=== PATIENT | male | born 1940 | race Caucasian/White ===

== ENCOUNTER 2017-06-06 15:40 | Observation (INO) | payer OTHER, MEDICARE ==
--- NOTE | 2017-06-06 15:49 | PDOC ---
History of Present Illness - General History Source: Patient Exam Limitations: No Limitations - History of Present Illness Initial Comments: 06/06/17 15:51 The patient is a 77 year old male, with a significant past medical history of CAD s/p stents, aortic aneurysm x3, CVA (last episode 2014), COPD, HTN, and HLD , who presents to the emergency department with near syncopal event. The patient reports being out to eat with his when he had sensations of passing out and feeling faint. He reports after eating, his symptoms seemed to improve. He notes his vision has been a little blurry. He denies any changes in speech.He denies any recent fevers, chills, headache. He denies any recent nausea, vomit, diarrhea or constipation. He denies any recent chest pain or shortness of breath. Allergies: NKA Past surgical history: See HPI Social History: Former smoker (last episode 2001). Denies EtOH use and recreational drug use. <Reginald Singh - Last Filed: 06/06/17 15:51> <Rosalie Ha - Last Filed: 06/06/17 18:09> - General Chief Complaint: CVA/TIA Stated Complaint: WEAK Time Seen by Provider: 06/06/17 15:42 NIH Stroke Scale - Last Known Well Date/Time & Onset Date Last Known Well: 06/06/17 - Initial Evaluation Level of consciousness: Alert Ask patient the month and their age: Answers both correctly Ask patient to open & close eyes; make fist and let go: Obeys both correctly Best gaze (horizontal eye movement): Normal Visual field testing: No visual field loss Facial paresis (Show teeth/raise eyebrows/close eyes tight): Normal symmetrical movement Motor Function: Left Arm: Normal Motor Function: Right Arm: Normal (extends arm 90 (or 45) degrees for 10 seconds without drift Motor Function: Left Leg: Normal (extends leg 30 degrees for 5 seconds without drift) Motor Function: Right Leg: Normal (extends leg 30 degrees for 5 seconds without drift) Limb Ataxia: No ataxia Sensory(Use pinprick test arms,legs,trunk,face/side to side): Normal Best language (Describe picture, name items, read sentences): No Aphasia Dysarthria (read several words): Normal articulation Extinction and Inattention: No abnormality - Total Score NIH Stroke Scale Score: 0 <Rosalie Ha - Last Filed: 06/06/17 18:09> Past History <Reginald Singh - Last Filed: 06/06/17 15:51> - Past Medical History Cardiac Disorders: Yes (CAD) CVA: Yes (x 2 weeks ago) COPD: Yes Disorders: (48% KIDNEY FX) HTN: Yes Hypercholesterolemia: (ELEVATED TRIGLYCERIDES) - Surgical History Abdominal Surgery: (COLON RESECTION) Cardiac Surgery: Yes (STENT X 1) - Immunization History Immunization Up to Date: Yes - Suicide/Smoking/Psychosocial Hx Smoking Status: No Smoking History: Never smoked Have you smoked in the past 12 months: No Number of Cigarettes Smoked Daily: 0 If you are a former smoker, when did you quit?: 2001 'Breaking Loose' booklet given: 07/21/14 Hx Alcohol Use: No Drug/Substance Use Hx: No Substance Use Type: None Hx Substance Use Treatment: No <Rosalie Ha - Last Filed: 06/06/17 18:09> - Past Medical History Allergies/Adverse Reactions: Allergies Allergy/AdvReac Type Severity Reaction Status Date / Time No Known Allergies Allergy Verified 11/01/15 12:19 Home Medications: Ambulatory Orders Alprazolam [Xanax] 0.25 mg PO DAILY PRN 03/07/15 Amlodipine Besylate [Norvasc -] 10 mg PO DAILY 03/07/15 Aspirin [ASA -] 81 mg PO DAILY 03/07/15 Atorvastatin Ca [Lipitor] 20 mg PO HS 03/07/15 Cholecalciferol (Vitamin D3) [Vitamin D3] 1,000 unit PO HS 03/07/15 Citalopram Hydrobromide [Celexa -] 40 mg PO DAILY 03/07/15 Losartan Potassium [Cozaar] 100 mg PO DAILY 03/07/15 Metoprolol Succinate [Toprol Xl] 25 mg PO HS 03/07/15 Primidone [Mysoline -] 50 mg PO DAILY 03/07/15 Warfarin Sodium [Coumadin] 3 mg PO Q48H 03/07/15 Warfarin Sodium [Coumadin] 5 mg PO Q48H 03/07/15 Review of Systems - Review of Systems Able to Perform ROS?: Yes Comments:: 06/06/17 15:51 GENERAL/CONSTITUTIONAL: No fever or chills. No weakness. HEAD, EYES, EARS, NOSE AND THROAT: No change in vision. No ear pain or discharge. No sore throat. CARDIOVASCULAR: No chest pain or shortness of breath. RESPIRATORY: No cough, wheezing, or hemoptysis. GASTROINTESTINAL: No nausea, vomiting, diarrhea or constipation. GENITOURINARY: No dysuria, frequency, or change in urination. MUSCULOSKELETAL: No joint or muscle swelling or pain. No neck or back pain. SKIN: No rash NEUROLOGIC: +dizziness. No headache, vertigo, loss of consciousness, or change in strength/sensation. ENDOCRINE: No increased thirst. No abnormal weight change. HEMATOLOGIC/LYMPHATIC: No anemia, easy bleeding, or history of blood clots. ALLERGIC/IMMUNOLOGIC: No hives or skin allergy. <Reginald Singh - Last Filed: 06/06/17 15:51> *Physical Exam - Physical Exam Comments: 06/06/17 15:52 GENERAL: Awake, alert, and fully oriented, in no acute distress HEAD: No signs of trauma EYES: PERRLA, EOMI, sclera anicteric, conjunctiva clear ENT: Auricles normal inspection, hearing grossly normal, nares patent, oropharynx clear without exudates. Moist mucosa NECK: Normal ROM, supple, no lymphadenopathy, JVD, or masses LUNGS: Breath sounds equal, clear to auscultation bilaterally. No wheezes, and no crackles HEART: Regular rate and rhythm, normal S1 and S2, no murmurs, rubs or gallops ABDOMEN: Soft, nontender, normoactive bowel sounds. No guarding, no rebound. No masses EXTREMITIES: Resting tremors in his hands bilaterally. Normal range of motion, no edema. No clubbing or cyanosis. No cords, erythema, or tenderness NEUROLOGICAL: Cranial nerves II through XII grossly intact. Normal speech, normal gait SKIN: Warm, Dry, normal turgor, no rashes or lesions noted. <Reginald Singh - Last Filed: 06/06/17 15:51> ED Treatment Course - LABORATORY CBC & Chemistry Diagram: 06/06/17 16:12 06/06/17 16:12 <Rosalie Ha - Last Filed: 06/06/17 18:09> Medical Decision Making - Medical Decision Making 06/06/17 15:51 Symptoms are atypical for CVA, and his NIHSS is 0. Would suspect cardiac etiology for his near syncope. Will obtain CTH in light of history of prior CVA , however, low suspicion. Will also obtain labs, EKG, and CXR. 06/06/17 17:58 Case d/w Dr. Bain. Agrees with plan for placement on obs for near syncope. I will contact hospitalist for admission. 06/06/17 18:09 Case d/w hospitalist [employer]. Will place on obs. <Rosalie Ha - Last Filed: 06/06/17 18:09> *DC/Admit/Observation/Transfer - Attestations Scribe Attestion: 06/06/17 15:52 Documentation prepared by Reginald Singh, acting as chief medical director for Rosalie Ha MD. <Reginald Singh - Last Filed: 06/06/17 15:51> - Discharge Dispostion Admit: Yes <Rosalie Ha - Last Filed: 06/06/17 18:09> Diagnosis at time of Disposition: Near syncope - Discharge Dispostion Condition at time of disposition: Stable
[2017-06-06 16:25] LABS: BASO % 1.3 % (0-2.0); EOS % 8.3 % (0-4.5); HEMATOCRIT 36.8 % (35.4-49); HEMOGLOBIN 12.9 GM/dl (11.7-16.9); LYMPH % 10.2 % (8-40); MCH 31.9 pg (25.7-33.7); MCHC 35.1 g/dl (32.0-35.9); MEAN CELL VOLUME 90.9 fl (80-96); MEAN PLT VOLUME 8.7 fl (7.5-11.1); MONO % 6.8 % (3.8-10.2); NEUT % 73.4 % (42.8-82.8); PLATELET COUNT 175 K/MM3 (134-434); RBC 4.05 M/mm3 (4.00-5.60); RDW 13.5 % (11.9-15.9); WHITE BLOOD COUNT 8.7 K/mm3 (4.0-10.8)
[2017-06-06 16:28] LABS: INR 2.83 (0.82-1.09)
[2017-06-06 16:33] LABS: ALBUMIN 3.4 g/dl (3.5-5.0); ALK PHOS 72 U/L (32-92); ANION GAP 7 (8-16); BILIRUBIN,TOTAL 0.7 mg/dl (0.2-1.0); BLOOD UREA NITROGEN 51 mg/dl (7-18); CALCIUM 8.4 mg/dl (8.4-10.2); CHLORIDE 108 mmol/L (98-107); CO2 21 mmol/L (22-28); CREATININE 1.9 mg/dl (0.6-1.3); GLUCOSE,RANDOM 138 mg/dl (74-106); POTASSIUM 4.8 mmol/L (3.5-5.1); SGOT/AST 19 U/L (10-42); SGPT/ALT 17 U/L (10-40); SODIUM 136 mmol/L (136-145); TOT PROT 6.1 g/dl (6.4-8.3)
[2017-06-06 16:42] LABS: TROPONIN I (DFP) < 0.03 ng/ml (0.03-0.50)
[2017-06-06 20:08] VITALS: BMI 23.7
[2017-06-06 20:23] LABS: PH,URINE 5.5 (4.5-8); URINE APPEARANCE Clear; URINE BILIRUBIN Negative (NEGATIVE); URINE BLOOD Trace-lysed (NEGATIVE); URINE COLOR YELLOW; URINE GLUCOSE (UA) Negative (NEGATIVE); URINE KETONE Negative (NEGATIVE); URINE NITRITE Negative (NEGATIVE); URINE PROTEIN 1+ (NEGATIVE); URINE UROBILINOGEN 0.2 (0.2-1.0)
[2017-06-06 20:37] LABS: AMORP URATES FEW /hpf (NONE SEEN); EPI CELLS FEW /HPF
[2017-06-06 20:38] LABS: URINE BACTERIA FEW /hpf (NEGATIVE)
--- NOTE | 2017-06-06 22:14 | HP ---
CHIEF COMPLAINT: Near Syncope PCP: Dr. Bain Cardiology- Dr. Siddiqui HISTORY OF PRESENT ILLNESS: This is a 77 y/o man with a significant history of HTN, HLD, CAD (stent x1), Aortic Aneurysm x3, CVA(2015, Coumadin), COPD (non O2 dep). Who presents to the Ed with a near syncope episode x this afternoon. Patient reports eating out a restaurant with his when he became lightheaded, dizzy with blurred vision then he fainted- which he attributes to hypoglycemia. Patient reports in the past having similar episodes. Patient denies fever, chills, cough, OB, CP, palpitations, N/V/D, constipation, dysuria. ER course was notable for: (1) Head CT- neg ICH, mass or lesion (2) Troponin I- negative (3) EKG- sinus bradycardia Recent Travel: None PAST MEDICAL HISTORY: See HPI PAST SURGICAL HISTORY: Cardiac Stent x1 AAA Repair Carotid Endarterectomy Social History: Smoking: Never Alcohol: None Drugs: None Lives with Spouse, retired, Independent Family History: Non-contributory Allergies No Known Allergies Allergy (Verified 11/01/15 12:19) HOME MEDICATIONS: Home Medications Medication Instructions Recorded Alprazolam [Xanax] 0.5 mg PO HS PRN 03/07/15 Aspirin [ASA -] 81 mg PO DAILY 03/07/15 Cholecalciferol (Vitamin D3) 1,000 unit PO HS 03/07/15 [Vitamin D3] Metoprolol Succinate [Toprol Xl] 50 mg PO BID 03/07/15 Warfarin Sodium [Coumadin] 4 mg PO DAILY 03/07/15 Amlodipine Besylate [Norvasc -] 5 mg PO DAILY 06/06/17 Sertraline HCl [Zoloft] 50 mg PO DAILY 06/06/17 REVIEW OF SYSTEMS CONSTITUTIONAL: Absent: fever, chills, diaphoresis, generalized weakness, malaise, loss of appetite, weight change HEENT: Absent: rhinorrhea, nasal congestion, throat pain, throat swelling, difficulty swallowing, mouth swelling, ear pain, eye pain, visual changes CARDIOVASCULAR: syncope, lightheadedness Absent: chest pain, palpitations, irregular heart rate, peripheral edema RESPIRATORY: Absent: cough, shortness of breath, dyspnea with exertion, orthopnea, wheezing, stridor, hemoptysis GASTROINTESTINAL: Absent: abdominal pain, abdominal distension, nausea, vomiting, diarrhea, constipation, melena, hematochezia GENITOURINARY: Absent: dysuria, frequency, urgency, hesitancy, hematuria, flank pain, genital pain MUSCULOSKELETAL: Absent: myalgia, arthralgia, joint swelling, back pain, neck pain SKIN: Absent: rash, itching, pallor HEMATOLOGIC/IMMUNOLOGIC: Absent: easy bleeding, easy bruising, lymphadenopathy, frequent infections ENDOCRINE: Absent: unexplained weight gain, unexplained weight loss, heat intolerance, cold intolerance NEUROLOGIC: dizziness Absent: headache, focal weakness or paresthesias, steady gait, seizure, mental status changes, bladder or bowel incontinence PSYCHIATRIC: Absent: anxiety, depression, suicidal or homicidal ideation, hallucinations. PHYSICAL EXAMINATION Vital Signs - 24 hr 06/06/17 06/06/17 06/06/17 15:40 18:57 19:45 Temperature 98.1 F 98.0 F 98.0 F Pulse Rate 58 L 58 L 58 L Respiratory 20 18 18 Rate Blood Pressure 141/56 151/58 151/58 O2 Sat by Pulse 98 100 100 Oximetry (%) GENERAL: Awake, alert, and fully oriented, in no acute distress. HEAD: Normal with no signs of trauma. EYES: Pupils equal, round and reactive to light, extraocular movements intact, sclera anicteric, conjunctiva clear. No lid lag. EARS, NOSE, THROAT: Ears normal, nares patent, oropharynx clear without exudates. Moist mucous membranes. NECK: Normal range of motion, supple without lymphadenopathy, JVD, or masses. LUNGS: Breath sounds equal, clear to auscultation bilaterally. No wheezes, and no crackles. No accessory muscle use. HEART: Regular rate and rhythm, normal S1 and S2 without murmur, rub or gallop. ABDOMEN: Soft, nontender, not distended, normoactive bowel sounds, no guarding, no rebound, no masses. No hepatomegaly or splenomegaly. MUSCULOSKELETAL: Normal range of motion at all joints. No bony deformities or tenderness. No CVA tenderness. UPPER EXTREMITIES: 2+ pulses, warm, well-perfused. No cyanosis. No clubbing. No peripheral edema. LOWER EXTREMITIES: 2+ pulses, warm, well-perfused. No calf tenderness. No peripheral edema. NEUROLOGICAL: Cranial nerves II-XII intact. Normal speech. Gait not observed PSYCHIATRIC: Cooperative. Good eye contact. Appropriate mood and affect. SKIN: Warm, dry, normal turgor, no rashes or lesions noted, normal capillary refill. Laboratory Results - last 24 hr 06/06/17 06/06/17 06/06/17 16:12 16:12 16:12 WBC 8.7 RBC 4.05 Hgb 12.9 Hct 36.8 MCV 90.9 MCH 31.9 MCHC 35.1 RDW 13.5 Plt Count 175 MPV 8.7 Neutrophils % 73.4 Lymphocytes % 10.2 Monocytes % 6.8 Eosinophils % 8.3 H Basophils % 1.3 PT with INR 31.0 H INR 2.83 H Sodium 136 Potassium 4.8 Chloride 108 H Carbon Dioxide 21 L Anion Gap 7 L BUN 51 H Creatinine 1.9 H Creat Clearance w eGFR 34.46 Random Glucose 138 H Calcium 8.4 Total Bilirubin 0.7 AST 19 ALT 17 Alkaline Phosphatase 72 Creatine Kinase 47 Troponin I < 0.03 L Total Protein 6.1 L Albumin 3.4 L Urine Color Urine Appearance Urine pH Ur Specific [place] Urine Protein Urine Glucose (UA) Urine Ketones Urine Blood Urine Nitrite Urine Bilirubin Urine Urobilinogen Ur Leukocyte Esterase Urine RBC Urine WBC Ur Epithelial Cells Amorphous Urates Urine Bacteria 06/06/17 18:48 WBC RBC Hgb Hct MCV MCH MCHC RDW Plt Count MPV Neutrophils % Lymphocytes % Monocytes % Eosinophils % Basophils % PT with INR INR Sodium Potassium Chloride Carbon Dioxide Anion Gap BUN Creatinine Creat Clearance w eGFR Random Glucose Calcium Total Bilirubin AST ALT Alkaline Phosphatase Creatine Kinase Troponin I Total Protein Albumin Urine Color Yellow Urine Appearance Clear Urine pH 5.5 Ur Specific [place] 1.015 Urine Protein 1+ H Urine Glucose (UA) Negative Urine Ketones Negative Urine Blood Trace-lysed H Urine Nitrite Negative Urine Bilirubin Negative Urine Urobilinogen 0.2 Ur Leukocyte Esterase Negative Urine RBC 10-20 Urine WBC 2-4 Ur Epithelial Cells Few Amorphous Urates Few Urine Bacteria Few ASSESSMENT/PLAN: This is a 77 y/o man with a PMHx of: HTN, HLD, CAD (stent), COPD (non O2 dep), CVA ( 2014, R- hand residual). Placed on Telemetry Observation for Near Syncope. Plan: 1. Near Syncope- r/o ACS vs TIA. Continue Cardiac monitoring, CT Head- No ICH, mass or lesion, Serial Enzymes, EKG- sinus bradycardia, no ST or TWI. Carotid Doppler, Echo, Appreciate Cardiology Consult, Asa, NIHSS 0 2. Hypertension- Will monitor BP, Continue Norvasc, Metoprolol with parameters. Monitor renal function 3. CAD- s/p stent, Continue Asa, BB with parameters 4. Hyperlipidemia- Lipid panel in am, will start on Lipitor 5. Acute on Chronic CKD- At baseline (1.3-2.1), avoid nephrotoxins, repeat BMP in am 6. COPD- No acute exacerbation, Duoneb prn, O2 prn 7. CVA- Continue home med 8. F/E/N- PO Fluids tolerated, Replete lytes prn, Low Na, Low Cholesterol Diet 9. DVT Prophylaxis- OOB, SCDs, Continue Coumadin maintain INR (2.0-3.0) Code Status: Full Code Dispo: Tele Observation Problem List - Problem (1) Near syncope Code(s): R55 - SYNCOPE AND COLLAPSE (2) IDALIA (acute kidney injury) Code(s): N17.9 - ACUTE KIDNEY FAILURE, UNSPECIFIED (3) CKD (chronic kidney disease), stage III Code(s): N18.3 - CHRONIC KIDNEY DISEASE, STAGE 3 (MODERATE) (4) Hypertension with renal disease Code(s): I12.9 - HYPERTENSIVE CHRONIC KIDNEY DISEASE W STG 1-4/UNSP CHR KDNY (5) TIA (transient ischemic attack) Code(s): G45.9 - TRANSIENT CEREBRAL ISCHEMIC ATTACK, UNSPECIFIED (6) Right hand weakness Code(s): M62.81 - MUSCLE WEAKNESS (GENERALIZED) (7) COPD (chronic obstructive pulmonary disease) Code(s): J44.9 - CHRONIC OBSTRUCTIVE PULMONARY DISEASE, UNSPECIFIED (8) DVT prophylaxis Code(s): QLW6058 - Visit type - Emergency Visit Emergency Visit: Yes ED Registration Date: 06/06/17 Care time: The patient presented to the Emergency Department on the above date and was hospitalized for further evaluation of their emergent condition. - New Patient This patient is new to me today: Yes Date on this admission: 06/06/17 - Critical Care Critical Care patient: No
[2017-06-06] MEDS ORDERED: ALPRAZolam 0.25 MG TABLET PO PRN (23:05)
[2017-06-06] MEDS: METOPROLOL SUCCINATE 50 MG TAB.SR.24H (FP) PO SCH (23:12)
[2017-06-06] MEDS: WARFARIN NA 2 MG TABLET (UD) PO SCH (23:25)
[2017-06-07 09:17] LABS: EOS % 11.1 % (0-4.5); HEMATOCRIT 36.9 % (35.4-49); HEMOGLOBIN 12.6 GM/dl (11.7-16.9); LYMPH % 16.3 % (8-40); MCH 31.2 pg (25.7-33.7); MCHC 34.1 g/dl (32.0-35.9); MEAN CELL VOLUME 91.5 fl (80-96); MEAN PLT VOLUME 9.1 fl (7.5-11.1); MONO % 8.8 % (3.8-10.2); NEUT % 62.8 % (42.8-82.8); PLATELET COUNT 168 K/MM3 (134-434); RBC 4.03 M/mm3 (4.00-5.60); RDW 13.5 % (11.9-15.9)
[2017-06-07] MEDS: SERTRALINE HCL 50 MG TABLET (FP) PO SCH (09:50)
[2017-06-07] MEDS: ASPIRIN 81 MG CHEWABLE TABLETS PO SCH (09:50)
[2017-06-07] MEDS: amLODIPine BESYLATE 5 MG TABLET (FP) PO SCH (09:54)
[2017-06-07] MEDS: METOPROLOL SUCCINATE 50 MG TAB.SR.24H (FP) PO SCH ×2 (09:55→23:00)
[2017-06-07 10:14] LABS: ANION GAP 7 (8-16); BLOOD UREA NITROGEN 51 mg/dl (7-18); CALCIUM 8.6 mg/dl (8.4-10.2); CHLORIDE 113 mmol/L (98-107); CO2 21 mmol/L (22-28); CREATININE 1.8 mg/dl (0.6-1.3); GLUCOSE,RANDOM 86 mg/dl (74-106); MAGNESIUM 2.3 mg/dL (1.8-2.4); PHOSPHOROUS 3.4 mg/dl (2.5-4.6); POTASSIUM 5.1 mmol/L (3.5-5.1); SODIUM 141 mmol/L (136-145)
--- NOTE | 2017-06-07 10:33 | PN ---
Physical Exam: SUBJECTIVE: Patient seen and examined, patient denies any chest pain, reports feeling much improved once to go home. OBJECTIVE: Patient is a 77 y/o man with a significant history of HTN, HLD, CAD (stent x1), Aortic Aneurysm x3, CVA(2015, Coumadin), COPD (non O2 dep) Vital Signs Period Temp Pulse Resp BP Sys/Cisneros Pulse Ox Last 24 Hr 97.8 F-98.8 F 58-70 18-20 95-151/42-58 97-100 GENERAL: The patient is awake, alert, and fully oriented, in no acute distress. HEAD: Normal with no signs of trauma. EYES: PERRL, extraocular movements intact, sclera anicteric, conjunctiva clear. No ptosis. ENT: Ears normal, nares patent, oropharynx clear without exudates, moist mucous membranes. NECK: Trachea midline, full range of motion, supple. LUNGS: Breath sounds equal, clear to auscultation bilaterally, no wheezes, no crackles, no accessory muscle use. HEART: Regular rate and rhythm, S1, S2 without murmur, rub or gallop. ABDOMEN: Soft, nontender, nondistended, normoactive bowel sounds, no guarding, no rebound, no hepatosplenomegaly, no masses. EXTREMITIES: 2+ pulses, warm, well-perfused, no edema. NEUROLOGICAL: Cranial nerves II through XII grossly intact. Normal speech, gait not observed. PSYCH: Normal mood, normal affect. SKIN: Warm, dry, normal turgor, no rashes or lesions noted Laboratory Results - last 24 hr 06/06/17 06/06/17 06/06/17 16:12 16:12 16:12 WBC 8.7 RBC 4.05 Hgb 12.9 Hct 36.8 MCV 90.9 MCH 31.9 MCHC 35.1 RDW 13.5 Plt Count 175 MPV 8.7 Neutrophils % 73.4 Lymphocytes % 10.2 Monocytes % 6.8 Eosinophils % 8.3 H Basophils % 1.3 PT with INR 31.0 H INR 2.83 H Sodium 136 Potassium 4.8 Chloride 108 H Carbon Dioxide 21 L Anion Gap 7 L BUN 51 H Creatinine 1.9 H Creat Clearance w eGFR 34.46 Random Glucose 138 H Calcium 8.4 Phosphorus Magnesium Total Bilirubin 0.7 AST 19 ALT 17 Alkaline Phosphatase 72 Creatine Kinase 47 Troponin I < 0.03 L Total Protein 6.1 L Albumin 3.4 L Urine Color Urine Appearance Urine pH Ur Specific [place] Urine Protein Urine Glucose (UA) Urine Ketones Urine Blood Urine Nitrite Urine Bilirubin Urine Urobilinogen Ur Leukocyte Esterase Urine RBC Urine WBC Ur Epithelial Cells Amorphous Urates Urine Bacteria 06/06/17 06/07/17 06/07/17 18:48 00:05 07:30 WBC RBC Hgb Hct MCV MCH MCHC RDW Plt Count MPV Neutrophils % Lymphocytes % Monocytes % Eosinophils % Basophils % PT with INR INR Sodium 141 Potassium 5.1 Chloride 113 H Carbon Dioxide 21 L Anion Gap 7 L BUN 51 H Creatinine 1.8 H Creat Clearance w eGFR Random Glucose 86 D Calcium 8.6 Phosphorus 3.4 Magnesium 2.3 Total Bilirubin AST ALT Alkaline Phosphatase Creatine Kinase Troponin I < 0.02 0.01 Total Protein Albumin Urine Color Yellow Urine Appearance Clear Urine pH 5.5 Ur Specific [place] 1.015 Urine Protein 1+ H Urine Glucose (UA) Negative Urine Ketones Negative Urine Blood Trace-lysed H Urine Nitrite Negative Urine Bilirubin Negative Urine Urobilinogen 0.2 Ur Leukocyte Esterase Negative Urine RBC 10-20 Urine WBC 2-4 Ur Epithelial Cells Few Amorphous Urates Few Urine Bacteria Few 06/07/17 07:30 WBC 8.0 RBC 4.03 Hgb 12.6 Hct 36.9 MCV 91.5 MCH 31.2 MCHC 34.1 RDW 13.5 Plt Count 168 MPV 9.1 Neutrophils % 62.8 Lymphocytes % 16.3 D Monocytes % 8.8 Eosinophils % 11.1 H Basophils % 1.0 PT with INR INR Sodium Potassium Chloride Carbon Dioxide Anion Gap BUN Creatinine Creat Clearance w eGFR Random Glucose Calcium Phosphorus Magnesium Total Bilirubin AST ALT Alkaline Phosphatase Creatine Kinase Troponin I Total Protein Albumin Urine Color Urine Appearance Urine pH Ur Specific [place] Urine Protein Urine Glucose (UA) Urine Ketones Urine Blood Urine Nitrite Urine Bilirubin Urine Urobilinogen Ur Leukocyte Esterase Urine RBC Urine WBC Ur Epithelial Cells Amorphous Urates Urine Bacteria Active Medications Generic Name Dose Route Start Last Admin Trade Name Freq PRN Reason Stop Dose Admin Alprazolam 0.5 mg 06/06/17 23:05 06/06/17 23:45 Xanax - PO 0.5 mg HS PRN Administration ANXIETY Amlodipine Besylate 5 mg 06/07/17 10:00 06/07/17 09:54 Norvasc - PO Not Given DAILY [facility]ER Aspirin 81 mg 06/07/17 10:00 06/07/17 09:50 Asa - PO 81 mg DAILY EVER Administration Atorvastatin Calcium 10 mg 06/07/17 22:00 Lipitor - PO HS [facility] Cholecalciferol 1,000 unit 06/07/17 22:00 Vitamin D3 - PO HS [facility] Metoprolol Succinate 50 mg 06/06/17 23:00 06/07/17 09:55 Toprol Xl - PO Not Given BID EVER Sertraline HCl 50 mg 06/07/17 10:00 06/07/17 09:50 Zoloft - PO 50 mg DAILY [facility]ER Administration Warfarin Sodium 4 mg 06/06/17 18:00 06/06/17 23:25 Coumadin - PO 4 mg DAILY@[address] Head- No ICH, mass or lesion ASSESSMENT/PLAN: 1.cardiovascular Near Syncope- - bradycardia noted on telemetry, hold toprol, appreciate cardiology input - troponin x 3 wnl - pending echo - carotid dopplers right ICA, 50-69% stenosis noted unchanged from carotid doppler 2014, discussed with Dr Mike (vascular) will require outpatient followup hypertension - b/p at goal, hold toprol due to bradycardia, continue norvasc cad - continue lipitor pending lipid profile 2. nephrology ckd - creatine 1.8, baseline 1.3 - strict monitoring, repeat bmp in am 3) pulm COPD- No acute exacerbation, Duoneb prn, O2 prn 4) neuro CVA - fall precautions, PT eval - continue coumadin home dose, patient has a PFO, inr is therepeutic 5). F/E/N- PO Fluids tolerated, Replete lytes prn, Low Na, Low Cholesterol Diet 6) . DVT Prophylaxis- OOB, SCDs, Continue Coumadin maintain INR (2.0-3.0) Code Status: Full Code Dispo: Tele Observation Visit type - Emergency Visit Emergency Visit: Yes ED Registration Date: 06/06/17 Care time: The patient presented to the Emergency Department on the above date and was hospitalized for further evaluation of their emergent condition. - New Patient This patient is new to me today: Yes Date on this admission: 06/07/17 - Critical Care Critical Care patient: No - Discharge Referral Referred to [facility] Med P.C.: No
--- NOTE | 2017-06-07 10:45 | EKG ---
Test Reason : Blood Pressure : / mmHG Vent. Rate : 057 BPM Atrial Rate : 057 BPM P-R Int : 190 ms QRS Dur : 078 ms QT Int : 414 ms P-R-T Axes : 036 037 060 degrees QTc Int : 402 ms SINUS BRADYCARDIA WHEN COMPARED WITH ECG OF 01-NOV-2015 12:29, VT INTERVAL HAS DECREASED Confirmed by MD FIGUEREDO MARJORY ([id number]) on 06/07/2017 10:45:07 AM Referred By: DEBBY BRITO Confirmed By:PAT FIGUEREDO MD
[2017-06-07 13:53] LABS: CHOLESTEROL 149 mg/dl; HDL CHOLESTEROL 35 mg/dl (29-89); LDL CHOLESTEROL (ONLY DFH) 89 mg/dl; TRIGLYCERIDES 127 mg/dl (35-160)
[2017-06-07 15:10] LABS: ANION GAP 6 (8-16); BLOOD UREA NITROGEN 51 mg/dl (7-18); CALCIUM 8.3 mg/dl (8.4-10.2); CHLORIDE 108 mmol/L (98-107); CO2 22 mmol/L (22-28); CREATININE 1.9 mg/dl (0.6-1.3); GLUCOSE,RANDOM 113 mg/dl (74-106); POTASSIUM 4.6 mmol/L (3.5-5.1); SODIUM 136 mmol/L (136-145)
[2017-06-07] MEDS ORDERED: diphenhydrAMINE HCL 25 MG CAPSULE (FP) PO ONE (16:20)
[2017-06-07] MEDS: WARFARIN NA 2 MG TABLET (UD) PO SCH (17:47)
--- NOTE | 2017-06-07 20:52 | CONS ---
CARDIOLOGY CONSULTATION DATE OF CONSULTATION: 06/07/2017 REQUESTING PHYSICIAN: Hospitalist. CHIEF COMPLAINTS: Near syncope, weakness. 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 Patient states that he had gone out for a meal with his , and he got up from his table because he had urgency of micturition, went to the bathroom, was having difficulty in urinating, and was standing there for protracted period of time. After completing the act, he walked out of the bathroom and became lightheaded and felt that he may pass out. There was no history of diaphoresis, chest pain, or discomfort. No dyspnea was reported. He came to the table, sat down, and continued to have lightheadedness. He ate half his meal, and his noticed that he was not looking well and called 9-1-1. Once he was placed on the gurney, the patient states that he started to feel better, was brought to the hospital and admitted. There is no history of palpitations, focal weakness, speech disturbances. There is no history of dyspnea either at rest or with exertion. Patient has history of hypertension, hypertensive cardiovascular disease, and paroxysmal atrial fibrillation. PAST HISTORY: As mentioned in the history of present illness. History of intestinal obstruction. SURGICAL HISTORY: Status post tonsillectomy. Status post partial colon resection. Status post bilateral cataract extraction. Status post left carotid endarterectomy. SOCIAL HISTORY: . He is retired, has no children. Smoked from age 14 to 59 years, used to smoke at least 1 pack of cigarettes a day. He did drink heavily, but at the present time, he has a social drink. He drinks 3 cups of coffee, and there is no history of drug use. FAMILY HISTORY: Father at age 46 because of pancreatitis and was an alcoholic. Mother at 73, had diabetes mellitus and cancer. A brother of congenital heart disease at age 22. ALLERGIES: Patient has been taken off LIPITOR as he has been complaining of generalized pruritus of undetermined etiology. REVIEW OF SYSTEMS: Constitutional: No history of chills, fever, or night sweats. No history of unintentional weight loss. HEENT: No history of headaches, diplopia, or blurred vision. No history of epistaxis, hoarseness, tinnitus, or deafness reported. Cardiovascular: No history of recent chest pain or discomfort. See history of present illness. Respiratory: History of chronic nonproductive cough. No history of hemoptysis or tuberculosis. Gastrointestinal: No history of nausea, vomiting, melena, or hematemesis. No history of abdominal pain or discomfort. No history of change in bowel habits. Genitourinary: History of BPH and poor stream, dribbling, nocturia. See history of present illness. Central Nervous System: See history of present illness. No history of recent seizures or focal weakness. Musculoskeletal: Generalized stiffness. Hematological: No history of ecchymosis, anemia, or bleeding. PHYSICAL EXAMINATION: General: A 77-year-old gentleman was in no acute distress, no pallor, cyanosis, clubbing, or jaundice. Vital Signs: Blood pressure 95/52 mmHg at 9:25 a.m. At 1400 hours was 125/39 mmHg. Pulse 78 beats per minute and regular. He was afebrile. Respirations were 19 per minute, and oxygen saturations were 98% on room air. Neck: Supple. No jugular venous distention. Hepatojugular reflex was negative. Carotids were 2+. Upstrokes were normal. There was a well-healed left carotid endarterectomy scar. The right lobe of the thyroid appears prominent and possibly enlarged, especially on swallowing. Heart: PMI was in the fifth intercostal space. No heaves or thrills. S1 and S2 were normal. Grade 2/6 ejection systolic murmur was heard at the second right intercostal space, ending in early systole. No diastolic murmur or gallops were heard. Lungs: Clear on auscultation. Abdomen: Soft, protuberant, and nontender. No hepatosplenomegaly or palpable masses were felt. Bowel sounds were present. No bruits were appreciated. Extremities: No calf tenderness or dependent edema. Femoral pulses were 2+. Dorsalis pedis and posterior tibial pulses were weak. CURRENT MEDICATIONS: 1. Warfarin 4 mg p.o. daily. 2. Sertraline 50 mg p.o. daily. 3. Alprazolam 0.5 mg p.r.n. 4. Metoprolol succinate 50 mg p.o. b.i.d. 5. Amlodipine 5 mg p.o. daily. 6. Atorvastatin was recently discontinued and has been resumed at 10 mg p.o. daily. 7. Aspirin 81 mg p.o. daily. 8. Vitamin D3 at 1000 international units p.o. daily. 9. Benadryl 25 mg p.o. single dose. LABORATORY DATA: CBC June 07, 2017: WBC count 8000, hemoglobin 12.6 g/dL, platelet count 168,000. Differential was normal except eosinophils were 11.1%. Chemistry on admission June 06, 2017: Sodium 136, potassium 4.8, chloride 108, CO2 of 21 mmol/L. BUN 51, creatinine 1.9 mg/dL. Random glucose was 138 mg/dL. CK was 47, troponin less than 0.03, 0.02, and 0.01. Total cholesterol was 149, triglycerides were 127, LDL cholesterol was 89, HDL cholesterol was 35. Color flow Doppler revealed elevated peak systolic velocity in the distal cervical right internal carotid artery suggesting 50% to 69% stenosis. CT of the head impression: No significant interval change from January 14, 2015. Focal encephalomalacia in the left occipital lobe and in the left frontal lobe posteriorly/laterally at the level of the centrum semiovale. No gross acute intracranial pathology is identified. ECG reported as sinus bradycardia when compared with ECG of November 01, 2015. CA interval has decreased. IMPRESSION: 1. Clinical presentation is suggestive of post-micturition near syncope. 2. Postural hypotension needs exclusion. 3. Coronary artery disease status post percutaneous coronary intervention/stenting, angina pectoris currently stable. 4. Hypertension, currently normotensive. 5. Hypercholesterolemia. 6. Status post endovascular repair of abdominal aortic aneurysm (x2). 7. Left iliac artery aneurysm. 8. Chronic obstructive pulmonary disease. 9. Depression. 10. Anxiety disorder. 11. Chronic kidney disease. 12. Eosinophilia, etiology to be determined. 13. History of pruritus of undetermined etiology. 14. Benign prostatic hypertrophy. RECOMMENDATION: 1. Check blood pressure supine and standing. 2. Evaluation of prostatic enlargement. He has been recently started on Flomax 0.4 mg and may be contributing to his symptoms. 3. Patient should remain hydrated. 4. If necessary, antihypertensive therapy may have to be reduced. 5. If symptoms were to recur, further investigation would be warranted. Thank you for your referral. Yours sincerely, RICH MURILLO M.D. [id number]
[2017-06-07] MEDS ORDERED: CHOLECALCIFEROL (VITAMIN D3) 1,000 UNIT TABLET (FP) PO SCH (22:00)
[2017-06-07] MEDS ORDERED: ATORVASTATIN CA 10 MG TABLET (FP) PO SCH (22:00)
[2017-06-08 06:02] VITALS: TEMP 98.8
[2017-06-08] MEDS: SERTRALINE HCL 50 MG TABLET (FP) PO SCH (09:49)
[2017-06-08] MEDS: amLODIPine BESYLATE 5 MG TABLET (FP) PO SCH (09:49)
[2017-06-08] MEDS: ASPIRIN 81 MG CHEWABLE TABLETS PO SCH (09:49)
[2017-06-08] MEDS: METOPROLOL SUCCINATE 50 MG TAB.SR.24H (FP) PO SCH (09:50)
[2017-06-08 10:13] VITALS: BP 107/36; PULSE 59
[2017-06-08] MEDS ORDERED: METOPROLOL SUCCINATE 25 MG TAB.SR.24H (FP) PO SCH (11:13)
--- NOTE | 2017-06-08 12:22 | DS ---
Physical Exam: SUBJECTIVE: Patient seen and examined, sitting up in bed, eating lunch, denies any chest pain or shortness of breath. OBJECTIVE: This is a 77 y/o man with a significant history of HTN, HLD, CAD ( stent x1), Aortic Aneurysm x3, CVA(2015, Coumadin), COPD (non O2 dep). Who presents to the Ed with a near syncope episode x this afternoon. Patient reports eating out a restaurant with his when he became lightheaded, dizzy with blurred vision then he fainted- which he attributes to hypoglycemia. Patient reports in the past having similar episodes. Patient denies fever, chills, cough, OB, CP, palpitations, N/V/D, constipation, dysuria. ER course was notable for: (1) Head CT- neg ICH, mass or lesion (2) Troponin I- negative (3) EKG- sinus bradycardia Vital Signs Period Temp Pulse Resp BP Sys/Cisneros Pulse Ox Last 24 Hr 98.3 F-98.8 F 59-78 19-19 91-143/36-58 96-99 PHYSICAL EXAM GENERAL: The patient is awake, alert, and fully oriented, in no acute distress. HEAD: Normal with no signs of trauma. EYES: PERRL, extraocular movements intact, sclera anicteric, conjunctiva clear. ENT: Ears normal, nares patent, oropharynx clear without exudates, moist mucous membranes. NECK: Trachea midline, full range of motion, supple. LUNGS: Breath sounds equal, clear to auscultation bilaterally, no wheezes, no crackles, no accessory muscle use. HEART: Regular rate and rhythm, S1, S2 without murmur, rub or gallop. ABDOMEN: Soft, nontender, nondistended, normoactive bowel sounds, no guarding, no rebound, no hepatosplenomegaly, no masses. EXTREMITIES: 2+ pulses, warm, well-perfused, no edema. NEUROLOGICAL: Cranial nerves II through XII grossly intact. Normal speech, gait not observed. PSYCH: Normal mood, normal affect. SKIN: Warm, dry, normal turgor, no rashes or lesions noted. LABS Laboratory Results - last 24 hr 06/07/17 06/07/17 06/07/17 07:30 07:30 13:30 Sodium 136 Potassium 4.6 Chloride 108 H Carbon Dioxide 22 Anion Gap 6 L BUN 51 H Creatinine 1.9 H Random Glucose 113 H D Hemoglobin A1c % 5.9 D Calcium 8.3 L Triglycerides 127 Cholesterol 149 Total LDL Cholesterol 89 HDL Cholesterol [address] Head- No ICH, mass or lesion HOSPITAL COURSE: 1. Near Syncope, bradycardia noted on telemetry, toprol decreased to 25mg BID , troponin x 3 wnl, ECHO grade I diastolic dysfunction, lv WNL. Carotid dopplers right ICA, 50-69% stenosis noted unchanged from carotid doppler 2014, discussed with Dr Mike (vascular) will require outpatient followup. patient has a past medical history of hypertension, b/p at goal, continued norvasc, lipitor continued LFTs wnl. Creatine 1.8, baseline 1.3. coumadin home dose continued, inr is therepeutic. Patient's private bed bug exterminator, Dr Jones consulted and followed. PLAN - discharge home with VNS - decrease lopressor to 25mg BID - return precautions reviewed. Date of Admission:06/06/17 Date of Discharge: 06/08/17 Minutes to complete discharge: 45 Discharge Summary Reason For Visit: PRE SYNCOPE Current Active Problems COPD (chronic obstructive pulmonary disease) (Acute) DVT prophylaxis (Acute) Near syncope (Acute) Condition: Stable - Instructions - Home Medications Comprehensive Discharge Medication List: Ambulatory Orders Alprazolam [Xanax] 0.5 mg PO HS PRN 03/07/15 Aspirin [ASA -] 81 mg PO DAILY 03/07/15 Cholecalciferol (Vitamin D3) [Vitamin D3] 1,000 unit PO HS 03/07/15 Metoprolol Succinate [Toprol Xl] 50 mg PO BID 03/07/15 Warfarin Sodium [Coumadin] 4 mg PO DAILY 03/07/15 Amlodipine Besylate [Norvasc -] 5 mg PO DAILY 06/06/17 Sertraline HCl [Zoloft] 50 mg PO DAILY 06/06/17 This patient is new to me today: No Emergency Visit: Yes ED Registration Date: 06/06/17 Care time: The patient presented to the Emergency Department on the above date and was hospitalized for further evaluation of their emergent condition. Critical Care patient: No - Discharge Referral Referred to [facility] No
== END 2017-06-08 13:30 | disposition home health service (06) ==
LOC: FER 15:40 → FM/S 18:22
PROVIDERS: ADMIT Internal Medicine; ATTEND Nurse Practitioner Family
DX: R55 Syncope and collapse (principal); I25.10 Atherosclerotic heart disease of native coronary artery without angina pectoris; E78.5 Hyperlipidemia, unspecified; I12.9 Hypertensive chronic kidney disease with stage 1 through stage 4 chronic kidney disease, or unspecified chronic kidney disease; N18.9 Chronic kidney disease, unspecified; J44.9 Chronic obstructive pulmonary disease, unspecified; Z86.73 Personal history of transient ischemic attack (TIA), and cerebral infarction without residual deficits; Z95.5 Presence of coronary angioplasty implant and graft; Z79.01 Long term (current) use of anticoagulants; Z79.82 Long term (current) use of aspirin; Z86.79 Personal history of other diseases of the circulatory system; R00.1 Bradycardia, unspecified
CPT/HCPCS: 36415; 70450-TC; 71045-TC; 80048; 80053; 80061; 81003; 81015; 82550; 83036; 83735; 84100; 84484; 85025; 85610; 93005; 93306-TC; 93880-TC; 97116-GP; 97161-GP; 99283-25; G0378

== ENCOUNTER 2018-10-27 18:11 | Inpatient (IN) | payer OTHER, MEDICARE ==
--- NOTE | 2018-10-27 20:01 | PDOC ---
History of Present Illness - General Chief Complaint: Shortness of Breath Stated Complaint: SYNCOPE/NEAR SYNCOPE Time Seen by Provider: 10/27/18 18:48 History Source: Patient, Spouse ( present at bedside.), Old Records Exam Limitations: No Limitations - History of Present Illness Initial Comments: HPI: 78 y/o male presenting to [facility] ER complaining of shortness of breath that started this afternoon for approx. 15 min to several hours. Pt states he has suffered episodes of shortness of breath chronically since his abdominal aortic aneurysm repair August 2017. reports todays episode was different because her appeared more labored than usual, he had difficulty walking, and would not open his eyes or speak to her. Symptoms improved after EMS arrived and placed the pt on oxygen. Denies coughing, sneezing, or wheezing. He has a h/ o of COPD and emphysema managed only with albuterol. Reports poor compliance with both medication and clinic follow up. He repeatedly stated that he worked for [employer] and therefore knew he was on too many medications. PCP: Dr. Bain Manager Insurance: Dr. London Industrial Servicer: Dr. Bui Social Hx: - Former smoker, stopped 17 min ago Medical Hx: - [place] s/p stenting 2001 - CVA x2, last 2014 on Coumadin - CKD, stage 3 - BPH - s/p AAA endovascular stenting, last revision August 2017 at [facility] - common iliac aneurysm - s/p L carotid endarterectomy 2014 - s/p colon resection, reason unclear Review of Systems: In addition to that documented in the HPI above, the additional ROS was obtained : Constitutional: Denies fevers or chills Head: Denies vision changes ENMT: Denies sore throat CV: Denies chest pain, orthopnea, paroxysmal nocturnal dyspnea, or bilateral lower leg swelling Resp: Per HPI GI: Denies vomiting or diarrhea : Denies painful urination MSK: Denies recent trauma Skin: Denies new rashes Neuro: Denies new numbness or tingling or weakness Endocrine: Denies polyuria Heme: Denies bleeding or bruising Physical Examination: Constitutional: Adult male in no acute distress or obvious discomfort. Found semi-fowlers on hospital bed. Alert and oriented x4. Answered all questions appropriately and completely. Speech was non-labored, non-pressured. Able to speak in multi-word responses without pausing. Head: Normocephalic. No obvious external signs of trauma. Eyes: Pupils 3mm and PERRL bilaterally. EOMI. No nystagmus. Sclerae white. Conjunctiva moist and not injected. Ears: Hearing grossly intact. Nose: No nasal discharge. Throat: Uvula midline. No tongue deviation. Neck: Supple, trachea is midline. Cardiovascular / Chest: Regular rate and regular rhythm. No murmur, rubs, clicks , or gallops. Peripheral pulses: radial pulses full. Respiratory: Breathing unlabored on room air. No tachypnea, retractions, or abdominal breathing. Equal chest rise and fall. Clear to auscultation bilaterally. No stridor, no wheezing, no rhonchi. Gastrointestinal: abdomen is soft, non-tender, non-distended. No pulsatile masses. Neuro: Alert and oriented x4. Moving all four extremities spontaneously. Intention tremor in bilateral upper extremities. No focal deficits. Sensation to all four extremities intact. Upper and lower extremities: proximal and distal strength 5/5. Medical Assistant Instructor strength 5/5 - equal and symmetric. Plantar flexion and dorsiflexion 5/5. Difficulty performing rapid alternating movements and heel to ashraf. Skin: Warm, dry, and intact. : No R or L CVA tenderness. Psych: Affect: disgruntled. Mood: frustrated. MDM: *Reviewed vital signs, nursing notes, and prior visit documentation (if available). 78 y/o male presenting for shortness of breath versus pre-syncopal episode. Afebrile. Vitals unremarkable for hypotension or tachycardia. Normoxic on room air. Physical exam as described above. Suspect likely exacerbation / progression of disease of emphysema / COPD. Low suspicion for ACS or dissection without chest or back pain. Low suspicion for AAA rupture without abdominal pain or vital sign derangement. CBC unremarkable for anemia. Mild leukocytosis without left shift. Low suspicion for active infection. CXR revealed increased vascular markings but no consolidations per ED wet read. BNP slightly elevated. Possible CHF exacerbation though pt does not have a h/o of CHF. Troponin not elevated. EKG unremarkable for ischemic findings. ABG RESULTS ARE NOT ACCURATE. THESE RESULTS WERE OBTAINED FROM A VENOUS SAMPLE. Repeat ABG drawn by RT. ED Attending discussed case with Dr. Bain. Stated he had not seen the pt in over a year. Requested the pt be admitted to [facility]. Will resume care if pt stays over 24hrs. Case discussed with [facility] EYE DROPPER ASSEMBLER. Will admit the pt to telemetry on observation status for SOB and possible presyncopal episode. Vu Monteiro M.D., PGY1 Emergency Medicine Resident Past History - Past Medical History Allergies/Adverse Reactions: Allergies Allergy/AdvReac Type Severity Reaction Status Date / Time No Known Allergies Allergy Verified 10/27/18 18:25 Home Medications: Ambulatory Orders Alprazolam [Xanax] 0.5 mg PO HS PRN 03/07/15 Aspirin [ASA -] 81 mg PO DAILY 03/07/15 Cholecalciferol (Vitamin D3) [Vitamin D3] 1,000 unit PO HS 03/07/15 Warfarin Sodium [Coumadin] 4 mg PO DAILY 03/07/15 Amlodipine Besylate [Norvasc -] 5 mg PO DAILY 06/06/17 Sertraline HCl [Zoloft] 50 mg PO DAILY 06/06/17 Atorvastatin Ca [Lipitor] 10 mg PO HS tablet 06/08/17 Metoprolol Succinate [Toprol XL -] 25 mg PO BID #60 tab.sr.24h 06/08/17 Cardiac Disorders: Yes (CAD) CVA: Yes (x 2 weeks ago) COPD: Yes Disorders: (48% KIDNEY FX) HTN: Yes Hypercholesterolemia: (ELEVATED TRIGLYCERIDES) - Surgical History Abdominal Surgery: (COLON RESECTION) Cardiac Surgery: Yes (STENT X 1) - Immunization History Immunization Up to Date: Yes - Suicide/Smoking/Psychosocial Hx Smoking Status: No Smoking History: Former smoker Have you smoked in the past 12 months: No Number of Cigarettes Smoked Daily: 0 If you are a former smoker, when did you quit?: 2001 Information on smoking cessation initiated: No 'Breaking Loose' booklet given: 07/21/14 Hx Alcohol Use: No Drug/Substance Use Hx: No Substance Use Type: None Hx Substance Use Treatment: No *Physical Exam - Vital Signs Last Vital Signs Temp Pulse Resp BP Pulse Ox 98.7 F 59 L 20 147/66 100 10/27/18 18:26 10/27/18 18:26 10/27/18 18:26 10/27/18 18:26 10/27/18 18:26 ED Treatment Course - LABORATORY CBC & Chemistry Diagram: 10/27/18 20:00 10/27/18 20:00 - RADIOLOGY Radiology Studies Ordered: Category Date Time Status CHEST X-RAY PORTABLE* [RAD] Stat Radiology 10/27/18 19:55 Ordered *DC/Admit/Observation/Transfer Diagnosis at time of Disposition: Pre-syncope, Shortness of breath - Discharge Dispostion Condition at time of disposition: Stable Decision to Admit order: Yes - Referrals - Patient Instructions - Post Discharge Activity
[2018-10-27 20:11] LABS: BASO % 0.7 % (0-2.0); CARBOXYHEMOGLOBIN 1.2 % (0-2); EOS % 3.5 % (0-4.5); HEMATOCRIT 37.9 % (35.4-49); HEMOGLOBIN 12.4 GM/dL (11.7-16.9); LYMPH % 5.9 % (8-40); MCH 30.1 pg (25.7-33.7); MCHC 32.7 g/dl (32.0-35.9); MEAN CELL VOLUME 92.1 fl (80-96); MEAN PLT VOLUME 8.4 fl (7.5-11.1); MONO % 5.3 % (3.8-10.2); NEUT % 84.6 % (42.8-82.8); PLATELET COUNT 170 K/MM3 (134-434); RBC 4.12 M/mm3 (4.00-5.60); RDW 14.3 % (11.9-15.9); WHITE BLOOD COUNT 11.5 K/mm3 (4.0-10.0)
[2018-10-27 20:30] LABS: ARTERIAL BLD GAS O2 SATURATION 58.2 % (95-98); ARTERIAL BLOOD GAS PCO2 35.4 mmHg (35-45); ARTERIAL BLOOD GAS PO2 32.6 mmHg (80-105)
[2018-10-27 20:31] LABS: ARTERIAL BLOOD GAS BASE EXCESS -3.1 meq/l (-2-2)
[2018-10-27 20:45] LABS: ALBUMIN 3.4 g/dl (3.4-5.0); ALK PHOS 108 U/L (45-117); ANION GAP 10 MMOL/L (8-16); BILIRUBIN,TOTAL 0.4 mg/dL (0.2-1); BLOOD UREA NITROGEN 44 mg/dL (7-18); CALCIUM 8.1 mg/dL (8.5-10.1); CHLORIDE 104 mmol/L (98-107); CO2 23 mmol/L (21-32); CREATININE 2.3 mg/dL (0.55-1.3); GLUCOSE,RANDOM 115 mg/dL (74-106); N-TERMINAL BNP 885.5 pg/ml (5-450); POTASSIUM 4.9 mmol/L (3.5-5.1); SGOT/AST 15 U/L (15-37); SGPT/ALT 23 U/L (13-61); SODIUM 137 mmol/L (136-145); TOT PROT 6.5 g/dl (6.4-8.2)
[2018-10-27 20:48] LABS: VENOUS PC02 35.4 mmHg (41-51); VENOUS PH 7.39 (7.31-7.41)
[2018-10-27 20:49] LABS: VENOUS PO2 32.6 mmHg (30-40)
[2018-10-27] MEDS ORDERED: ALBUTEROL SO4 2.5/IPRATROPIUM 0.5 INH SOL 3 ML VIAL.NEB. NEB ONE ×2 (20:52→21:19)
[2018-10-27 20:59] LABS: ARTERIAL BLOOD GAS pH 7.39 (7.35-7.45)
--- NOTE | 2018-10-27 21:00 | PDOC ---
Documentation entered by Elmira Merino SCRIBE, acting as scribe for Venus Fung DO. Venus Fung, : This documentation has been prepared by the Angelique hylton Nirvannie, SCRIBE, under my direction and personally reviewed by me in its entirety. I confirm that the documentation accurately reflects all work, treatment, procedures, and medical decision making performed by me. Attending Attestation - Resident Resident Name: Vu Monteiro - ED Attending Attestation I have performed the following: I have examined & evaluated the patient, The case was reviewed & discussed with the resident, I agree w/resident's findings & plan - HPI HPI: 10/27/18 21:43 The patient is a 78 year old male, with a significant past medical history of depression, [place] (cardiac stenting 2002, CVA (x2, noncompliant with Coumadin), CKD Stage III, BPH, AAA (s/p endovascular stenting and revision x4, last 2017 @ [facility]), left sided common iliac aneurysm (stable on last CT scan), colon resection, and left sided endarterectomy (15), who presents to the emergency department s/p episode of near syncope and shortness of breath. As per patient, he was straining to urinate in the bathroom and as he walked out he began feeling short of breath, sat down, and notes he stopped responding to verbal stimuli momentarily and was short of breath for approximately 15min. Patient endorses mild dysuria and partial retention. He denies any recent palpitations or shortness of breath. He denies any recent fevers, chills, headache or dizziness. He denies any recent nausea, vomit, diarrhea or constipation. He denies any recent palpitations or shortness of breath. Allergies: NKDA Primary Care Physician: Dr. Bain - Physicial Exam PE: 10/27/18 21:43 Constitutional: Awake, alert, oriented. No acute distress. Head: Normocephalic. Atraumatic Eyes: PERRL. EOMI. Conjunctivae are not pale. ENT: Mucous membranes are moist and intact. Posterior pharynx without exudates or erythema. Uvula midline. Neck: Supple. Full ROM. No lymphadenopathy. Cardiovascular: Regular rate. Regular rhythm. S1, S2 regular. Distal pulses are 2+ and symmetric. Pulmonary/Chest: No evidence of respiratory distress. Clear to auscultation bilaterally No wheezing, rales or rhonchi. Abdominal: Soft and non-distended. There is no tenderness. No rebound, guarding or rigidity. No organomegaly. No palpable masses. Good bowel sounds. Back: No CVA tenderness. Musculoskeletal: No edema. No cyanosis. No clubbing. Full range of motion in all extremities. No calf tenderness. Radial/pedal pulses are intact and 2+ bilaterally Skin: +Sonal to the blt folds of the groin. No penile discharge, lesions, or bleeding. Neurological: Alert and oriented to person, place, and time. Cranial nerves II -XII are grossly intact. Normal speech. Strength is grossly symmetric. No sensory deficits. Psychiatric: Good eye contact. Normal interaction, affect and behavior. - Medical Decision Making 10/27/18 20:53 I, Dr. Venus Fung, DO, attest that this document has been prepared under my direction and personally reviewed by me in its entirety. I further attest, that it accurately reflects all work, treatment, procedures and medical decision -making performed by me. 10/27/18 20:53 a/p: 78yo male presents to the ED with his for eval of an episode of near syncope/sob today -was straining in the bathroom when he started to feel sob -states dysuria on and off for a year -pt appears depressed -states sob today, has resolved -denies feeling lightheaded now -states symptoms resolved when the patient was given O2 by medics -pt hasn't seen pmd in a year since last aaa repair -pt denies cp or abd pain -pt has neuro deficits/aphasia since stroke in 2015 -denies head injury -denies cough/f/c -will send labs, inr, ua, ucx -will obtain cxr, ekg -will discuss with Dr. Bain 21:[address] Bain, patient's PCP, for admission awaiting call back. 10/27/18 22:[address] Bain who requests luhobob do obs placement overnight 10/27/18 22:55 resident discussed the case with JEFF SOFTWARE BUILD ENGINEER who accepts pt to service labs labeled ABG are truly a VBG Heart Score/ECG Review - ECG Intrepretation Comment:: 10/27/18 21:00 sinus at 58, 1st degree av block, no acute st/t wave findings, q waves septally which are age indeterminate
[2018-10-27 21:19] LABS: INR 2.98 (0.83-1.09); PROTHROMBIN TIME (PATIENT) 35.6 SEC (9.7-13.0)
--- NOTE | 2018-10-27 23:43 | HP ---
CHIEF COMPLAINT:SOB, pre-syncope PCP:Taya HISTORY OF PRESENT ILLNESS: Luiz De La Cruz is a 78 yr old M, significant past medical history of depression, [place] (cardiac stenting 2001, CVA (x2, noncompliant with Coumadin), CKD Stage III, BPH, AAA (s/p endovascular stenting and revision x4, last 2017 @ [facility]), left sided common iliac aneurysm (stable on last CT scan), colon resection, and left sided endarterectomy (15), presented to ED with pre- syncope, and SOB on exertion. present at bedside, pt reports not being able to make it to his Dr's appt because of not feeling well, has not seen PCP, Cardio, Renal in over a year. 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 Recent Travel: PAST MEDICAL HISTORY: -UT s/p stenting 2001 - CVA x2, last 2014 on Coumadin - CKD, stage 3 - BPH - s/p AAA endovascular stenting, last revision August 2017 at [facility] - L common iliac aneurysm - s/p L carotid endarterectomy 2015 - s/p colon resection, reason unclear PAST SURGICAL HISTORY: -UT stenting 2001 -s/p AAA endovascular stenting, last revision 09/15 @ [facility] -s/p L carotid endartectomy 2015 - s/p colon resection Social History: Smoking:former Alcohol:denies Drugs: denies Family History: Allergies No Known Allergies Allergy (Verified 10/27/18 18:25) HOME MEDICATIONS: Home Medications Medication Instructions Recorded Alprazolam [Xanax] 0.5 mg PO HS PRN 03/07/15 Aspirin [ASA -] 81 mg PO DAILY 03/07/15 Cholecalciferol (Vitamin D3) 1,000 unit PO HS 03/07/15 [Vitamin D3] Warfarin Sodium [Coumadin] 4 mg PO DAILY 03/07/15 Amlodipine Besylate [Norvasc -] 5 mg PO DAILY 06/06/17 Sertraline HCl [Zoloft] 50 mg PO DAILY 06/06/17 Atorvastatin Ca [Lipitor] 10 mg PO HS tablet 06/08/17 Metoprolol Succinate [Toprol XL -] 25 mg PO BID #60 tab.sr.24h 06/08/17 REVIEW OF SYSTEMS CONSTITUTIONAL: Absent: fever, chills, diaphoresis, generalized weakness, malaise, loss of appetite, weight change HEENT: Absent: rhinorrhea, nasal congestion, throat pain, throat swelling, difficulty swallowing, mouth swelling, ear pain, eye pain, visual changes CARDIOVASCULAR: Absent: chest pain, syncope, palpitations, irregular heart rate, lightheadedness , peripheral edema RESPIRATORY: +SOB, dyspnea on exertion Absent: cough, orthopnea, wheezing, stridor, hemoptysis GASTROINTESTINAL: Absent: abdominal pain, abdominal distension, nausea, vomiting, diarrhea, constipation, melena, hematochezia GENITOURINARY: straining to urinate Absent: dysuria, frequency, urgency, hematuria, flank pain, genital pain MUSCULOSKELETAL: Absent: myalgia, arthralgia, joint swelling, back pain, neck pain SKIN: itching in groin area Absent: pallor HEMATOLOGIC/IMMUNOLOGIC: Absent: easy bleeding, easy bruising, lymphadenopathy, frequent infections ENDOCRINE: Absent: unexplained weight gain, unexplained weight loss, heat intolerance, cold intolerance NEUROLOGIC: Absent: headache, focal weakness or paresthesias, dizziness, unsteady gait, seizure, mental status changes, bladder or bowel incontinence PSYCHIATRIC: Absent: anxiety, depression, suicidal or homicidal ideation, hallucinations. PHYSICAL EXAMINATION Vital Signs - 24 hr 10/27/18 18:26 Temperature 98.7 F Pulse Rate 59 L Respiratory 20 Rate Blood Pressure 147/66 O2 Sat by Pulse 100 Oximetry (%) GENERAL: Awake, alert, and fully oriented, in no acute distress. HEAD: Normal with no signs of trauma. EYES: Pupils equal, round and reactive to light, extraocular movements intact, sclera anicteric, conjunctiva clear. No lid lag. EARS, NOSE, THROAT: Ears normal, nares patent, oropharynx clear without exudates. Moist mucous membranes. NECK: Normal range of motion, supple without lymphadenopathy, JVD, or masses. LUNGS: Breath sounds equal, clear to auscultation bilaterally. No wheezes, and no crackles. No accessory muscle use. HEART: Regular rate and rhythm, normal S1 and S2 without murmur, rub or gallop. ABDOMEN: Soft, nontender, not distended, normoactive bowel sounds, no guarding, no rebound, no masses. No hepatomegaly or splenomegaly. MUSCULOSKELETAL: Normal range of motion at all joints. No bony deformities or tenderness. No CVA tenderness. UPPER EXTREMITIES: 2+ pulses, warm, well-perfused. No cyanosis. No clubbing. No peripheral edema. LOWER EXTREMITIES: 2+ pulses, warm, well-perfused. No calf tenderness. No peripheral edema. NEUROLOGICAL: Cranial nerves II-XII intact. Normal speech. Normal gait. PSYCHIATRIC: Cooperative. Good eye contact. Appropriate mood and affect. SKIN: fungal rash in groin area, no bleeding noted, Warm, dry, normal turgor, no rashes or lesions noted, normal capillary refill. Laboratory Results - last 24 hr 10/27/18 10/27/18 10/27/18 20:00 20:00 20:00 WBC 11.5 H RBC 4.12 Hgb 12.4 Hct 37.9 MCV 92.1 MCH 30.1 MCHC 32.7 RDW 14.3 Plt Count 170 MPV 8.4 Absolute Neuts (auto) 9.8 H Neutrophils % 84.6 H Lymphocytes % 5.9 L D Monocytes % 5.3 Eosinophils % 3.5 Basophils % 0.7 Nucleated RBC % 0 PT with INR Cancelled INR Cancelled Anticoagulation Therapy No Result Required. Puncture Site No Result Required. ABG pH 7.39 ABG pCO2 at Pt Temp 35.4 ABG pO2 at Pt Temp 32.6 L* ABG HCO3 20.8 L ABG O2 Sat (Measured) 58.2 L ABG O2 Content 10.1 L ABG Base Excess -3.1 L Candido Test No Result Required. VBG pH POC VBG pCO2 POC VBG pO2 VBG HCO3 VBG O2 Sat (Kirsten) VBG Base Excess Carboxyhemoglobin Methemoglobin O2 Delivery Device No Result Required. Oxygen Flow Rate No Result Required. Vent Mode No Result Required. Vent Rate No Result Required. Mechanical Rate No Result Required. Pressure Support Vent No Result Required. Sodium Potassium Chloride Carbon Dioxide Anion Gap BUN Creatinine Est GFR (CKD-EPI)AfAm Est GFR (CKD-EPI)NonAf Random Glucose Calcium Total Bilirubin AST ALT Alkaline Phosphatase Creatine Kinase Troponin I B-Natriuretic Peptide Total Protein Albumin 10/27/18 10/27/18 10/27/18 20:00 20:00 20:00 WBC RBC Hgb Hct MCV MCH MCHC RDW Plt Count MPV Absolute Neuts (auto) Neutrophils % Lymphocytes % Monocytes % Eosinophils % Basophils % Nucleated RBC % PT with INR INR Anticoagulation Therapy Puncture Site ABG pH ABG pCO2 at Pt Temp ABG pO2 at Pt Temp ABG HCO3 ABG O2 Sat (Measured) ABG O2 Content ABG Base Excess Candido Test VBG pH 7.39 POC VBG pCO2 35.4 L POC VBG pO2 32.6 VBG HCO3 20.8 L VBG O2 Sat (Kirsten) 58.2 L VBG Base Excess -3.1 L Carboxyhemoglobin 1.2 Methemoglobin 0.0 O2 Delivery Device Oxygen Flow Rate Vent Mode Vent Rate Mechanical Rate Pressure Support Vent Sodium 137 Potassium 4.9 Chloride 104 Carbon Dioxide 23 Anion Gap 10 BUN 44 H Creatinine 2.3 H Est GFR (CKD-EPI)AfAm 30.17 Est GFR (CKD-EPI)NonAf 26.04 Random Glucose 115 H Calcium 8.1 L Total Bilirubin 0.4 AST 15 ALT 23 Alkaline Phosphatase 108 Creatine Kinase 44 Troponin I < 0.02 B-Natriuretic Peptide 885.5 H Total Protein 6.5 Albumin 3.4 10/27/18 21:00 WBC RBC Hgb Hct MCV MCH MCHC RDW Plt Count MPV Absolute Neuts (auto) Neutrophils % Lymphocytes % Monocytes % Eosinophils % Basophils % Nucleated RBC % PT with INR 35.60 H INR 2.98 H Anticoagulation Therapy Puncture Site ABG pH ABG pCO2 at Pt Temp ABG pO2 at Pt Temp ABG HCO3 ABG O2 Sat (Measured) ABG O2 Content ABG Base Excess Candido Test VBG pH POC VBG pCO2 POC VBG pO2 VBG HCO3 VBG O2 Sat (Kirsten) VBG Base Excess Carboxyhemoglobin Methemoglobin O2 Delivery Device Oxygen Flow Rate Vent Mode Vent Rate Mechanical Rate Pressure Support Vent Sodium Potassium Chloride Carbon Dioxide Anion Gap BUN Creatinine Est GFR (CKD-EPI)AfAm Est GFR (CKD-EPI)NonAf Random Glucose Calcium Total Bilirubin AST ALT Alkaline Phosphatase Creatine Kinase Troponin I B-Natriuretic Peptide Total Protein Albumin ASSESSMENT/PLAN: Luiz De La Cruz is a 78 yr old M, significant past medical history of depression, [place] (cardiac stenting 2002, CVA (x2, noncompliant with Coumadin), CKD Stage III, BPH, AAA (s/p endovascular stenting and revision x4, last 2017 @ [facility]), left sided common iliac aneurysm (stable on last CT scan), colon resection, and left sided endarterectomy (15), admitted under observation for Admitting Diagnosis Pre-syncope SOB Chronic Problems CVA x2 CKD stage 3 BPH hx of endarterectomy COPD A/P: #Pre-Syncope -tele obs -Carotid doppler in AM -Carotid 2018- 50-69% ICA stenosis -Cardio consult (Dr. Sultana) -EKG sinus ellen -serial trops -UA neg, urine cx in process #SOB, exertional -ABG note correct, VBG drawn -Echo in AM -Cardio consult -BNP 885 -oxygen NC PRN #Sonal -nystatin apply to groin area BID #CKD stage 3 -Creat 2.3 -avoid nephrotoxin -IVF -repeat BMP in AM -Renal consult -Dr. Elli Trimble #COPD -duonebs prn -no use of home O2 #CVA -on coumadin, lipitor -INR 2.98 (goal 2-3) -as per pt takes 3mg M,W,Fri, 4mg Tues, Thurs, sat, sun -hold coumadin tonight -check INR daily #HTN -on norvasc, BB Dispo: requires inpatient treatment Visit type - Emergency Visit Emergency Visit: Yes Care time: The patient presented to the Emergency Department on the above date and was hospitalized for further evaluation of their emergent condition. - New Patient This patient is new to me today: Yes Date on this admission: 10/28/18 - Critical Care Critical Care patient: No
[2018-10-28] MEDS: NYSTATIN POWDER 100,000 UNITS/GM - 15 GM TOPICAL POWDER TP SCH ×3 (00:41→21:07)
[2018-10-28] MEDS: SODIUM CHLORIDE 1,000 ML IV SCH ×2 (00:42→21:05)
[2018-10-28] MEDS ORDERED: ALPRAZolam 0.25 MG TABLET ONE (01:13)
[2018-10-28] MEDS: ALPRAZolam 0.25 MG TABLET PO PRN ×2 (01:34→23:17)
[2018-10-28 03:32] VITALS: BMI 24.0
[2018-10-28 06:31] LABS: BASO % 0.9 % (0-2.0); EOS % 9.4 % (0-4.5); HEMOGLOBIN 11.1 GM/dL (11.7-16.9); LYMPH % 17.8 % (8-40); MCH 30.5 pg (25.7-33.7); MCHC 33.5 g/dl (32.0-35.9); MEAN CELL VOLUME 90.9 fl (80-96); MEAN PLT VOLUME 8.6 fl (7.5-11.1); NEUT % 62.9 % (42.8-82.8); PLATELET COUNT 158 K/MM3 (134-434); RBC 3.63 M/mm3 (4.00-5.60); RDW 14.4 % (11.9-15.9); WHITE BLOOD COUNT 6.9 K/mm3 (4.0-10.0)
[2018-10-28 06:47] LABS: INR 2.36 (0.83-1.09); PROTHROMBIN TIME (PATIENT) 28.1 SEC (9.7-13.0)
[2018-10-28 07:00] LABS: BILIRUBIN,TOTAL 0.4 mg/dL (0.2-1); CALCIUM 7.9 mg/dL (8.5-10.1); CREATININE 2.2 mg/dL (0.55-1.3); MAGNESIUM 2.1 mg/dL (1.8-2.4); POTASSIUM 4.4 mmol/L (3.5-5.1); TOT PROT 5.7 g/dl (6.4-8.2)
[2018-10-28] MEDS: ASPIRIN 81 MG CHEWABLE TABLETS PO SCH (09:03)
[2018-10-28] MEDS: amLODIPine BESYLATE 5 MG TABLET (FP) PO SCH (09:04)
[2018-10-28] MEDS: metoPROLOL SUCCINATE 25 MG TAB.SR.24H (FP) PO SCH ×2 (09:04→21:05)
[2018-10-28] MEDS ORDERED: metoPROLOL SUCCINATE 25 MG TAB.SR.24H (FP) PO SCH (10:00)
[2018-10-28] MEDS ORDERED: PT OWN MED DRAWER 7, Y5N ONE ×2 (11:34→20:55)
--- NOTE | 2018-10-28 11:50 | ECHO ---
Name: TENZIN BLAKE Exam:Adult Echocardiogram Study Date: 10/28/2018 09:29 AM Age: 78 yrs Reason For Study: CHF Height: 70 in Weight: 170 lb BSA: 1.9 m2 MMode/2D Measurements & Calculations IVSd: 1.0 cm Ao root diam: 3.2 cm LVIDd: 4.5 cm LA dimension: 3.2 cm LVIDs: 2.8 cm LVPWd: 1.1 cm EDV(Teich): 91.1 ml LVOT diam: 2.1 cm ESV(Teich): 29.4 ml Doppler Measurements & Calculations MV E max chad: 77.0 cm/sec Ao V2 max: 143.2 cm/sec MV A max chad: 114.5 cm/sec Ao max P.2 mmHg MV E/A: 0.67 Ao V2 mean: 100.1 cm/sec MV dec time: 0.25 sec Ao mean P.4 mmHg Ao V2 VTI: 32.8 cm TOSIN(I,D): 2.3 cm2 TOSIN(V,D): 2.2 cm2 LV V1 max P.4 mmHg SV(LVOT): 76.4 ml LV V1 mean P.7 mmHg LV V1 max: 92.3 cm/sec LV V1 mean: 60.2 cm/sec LV V1 VTI: 22.7 cm Med Peak E' Chad: 8.3 cm/sec Med E/e': 9.2 Lat Peak E' Chad: 5.5 cm/sec Lat E/e': 14.0 Left Ventricle Left ventricular systolic function is normal. Ejection Fraction = 55-60%. The transmitral spectral Do ppler flow pattern is suggestive of impaired LV relaxation. Right Ventricle The right ventricle is normal in size and function. Atria Normal left and right atrial size and function. Mitral Valve There is moderate mitral annular calcification. There is no mitral valve stenosis. There is trace fifi ral regurgitation. Tricuspid Valve The tricuspid valve is normal in structure and function. Aortic Valve The aortic valve is trileaflet. No hemodynamically significant valvular aortic stenosis. No aortic regurgitation is present. Pulmonic Valve The pulmonic valve is not well seen, but is grossly normal. There is no pulmonic valvular stenosis. Great Vessels The aortic root is normal size. Pericardium/Pleura There is no pericardial effusion. Interpretation Summary Left ventricular systolic function is normal. Ejection Fraction = 55-60%. The transmitral spectral Doppler flow pattern is suggestive of impaired LV relaxation. The right ventricle is normal in size and function. There is moderate mitral annular calcification. There is no pericardial effusion. MD Scott *Favian 10/28/2018 11:49 AM
--- NOTE | 2018-10-28 12:43 | CONSULT ---
Consult - text type - Consultation Consultation Note: Renal consult for CKD This is a 78 year old gentleman with hx of CKD stage 3b(baseline Cr 1.9 ), CAd s /p UT with PCI, CVA, AAA s/p endovascular repair, BPH, Carotid endartectomy who presents with near syncope and dyspnea on exertion with Cr of 2.2. Pt seen and examined at the bedside. Reports that he felt like he was going to pass out after going to the bathroom. No LOC or fall. Has SOB on exertion. No cough, fever, chills, or chest pain. No leg swelling. No flank pain. Making urine w/o difficulty. No N/V/D. Has rash in groin. PMHx: as above Allergies: NKDA Family Hx: NC Social Hx: No T/A/D ROS: as per HPI, all other pertinent ros negative Home Medications Medication Instructions Recorded Alprazolam [Xanax] 0.5 mg PO HS PRN 03/07/15 Aspirin [ASA -] 81 mg PO DAILY 03/07/15 Cholecalciferol (Vitamin D3) 1,000 unit PO HS 03/07/15 [Vitamin D3] Warfarin Sodium [Coumadin] 4 mg PO DAILY 03/07/15 Amlodipine Besylate [Norvasc -] 5 mg PO DAILY 06/06/17 Sertraline HCl [Zoloft] 50 mg PO DAILY 06/06/17 Atorvastatin Ca [Lipitor] 10 mg PO HS tablet 06/08/17 Metoprolol Succinate [Toprol XL -] 25 mg PO BID #60 tab.sr.24h 06/08/17 Vital Signs Temperature 98.4 F 10/28/18 10:00 Pulse Rate 70 10/28/18 10:00 Respiratory Rate 18 10/28/18 10:00 Blood Pressure 136/70 10/28/18 10:00 O2 Sat by Pulse Oximetry (%) 98 10/28/18 10:00 Intake & Output 10/25/18 10/26/18 10/27/18 10/28/18 23:59 23:59 23:59 23:59 Intake Total 300 Output Total 900 Balance -600 Weight 77.111 kg 75.977 kg NAD awake and alert neck supple, no JVD RRR, no M/R CTA, no rales or wheeze soft NT/ND slightly erythema in groin No LE edema, clubbing or edema no focal neurologic deficits CBC, BMP 10/28/18 05:50 10/28/18 05:50 CXR - clear lungs ECHO- EF 55-60%, impaired LV relaxation Carotid artery doppler 55-60% stenosis of R carotid artery Current Medications Alprazolam (Xanax -) 0.5 mg PO HS PRN PRN Reason: ANXIETY Last Admin: 10/28/18 01:34 Dose: 0.5 mg Amlodipine Besylate (Norvasc -) 5 mg PO DAILY [facility] Last Admin: 10/28/18 09:04 Dose: 5 mg Aspirin (Asa -) 81 mg PO DAILY [facility] Last Admin: 10/28/18 09:03 Dose: 81 mg Atorvastatin Calcium (Lipitor -) 10 mg PO HS [facility] Cholecalciferol (Vitamin D3 -) 1,000 unit PO HS [facility] Sodium Chloride (Normal Saline -) 1,000 mls @ 75 mls/hr IV ASDIR [facility] Last Admin: 10/28/18 00:42 Dose: 75 mls/hr Metoprolol Succinate (Toprol Xl -) 25 mg PO BID [facility] Last Admin: 10/28/18 09:04 Dose: 25 mg Nystatin (Nystop Powder -) 1 applic TP BID [facility] Last Admin: 10/28/18 09:04 Dose: 1 applic Warfarin Sodium (Coumadin -) 3 mg PO ONCE@1800 ONE Stop: 10/28/18 18:01 78 year old gentleman with hx of CKD stage 3b(baseline Cr 1.9 ), CAd s/p UT with PCI, CVA, AAA s/p endovascular repair, BPH, Carotid endartectomy who presents with near syncope and dyspnea on exertion with Cr of 2.2. #Dyspnea on Exertion #Pre-Syncope #CKD stage 3 #CAD #BPH #Hypertension #Suspected fungal groin rash Renal function slightly worse then baseline, may be due to mild volume depletion Would continue gentle IVF hydration for the time being Trend renal function and electrolytes no acute indication for renal imaging Continue Tele monitoring and syncope work up ECHO shows normal LVEF Not on alpha blockers but voiding w/o difficulty continue nystatin powder Cardiology follow up Thank you Fernandez Almanzar DO
--- NOTE | 2018-10-28 15:18 | EKG ---
Test Reason : Blood Pressure : / mmHG Vent. Rate : 058 BPM Atrial Rate : 058 BPM P-R Int : 224 ms QRS Dur : 080 ms QT Int : 424 ms P-R-T Axes : 050 043 072 degrees QTc Int : 416 ms SINUS BRADYCARDIA WITH 1ST DEGREE A-V BLOCK SEPTAL INFARCT , AGE UNDETERMINED ABNORMAL ECG WHEN COMPARED WITH ECG OF 06-JUN-2017 16:08, ID INTERVAL HAS INCREASED Confirmed by FELIBERTO TEMPLE, REBECCA ([id number]) on 10/28/2018 3:17:56 PM Referred By: Confirmed By:REBECCA DAO MD
--- NOTE | 2018-10-28 17:11 | PN ---
Progress Note, Physician Chief Complaint: tremors, feeling depressed, weakness History of Present Illness: Luiz De La Cruz is a 78 year old male with a significant past medical history of depression, [place] (cardiac stenting 2002, CVA (x2, noncompliant with Coumadin), CKD Stage III, BPH, AAA (s/p endovascular stenting and revision x4, last 2017 @ [facility]), left sided common iliac aneurysm (stable on last CT scan), colon resection, left sided endarterectomy (2014) and COPD. He presented to ED with pre-syncope, and SOB on exertion. present at bedside, pt reports not being able to make it to his Dr's appt because of not feeling well, has not seen PCP, Cardio, Renal in over a year. pt denies chest pain, cough, fever, n/v , fever, abd pain. - Current Medication List Current Medications: Active Medications Alprazolam (Xanax -) 0.5 mg PO HS PRN PRN Reason: ANXIETY Last Admin: 10/28/18 01:34 Dose: 0.5 mg Amlodipine Besylate (Norvasc -) 5 mg PO DAILY [facility] Last Admin: 10/28/18 09:04 Dose: 5 mg Aspirin (Asa -) 81 mg PO DAILY [facility] Last Admin: 10/28/18 09:03 Dose: 81 mg Atorvastatin Calcium (Lipitor -) 10 mg PO HS [facility] Cholecalciferol (Vitamin D3 -) 1,000 unit PO HS [facility] Sodium Chloride (Normal Saline -) 1,000 mls @ 75 mls/hr IV ASDIR [facility] Last Admin: 10/28/18 00:42 Dose: 75 mls/hr Metoprolol Succinate (Toprol Xl -) 25 mg PO BID [facility] Last Admin: 10/28/18 09:04 Dose: 25 mg Nystatin (Nystop Powder -) 1 applic TP BID [facility] Last Admin: 10/28/18 09:04 Dose: 1 applic Warfarin Sodium (Coumadin -) 3 mg PO ONCE@1800 ONE Stop: 10/28/18 18:01 - Objective Vital Signs: Vital Signs Temperature 98.1 F 10/28/18 14:35 Pulse Rate 64 10/28/18 14:35 Respiratory Rate 18 10/28/18 14:35 Blood Pressure 130/54 L 10/28/18 14:35 O2 Sat by Pulse Oximetry (%) 98 10/28/18 10:00 Constitutional: Yes: Anxious Eyes: Yes: WNL HENT: Yes: WNL Neck: Yes: WNL Cardiovascular: Yes: WNL, Regular Rate and Rhythm Respiratory: Yes: CTA Bilaterally Gastrointestinal: Yes: Normal Bowel Sounds ...Rectal Exam: Yes: Deferred Genitourinary: Yes: WNL Edema: No Integumentary: Yes: WNL Neurological: Yes: Weakness ...Motor Strength: WNL Psychiatric: Yes: WNL Labs: CBC, BMP 10/28/18 05:50 10/28/18 05:50 INR, PTT INR 2.36 (0.83-1.09) H 10/28/18 05:50 Problem List - Problems (1) Near syncope Assessment/Plan: Presents to the ED with a pre syncope episode. Monitor on tele. Mild bradycardia noted on telemetry, appreciate cardiology input - troponin x 2 wnl - carotid dopplers right ICA, 50-69% stenosis noted unchanged from carotid doppler 2014, follows with Dr Mike (vascular) will require outpatient followup - continue lipitor pending lipid profile - physical therapy Code(s): R55 - SYNCOPE AND COLLAPSE (2) Shortness of breath Assessment/Plan: pre and post prior to d/c. hx of copd. using oxygen at 2 liters with stable saturations. not home oxygen dependent. denies any shortness of breath at home. Code(s): R06.02 - SHORTNESS OF BREATH (3) IDALIA (acute kidney injury) Assessment/Plan: ckd - creatine elevated, baseline 1.3 - strict monitoring, repeat bmp in am - ivf per nephrology Code(s): N17.9 - ACUTE KIDNEY FAILURE, UNSPECIFIED (4) Tremors of nervous system Assessment/Plan: Upper extremity tremors. hx of CVA Maintain fall precautions for Head ct per neuro physical therapy evaluation Code(s): R25.1 - TREMOR, UNSPECIFIED (5) CVA (cerebral vascular accident) Assessment/Plan: History of CVA. On Coumadin based on INR. coumadin levels therapeutic. Code(s): I63.9 - CEREBRAL INFARCTION, UNSPECIFIED (6) COPD (chronic obstructive pulmonary disease) Assessment/Plan: not home oxygen dependent at home presents with c/o of shortness of breath VBG shows low oxygen blood levels on 2 liters of nasal cannula wean off oxygen as tolerated pulmonary consulted Code(s): J44.9 - CHRONIC OBSTRUCTIVE PULMONARY DISEASE, UNSPECIFIED (7) Carotid stenosis, left Assessment/Plan: history of left carotid stenosis with surgical repair with vascular carotid study unchanged from 2015 outpatient follow up Code(s): I65.22 - OCCLUSION AND STENOSIS OF LEFT CAROTID ARTERY (8) Prophylactic measure Assessment/Plan: ivf per renal monitor electrolytes tolerating po prophy physical therapy on coumadin Code(s): Z29.9 - ENCOUNTER FOR PROPHYLACTIC MEASURES, UNSPECIFIED Visit type - Emergency Visit Emergency Visit: Yes ED Registration Date: 10/27/18 Care time: The patient presented to the Emergency Department on the above date and was hospitalized for further evaluation of their emergent condition. - New Patient This patient is new to me today: Yes Date on this admission: 10/29/18 - Critical Care Critical Care patient: No - Discharge Referral Referred to [facility] Med P.C.: No
[2018-10-28] MEDS ORDERED: WARFARIN NA 2 MG TABLET (UD) PO SCH (18:00)
[2018-10-28] MEDS ORDERED: WARFARIN NA 3 MG TABLET PO ONE (18:00)
--- NOTE | 2018-10-28 18:43 | CON.NEURO ---
Consult Consult Specialty:: [facility] Referred by:: PCP Reason for Consultation:: [place] - History of Present Illness History of Present Illness: 78-year-old right-handed man with present medical history significant for i1. depression, 2. [place] (cardiac stenting 2002, 3. CVA (x2, noncompliant with Coumadin), 4. CKD Stage III, 5. BPH, AAA (s/p endovascular stenting and revision x4, last 08/2017 @ [facility]), 6. left sided common iliac aneurysm (stable on last CT scan), 7. colon resection, 8. left sided endarterectomy (15), presented to ED with pre-syncope, patient is a poor historian patient seen on telemetry no report of any seizure- like activity patient presented with his Neurology was called because of tremors patient is on Coumadin Patient seen before for tremors No difficluty swallowing Overall weakness and tired - History Source History Provided By: Patient Limitations to Obtaining History: Clinical Condition - Past Medical History SENIOR PRINCIPAL: Yes: CVA Cardio/Vascular: Yes: Aneurysm, CAD (s/p stent), HTN, Hyperlipdemia, Other (PFO) Pulmonary: Yes: COPD Renal/: Yes: Renal Inusuff (CKD Stage III (baseline Scr of 1.3mg/d)) Psych: Yes: Anxiety - Past Surgical History Past Surgical History: Yes: AAA Repair, Carotid Endarterectomy - Alcohol/Substance Use Hx Alcohol Use: No - Smoking History Smoking history: Former smoker Have you smoked in the past 12 months: No Aproximately how many cigarettes per day: 0 If you are a former smoker, when did you quit?: 2001 - Social History Usual Living Arrangement: With Spouse Home Medications - Allergies Allergies/Adverse Reactions: Allergies Allergy/AdvReac Type Severity Reaction Status Date / Time No Known Allergies Allergy Verified 10/27/18 18:25 - Home Medications Home Medications: Ambulatory Orders Alprazolam [Xanax] 0.5 mg PO HS PRN 03/07/15 Aspirin [ASA -] 81 mg PO DAILY 03/07/15 Cholecalciferol (Vitamin D3) [Vitamin D3] 1,000 unit PO HS 03/07/15 Warfarin Sodium [Coumadin] 4 mg PO DAILY 03/07/15 Amlodipine Besylate [Norvasc -] 5 mg PO DAILY 01/07/18 Sertraline HCl [Zoloft] 50 mg PO DAILY 06/06/17 Atorvastatin Ca [Lipitor] 10 mg PO HS tablet 06/08/17 Metoprolol Succinate [Toprol XL -] 25 mg PO BID #60 tab.sr.24h 06/08/17 Family Disease History - Family Disease History Family History: Unable to Obtain Review of Systems - Review of Systems Constitutional: reports: No Symptoms, Loss of Appetite, Weakness Eyes: reports: No Symptoms Neurological: reports: Headache, Incoordination, Numbness Physical Exam-Neuro Vital Signs: Vital Signs Temperature 98.5 F 10/28/18 17:42 Pulse Rate 63 10/28/18 17:42 Respiratory Rate 18 10/28/18 17:42 Blood Pressure 120/47 L 10/28/18 17:42 O2 Sat by Pulse Oximetry (%) 98 10/28/18 10:00 Constitutional: Yes: Well Nourished Neck: Yes: WNL Cardiovascular: Yes: WNL Labs: CBC, BMP 10/28/18 05:50 10/28/18 05:50 INR, PTT INR 2.36 (0.83-1.09) H 10/28/18 05:50 - Neuro Exam Level Of Consciousness: Yes: Oriented to Person, Oriented to Place, Oriented to Time Eyes: Yes: PERRLA Speech: WNL Dominant Hand: Right Cranial Nerves II-XII Intact: Yes Gag: Present DTR's: 0 Left Brachioradialis, 0 Right Brachioradialis, 0 Left Achilles, 0 Right Achilles, 1+ Left Bicep, 1+ Right Bicep Response to light touch: Normal Response to pain prick: Normal Response to temperature: Normal Movement Disorders: Tremors Motor Strength: 3/5: Left Arm, Right Arm, Left Leg, Right Leg Gait: Deferred Problem List - Problems (1) Near syncope Assessment/Plan: 1. Nephrology consult. 2. Fall precautions. 3. CAT scan of the head with no contrast. 4. Check orthostatics every shift Code(s): R55 - SYNCOPE AND COLLAPSE (2) Tremors of nervous system Assessment/Plan: NO [place] Essential tremors worse with reynaldo cureent metabolic derangment for uremia 1. NO Sinement 2. PT 3 .Klonopin low dosage Code(s): R25.1 - TREMOR, UNSPECIFIED
--- NOTE | 2018-10-28 19:54 | CONS ---
DATE OF CONSULTATION: 10/28/2018 REQUESTING PHYSICIAN: Hospitalist TYPE OF CONSULTATION: Cardiology consultation CHIEF COMPLAINT: Unsteady gait. Near syncope. HISTORY OF PRESENT ILLNESS: The patient is a 78-year-old gentleman with longstanding history of coronary artery disease, status post PCI/stenting, angina pectoris, hypertension, hypertensive cardiovascular disease, abdominal aortic aneurysm with multiple endovascular repairs, hypercholesterolemia status post left carotid endarterectomy, for recurring TIAs and cerebrovascular accident. 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 Patient presented with history of lightheadedness while he was trying to micturate, he had difficulty in passing urine and turned to walk out of the bathroom, became progressively more unsteady, became tremulous. His noticed that he may fall down, and she got him a chair, and he sat down and felt that he was going to have a syncopal episode. There is no history of loss of consciousness, no history of seizures, no history of loss of sphincter control. 911 was summoned, and he was brought to the hospital. Patient is known to have vasovagal episodes in the past. There is no history of chest pain or discomfort either at rest or with exertion. He has dyspnea on minimal exertion, no history of paroxysmal nocturnal dyspnea or orthopnea. No history of pedal edema, no history of diabetes mellitus. PAST HISTORY: As mentioned in the history of present illness. History of myocardial infarction in 2001. SURGICAL HISTORY: Multiple endovascular aortic repairs x4. History of tonsillectomy. Status post left carotid endarterectomy. Partial colectomy for diverticulitis. SOCIAL HISTORY: Retired, currently disabled, , has no children. Used to smoke 1-1/2 packs of cigarettes per day from the age of 16 and stopped at 2001. Used to have an occasional drink. FAMILY HISTORY: Father at age 52 related to pancreatitis, apparently drank alcohol on a regular basis. Mother of congestive heart failure. She also had breast carcinoma and was a diabetic. He had 1 brother who was born with cyanotic heart disease and had undergone heart surgery in his infancy, and he at age 21. ALLERGIES: None reported. History of pruritus of undetermined etiology. CURRENT MEDICATIONS: Warfarin 3 mg p.o. daily. Xanax 0.5 mg p.o. at bedtime p.r.n. Metoprolol succinate 25 mg p.o. b.i.d. Amlodipine besylate 5 mg p.o. daily. Atorvastatin 10 mg p.o. daily. Aspirin 81 mg p.o. daily. Nystatin 1 application b.i.d. Vitamin D3, 1000 international units daily. REVIEW OF SYSTEMS: Constitutional: No history of chills, fever, or night sweats. No history of unintentional weight loss. HEENT: No history of headaches, diplopia, blurred vision. History of bilateral cataract extraction and intraocular lens implantation. No history of epistaxis, hoarseness, no history of tinnitus. No history of deafness. Cardiovascular: See history of present illness. No history of recent chest pain or discomfort. Respiratory: See history of present illness. No history of hemoptysis. Gastrointestinal: No history of nausea, vomiting, melena, or hematemesis. No history of abdominal pain or discomfort. No history of change in bowel habits. Neurological: See history of present illness. No history of seizures. Musculoskeletal: History of arthralgias. No history of myalgias. Endocrine: No history of polyuria or polydipsia. Denies having intolerance to cold or warm weather. Hematological/Lymphatics: No history of anemia, ecchymosis, or bleeding. PHYSICAL EXAMINATION: General: A 78-year-old gentleman who was tremulous, was alert and coherent, was in no acute distress, no pallor, cyanosis, clubbing or jaundice. Vital signs: Weight 75.977 kg, blood pressure 130/54 mmHg, pulse beats per minute, and regular. Temperature 98.1 degrees Fahrenheit. Respirations were 18 per minute. Oxygen saturation was 98% on room air. Neck: Supple. No jugulovenous distention, carotids were 2+, upstrokes were normal, no bruits were appreciated. There was a well healed left carotid endarterectomy scar, right lobe of the thyroid was prominent. Heart: PMI was in the 5th intercostal space, no heaves or thrills. Heart sounds were distant, no murmur or gallops were heard. Lungs: Decreased breath sounds at the bases. No extraneous sounds were heard. Abdomen: Protuberant, soft, nontender, no hepatosplenomegaly or palpable masses were appreciated. Extremities: No calf tenderness or dependent edema, dorsalis pedis and posterior tibial pulses were palpable. Femoral pulses were 2+. X-ray chest, impression: No acute chest pathology. ECG dated October 27, 2018: Sinus bradycardia with borderline first-degree AV block, poor R wave progression V1 to V3, possibility of anteroseptal wall myocardial infarction of indeterminate age cannot be excluded, nonspecific ST changes. No previous ECG was available for comparison. Echocardiogram, interpretation summary: Left ventricular systolic function is normal. Ejection fraction is between 55% to 60%. Transmitral spectral Doppler flow pattern is suggestive of impaired LV relaxation. The right ventricle is normal in size and function. There is moderate mitral annular calcification. There is no pericardial effusion. Carotid Doppler ultrasound, impression: Moderate size plaque at the right common carotid bifurcation with 50% to 60% stenosis. Small to moderate size plaque at the left common carotid bifurcation/bulb without evidence of hemodynamically significant stenosis. LABORATORY DATA: CBC: WBC count 6900, hemoglobin 11.1 g/dL, platelet count 158,000. Differential: Neutrophils 62.9%, lymphocytes 17.8%, monocytes 9.0%, eosinophil elevated at 9.4%, basophils 0.9%, nucleotide RBCs 0%. Chemistries, October 28, 2018: Sodium 142, potassium 4.4, chloride 110, CO2 of 23, BUN 43, creatinine 2.2, calcium was 7.9 mg/dL. Normal liver function tests. Troponin less than 0.02 on 2 occasions. BNP was elevated at 885.5 pg/mL. Total protein was 5.7, albumin was low at 3.0 g/L. INR October 28, 2018: 2.36. IMPRESSION: 1. Near syncopal episode associated with gait disturbance is compatible with "micturition presyncope". 2. Coronary artery disease, status post percutaneous coronary intervention/stenting, angina pectoris currently stable. 3. Multiple . 4. History of iliac artery aneurysm. 5. Hypertension, hypertensive cardiovascular disease. 6. Status post cerebrovascular accident. 7. Status post left carotid endarterectomy. 8. Hypercholesterolemia. 9. History of patent foramen ovale. 10. Advanced chronic obstructive pulmonary disease. 11. History of exertional dyspnea, is most likely related to chronic obstructive pulmonary disease. 12. History of depression and anxiety disorder. 13. History of peripheral vagal instability. 14. History of right thyroid nodule/mass. 15. Tremors, etiology to be determined, possibility of Parkinsonism needs to be excluded or may be related to previous cerebrovascular events. 16. Chronic kidney disease. 17. Anemia most likely related to chronic kidney disease. 18. Hypocalcemia, may be related to hypoalbuminemia. RECOMMENDATION: 1. Obtain ionized calcium level. 2. Continue medications as outlined. 3. Check blood pressure supine and standing. 4. If blood pressure fluctuates while standing, consider reducing the dose of amlodipine. 5. Neurological and psychiatric evaluation. 6. Physical therapy. Thank you for your referral. RICH MURILLO M.D. [id number]
[2018-10-28] MEDS: ATORVASTATIN CA 10 MG TABLET (FP) PO SCH (21:05)
[2018-10-28] MEDS: CHOLECALCIFEROL (VIT D3) 1,000 UNIT (25 MCG) TABLET PO SCH (21:05)
[2018-10-29 00:08] LABS: EPI CELLS 0.3 /HPF (0-5/HPF); HYALINE CASTS 0 /lpf (0-8); URINE APPEARANCE CLEAR; URINE BILIRUBIN NEGATIVE (NEGATIVE); URINE COLOR YELLOW; URINE GLUCOSE (UA) NEGATIVE (NEGATIVE); URINE KETONE NEGATIVE (NEGATIVE); URINE LEUK ESTERASE NEGATIVE (NEGATIVE); URINE NITRITE NEGATIVE (NEGATIVE); URINE PROTEIN TRACE (NEGATIVE); URINE RBC 4 /hpf (0-4); URINE UROBILINOGEN 0.2 mg/dL (0.2-1.0); URINE WBC 0 /hpf (0-5)
[2018-10-29 08:11] LABS: BASO % 0.7 % (0-2.0); EOS % 9.6 % (0-4.5); HEMATOCRIT 37.3 % (35.4-49); HEMOGLOBIN 12.4 GM/dL (11.7-16.9); LYMPH % 8.4 % (8-40); MCH 30.2 pg (25.7-33.7); MCHC 33.3 g/dl (32.0-35.9); MEAN CELL VOLUME 90.8 fl (80-96); MEAN PLT VOLUME 8.6 fl (7.5-11.1); MONO % 5.6 % (3.8-10.2); NEUT % 75.7 % (42.8-82.8); PLATELET COUNT 183 K/MM3 (134-434); RBC 4.11 M/mm3 (4.00-5.60); RDW 14.3 % (11.9-15.9); WHITE BLOOD COUNT 9.5 K/mm3 (4.0-10.0)
[2018-10-29 08:20] LABS: INR 1.75 (0.83-1.09); PROTHROMBIN TIME (PATIENT) 20.8 SEC (9.7-13.0)
[2018-10-29] MEDS: SODIUM CHLORIDE 1,000 ML IV SCH (08:59)
[2018-10-29] MEDS: ASPIRIN 81 MG CHEWABLE TABLETS PO SCH (08:59)
[2018-10-29] MEDS: metoPROLOL SUCCINATE 25 MG TAB.SR.24H (FP) PO SCH ×2 (08:59→21:40)
[2018-10-29] MEDS: amLODIPine BESYLATE 5 MG TABLET (FP) PO SCH (08:59)
[2018-10-29] MEDS: NYSTATIN POWDER 100,000 UNITS/GM - 15 GM TOPICAL POWDER TP SCH ×2 (08:59→21:43)
[2018-10-29 09:00] LABS: ALBUMIN 3.2 g/dl (3.4-5.0); BILIRUBIN,TOTAL 0.7 mg/dL (0.2-1); CALCIUM 7.9 mg/dL (8.5-10.1); CREATININE 1.9 mg/dL (0.55-1.3); MAGNESIUM 2.4 mg/dL (1.8-2.4); POTASSIUM 4.5 mmol/L (3.5-5.1); TOT PROT 6.3 g/dl (6.4-8.2)
--- NOTE | 2018-10-29 09:26 | PN ---
Progress Note (short form) - Note Progress Note: PULMONARY CONSULTATION DICTATED 10/29/18 IMP NEAR SYNCOPE DYSPNEA LIKELY SECONDARY TO COPD ASHD S/P AL, STENT AAA S/P ENDOVASCULAR REPAIR H/O CVA TREMORS ACUTE ON CHRONIC KIDNEY INJURY BPH PLAN O2 INHALED BRONCHODILATORS GENTLE HYDRATION ABG ON RA CHEST CT AC MONITOR LYTE,RENAL FUNCTION DR LANDRUM Problem List - Problems (1) [id number] kidney injury Code(s): N17.9 - ACUTE KIDNEY FAILURE, UNSPECIFIED; N18.9 - CHRONIC KIDNEY DISEASE, UNSPECIFIED (2) Near syncope Code(s): R55 - SYNCOPE AND COLLAPSE (3) Shortness of breath Code(s): R06.02 - SHORTNESS OF BREATH (4) COPD (chronic obstructive pulmonary disease) Code(s): J44.9 - CHRONIC OBSTRUCTIVE PULMONARY DISEASE, UNSPECIFIED (5) Dehydration Code(s): E86.0 - DEHYDRATION (6) Episode of shaking Code(s): R25.1 - TREMOR, UNSPECIFIED (7) CKD (chronic kidney disease), stage III Code(s): N18.3 - CHRONIC KIDNEY DISEASE, STAGE 3 (MODERATE) (8) Carotid stenosis, left Code(s): I65.22 - OCCLUSION AND STENOSIS OF LEFT CAROTID ARTERY (9) Hypertension with renal disease Code(s): I12.9 - HYPERTENSIVE CHRONIC KIDNEY DISEASE W STG 1-4/UNSP CHR KDNY (10) Tremors of nervous system Code(s): R25.1 - TREMOR, UNSPECIFIED
[2018-10-29 10:47] LABS: ARTERIAL BLOOD GAS PCO2 34.5 mmHg (35-45); ARTERIAL BLOOD GAS pH 7.39 (7.35-7.45)
[2018-10-29 10:48] LABS: ALLENS TEST POSITIVE; ARTERIAL BLOOD GAS BASE EXCESS -2.9 meq/l (-2-2); ARTERIAL BLOOD GAS PO2 65.8 mmHg (80-105)
--- NOTE | 2018-10-29 10:48 | CONS ---
PULMONARY CONSULTATION DATE OF CONSULTATION: 10/29/2018 REFERRING PROVIDER: Roman Head NP The patient is a 78-year-old white male with extensive past medical history includes ASHD status post stent in 2001, status post [place]; depression; CVA x2, currently maintained on Coumadin with questionable compliance; chronic kidney disease, stage 3; BPH; AAA status post endovascular repair and revision x4, last in August 2017 at [facility]; history of left common iliac aneurysm, stable on CAT scan; colon resection; left-sided carotid endarterectomy in 2014; chronic obstructive pulmonary disease , maintained on inhaled bronchodilators, not supplemental O2; admitted to [facility] with a presyncopal episode and shortness of breath with exertion. Patient apparently recently has been noticing increasing shortness of breath and dyspnea on exertion. He states it has been pretty much worsening over the past few months. States that since his last endovascular repair, his respiratory status has continued to decline. He denies any chest pains and palpitations. Apparently, yesterday when going to the bathroom, he felt lightheaded and felt like he was about to pass out. Denies any chest pain, nausea, vomiting, or diaphoresis associated with this. He presented to the emergency room with the above. The patient has also been complaining of tremors and he feels like chills over the past day or so. Denies any cough or hemoptysis. Denies any fevers. On admission, he was also noted to have elevated BUN and creatinine which is worse than his normal baseline which is elevated. He was evaluated by Dr. Almanzar for renal consultation and started on IV hydration. Patient has a history of tobacco use, couple of packs per day for many years, quit approximately 10 years ago. There is no history of occupational exposures to chemicals or fumes. There is no history of DVT or pulmonary emboli in the past. PAST MEDICAL HISTORY: Again includes chronic kidney disease, stage 3; ASHD status post [place], status post PCI; CVA; AAA status post endovascular repair, last being in 2017; BPH; carotid endarterectomy; chronic obstructive pulmonary disease; hypertension; history of CVA. REVIEW OF SYSTEMS: Positive dyspnea on exertion. No significant shortness of breath at rest. No chest pain. No palpitations. Positive occasional lightheadedness and dizziness. No fever. Positive chills. No abdominal pain. No lower extremity edema. CURRENT MEDICATIONS: Include Coumadin, Klonopin, Xanax, Toprol, Norvasc, normal saline, Lipitor, aspirin, nystatin, vitamin D3. PHYSICAL EXAMINATION: General: The patient is an elderly white male, well nourished, awake, alert, in no acute distress. Vital Signs: He is afebrile. Heart rate is 162. Blood pressure 141/70. Respiratory rate is 18. O2 saturation was 94% on 2 L. HEENT: Exam is normocephalic, atraumatic. Neck: Supple. Heart: Regular. S1, S2. Chest: Clear. Abdomen: Soft. Bowel sounds are positive. Extremities: No cyanosis or edema. LABORATORY DATA: INR on admission 2.98, currently 1.75. WBC is 9.5, hemoglobin 12.4, hematocrit 37.3, platelet count of 183,000. Venous blood gas 7.39, pCO2 of 35, pO2 of 32, bicarbonate of 20, saturation of 58; that was on unknown quantity of oxygen. Chemistries: BUN 34, creatinine 1.9, which is improved from admission of 2.3. Echo revealed normal left ventricular ejection fraction, impaired LV relaxation, moderate mitral annular calcification. No pericardial effusion. Right ventricle normal in size and function. Tricuspid valve within normal limits. No evidence of pulmonary hypertension. Chest x-ray: Poor inspiratory effort, increased markings bilaterally consistent with chronic lung disease. Patient underwent a CAT scan of the chest 2 years ago, which reveals evidence of moderate COPD. IMPRESSION: 1. Near syncope. 2. Dyspnea, most likely secondary to chronic obstructive pulmonary disease. 3. History of chronic obstructive pulmonary disease. 4. Atherosclerotic heart disease status post myocardial infarction, status post stent, abdominal aortic aneurysm status post endovascular repair. 5. History of cerebrovascular accident. 6. Tremors. 7. Dxtgh-dn-titkutc kidney injury. 8. Benign prostatic hypertrophy. PLAN: Supplemental O2, inhaled bronchodilators. Check arterial blood gas on room air. Also, CT scan of the chest, rule out possible underlying infectious etiology. Anticoagulation. Monitor electrolytes, renal function. Gentle hydration. TENZIN LANDRUM M.D. [id number] MTDD
--- NOTE | 2018-10-29 13:21 | PN ---
Progress Note (short form) - Note Progress Note: RENAL Coverage for Dr Almanzar This 78 year old man is a patient of Dr Trimble and is here for syncope. Has a history of CKD and several triple A repairs c/o tiredness and fever overnight Last Vital Signs Temp Pulse Resp BP Pulse Ox 97.9 F 61 18 157/77 95 10/29/18 06:00 10/29/18 10:20 10/29/18 06:00 10/29/18 06:00 10/29/18 10:20 lungs clear cvs s1s2 rr abd soft ext no edema neuro a+ox3 CBC, BMP 10/29/18 06:00 10/29/18 06:00 Current Medications Generic Name Dose Route Start Last Admin Trade Name Freq PRN Reason Stop Dose Admin Alprazolam 0.5 mg 10/27/18 23:35 10/28/18 23:17 Xanax - PO 0.5 mg HS PRN Administration ANXIETY Amlodipine Besylate 5 mg 10/28/18 10:00 10/29/18 08:59 Norvasc - PO 5 mg DAILY EVER Administration Aspirin 81 mg 10/28/18 10:00 10/29/18 08:59 Asa - PO 81 mg DAILY EVER Administration Atorvastatin Calcium 10 mg 10/28/18 22:00 10/28/18 21:05 Lipitor - PO 10 mg HS EVER Administration Cholecalciferol 1,000 unit 10/28/18 22:00 10/28/18 21:05 Vitamin D3 - PO 1,000 unit HS EVER Administration Clonazepam 0.25 mg 10/28/18 19:31 Klonopin - PO Q12H PRN ANXIETY Sodium Chloride 1,000 mls @ 75 mls/hr 10/28/18 00:15 10/29/18 08:59 Normal Saline - IV 75 mls/hr ASDIR EVER Administration Metoprolol Succinate 25 mg 10/28/18 10:00 10/29/18 08:59 Toprol Xl - PO 25 mg BID EVER Administration Nystatin 1 applic 10/27/18 23:45 10/29/18 08:59 Nystop Powder - TP 1 applic BID EVER Administration Warfarin Sodium 4 mg 10/29/18 18:00 Coumadin - PO DAILY@1800 EVER IMPRESSION 78 year old gentleman with hx of CKD stage 3b(baseline Cr 1.9 ), CAd s/p [place] with PCI, CVA, AAA s/p endovascular repair, BPH, Carotid endartectomy who presents with near syncope and dyspnea on exertion with Cr of 2.2. #Dyspnea on Exertion #Pre-Syncope #CKD stage 3 #CAD #BPH #Hypertension #Suspected fungal groin rash #chronic eosinophilia PLAN Renal function at baseline- keep monitoring Cardiology follow up weakness likely related to his cardiovascular condition and possibly deconditionin, perhaps some element of depression would do a strongyloides antibody test MV
--- NOTE | 2018-10-29 14:56 | PN ---
Progress Note (short form) - Note Progress Note: 78-year-old gentleman with longstanding history of coronary artery disease, status post PCI/stenting, angina pectoris, hypertension, hypertensive cardiovascular disease, abdominal aortic aneurysm with multiple endovascular repairs, hypercholesterolemia status post left carotid endarterectomy, for recurring TIAs and cerebrovascular accident. 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 Patient has been feeling better, no chest pain or discomfort, no lightheadedness , dizziness presyncope or syncope reported. Patient stood up without having any symptoms. Has dyspnea on minimal exertion, no paroxysmal nocturnal dyspnea or orthopnea has mild tremors of both hands. Active Medications Albuterol/Ipratropium (Duoneb -) 1 amp NEB Q4H PRN PRN Reason: SHORTNESS OF BREATH Alprazolam (Xanax -) 0.5 mg PO HS PRN PRN Reason: ANXIETY Last Admin: 10/30/18 21:43 Dose: 0.5 mg Amlodipine Besylate (Norvasc -) 5 mg PO DAILY [facility] Last Admin: 10/31/18 09:31 Dose: 5 mg Aspirin (Asa -) 81 mg PO DAILY [facility] Last Admin: 10/31/18 09:32 Dose: 81 mg Atorvastatin Calcium (Lipitor -) 10 mg PO HS [facility] Last Admin: 10/30/18 21:42 Dose: 10 mg Cholecalciferol (Vitamin D3 -) 1,000 unit PO HS [facility] Last Admin: 10/30/18 21:42 Dose: 1,000 unit Clonazepam (Klonopin -) 0.25 mg PO Q12H PRN PRN Reason: ANXIETY Last Admin: 10/31/18 09:31 Dose: 0.25 mg Metoprolol Succinate (Toprol Xl -) 25 mg PO BID [facility] Last Admin: 10/31/18 09:32 Dose: 25 mg Nystatin (Nystop Powder -) 1 applic TP BID [facility] Last Admin: 10/31/18 09:32 Dose: 1 applic Warfarin Sodium (Coumadin -) 7.5 mg PO DAILY@1800 [facility] Last Admin: 10/31/18 17:30 Dose: 7.5 mg General: A 78-year-old gentleman who was tremulous, was alert and coherent, was in no acute distress, no pallor, cyanosis, clubbing or jaundice. Last Vital Signs Temp Pulse Resp BP Pulse Ox 97.9 F 62 18 157/77 97 10/29/18 06:00 10/29/18 06:00 10/29/18 06:00 10/29/18 06:00 10/29/18 06:00 Neck: Supple. No jugular venous distention, carotids were 2+, upstrokes were normal, no bruits were appreciated. Well healed left carotid endarterectomy scar , right lobe of the thyroid was prominent. Heart: PMI was in the 5th intercostal space, no heaves or thrills. Heart sounds were distant, no murmur or gallops were heard. Lungs: Decreased breath sounds at the bases. No extraneous sounds were heard. Abdomen: Protuberant, soft, nontender, no hepatosplenomegaly or palpable masses were appreciated. Extremities: No calf tenderness or dependent edema, dorsalis pedis and posterior tibial pulses were palpable. Femoral pulses were 2+. IMPRESSION: 1. Near syncopal episode associated with gait disturbance is compatible with "micturition presyncope". 2. Coronary artery disease, status post percutaneous coronary intervention/ stenting, angina pectoris currently stable. 3. Multiple endovascular repairs for abdominal aortic aneurysms. 4. History of iliac artery aneurysm. 5. Hypertension, hypertensive cardiovascular disease. 6. Status post cerebrovascular accident. 7. Status post left carotid endarterectomy. 8. Hypercholesterolemia. 9. History of patent foramen ovale. 10. Advanced chronic obstructive pulmonary disease. 11. History of exertional dyspnea, is most likely related to chronic obstructive pulmonary disease. 12. History of depression and anxiety disorder. 13. History of peripheral vagal instability. 14. History of right thyroid nodule/mass. 15. Tremors, etiology to be determined, possibility of Parkinsonism needs to be excluded or may be related to previous cerebrovascular events. 16. Chronic kidney disease. 17. Anemia most likely related to chronic kidney disease. 18. Hypocalcemia, may be related to hypoalbuminemia. RECOMMENDATION: 1. Continue medications as outlined. 2. Check blood pressure supine and standing. 3. Increase ambulation. RICH MURILLO M.D.
--- NOTE | 2018-10-29 17:38 | PN ---
Progress Note, Physician - Current Medication List Current Medications: Active Medications Alprazolam (Xanax -) 0.5 mg PO HS PRN PRN Reason: ANXIETY Last Admin: 10/28/18 23:17 Dose: 0.5 mg Amlodipine Besylate (Norvasc -) 5 mg PO DAILY [facility] Last Admin: 10/29/18 08:59 Dose: 5 mg Aspirin (Asa -) 81 mg PO DAILY [facility] Last Admin: 10/29/18 08:59 Dose: 81 mg Atorvastatin Calcium (Lipitor -) 10 mg PO HS [facility] Last Admin: 10/28/18 21:05 Dose: 10 mg Cholecalciferol (Vitamin D3 -) 1,000 unit PO HS [facility] Last Admin: 10/28/18 21:05 Dose: 1,000 unit Clonazepam (Klonopin -) 0.25 mg PO Q12H PRN PRN Reason: ANXIETY Sodium Chloride (Normal Saline -) 1,000 mls @ 75 mls/hr IV ASDIR [facility] Last Admin: 10/29/18 08:59 Dose: 75 mls/hr Metoprolol Succinate (Toprol Xl -) 25 mg PO BID [facility] Last Admin: 10/29/18 08:59 Dose: 25 mg Nystatin (Nystop Powder -) 1 applic TP BID [facility] Last Admin: 10/29/18 08:59 Dose: 1 applic Warfarin Sodium (Coumadin -) 4 mg PO DAILY@1800 [facility] - Objective Vital Signs: Vital Signs Temperature 97.6 F 10/29/18 14:50 Pulse Rate 68 10/29/18 14:50 Respiratory Rate 18 10/29/18 14:50 Blood Pressure 147/57 L 10/29/18 14:50 O2 Sat by Pulse Oximetry (%) 95 10/29/18 10:20 Labs: CBC, BMP 10/29/18 06:00 10/29/18 06:00 INR, PTT INR 1.75 (0.83-1.09) H 10/29/18 06:00 Problem List - Problems (1) Near syncope Code(s): R55 - SYNCOPE AND COLLAPSE (2) Shortness of breath Code(s): R06.02 - SHORTNESS OF BREATH (3) IDALIA (acute kidney injury) Code(s): N17.9 - ACUTE KIDNEY FAILURE, UNSPECIFIED (4) Choking Code(s): T17.308A - UNSP FOREIGN BODY IN LARYNX CAUSING OTH INJURY, INIT ENCNTR (5) CKD (chronic kidney disease), stage III Code(s): N18.3 - CHRONIC KIDNEY DISEASE, STAGE 3 (MODERATE) (6) Tremors of nervous system Code(s): R25.1 - TREMOR, UNSPECIFIED
[2018-10-29] MEDS ORDERED: WARFARIN NA 2 MG TABLET (UD) PO SCH (18:00)
--- NOTE | 2018-10-29 20:50 | PN ---
Progress Note, Physician Chief Complaint: chills overnight, shortness of breath History of Present Illness: Luiz De La Cruz is a 78 year old male with a significant past medical history of depression, [place] (cardiac stenting 2002, CVA (x2, noncompliant with Coumadin), CKD Stage III, BPH, AAA (s/p endovascular stenting and revision x4, last 2017 @ [facility]), left sided common iliac aneurysm (stable on last CT scan), colon resection, left sided endarterectomy (2015) and COPD. He presented to ED with pre-syncope, and SOB on exertion. present at bedside, pt reports not being able to make it to his Dr's appt because of not feeling well, has not seen PCP, Cardio, Renal in over a year. pt denies chest pain, cough, fever, n/v , fever, abd pain. Patient developed chills overnight and malaise. will send for blood cultures. for a ct of chest today for c/o of shortness of breath. - Current Medication List Current Medications: Active Medications Alprazolam (Xanax -) 0.5 mg PO HS PRN PRN Reason: ANXIETY Last Admin: 10/28/18 23:17 Dose: 0.5 mg Amlodipine Besylate (Norvasc -) 5 mg PO DAILY [facility] Last Admin: 10/29/18 08:59 Dose: 5 mg Aspirin (Asa -) 81 mg PO DAILY [facility] Last Admin: 10/29/18 08:59 Dose: 81 mg Atorvastatin Calcium (Lipitor -) 10 mg PO HS [facility] Last Admin: 10/28/18 21:05 Dose: 10 mg Cholecalciferol (Vitamin D3 -) 1,000 unit PO HS [facility] Last Admin: 10/28/18 21:05 Dose: 1,000 unit Clonazepam (Klonopin -) 0.25 mg PO Q12H PRN PRN Reason: ANXIETY Sodium Chloride (Normal Saline -) 1,000 mls @ 75 mls/hr IV ASDIR [facility] Last Admin: 10/29/18 08:59 Dose: 75 mls/hr Metoprolol Succinate (Toprol Xl -) 25 mg PO BID [facility] Last Admin: 10/29/18 08:59 Dose: 25 mg Nystatin (Nystop Powder -) 1 applic TP BID [facility] Last Admin: 10/29/18 08:59 Dose: 1 applic Warfarin Sodium (Coumadin -) 4 mg PO DAILY@1800 [facility] Last Admin: 10/29/18 17:42 Dose: 4 mg - Objective Vital Signs: Vital Signs Temperature 99.9 F H 10/29/18 18:00 Pulse Rate 65 10/29/18 18:00 Respiratory Rate 18 10/29/18 18:00 Blood Pressure 133/48 L 10/29/18 18:00 O2 Sat by Pulse Oximetry (%) 95 10/29/18 10:20 Constitutional: Yes: No Distress, Anxious Eyes: Yes: WNL HENT: Yes: WNL Neck: Yes: Other Cardiovascular: Yes: Regular Rate and Rhythm Respiratory: Yes: Regular, CTA Bilaterally Gastrointestinal: Yes: Normal Bowel Sounds ...Rectal Exam: Yes: Deferred Genitourinary: Yes: WNL Musculoskeletal: Yes: WNL Extremities: Yes: WNL Peripheral Pulses WNL: No Integumentary: Yes: WNL Neurological: Yes: Alert, Oriented ...Motor Strength: WNL Psychiatric: Yes: Other (depressed affect) Labs: CBC, BMP 10/29/18 06:00 10/29/18 06:00 INR, PTT INR 1.75 (0.83-1.09) H 10/29/18 06:00 Problem List - Problems (1) Near syncope Assessment/Plan: Presents to the ED with a pre syncope episode. Monitor on tele. Mild bradycardia noted on telemetry, appreciate cardiology input - troponin x 2 wnl - carotid dopplers right ICA, 50-69% stenosis noted unchanged from carotid doppler 2014, follows with Dr Mike (vascular) will require outpatient followup - continue lipitor pending lipid profile - physical therapy Code(s): R55 - SYNCOPE AND COLLAPSE (2) Shortness of breath Assessment/Plan: pre and post prior to d/c. hx of copd. using oxygen at 2 liters with stable saturations. not home oxygen dependent. denies any shortness of breath at home. Chest CT shows moderately severe COPD. Respiratory pre and post stable and patient does not meet criteria for home oxygen. Code(s): R06.02 - SHORTNESS OF BREATH (3) IDALIA (acute kidney injury) Assessment/Plan: ckd - creatine elevated, baseline 1.3 - strict monitoring, repeat bmp in am - ivf per nephrology Code(s): N17.9 - ACUTE KIDNEY FAILURE, UNSPECIFIED (4) Tremors of nervous system Assessment/Plan: Upper extremity tremors. hx of CVA Maintain fall precautions for Head ct per neuro physical therapy evaluation Code(s): R25.1 - TREMOR, UNSPECIFIED (5) CVA (cerebral vascular accident) Assessment/Plan: History of CVA. On Coumadin based on INR. coumadin levels therapeutic. Code(s): I63.9 - CEREBRAL INFARCTION, UNSPECIFIED (6) COPD (chronic obstructive pulmonary disease) Assessment/Plan: not home oxygen dependent at home presents with c/o of shortness of breath ABG shows low oxygen blood levels pulmonary consulted and following patient will need outpatient follow up Code(s): J44.9 - CHRONIC OBSTRUCTIVE PULMONARY DISEASE, UNSPECIFIED (7) Carotid stenosis, left Assessment/Plan: history of left carotid stenosis with surgical repair with vascular carotid study unchanged from 2015 outpatient follow up Code(s): I65.22 - OCCLUSION AND STENOSIS OF LEFT CAROTID ARTERY (8) Prophylactic measure Assessment/Plan: ivf per renal monitor electrolytes tolerating po prophy physical therapy on coumadin Code(s): Z29.9 - ENCOUNTER FOR PROPHYLACTIC MEASURES, UNSPECIFIED Visit type - Emergency Visit Emergency Visit: Yes ED Registration Date: 10/27/18 Care time: The patient presented to the Emergency Department on the above date and was hospitalized for further evaluation of their emergent condition. - New Patient This patient is new to me today: No - Critical Care Critical Care patient: No - Discharge Referral Referred to [facility] Med P.C.: No
[2018-10-29] MEDS: CHOLECALCIFEROL (VIT D3) 1,000 UNIT (25 MCG) TABLET PO SCH (21:40)
[2018-10-29] MEDS: ALPRAZolam 0.25 MG TABLET PO PRN (21:40)
[2018-10-29] MEDS: ATORVASTATIN CA 10 MG TABLET (FP) PO SCH (21:40)
[2018-10-30] MEDS: SODIUM CHLORIDE 1,000 ML IV SCH (03:00)
--- NOTE | 2018-10-30 08:26 | DS ---
Physical Exam: SUBJECTIVE: Patient seen and examined at the bedside. denies chills, denies any general malaise, eating breakfast feels better. OBJECTIVE: patient will benefit from VNS at home for physical therapy for lower extremity weakness as well as OT therapy for increased tremors . SW to arrange outpatient home follow up with VNS Vital Signs Period Temp Pulse Resp BP Sys/Cisneros Pulse Ox Last 24 Hr 97.6 F-99.9 F 61-71 18-20 133-151/48-61 95-95 PHYSICAL EXAM GENERAL: The patient is awake, alert, and fully oriented, in no acute distress. HEAD: Normal with no signs of trauma. EYES: PERRL, extraocular movements intact, sclera anicteric, conjunctiva clear. ENT: Ears normal, nares patent, oropharynx clear without exudates, moist mucous membranes. NECK: Trachea midline, full range of motion, supple. LUNGS: Breath sounds equal, clear to auscultation bilaterally, no wheezes, HEART: Regular rate and rhythm, nsr 60s on compliance monitor ABDOMEN: Soft, nontender, nondistended, normoactive bowel sounds, no guarding, no rebound, no hepatosplenomegaly, no masses. EXTREMITIES: no edema. NEUROLOGICAL: Normal speech, gait not observed. PSYCH: Normal mood, normal affect. SKIN: Warm, dry, normal turgor, no rashes or lesions noted. LABS Laboratory Results - last 24 hr 10/29/18 10/29/18 10/29/18 06:00 06:00 06:00 WBC 9.5 RBC 4.11 Hgb 12.4 Hct 37.3 MCV 90.8 MCH 30.2 MCHC 33.3 RDW 14.3 Plt Count 183 MPV 8.6 Absolute Neuts (auto) 7.2 Neutrophils % 75.7 D Lymphocytes % 8.4 D Monocytes % 5.6 Eosinophils % 9.6 H Basophils % 0.7 Nucleated RBC % 0 ESR 14 Anticoagulation Therapy Puncture Site ABG pH ABG pCO2 at Pt Temp ABG pO2 at Pt Temp ABG HCO3 ABG O2 Sat (Measured) ABG O2 Content ABG Base Excess Candido Test O2 Delivery Device Oxygen Flow Rate Vent Mode Vent Rate Mechanical Rate Pressure Support Vent Sodium Potassium Chloride Carbon Dioxide Anion Gap BUN Creatinine Est GFR (CKD-EPI)AfAm Est GFR (CKD-EPI)NonAf Random Glucose Hemoglobin A1c % Calcium Magnesium Total Bilirubin AST ALT Alkaline Phosphatase Total Protein Albumin Triglycerides Cholesterol Total LDL Cholesterol HDL Cholesterol RPR Titer Nonreactive 10/29/18 10/29/18 10/29/18 06:00 06:00 10:20 WBC RBC Hgb Hct MCV MCH MCHC RDW Plt Count MPV Absolute Neuts (auto) Neutrophils % Lymphocytes % Monocytes % Eosinophils % Basophils % Nucleated RBC % ESR Anticoagulation Therapy No Result Required. Puncture Site Right radial ABG pH 7.39 ABG pCO2 at Pt Temp 34.5 L ABG pO2 at Pt Temp 65.8 L ABG HCO3 20.9 L ABG O2 Sat (Measured) 93.0 L ABG O2 Content 14.4 L ABG Base Excess -2.9 L Candido Test Positive O2 Delivery Device No Result Required. Oxygen Flow Rate No Vent Mode No Result Required. Vent Rate No Result Required. Mechanical Rate No Result Required. Pressure Support Vent No Result Required. Sodium 142 Potassium 4.5 Chloride 109 H Carbon Dioxide 22 Anion Gap 11 BUN 34 H Creatinine 1.9 H Est GFR (CKD-EPI)AfAm 38.02 Est GFR (CKD-EPI)NonAf 32.80 Random Glucose 85 Hemoglobin A1c % 5.6 Calcium 7.9 L Magnesium 2.4 Total Bilirubin 0.7 AST 14 L ALT 22 Alkaline Phosphatase 110 Total Protein 6.3 L Albumin 3.2 L Triglycerides 106 Cholesterol 112 Total LDL Cholesterol 60 HDL Cholesterol 36 L RPR Titer HOSPITAL COURSE: Date of Admission:10/27/18 Date of Discharge: 10/30/18 Luiz De La Cruz is a 78 year old male with a significant past medical history of depression, [place] (cardiac stenting 2002, CVA (x2, noncompliant with Coumadin), CKD Stage III, BPH, AAA (s/p endovascular stenting and revision x4, last 2017 @ [facility]), left sided common iliac aneurysm (stable on last CT scan), colon resection, left sided endarterectomy (2014) and COPD. He presented to ED with pre-syncope, and SOB on exertion. present at bedside, pt reports not being able to make it to his Dr's appt because of not feeling well, has not seen PCP, Cardio, Renal in over a year. pt denies chest pain, cough, fever, n/v , fever, abd pain. Patient developed chills overnight and malaise on 10/29/18 and he has been cultured. He is feeling better now, and no longer having chills. No fevers overnight. Patient wants to get stronger so that he will be able to ambulate more. Will order a RW for home use as well as ask SW to arrange PT and OT therapy at home. HOSPITAL COURSE BY PROBLEM LIST DISCHARGE PLAN: Near syncope Assessment/Plan: resolved. Presents to the ED with a pre syncope episode. patient symptoms have now resolved. he has been adequately hydrated and followed by renal. head CT negative for acute process. No events on tele and heart rate in the 60s. troponins normal. Carotid dopplers shows right ICA, 50-69% stenosis noted unchanged from carotid doppler 2014, follows with Dr Mike (vascular) will require outpatient followup. continue lipitor. Shortness of breath Assessment/Plan: resolved. he has a history of COPD and has been tolerating room air. Chest CT shows moderately severe COPD. Respiratory pre and post stable and patient does not meet criteria for home oxygen. IDALIA (acute kidney injury) Assessment/Plan: back to baseline ckd. creatining improved with IVF. baseline ~ 1.3-1.9 on previous labs/ admission. Renal follow up. Tremors of nervous system Assessment/Plan: OT therapy requested. Upper extremity tremors. hx of CVA. negative head ct. neurology follow up. CVA (cerebral vascular accident) Assessment/Plan: chronic History of CVA. On Coumadin based on INR. coumadin levels therapeutic. INR checked with home services. COPD (chronic obstructive pulmonary disease) Assessment/Plan: chronic not home oxygen dependent at home. stable sats on room air. Carotid stenosis Assessment/Plan: will need outpatient follow up. history of left carotid stenosis with surgical repair with vascular carotid study unchanged from 2015 outpatient follow up DISCHARGE PLAN: Follow up with PCP and neurologist as an outpatient. Monitor labs. Patient will need a repeat CBC/CMP to monitor kidney function. Discharge Summary Reason For Visit: SHORTNESS OF BREATH,PRE SYNCOPE Current Active Problems [id number] kidney injury (Acute) CVA (cerebral vascular accident) (Acute) Near syncope (Acute) Prophylactic measure (Acute) Shortness of breath (Acute) Condition: Stable - Instructions Diet, Activity, Other Instructions: Mr. De La Cruz: You were admitted for a pre syncope episode. We will be sending you home today and recommend that you follow up with your physicians as outlined in your discharge instructions. What is pre syncope? Pre syncope is a feeling of lightheadedness that can have causes that are not part of any underlying disease. Examples include standing up too quickly, heat exposure, dehydration, extreme physical exercise or medication side effects. During your stay you were noted to be dehydrated and we have given you intravenous fluids. We recommend that you adequately hydrate with at least 6-8 glasses of water daily. Please follow up with the kidney specialist. Thank you for allowing us to care for you. Referrals: Luiz Grullon MD [Staff Physician] - Fernandez Almanzar MD [Staff Physician] - Ramon Jones MD [Staff Physician] - Eduardo Rivers MD [Staff Physician] - 2 Weeks Disposition: HOME - Home Medications Comprehensive Discharge Medication List: Ambulatory Orders Alprazolam [Xanax] 0.5 mg PO HS PRN 03/07/15 Aspirin [ASA -] 81 mg PO DAILY 03/07/15 Cholecalciferol (Vitamin D3) [Vitamin D3] 1,000 unit PO HS 03/07/15 Warfarin Sodium [Coumadin] 4 mg PO DAILY 03/07/15 Amlodipine Besylate [Norvasc -] 5 mg PO DAILY 06/06/17 Sertraline HCl [Zoloft] 50 mg PO DAILY 06/06/17 Atorvastatin Ca [Lipitor] 10 mg PO HS tablet 06/08/17 Metoprolol Succinate [Toprol XL -] 25 mg PO BID #60 tab.sr.24h 06/08/17 Warfarin Na [Coumadin -] 4 mg PO DAILY@1800 tablet 10/29/18 Walker [Ultra-Light Rollator] 1 each MC DAILY #1 each 10/30/18 Problem List - Problems (1) Near syncope Code(s): R55 - SYNCOPE AND COLLAPSE (2) Shortness of breath Code(s): R06.02 - SHORTNESS OF BREATH (3) IDALIA (acute kidney injury) Code(s): N17.9 - ACUTE KIDNEY FAILURE, UNSPECIFIED (4) Tremors of nervous system Code(s): R25.1 - TREMOR, UNSPECIFIED (5) CVA (cerebral vascular accident) Code(s): I63.9 - CEREBRAL INFARCTION, UNSPECIFIED (6) COPD (chronic obstructive pulmonary disease) Code(s): J44.9 - CHRONIC OBSTRUCTIVE PULMONARY DISEASE, UNSPECIFIED (7) Carotid stenosis, left Code(s): I65.22 - OCCLUSION AND STENOSIS OF LEFT CAROTID ARTERY (8) Prophylactic measure Code(s): Z29.9 - ENCOUNTER FOR PROPHYLACTIC MEASURES, UNSPECIFIED - Discharge Referral Referred to [facility] Med P.C.: No
[2018-10-30 09:53] LABS: INR 1.78 (0.83-1.09); PROTHROMBIN TIME (PATIENT) 21.1 SEC (9.7-13.0)
[2018-10-30] MEDS ORDERED: POLYETHYLENE GLYCOL 3350 119 GM BTL PO ONE (10:31)
[2018-10-30] MEDS ORDERED: BISACODYL 10 MG SUPP.RECT PR ONE (10:31)
[2018-10-30] MEDS: amLODIPine BESYLATE 5 MG TABLET (FP) PO SCH (10:37)
[2018-10-30] MEDS: metoPROLOL SUCCINATE 25 MG TAB.SR.24H (FP) PO SCH ×2 (10:37→21:42)
[2018-10-30] MEDS: ASPIRIN 81 MG CHEWABLE TABLETS PO SCH (10:37)
[2018-10-30] MEDS: clonazePAM 0.5 MG TABLET PO PRN (10:47)
--- NOTE | 2018-10-30 11:03 | PN ---
Progress Note, Physician Chief Complaint: patient was for discharge home today with VNS for physical therapy and OT therapy, but and patient want to seek rehab placement for patient for lower ext weakness and upper ext tremors. History of Present Illness: Luiz De La Cruz is a 78 year old male with a significant past medical history of depression, [place] (cardiac stenting 2002, CVA (x2, noncompliant with Coumadin), CKD Stage III, BPH, AAA (s/p endovascular stenting and revision x4, last 2017 @ [facility]), left sided common iliac aneurysm (stable on last CT scan), colon resection, left sided endarterectomy (2014) and COPD. He presented to ED with pre-syncope, and SOB on exertion. present at bedside, pt reports not being able to make it to his Dr's appt because of not feeling well, has not seen PCP, Cardio, Renal in over a year. pt denies chest pain, cough, fever, n/v , fever, abd pain. - Current Medication List Current Medications: Active Medications Alprazolam (Xanax -) 0.5 mg PO HS PRN PRN Reason: ANXIETY Last Admin: 10/29/18 21:40 Dose: 0.5 mg Amlodipine Besylate (Norvasc -) 5 mg PO DAILY [facility] Last Admin: 10/30/18 10:37 Dose: 5 mg Aspirin (Asa -) 81 mg PO DAILY [facility] Last Admin: 10/30/18 10:37 Dose: 81 mg Atorvastatin Calcium (Lipitor -) 10 mg PO HS [facility] Last Admin: 10/29/18 21:40 Dose: 10 mg Cholecalciferol (Vitamin D3 -) 1,000 unit PO HS [facility] Last Admin: 10/29/18 21:40 Dose: 1,000 unit Clonazepam (Klonopin -) 0.25 mg PO Q12H PRN PRN Reason: ANXIETY Last Admin: 10/30/18 10:47 Dose: 0.25 mg Sodium Chloride (Normal Saline -) 1,000 mls @ 75 mls/hr IV ASDIR [facility] Last Admin: 10/30/18 03:00 Dose: 75 mls/hr Metoprolol Succinate (Toprol Xl -) 25 mg PO BID [facility] Last Admin: 10/30/18 10:37 Dose: 25 mg Nystatin (Nystop Powder -) 1 applic TP BID [facility] Last Admin: 10/29/18 21:43 Dose: 1 applic Warfarin Sodium (Coumadin -) 4 mg PO DAILY@1800 [facility] Last Admin: 10/29/18 17:42 Dose: 4 mg - Objective Vital Signs: Vital Signs Temperature 98.2 F 10/30/18 08:40 Pulse Rate 62 10/30/18 08:40 Respiratory Rate 20 10/30/18 08:40 Blood Pressure 140/46 L 10/30/18 08:40 O2 Sat by Pulse Oximetry (%) 95 10/30/18 04:00 Constitutional: Yes: Well Nourished, No Distress Eyes: Yes: WNL HENT: Yes: Atraumatic Neck: Yes: WNL Cardiovascular: Yes: Regular Rate and Rhythm Respiratory: Yes: Regular, CTA Bilaterally ...Rectal Exam: Yes: Deferred Genitourinary: Yes: WNL Breast(s): Yes: WNL Musculoskeletal: Yes: Muscle Weakness Edema: No Integumentary: Yes: WNL Neurological: Yes: Other (depressed affect, anxious at times) Psychiatric: Yes: Other Labs: CBC, BMP 10/29/18 06:00 10/29/18 06:00 INR, PTT INR 1.78 (0.83-1.09) H 10/30/18 09:15 - ....Imaging Cat Scan: Image Reviewed Problem List - Problems (1) Near syncope Assessment/Plan: Presents to the ED with a pre syncope episode. Monitor on tele. Mild bradycardia noted on telemetry, appreciate cardiology input - troponin x 2 wnl - carotid dopplers right ICA, 50-69% stenosis noted unchanged from carotid doppler 2014, follows with Dr Mike (vascular) will require outpatient followup - continue lipitor - physical therapy Code(s): R55 - SYNCOPE AND COLLAPSE (2) Shortness of breath Assessment/Plan: Patient tolerating room air and denies any shortness of breath. Chest CT shows moderately severe COPD. Respiratory pre and post stable and patient does not meet criteria for home oxygen. Code(s): R06.02 - SHORTNESS OF BREATH (3) IDALIA (acute kidney injury) Assessment/Plan: ckd - creatine elevated, baseline 1.3 - strict monitoring, repeat bmp in am - ivf per nephrology Code(s): N17.9 - ACUTE KIDNEY FAILURE, UNSPECIFIED (4) Tremors of nervous system Assessment/Plan: Upper extremity tremors. hx of CVA Maintain fall precautions for Head ct per neuro physical therapy evaluation Code(s): R25.1 - TREMOR, UNSPECIFIED (5) CVA (cerebral vascular accident) Assessment/Plan: History of CVA. On Coumadin based on INR. coumadin levels sub-therapeutic. increase dose of coumadin tonight. Code(s): I63.9 - CEREBRAL INFARCTION, UNSPECIFIED (6) COPD (chronic obstructive pulmonary disease) Assessment/Plan: not home oxygen dependent at home presents with c/o of shortness of breath pulmonary consulted and following patient will need outpatient follow up with pulmonary Code(s): J44.9 - CHRONIC OBSTRUCTIVE PULMONARY DISEASE, UNSPECIFIED (7) Carotid stenosis, left Assessment/Plan: history of left carotid stenosis with surgical repair with vascular carotid study unchanged from 2015 Code(s): I65.22 - OCCLUSION AND STENOSIS OF LEFT CAROTID ARTERY (8) Prophylactic measure Assessment/Plan: ivf per renal monitor electrolytes tolerating po prophy physical therapy on coumadin Code(s): Z29.9 - ENCOUNTER FOR PROPHYLACTIC MEASURES, UNSPECIFIED Visit type - Emergency Visit Emergency Visit: Yes ED Registration Date: 10/30/18 Care time: The patient presented to the Emergency Department on the above date and was hospitalized for further evaluation of their emergent condition. - New Patient This patient is new to me today: No - Critical Care Critical Care patient: No - Discharge Referral Referred to [facility] Med P.C.: No
[2018-10-30] MEDS ORDERED: WARFARIN NA 5 MG TABLET (UD) PO SCH (11:04)
--- NOTE | 2018-10-30 11:35 | PN ---
Progress Note, Physician History of Present Illness: pulmonary alert,no distress,-cp,-sob,o2 sat 98% on ra - Current Medication List Current Medications: Active Medications Alprazolam (Xanax -) 0.5 mg PO HS PRN PRN Reason: ANXIETY Last Admin: 10/29/18 21:40 Dose: 0.5 mg Amlodipine Besylate (Norvasc -) 5 mg PO DAILY [facility] Last Admin: 10/30/18 10:37 Dose: 5 mg Aspirin (Asa -) 81 mg PO DAILY [facility] Last Admin: 10/30/18 10:37 Dose: 81 mg Atorvastatin Calcium (Lipitor -) 10 mg PO HS [facility] Last Admin: 10/29/18 21:40 Dose: 10 mg Cholecalciferol (Vitamin D3 -) 1,000 unit PO HS [facility] Last Admin: 10/29/18 21:40 Dose: 1,000 unit Clonazepam (Klonopin -) 0.25 mg PO Q12H PRN PRN Reason: ANXIETY Last Admin: 10/30/18 10:47 Dose: 0.25 mg Sodium Chloride (Normal Saline -) 1,000 mls @ 75 mls/hr IV ASDIR [facility] Last Admin: 10/30/18 03:00 Dose: 75 mls/hr Metoprolol Succinate (Toprol Xl -) 25 mg PO BID [facility] Last Admin: 10/30/18 10:37 Dose: 25 mg Nystatin (Nystop Powder -) 1 applic TP BID [facility] Last Admin: 10/29/18 21:43 Dose: 1 applic Warfarin Sodium (Coumadin -) 5 mg PO DAILY@1800 [facility] - Objective Vital Signs: Vital Signs Temperature 98.2 F 10/30/18 08:40 Pulse Rate 62 10/30/18 08:40 Respiratory Rate 20 10/30/18 08:40 Blood Pressure 140/46 L 10/30/18 08:40 O2 Sat by Pulse Oximetry (%) 95 10/30/18 04:00 Constitutional: Yes: Well Nourished, Calm Eyes: Yes: WNL HENT: Yes: WNL Neck: Yes: WNL Cardiovascular: Yes: Regular Rate and Rhythm, S1, S2 Respiratory: Yes: CTA Bilaterally Gastrointestinal: Yes: Normal Bowel Sounds, Soft Extremities: Yes: WNL Edema: No Labs: CBC, BMP Laboratory Tests 10/29/18 10:20 Puncture Site Right radial ABG pH 7.39 ABG pCO2 at Pt Temp 34.5 L ABG pO2 at Pt Temp 65.8 L ABG HCO3 20.9 L ABG O2 Sat (Measured) 93.0 L - ....Imaging Cat Scan: Report Reviewed, Image Reviewed Problem List - Problems (1) Iqcoy-me-dmepqow kidney injury Code(s): N17.9 - ACUTE KIDNEY FAILURE, UNSPECIFIED; N18.9 - CHRONIC KIDNEY DISEASE, UNSPECIFIED (2) Near syncope Code(s): R55 - SYNCOPE AND COLLAPSE (3) Shortness of breath Code(s): R06.02 - SHORTNESS OF BREATH (4) COPD (chronic obstructive pulmonary disease) Code(s): J44.9 - CHRONIC OBSTRUCTIVE PULMONARY DISEASE, UNSPECIFIED (5) Dehydration Code(s): E86.0 - DEHYDRATION (6) Episode of shaking Code(s): R25.1 - TREMOR, UNSPECIFIED (7) CKD (chronic kidney disease), stage III Code(s): N18.3 - CHRONIC KIDNEY DISEASE, STAGE 3 (MODERATE) (8) Carotid stenosis, left Code(s): I65.22 - OCCLUSION AND STENOSIS OF LEFT CAROTID ARTERY (9) Hypertension with renal disease Code(s): I12.9 - HYPERTENSIVE CHRONIC KIDNEY DISEASE W STG 1-4/UNSP CHR KDNY (10) Tremors of nervous system Code(s): R25.1 - TREMOR, UNSPECIFIED Assessment/Plan IMP NEAR SYNCOPE DYSPNEA LIKELY SECONDARY TO COPD IMPROVED ASHD S/P [place], STENT AAA S/P ENDOVASCULAR REPAIR H/O CVA TREMORS ACUTE ON CHRONIC KIDNEY INJURY BPH PLAN O2 INHALED BRONCHODILATORS GENTLE HYDRATION AC MONITOR LYTE,RENAL FUNCTION DR LANDRUM Problem List - Problems (1) Jyqjr-fx-ypdezpl kidney injury Code(s): N17.9 - ACUTE KIDNEY FAILURE, UNSPECIFIED; N18.9 - CHRONIC KIDNEY DISEASE, UNSPECIFIED (2) Near syncope Code(s): R55 - SYNCOPE AND COLLAPSE (3) Shortness of breath Code(s): R06.02 - SHORTNESS OF BREATH (4) COPD (chronic obstructive pulmonary disease) Code(s): J44.9 - CHRONIC OBSTRUCTIVE PULMONARY DISEASE, UNSPECIFIED (5) Dehydration Code(s): E86.0 - DEHYDRATION (6) Episode of shaking Code(s): R25.1 - TREMOR, UNSPECIFIED (7) CKD (chronic kidney disease), stage III Code(s): N18.3 - CHRONIC KIDNEY DISEASE, STAGE 3 (MODERATE) (8) Carotid stenosis, left Code(s): I65.22 - OCCLUSION AND STENOSIS OF LEFT CAROTID ARTERY (9) Hypertension with renal disease Code(s): I12.9 - HYPERTENSIVE CHRONIC KIDNEY DISEASE W STG 1-4/UNSP CHR KDNY (10) Tremors of nervous system Code(s): R25.1 - TREMOR, UNSPECIFIED
[2018-10-30] MEDS ORDERED: ALBUTEROL SO4 2.5/IPRATROPIUM 0.5 INH SOL 3 ML VIAL.NEB. NEB PRN (11:37)
[2018-10-30 11:47] LABS: ALBUMIN 2.7 g/dl (3.4-5.0); BILIRUBIN,TOTAL 0.4 mg/dL (0.2-1); CALCIUM 7.7 mg/dL (8.5-10.1); POTASSIUM 4.3 mmol/L (3.5-5.1); TOT PROT 5.1 g/dl (6.4-8.2)
[2018-10-30 11:53] LABS: BASO % 0.7 % (0-2.0); EOS % 12.1 % (0-4.5); HEMOGLOBIN 10.8 GM/dL (11.7-16.9); LYMPH % 13.6 % (8-40); MCH 30.4 pg (25.7-33.7); MCHC 32.8 g/dl (32.0-35.9); MEAN CELL VOLUME 92.5 fl (80-96); MONO % 7.3 % (3.8-10.2); NEUT % 66.3 % (42.8-82.8); PLATELET COUNT 155 K/MM3 (134-434); RBC 3.57 M/mm3 (4.00-5.60); RDW 14.5 % (11.9-15.9); WHITE BLOOD COUNT 7.8 K/mm3 (4.0-10.0)
[2018-10-30] MEDS: NYSTATIN POWDER 100,000 UNITS/GM - 15 GM TOPICAL POWDER TP SCH ×2 (13:10→21:43)
[2018-10-30] MEDS: CHOLECALCIFEROL (VIT D3) 1,000 UNIT (25 MCG) TABLET PO SCH (21:42)
[2018-10-30] MEDS: ATORVASTATIN CA 10 MG TABLET (FP) PO SCH (21:42)
[2018-10-30] MEDS: ALPRAZolam 0.25 MG TABLET PO PRN (21:43)
[2018-10-31 00:09] LABS: MYOGLOBIN SERUM 122 ng/mL (28-72)
[2018-10-31] MEDS: amLODIPine BESYLATE 5 MG TABLET (FP) PO SCH (09:31)
[2018-10-31] MEDS: clonazePAM 0.5 MG TABLET PO PRN (09:31)
[2018-10-31] MEDS: SODIUM CHLORIDE 1,000 ML IV SCH (09:32)
[2018-10-31] MEDS: ASPIRIN 81 MG CHEWABLE TABLETS PO SCH (09:32)
[2018-10-31] MEDS: metoPROLOL SUCCINATE 25 MG TAB.SR.24H (FP) PO SCH ×2 (09:32→23:12)
[2018-10-31] MEDS: NYSTATIN POWDER 100,000 UNITS/GM - 15 GM TOPICAL POWDER TP SCH ×2 (09:32→23:12)
[2018-10-31 11:21] LABS: BASO % 0.9 % (0-2.0); HEMATOCRIT 35.4 % (35.4-49); HEMOGLOBIN 11.5 GM/dL (11.7-16.9); LYMPH % 14.8 % (8-40); MCH 30.1 pg (25.7-33.7); MCHC 32.6 g/dl (32.0-35.9); MEAN CELL VOLUME 92.4 fl (80-96); NEUT % 64.3 % (42.8-82.8); PLATELET COUNT 166 K/MM3 (134-434); RBC 3.83 M/mm3 (4.00-5.60); RDW 14.2 % (11.9-15.9); WHITE BLOOD COUNT 7.7 K/mm3 (4.0-10.0)
[2018-10-31 11:32] LABS: ALBUMIN 2.9 g/dl (3.4-5.0); BILIRUBIN,TOTAL 0.6 mg/dL (0.2-1); CALCIUM 7.9 mg/dL (8.5-10.1); CREATININE 2.1 mg/dL (0.55-1.3); POTASSIUM 4.6 mmol/L (3.5-5.1); TOT PROT 5.7 g/dl (6.4-8.2)
[2018-10-31 11:37] LABS: INR 1.73 (0.83-1.09); PROTHROMBIN TIME (PATIENT) 20.5 SEC (9.7-13.0)
--- NOTE | 2018-10-31 12:15 | PN ---
Progress Note (short form) - Note Progress Note: Renal follow up for CKD Pt seen and examined at the bedside awake and alert has mild sob, no cough, fever, chills appetite is poor on IVF making urine no N/V/D Vital Signs Temperature 98.4 F 10/31/18 09:15 Pulse Rate 83 10/31/18 09:15 Respiratory Rate 18 10/31/18 09:15 Blood Pressure 142/81 10/31/18 09:15 O2 Sat by Pulse Oximetry (%) 94 L 10/31/18 09:00 Intake & Output 10/28/18 10/29/18 10/30/18 10/31/18 23:59 23:59 23:59 23:59 Intake Total 700 1215 1365 885 Output Total 1600 1550 1875 650 Balance -888 -094 -468 235 Weight 75.977 kg NAD RRR, no M/R CTA, no rales or wheeze soft NT/ND No LE edema, clubbing or edema CBC, BMP 10/31/18 10:13 10/31/18 10:13 Current Medications Albuterol/Ipratropium (Duoneb -) 1 amp NEB Q4H PRN PRN Reason: SHORTNESS OF BREATH Alprazolam (Xanax -) 0.5 mg PO HS PRN PRN Reason: ANXIETY Last Admin: 10/30/18 21:43 Dose: 0.5 mg Amlodipine Besylate (Norvasc -) 5 mg PO DAILY [facility] Last Admin: 10/31/18 09:31 Dose: 5 mg Aspirin (Asa -) 81 mg PO DAILY [facility] Last Admin: 10/31/18 09:32 Dose: 81 mg Atorvastatin Calcium (Lipitor -) 10 mg PO HS [facility] Last Admin: 10/30/18 21:42 Dose: 10 mg Cholecalciferol (Vitamin D3 -) 1,000 unit PO HS [facility] Last Admin: 10/30/18 21:42 Dose: 1,000 unit Clonazepam (Klonopin -) 0.25 mg PO Q12H PRN PRN Reason: ANXIETY Last Admin: 10/31/18 09:31 Dose: 0.25 mg Sodium Chloride (Normal Saline -) 1,000 mls @ 75 mls/hr IV ASDIR [facility] Last Admin: 10/31/18 09:32 Dose: Not Given Metoprolol Succinate (Toprol Xl -) 25 mg PO BID [facility] Last Admin: 10/31/18 09:32 Dose: 25 mg Nystatin (Nystop Powder -) 1 applic TP BID [facility] Last Admin: 10/31/18 09:32 Dose: 1 applic Warfarin Sodium (Coumadin -) 5 mg PO DAILY@1800 [facility] Last Admin: 10/30/18 17:16 Dose: 5 mg CXR - clear lungs ECHO- EF 55-60%, impaired LV relaxation Carotid artery doppler 55-60% stenosis of R carotid artery 78 year old gentleman with hx of CKD stage 3b(baseline Cr 1.9 ), CAd s/p DE with PCI, CVA, AAA s/p endovascular repair, BPH, Carotid endartectomy who presents with near syncope and dyspnea on exertion with Cr of 2.2. #Dyspnea on Exertion #Pre-Syncope #CKD stage 3 #CAD #BPH #Hypertension #Suspected fungal groin rash Renal functon stable at this time can discontinue IVF Trend renal function and electrolytes ECHO shows normal LVEF Cardiology following discharge planning as per primary Thank you Fernandez Almanzar DO
--- NOTE | 2018-10-31 12:52 | PN ---
Progress Note, Physician History of Present Illness: PULMONARY ALERT,FEELING BETTER,COMFORTABLE,-SOB,-CP - Current Medication List Current Medications: Active Medications Albuterol/Ipratropium (Duoneb -) 1 amp NEB Q4H PRN PRN Reason: SHORTNESS OF BREATH Alprazolam (Xanax -) 0.5 mg PO HS PRN PRN Reason: ANXIETY Last Admin: 10/30/18 21:43 Dose: 0.5 mg Amlodipine Besylate (Norvasc -) 5 mg PO DAILY [facility] Last Admin: 10/31/18 09:31 Dose: 5 mg Aspirin (Asa -) 81 mg PO DAILY [facility] Last Admin: 10/31/18 09:32 Dose: 81 mg Atorvastatin Calcium (Lipitor -) 10 mg PO HS [facility] Last Admin: 10/30/18 21:42 Dose: 10 mg Cholecalciferol (Vitamin D3 -) 1,000 unit PO HS [facility] Last Admin: 10/30/18 21:42 Dose: 1,000 unit Clonazepam (Klonopin -) 0.25 mg PO Q12H PRN PRN Reason: ANXIETY Last Admin: 10/31/18 09:31 Dose: 0.25 mg Metoprolol Succinate (Toprol Xl -) 25 mg PO BID [facility] Last Admin: 10/31/18 09:32 Dose: 25 mg Nystatin (Nystop Powder -) 1 applic TP BID [facility] Last Admin: 10/31/18 09:32 Dose: 1 applic Warfarin Sodium (Coumadin -) 5 mg PO DAILY@1800 [facility] Last Admin: 10/30/18 17:16 Dose: 5 mg - Objective Vital Signs: Vital Signs Temperature 98.4 F 10/31/18 09:15 Pulse Rate 83 10/31/18 09:15 Respiratory Rate 18 10/31/18 09:15 Blood Pressure 142/81 10/31/18 09:15 O2 Sat by Pulse Oximetry (%) 94 L 10/31/18 09:00 Constitutional: Yes: Well Nourished, Calm Eyes: Yes: WNL HENT: Yes: WNL Neck: Yes: WNL Cardiovascular: Yes: Pulse Irregular, S1, S2 Respiratory: Yes: Diminished Gastrointestinal: Yes: Normal Bowel Sounds, Soft Extremities: Yes: WNL Edema: No Labs: CBC, BMP 10/31/18 10:13 10/31/18 10:13 INR, PTT INR 1.73 (0.83-1.09) H 10/31/18 10:13 Problem List - Problems (1) Lwaxp-nu-vyjddrp kidney injury Code(s): N17.9 - ACUTE KIDNEY FAILURE, UNSPECIFIED; N18.9 - CHRONIC KIDNEY DISEASE, UNSPECIFIED (2) Near syncope Code(s): R55 - SYNCOPE AND COLLAPSE (3) Shortness of breath Code(s): R06.02 - SHORTNESS OF BREATH (4) COPD (chronic obstructive pulmonary disease) Code(s): J44.9 - CHRONIC OBSTRUCTIVE PULMONARY DISEASE, UNSPECIFIED (5) Dehydration Code(s): E86.0 - DEHYDRATION (6) Episode of shaking Code(s): R25.1 - TREMOR, UNSPECIFIED (7) CKD (chronic kidney disease), stage III Code(s): N18.3 - CHRONIC KIDNEY DISEASE, STAGE 3 (MODERATE) (8) Carotid stenosis, left Code(s): I65.22 - OCCLUSION AND STENOSIS OF LEFT CAROTID ARTERY (9) Hypertension with renal disease Code(s): I12.9 - HYPERTENSIVE CHRONIC KIDNEY DISEASE W STG 1-4/UNSP CHR KDNY (10) Tremors of nervous system Code(s): R25.1 - TREMOR, UNSPECIFIED Assessment/Plan IMP NEAR SYNCOPE DYSPNEA LIKELY SECONDARY TO COPD IMPROVED ASHD S/P MA, STENT AAA S/P ENDOVASCULAR REPAIR H/O CVA TREMORS ACUTE ON CHRONIC KIDNEY INJURY BPH PLAN O2 INHALED BRONCHODILATORS GENTLE HYDRATION AC MONITOR LYTE,RENAL FUNCTION DR LANDRUM Problem List - Problems (1) Tbrae-gh-umglknb kidney injury Code(s): N17.9 - ACUTE KIDNEY FAILURE, UNSPECIFIED; N18.9 - CHRONIC KIDNEY DISEASE, UNSPECIFIED (2) Near syncope Code(s): R55 - SYNCOPE AND COLLAPSE (3) Shortness of breath Code(s): R06.02 - SHORTNESS OF BREATH (4) COPD (chronic obstructive pulmonary disease) Code(s): J44.9 - CHRONIC OBSTRUCTIVE PULMONARY DISEASE, UNSPECIFIED (5) Dehydration Code(s): E86.0 - DEHYDRATION (6) Episode of shaking Code(s): R25.1 - TREMOR, UNSPECIFIED (7) CKD (chronic kidney disease), stage III Code(s): N18.3 - CHRONIC KIDNEY DISEASE, STAGE 3 (MODERATE) (8) Carotid stenosis, left Code(s): I65.22 - OCCLUSION AND STENOSIS OF LEFT CAROTID ARTERY (9) Hypertension with renal disease Code(s): I12.9 - HYPERTENSIVE CHRONIC KIDNEY DISEASE W STG 1-4/UNSP CHR KDNY (10) Tremors of nervous system Code(s): R25.1 - TREMOR, UNSPECIFIED
--- NOTE | 2018-10-31 15:17 | PN ---
Progress Note, Physician Chief Complaint: patient awaiting rehab History of Present Illness: Luiz De La Cruz is a 78 year old male with a significant past medical history of depression, [place] (cardiac stenting 2002, CVA (x2, noncompliant with Coumadin), CKD Stage III, BPH, AAA (s/p endovascular stenting and revision x4, last 2017 @ [facility]), left sided common iliac aneurysm (stable on last CT scan), colon resection, left sided endarterectomy (2015) and COPD. He presented to ED with pre-syncope, and SOB on exertion. present at bedside, pt reports not being able to make it to his Dr's appt because of not feeling well, has not seen PCP, Cardio, Renal in over a year. pt denies chest pain, cough, fever, n/v , fever, abd pain. - Current Medication List Current Medications: Active Medications Albuterol/Ipratropium (Duoneb -) 1 amp NEB Q4H PRN PRN Reason: SHORTNESS OF BREATH Alprazolam (Xanax -) 0.5 mg PO HS PRN PRN Reason: ANXIETY Last Admin: 10/30/18 21:43 Dose: 0.5 mg Amlodipine Besylate (Norvasc -) 5 mg PO DAILY [facility] Last Admin: 10/31/18 09:31 Dose: 5 mg Aspirin (Asa -) 81 mg PO DAILY [facility] Last Admin: 10/31/18 09:32 Dose: 81 mg Atorvastatin Calcium (Lipitor -) 10 mg PO HS [facility] Last Admin: 10/30/18 21:42 Dose: 10 mg Cholecalciferol (Vitamin D3 -) 1,000 unit PO HS [facility] Last Admin: 10/30/18 21:42 Dose: 1,000 unit Clonazepam (Klonopin -) 0.25 mg PO Q12H PRN PRN Reason: ANXIETY Last Admin: 10/31/18 09:31 Dose: 0.25 mg Metoprolol Succinate (Toprol Xl -) 25 mg PO BID [facility] Last Admin: 10/31/18 09:32 Dose: 25 mg Nystatin (Nystop Powder -) 1 applic TP BID [facility] Last Admin: 10/31/18 09:32 Dose: 1 applic Warfarin Sodium (Coumadin -) 5 mg PO DAILY@1800 [facility] Last Admin: 10/30/18 17:16 Dose: 5 mg - Objective Vital Signs: Vital Signs Temperature 97.7 F 10/31/18 13:36 Pulse Rate 84 10/31/18 13:36 Respiratory Rate 16 10/31/18 13:36 Blood Pressure 127/41 L 10/31/18 13:36 O2 Sat by Pulse Oximetry (%) 94 L 10/31/18 09:00 Constitutional: Yes: Well Nourished, Anxious Eyes: Yes: WNL HENT: Yes: WNL Neck: Yes: WNL Cardiovascular: Yes: WNL Respiratory: Yes: WNL Gastrointestinal: Yes: WNL ...Rectal Exam: Yes: Deferred Genitourinary: Yes: WNL Labs: CBC, BMP 10/31/18 10:13 10/31/18 10:13 INR, PTT INR 1.73 (0.83-1.09) H 10/31/18 10:13 Problem List - Problems (1) Near syncope Assessment/Plan: Presents to the ED with a pre syncope episode. Monitor on tele. Mild bradycardia noted on telemetry, appreciate cardiology input - troponin x 2 wnl - carotid dopplers right ICA, 50-69% stenosis noted unchanged from carotid doppler 2014, follows with Dr Mike (vascular) will require outpatient followup - continue lipitor - physical therapy Code(s): R55 - SYNCOPE AND COLLAPSE (2) Shortness of breath Assessment/Plan: Patient tolerating room air and denies any shortness of breath. Chest CT shows moderately severe COPD. Respiratory pre and post stable and patient does not meet criteria for home oxygen. Code(s): R06.02 - SHORTNESS OF BREATH (3) IDALIA (acute kidney injury) Assessment/Plan: ckd - creatine elevated, baseline 1.3 - strict monitoring, repeat bmp in am - ivf per nephrology Code(s): N17.9 - ACUTE KIDNEY FAILURE, UNSPECIFIED (4) Tremors of nervous system Assessment/Plan: Upper extremity tremors. hx of CVA Maintain fall precautions for Head ct per neuro physical therapy evaluation Code(s): R25.1 - TREMOR, UNSPECIFIED (5) CVA (cerebral vascular accident) Assessment/Plan: History of CVA. On Coumadin based on INR. coumadin levels sub-therapeutic. increase dose of coumadin tonight. Code(s): I63.9 - CEREBRAL INFARCTION, UNSPECIFIED (6) COPD (chronic obstructive pulmonary disease) Assessment/Plan: not home oxygen dependent at home presents with c/o of shortness of breath pulmonary consulted and following patient will need outpatient follow up with pulmonary Code(s): J44.9 - CHRONIC OBSTRUCTIVE PULMONARY DISEASE, UNSPECIFIED (7) Carotid stenosis, left Assessment/Plan: history of left carotid stenosis with surgical repair with vascular carotid study unchanged from 2015 Code(s): I65.22 - OCCLUSION AND STENOSIS OF LEFT CAROTID ARTERY (8) Prophylactic measure Assessment/Plan: ivf per renal monitor electrolytes tolerating po prophy physical therapy on coumadin Code(s): Z29.9 - ENCOUNTER FOR PROPHYLACTIC MEASURES, UNSPECIFIED Visit type - Emergency Visit Emergency Visit: Yes ED Registration Date: 10/30/18 Care time: The patient presented to the Emergency Department on the above date and was hospitalized for further evaluation of their emergent condition. - New Patient This patient is new to me today: No - Critical Care Critical Care patient: No - Discharge Referral Referred to [facility] Med P.C.: No
[2018-10-31] MEDS: WARFARIN NA 7.5 MG TABLET (FP) PO SCH (17:30)
--- NOTE | 2018-10-31 18:18 | PN ---
Progress Note (short form) - Note Progress Note: 78-year-old gentleman with longstanding history of coronary artery disease, status post PCI/stenting, angina pectoris, hypertension, hypertensive cardiovascular disease, abdominal aortic aneurysm with multiple endovascular repairs, hypercholesterolemia status post left carotid endarterectomy, for recurring TIAs and cerebrovascular accident. 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 Patient was sitting out of bed and had no complaints of chest pain or discomfort or shortness of breath. Hemodynamically appears stable, there has been no postural lightheadedness reported. Active Medications Albuterol/Ipratropium (Duoneb -) 1 amp NEB Q4H PRN PRN Reason: SHORTNESS OF BREATH Alprazolam (Xanax -) 0.5 mg PO HS PRN PRN Reason: ANXIETY Last Admin: 10/30/18 21:43 Dose: 0.5 mg Amlodipine Besylate (Norvasc -) 5 mg PO DAILY [facility] Last Admin: 10/31/18 09:31 Dose: 5 mg Aspirin (Asa -) 81 mg PO DAILY [facility] Last Admin: 10/31/18 09:32 Dose: 81 mg Atorvastatin Calcium (Lipitor -) 10 mg PO HS [facility] Last Admin: 10/30/18 21:42 Dose: 10 mg Cholecalciferol (Vitamin D3 -) 1,000 unit PO HS [facility] Last Admin: 10/30/18 21:42 Dose: 1,000 unit Clonazepam (Klonopin -) 0.25 mg PO Q12H PRN PRN Reason: ANXIETY Last Admin: 10/31/18 09:31 Dose: 0.25 mg Metoprolol Succinate (Toprol Xl -) 25 mg PO BID [facility] Last Admin: 10/31/18 09:32 Dose: 25 mg Nystatin (Nystop Powder -) 1 applic TP BID [facility] Last Admin: 10/31/18 09:32 Dose: 1 applic Warfarin Sodium (Coumadin -) 7.5 mg PO DAILY@1800 [facility] Last Admin: 10/31/18 17:30 Dose: 7.5 mg General: A 78-year-old gentleman who was tremulous, was alert and coherent, was in no acute distress, no pallor, cyanosis, clubbing or jaundice. Last Vital Signs Temp Pulse Resp BP Pulse Ox 97.7 F 84 16 127/41 L 94 L 10/31/18 13:36 10/31/18 13:36 10/31/18 13:36 10/31/18 13:36 10/31/18 09:00 Neck: Supple. No jugular venous distention, carotids were 2+, upstrokes were normal, no bruits were appreciated. Well healed left carotid endarterectomy scar , right lobe of the thyroid was prominent. Heart: PMI was in the 5th intercostal space, no heaves or thrills. Heart sounds were distant, no murmur or gallops were heard. Lungs: Decreased breath sounds at the bases. No extraneous sounds were heard. Abdomen: Protuberant, soft, nontender, no hepatosplenomegaly or palpable masses were appreciated. Extremities: No calf tenderness or dependent edema, dorsalis pedis and posterior tibial pulses were palpable. Femoral pulses were 2+. CBC, BMP 10/31/18 10:13 10/31/18 10:13 IMPRESSION: 1. Coronary artery disease, status post percutaneous coronary intervention/ stenting, angina pectoris currently stable. 2. Near syncope, most likely post micturation. 3. Multiple endovascular repairs for abdominal aortic aneurysms. 4. History of iliac artery aneurysm. 5. Hypertension, hypertensive cardiovascular disease. 6. Status post cerebrovascular accident. 7. Status post left carotid endarterectomy. 8. Hypercholesterolemia. 9. History of patent foramen ovale. 10. Advanced chronic obstructive pulmonary disease. 11. History of depression and anxiety disorder. 12. History of peripheral vagal instability. 13. History of right thyroid nodule/mass. 14. Tremors, etiology to be determined, possibility of Parkinsonism needs to be excluded or may be related to previous cerebrovascular events. 15. Chronic kidney disease. 16. Anemia most likely related to chronic kidney disease. RECOMMENDATION: 1. Increase ambulation. 2. Check blood pressure supine and standing. 3. Continue medications as outlined. RICH MURILLO M.D.
[2018-10-31] MEDS: CHOLECALCIFEROL (VIT D3) 1,000 UNIT (25 MCG) TABLET PO SCH (23:12)
[2018-10-31] MEDS: ATORVASTATIN CA 10 MG TABLET (FP) PO SCH (23:12)
[2018-10-31] MEDS: ALPRAZolam 0.25 MG TABLET PO PRN (23:24)
--- NOTE | 2018-11-01 07:14 | PN ---
Progress Note, Physician Chief Complaint: shortness of breath History of Present Illness: Luiz De La Cruz is a 78 year old male with a significant past medical history of depression, [place] (cardiac stenting 2002, CVA (x2, noncompliant with Coumadin), CKD Stage III, BPH, AAA (s/p endovascular stenting and revision x4, last 2017 @ [facility]), left sided common iliac aneurysm (stable on last CT scan), colon resection, left sided endarterectomy (2014) and COPD. He presented to ED with pre-syncope, and SOB on exertion. - Current Medication List Current Medications: Active Medications Albuterol/Ipratropium (Duoneb -) 1 amp NEB Q4H PRN PRN Reason: SHORTNESS OF BREATH Alprazolam (Xanax -) 0.5 mg PO HS PRN PRN Reason: ANXIETY Last Admin: 10/31/18 23:24 Dose: 0.5 mg Amlodipine Besylate (Norvasc -) 5 mg PO DAILY [facility] Last Admin: 10/31/18 09:31 Dose: 5 mg Aspirin (Asa -) 81 mg PO DAILY [facility] Last Admin: 10/31/18 09:32 Dose: 81 mg Atorvastatin Calcium (Lipitor -) 10 mg PO HS [facility] Last Admin: 10/31/18 23:12 Dose: 10 mg Cholecalciferol (Vitamin D3 -) 1,000 unit PO HS [facility] Last Admin: 10/31/18 23:12 Dose: 1,000 unit Clonazepam (Klonopin -) 0.25 mg PO Q12H PRN PRN Reason: ANXIETY Last Admin: 10/31/18 09:31 Dose: 0.25 mg Metoprolol Succinate (Toprol Xl -) 25 mg PO BID [facility] Last Admin: 10/31/18 23:12 Dose: 25 mg Nystatin (Nystop Powder -) 1 applic TP BID [facility] Last Admin: 10/31/18 23:12 Dose: 1 applic Warfarin Sodium (Coumadin -) 7.5 mg PO DAILY@1800 [facility] Last Admin: 10/31/18 17:30 Dose: 7.5 mg - Objective Vital Signs: Vital Signs Temperature 98.8 F 11/01/18 06:00 Pulse Rate 56 L 11/01/18 06:00 Respiratory Rate 16 11/01/18 06:00 Blood Pressure 155/54 L 11/01/18 06:00 O2 Sat by Pulse Oximetry (%) 97 10/31/18 21:00 Constitutional: Yes: Well Nourished Eyes: Yes: WNL, Conjunctiva Clear, Tearing (to right eye) HENT: Yes: WNL, Atraumatic, Normocephalic Neck: Yes: WNL, Supple, Trachea Midline Cardiovascular: Yes: WNL, Regular Rate and Rhythm Respiratory: Yes: WNL, Regular, CTA Bilaterally Gastrointestinal: Yes: WNL, Normal Bowel Sounds, Soft ...Rectal Exam: Yes: Deferred Genitourinary: Yes: Polyuria (as per patient report) Musculoskeletal: Yes: WNL Extremities: Yes: WNL Edema: No Peripheral Pulses WNL: Yes Integumentary: Yes: Rash (fungal/moisture rashto right groin) Neurological: Yes: WNL, Alert, Oriented ...Motor Strength: WNL Psychiatric: Yes: WNL Labs: CBC, BMP 10/31/18 10:13 10/31/18 10:13 INR, PTT INR 1.73 (0.83-1.09) H 10/31/18 10:13 - ....Imaging Chest X-ray: Report Reviewed, Image Reviewed Cat Scan: Report Reviewed (CT chest:Moderate to severe COPD changes, no infiltrates HCT: on acute ICH) Other: Report Reviewed (TTE: EF 55-60%, RV function nml Carotid Doppler: without evidence of hemodynamically significant stenosis) Problem List - Problems (1) Zfrci-nv-aoflftg kidney injury Assessment/Plan: CKD - creatine elevated, baseline 1.3, now 1.9 - strict monitoring, follow bmp in am - avoid nephrotoxic agents Code(s): N17.9 - ACUTE KIDNEY FAILURE, UNSPECIFIED; N18.9 - CHRONIC KIDNEY DISEASE, UNSPECIFIED (2) CVA (cerebral vascular accident) Assessment/Plan: History of CVA. -On Coumadin based on INR. -coumadin dose increased last night (1.73) -INR near therapeutic (1.99) will continue to monitor INR Code(s): I63.9 - CEREBRAL INFARCTION, UNSPECIFIED (3) Near syncope Assessment/Plan: Presents to the ED with a pre syncope episode. - troponin x 2 wnl, no further need for trending - carotid dopplers right ICA, 50-69% stenosis noted unchanged from carotid doppler 2014, follows with Dr Mike (vascular) will require outpatient followup - continue lipitor - physical therapy as tolerated -appreciate cardiology input Code(s): R55 - SYNCOPE AND COLLAPSE (4) Shortness of breath Assessment/Plan: -patient tolerating room air and denies any shortness of breath. -Chest CT shows moderately severe COPD. -Respiratory pre and post stable and patient does not meet criteria for home oxygen -continue to follow O2 levels Code(s): R06.02 - SHORTNESS OF BREATH (5) IDALIA (acute kidney injury) Assessment/Plan: monitor Cr levels daily Code(s): N17.9 - ACUTE KIDNEY FAILURE, UNSPECIFIED (6) COPD (chronic obstructive pulmonary disease) Assessment/Plan: Hx of chronic COPD, no further c/o SOB -not home oxygen dependent at home -continue inhaled bronchodilators -patient will need outpatient follow up with pulmonary Code(s): J44.9 - CHRONIC OBSTRUCTIVE PULMONARY DISEASE, UNSPECIFIED (7) Urinary retention Assessment/Plan: Pt complaiing of urinary frequency/retention -repeat UA -restart Flomax 0.4mg PO (states he stopped taking home dose) -will consult urology if symptoms persists after flomax Code(s): R33.9 - RETENTION OF URINE, UNSPECIFIED (8) CKD (chronic kidney disease), stage III Code(s): N18.3 - CHRONIC KIDNEY DISEASE, STAGE 3 (MODERATE) (9) Hypertension with renal disease Assessment/Plan: continue home metoprolol & norvasc Code(s): I12.9 - HYPERTENSIVE CHRONIC KIDNEY DISEASE W STG 1-4/UNSP CHR KDNY (10) Tremors of nervous system Assessment/Plan: Upper extremity tremors,hx of CVA -Maintain fall precautions -continue PT Code(s): R25.1 - TREMOR, UNSPECIFIED (11) Carotid stenosis, left Assessment/Plan: history of left carotid stenosis with surgical repair with vascular carotid study unchanged from 2015 Code(s): I65.22 - OCCLUSION AND STENOSIS OF LEFT CAROTID ARTERY Impression/Plan Impression/Plan: Prophy physical therapy on coumadin Dispo Maintain as inpatient Full code Visit type - Emergency Visit Emergency Visit: Yes ED Registration Date: 10/30/18 Care time: The patient presented to the Emergency Department on the above date and was hospitalized for further evaluation of their emergent condition. - New Patient This patient is new to me today: Yes Date on this admission: 11/01/18 - Critical Care Critical Care patient: No - Discharge Referral Referred to [facility] Med P.C.: No
[2018-11-01 07:38] LABS: BASO % 1.1 % (0-2.0); EOS % 13.9 % (0-4.5); HEMATOCRIT 33.6 % (35.4-49); HEMOGLOBIN 11.2 GM/dL (11.7-16.9); LYMPH % 13.4 % (8-40); MCH 30.2 pg (25.7-33.7); MCHC 33.3 g/dl (32.0-35.9); MEAN CELL VOLUME 90.9 fl (80-96); MEAN PLT VOLUME 8.4 fl (7.5-11.1); MONO % 7.8 % (3.8-10.2); NEUT % 63.8 % (42.8-82.8); PLATELET COUNT 165 K/MM3 (134-434); RDW 14.1 % (11.9-15.9); WHITE BLOOD COUNT 7.6 K/mm3 (4.0-10.0)
[2018-11-01 08:07] LABS: ALBUMIN 2.8 g/dl (3.4-5.0); BILIRUBIN,TOTAL 0.3 mg/dL (0.2-1); CALCIUM 7.9 mg/dL (8.5-10.1); CREATININE 1.9 mg/dL (0.55-1.3); MAGNESIUM 2.1 mg/dL (1.8-2.4); POTASSIUM 4.6 mmol/L (3.5-5.1); TOT PROT 5.5 g/dl (6.4-8.2)
[2018-11-01 08:28] LABS: INR 1.99 (0.83-1.09); PROTHROMBIN TIME (PATIENT) 23.6 SEC (9.7-13.0)
[2018-11-01] MEDS: metoPROLOL SUCCINATE 25 MG TAB.SR.24H (FP) PO SCH ×2 (09:58→21:48)
[2018-11-01] MEDS: amLODIPine BESYLATE 5 MG TABLET (FP) PO SCH (09:58)
[2018-11-01] MEDS: ASPIRIN 81 MG CHEWABLE TABLETS PO SCH (09:58)
[2018-11-01] MEDS: ACETAMINOPHEN 500 MG TABLET (FP) PO PRN (09:59)
[2018-11-01] MEDS: NYSTATIN POWDER 100,000 UNITS/GM - 15 GM TOPICAL POWDER TP SCH ×2 (09:59→21:48)
[2018-11-01] MEDS ORDERED: ARTIFICIAL TEARS (POLYVINYL ALCOHOL) OPTH DROPS OU PRN (10:17)
[2018-11-01] MEDS ORDERED: TAMSULOSIN HCL 0.4 MG CAP PO ONE (10:19)
[2018-11-01 11:48] LABS: EPI CELLS 0.2 /HPF (0-5/HPF); HYALINE CASTS 1 /lpf (0-8); URINE APPEARANCE CLEAR; URINE BILIRUBIN NEGATIVE (NEGATIVE); URINE COLOR YELLOW; URINE GLUCOSE (UA) NEGATIVE (NEGATIVE); URINE KETONE NEGATIVE (NEGATIVE); URINE LEUK ESTERASE NEGATIVE (NEGATIVE); URINE NITRITE NEGATIVE (NEGATIVE); URINE PROTEIN 1+ (NEGATIVE); URINE RBC 5 /hpf (0-4); URINE WBC 0 /hpf (0-5)
--- NOTE | 2018-11-01 12:10 | PN ---
Progress Note (short form) - Note Progress Note: PULMONARY Still with occasional shortness of breath and wheezing. No chest pain. No fevers or chills. Vital Signs Period Temp Pulse Resp BP Sys/Cisneros Pulse Ox Last 24 Hr 97.5 F-99.2 F 54-84 16-18 118-165/41-88 97 Gen: NAD in chair Heart: RRR Lung: decreased breath sounds at the bases Abd: soft, nontender Ext: no edema CBC, BMP 11/01/18 06:45 11/01/18 06:45 Active Medications Acetaminophen (Tylenol -) 1,000 mg PO Q6H PRN PRN Reason: PAIN LEVEL 1-5 Last Admin: 11/01/18 09:59 Dose: 1,000 mg Albuterol/Ipratropium (Duoneb -) 1 amp NEB Q4H PRN PRN Reason: SHORTNESS OF BREATH Alprazolam (Xanax -) 0.5 mg PO HS PRN PRN Reason: ANXIETY Last Admin: 10/31/18 23:24 Dose: 0.5 mg Amlodipine Besylate (Norvasc -) 5 mg PO DAILY [facility] Last Admin: 11/01/18 09:58 Dose: 5 mg Artificial Tears (Artificial Tears) 1 drop OU QID PRN PRN Reason: DRY EYES Aspirin (Asa -) 81 mg PO DAILY [facility] Last Admin: 11/01/18 09:58 Dose: 81 mg Atorvastatin Calcium (Lipitor -) 10 mg PO HS [facility] Last Admin: 10/31/18 23:12 Dose: 10 mg Cholecalciferol (Vitamin D3 -) 1,000 unit PO HS [facility] Last Admin: 10/31/18 23:12 Dose: 1,000 unit Clonazepam (Klonopin -) 0.25 mg PO Q12H PRN PRN Reason: ANXIETY Last Admin: 10/31/18 09:31 Dose: 0.25 mg Metoprolol Succinate (Toprol Xl -) 25 mg PO BID [facility] Last Admin: 11/01/18 09:58 Dose: 25 mg Nystatin (Nystop Powder -) 1 applic TP BID [facility] Last Admin: 11/01/18 09:59 Dose: 1 applic Tamsulosin HCl (Flomax -) 0.4 mg PO DAILY@0830 [facility] Warfarin Sodium (Coumadin -) 7.5 mg PO DAILY@1800 [facility] Last Admin: 10/31/18 17:30 Dose: 7.5 mg A/P Near Syncope CAD COPD h/o AAA s/p endovascular repair h/o CVA Acute on Chronic Renal Failure BPH - will make inhaled bronchodilators standing - O2 as needed - continue cardiac meds - on anticoagulation
--- NOTE | 2018-11-01 12:38 | PN ---
Progress Note (short form) - Note Progress Note: Renal follow up for CKD Pt seen and examined at the bedside awake and alert has mild but overall improved Vital Signs Temperature 97.5 F L 11/01/18 10:00 Pulse Rate 59 L 11/01/18 10:00 Respiratory Rate 18 11/01/18 10:00 Blood Pressure 165/80 11/01/18 10:00 O2 Sat by Pulse Oximetry (%) 97 10/31/18 21:00 Intake & Output 10/29/18 10/30/18 10/31/18 11/01/18 23:59 23:59 23:59 23:59 Intake Total 1215 1365 1505 380 Output Total 1550 1875 1200 300 Balance -335 -510 305 80 NAD RRR, no M/R CTA, no rales or wheeze soft NT/ND No LE edema, clubbing or edema CBC, BMP 11/01/18 06:45 11/01/18 06:45 Current Medications Acetaminophen (Tylenol -) 1,000 mg PO Q6H PRN PRN Reason: PAIN LEVEL 1-5 Last Admin: 11/01/18 09:59 Dose: 1,000 mg Albuterol/Ipratropium (Duoneb -) 1 amp NEB RTID [facility] Alprazolam (Xanax -) 0.5 mg PO HS PRN PRN Reason: ANXIETY Last Admin: 10/31/18 23:24 Dose: 0.5 mg Amlodipine Besylate (Norvasc -) 5 mg PO DAILY [facility] Last Admin: 11/01/18 09:58 Dose: 5 mg Artificial Tears (Artificial Tears) 1 drop OU QID PRN PRN Reason: DRY EYES Aspirin (Asa -) 81 mg PO DAILY [facility] Last Admin: 11/01/18 09:58 Dose: 81 mg Atorvastatin Calcium (Lipitor -) 10 mg PO HS [facility] Last Admin: 10/31/18 23:12 Dose: 10 mg Cholecalciferol (Vitamin D3 -) 1,000 unit PO HS [facility] Last Admin: 10/31/18 23:12 Dose: 1,000 unit Clonazepam (Klonopin -) 0.25 mg PO Q12H PRN PRN Reason: ANXIETY Last Admin: 10/31/18 09:31 Dose: 0.25 mg Metoprolol Succinate (Toprol Xl -) 25 mg PO BID [facility] Last Admin: 11/01/18 09:58 Dose: 25 mg Nystatin (Nystop Powder -) 1 applic TP BID [facility] Last Admin: 11/01/18 09:59 Dose: 1 applic Tamsulosin HCl (Flomax -) 0.4 mg PO DAILY@0830 [facility] Warfarin Sodium (Coumadin -) 7.5 mg PO DAILY@1800 [facility] Last Admin: 10/31/18 17:30 Dose: 7.5 mg CXR - clear lungs ECHO- EF 55-60%, impaired LV relaxation Carotid artery doppler 55-60% stenosis of R carotid artery 78 year old gentleman with hx of CKD stage 3b(baseline Cr 1.9 ), CAd s/p MD with PCI, CVA, AAA s/p endovascular repair, BPH, Carotid endartectomy who presents with near syncope and dyspnea on exertion with Cr of 2.2. #Dyspnea on Exertion #Pre-Syncope #CKD stage 3 #CAD #BPH #Hypertension #Suspected fungal groin rash Renal functon stable off IVF now at baseline renal function continue brochodilators as per pulmonary ECHO shows normal LVEF discharge planning as per primary Thank you Frenandez Almanzar DO
[2018-11-01] MEDS: ALBUTEROL SO4 2.5/IPRATROPIUM 0.5 INH SOL 3 ML VIAL.NEB. NEB SCH ×2 (16:03→19:40)
[2018-11-01] MEDS: WARFARIN NA 7.5 MG TABLET (FP) PO SCH (18:37)
--- NOTE | 2018-11-01 18:44 | PN ---
Progress Note (short form) - Note Progress Note: 78-year-old gentleman with longstanding history of coronary artery disease, status post PCI/stenting, angina pectoris, hypertension, hypertensive cardiovascular disease, abdominal aortic aneurysm with multiple endovascular repairs, hypercholesterolemia status post left carotid endarterectomy, for recurring TIAs and cerebrovascular accident. 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 Hemodynamically is stable, no lightheadedness, stood up and ambulated without symptoms. Active Medications Generic Name Dose Route Start Last Admin Trade Name Freq PRN Reason Stop Dose Admin Acetaminophen 1,000 mg 11/01/18 09:32 11/01/18 09:59 Tylenol - PO 1,000 mg Q6H PRN Administration PAIN LEVEL 1-5 Albuterol/Ipratropium 1 amp 11/01/18 14:00 Duoneb - NEB RTID [facility] Alprazolam 0.5 mg 10/27/18 23:35 10/31/18 23:24 Xanax - PO 0.5 mg HS PRN Administration ANXIETY Amlodipine Besylate 5 mg 10/28/18 10:00 11/01/18 09:58 Norvasc - PO 5 mg DAILY [facility] Administration Artificial Tears 1 drop 11/01/18 10:17 11/01/18 12:58 Artificial Tears OU 1 drop QID PRN Administration DRY EYES Aspirin 81 mg 10/28/18 10:00 11/01/18 09:58 Asa - PO 81 mg DAILY [facility] Administration Atorvastatin Calcium 10 mg 10/28/18 22:00 10/31/18 23:12 Lipitor - PO 10 mg HS [facility] Administration Cholecalciferol 1,000 unit 10/28/18 22:00 10/31/18 23:12 Vitamin D3 - PO 1,000 unit HS [facility] Administration Clonazepam 0.25 mg 10/28/18 19:31 10/31/18 09:31 Klonopin - PO 0.25 mg Q12H PRN Administration ANXIETY Metoprolol Succinate 25 mg 10/28/18 10:00 11/01/18 09:58 Toprol Xl - PO 25 mg BID [facility] Administration Nystatin 1 applic 10/27/18 23:45 11/01/18 09:59 Nystop Powder - TP 1 applic BID [facility] Administration Tamsulosin HCl 0.4 mg 11/02/18 08:30 Flomax - PO DAILY@0830 [facility] Warfarin Sodium 7.5 mg 10/31/18 18:00 11/01/18 18:37 Coumadin - PO 7.5 mg DAILY@1800 [facility] Administration General: A 78-year-old gentleman who was tremulous, alert and coherent, was in no acute distress, no pallor, cyanosis, clubbing or jaundice. Last Vital Signs Temp Pulse Resp BP Pulse Ox 97.6 F 55 L 18 131/76 99 11/01/18 18:00 11/01/18 18:00 11/01/18 18:00 11/01/18 18:00 11/01/18 09:00 Neck: Supple. No jugular venous distention, carotids were 2+, upstrokes were normal, no bruits were appreciated. Well healed left carotid endarterectomy scar , right lobe of the thyroid was prominent. Heart: PMI was in the 5th intercostal space, no heaves or thrills. Heart sounds were distant, no murmur or gallops were heard. Lungs: Decreased breath sounds at the bases. No extraneous sounds were heard. Abdomen: Protuberant, soft, nontender, no hepatosplenomegaly or palpable masses were appreciated. Extremities: No calf tenderness or dependent edema, dorsalis pedis and posterior tibial pulses were palpable. Femoral pulses were 2+. CBC, BMP 11/01/18 06:45 11/01/18 06:45 IMPRESSION: 1. Coronary artery disease, status post percutaneous coronary intervention/ stenting, angina pectoris currently stable. 2. Near syncope, most likely post micturation. 3. Multiple endovascular repairs for abdominal aortic aneurysms. 4. History of iliac artery aneurysm. 5. Hypertension, hypertensive cardiovascular disease. 6. Status post cerebrovascular accident. 7. Status post left carotid endarterectomy. 8. Hypercholesterolemia. 9. History of patent foramen ovale. 10. Advanced chronic obstructive pulmonary disease. 11. History of depression and anxiety disorder. 12. History of peripheral vagal instability. 13. History of right thyroid nodule/mass. 14. Tremors, etiology to be determined, possibility of Parkinsonism needs to be excluded or may be related to previous cerebrovascular events. 15. Chronic kidney disease. 16. Anemia most likely related to chronic kidney disease. RECOMMENDATION: 1. Increase ambulation. 2. Consider psych. evaluation and treatment. 3. Continue medications as outlined. RICH MURILLO M.D.
[2018-11-01] MEDS: ALPRAZolam 0.25 MG TABLET PO PRN (21:48)
[2018-11-01] MEDS: CHOLECALCIFEROL (VIT D3) 1,000 UNIT (25 MCG) TABLET PO SCH (21:48)
[2018-11-01] MEDS: ATORVASTATIN CA 10 MG TABLET (FP) PO SCH (21:48)
[2018-11-02] MEDS: ACETAMINOPHEN 500 MG TABLET (FP) PO PRN (06:01)
[2018-11-02 07:26] LABS: BASO % 1.1 % (0-2.0); EOS % 15.5 % (0-4.5); HEMATOCRIT 31.8 % (35.4-49); HEMOGLOBIN 10.7 GM/dL (11.7-16.9); LYMPH % 12.7 % (8-40); MCH 30.6 pg (25.7-33.7); MCHC 33.6 g/dl (32.0-35.9); MEAN CELL VOLUME 91.1 fl (80-96); MEAN PLT VOLUME 8.5 fl (7.5-11.1); MONO % 7.5 % (3.8-10.2); NEUT % 63.2 % (42.8-82.8); PLATELET COUNT 170 K/MM3 (134-434); RBC 3.49 M/mm3 (4.00-5.60); RDW 14.1 % (11.9-15.9); WHITE BLOOD COUNT 7.2 K/mm3 (4.0-10.0)
[2018-11-02] MEDS: ALBUTEROL SO4 2.5/IPRATROPIUM 0.5 INH SOL 3 ML VIAL.NEB. NEB SCH ×2 (08:00→14:30)
[2018-11-02 08:03] LABS: ALBUMIN 2.7 g/dl (3.4-5.0); BILIRUBIN,TOTAL 0.3 mg/dL (0.2-1); CALCIUM 7.9 mg/dL (8.5-10.1); MAGNESIUM 2.2 mg/dL (1.8-2.4); POTASSIUM 4.5 mmol/L (3.5-5.1); TOT PROT 5.4 g/dl (6.4-8.2)
[2018-11-02 08:09] LABS: INR 3.14 (0.83-1.09); PROTHROMBIN TIME (PATIENT) 37.5 SEC (9.7-13.0)
--- NOTE | 2018-11-02 08:27 | PN ---
Progress Note, Physician History of Present Illness: events noted chart reviewed seen on telemetry No neurological event No significant change on the clonazepam Sitting eating breakfast attentive - Current Medication List Current Medications: Active Medications Acetaminophen (Tylenol -) 1,000 mg PO Q6H PRN PRN Reason: PAIN LEVEL 1-5 Last Admin: 11/02/18 06:01 Dose: 1,000 mg Albuterol/Ipratropium (Duoneb -) 1 amp NEB RTID [facility] Last Admin: 11/01/18 19:40 Dose: 1 amp Alprazolam (Xanax -) 0.5 mg PO HS PRN PRN Reason: ANXIETY Last Admin: 11/01/18 21:48 Dose: 0.5 mg Amlodipine Besylate (Norvasc -) 5 mg PO DAILY [facility] Last Admin: 11/01/18 09:58 Dose: 5 mg Artificial Tears (Artificial Tears) 1 drop OU QID PRN PRN Reason: DRY EYES Last Admin: 11/01/18 12:58 Dose: 1 drop Aspirin (Asa -) 81 mg PO DAILY [facility] Last Admin: 11/01/18 09:58 Dose: 81 mg Atorvastatin Calcium (Lipitor -) 10 mg PO HS [facility] Last Admin: 11/01/18 21:48 Dose: 10 mg Cholecalciferol (Vitamin D3 -) 1,000 unit PO HS [facility] Last Admin: 11/01/18 21:48 Dose: 1,000 unit Clonazepam (Klonopin -) 0.25 mg PO Q12H PRN PRN Reason: ANXIETY Last Admin: 10/31/18 09:31 Dose: 0.25 mg Metoprolol Succinate (Toprol Xl -) 25 mg PO BID [facility] Last Admin: 11/01/18 21:48 Dose: 25 mg Nystatin (Nystop Powder -) 1 applic TP BID [facility] Last Admin: 11/01/18 21:48 Dose: 1 applic Tamsulosin HCl (Flomax -) 0.4 mg PO DAILY@0830 [facility] Warfarin Sodium (Coumadin -) 7.5 mg PO DAILY@1800 [facility] Last Admin: 11/01/18 18:37 Dose: 7.5 mg - Objective Vital Signs: Vital Signs Temperature 97.5 F L 11/02/18 05:58 Pulse Rate 60 11/02/18 05:58 Respiratory Rate 18 11/02/18 05:58 Blood Pressure 149/52 L 11/02/18 05:58 O2 Sat by Pulse Oximetry (%) 100 11/01/18 21:00 Constitutional: Yes: Well Nourished Eyes: Yes: WNL Neurological: Yes: Alert, Oriented, Babinski negative ...Motor Strength: WNL Labs: CBC, BMP 11/02/18 06:50 11/02/18 06:50 INR, PTT INR 3.14 (0.83-1.09) H 11/02/18 06:50 Problem List - Problems (1) Near syncope Assessment/Plan: agreed to the plan to transfer Check orthostatics every shift Fall precautions Code(s): R55 - SYNCOPE AND COLLAPSE (2) Tremors of nervous system Assessment/Plan: increase clonazepam to 0.5 mg 3 times daily Addictive component of the clonazepam was discussed with the patient Code(s): R25.1 - TREMOR, UNSPECIFIED
[2018-11-02] MEDS ORDERED: TAMSULOSIN HCL 0.4 MG CAP PO SCH (08:30)
[2018-11-02] MEDS: amLODIPine BESYLATE 5 MG TABLET (FP) PO SCH (09:10)
[2018-11-02] MEDS: ASPIRIN 81 MG CHEWABLE TABLETS PO SCH (09:10)
[2018-11-02] MEDS: metoPROLOL SUCCINATE 25 MG TAB.SR.24H (FP) PO SCH (09:10)
[2018-11-02] MEDS: NYSTATIN POWDER 100,000 UNITS/GM - 15 GM TOPICAL POWDER TP SCH (10:41)
--- NOTE | 2018-11-02 11:20 | PN ---
Progress Note, Physician History of Present Illness: pulmonary alert,oob-chair,-sob,,-cough - Current Medication List Current Medications: Active Medications Acetaminophen (Tylenol -) 1,000 mg PO Q6H PRN PRN Reason: PAIN LEVEL 1-5 Last Admin: 11/02/18 06:01 Dose: 1,000 mg Albuterol/Ipratropium (Duoneb -) 1 amp NEB RTID [facility] Last Admin: 11/02/18 08:00 Dose: 1 amp Alprazolam (Xanax -) 0.5 mg PO HS PRN PRN Reason: ANXIETY Last Admin: 11/01/18 21:48 Dose: 0.5 mg Amlodipine Besylate (Norvasc -) 5 mg PO DAILY [facility] Last Admin: 11/02/18 09:10 Dose: 5 mg Artificial Tears (Artificial Tears) 1 drop OU QID PRN PRN Reason: DRY EYES Last Admin: 11/01/18 12:58 Dose: 1 drop Aspirin (Asa -) 81 mg PO DAILY [facility] Last Admin: 11/02/18 09:10 Dose: 81 mg Atorvastatin Calcium (Lipitor -) 10 mg PO HS [facility] Last Admin: 11/01/18 21:48 Dose: 10 mg Cholecalciferol (Vitamin D3 -) 1,000 unit PO HS [facility] Last Admin: 11/01/18 21:48 Dose: 1,000 unit Clonazepam (Klonopin -) 0.25 mg PO Q12H PRN PRN Reason: ANXIETY Last Admin: 10/31/18 09:31 Dose: 0.25 mg Metoprolol Succinate (Toprol Xl -) 25 mg PO BID [facility] Last Admin: 11/02/18 09:10 Dose: 25 mg Nystatin (Nystop Powder -) 1 applic TP BID [facility] Last Admin: 11/02/18 10:41 Dose: 1 applic Tamsulosin HCl (Flomax -) 0.4 mg PO DAILY@0830 [facility] Last Admin: 11/02/18 09:10 Dose: 0.4 mg Warfarin Sodium (Coumadin -) 7.5 mg PO DAILY@1800 [facility] Last Admin: 11/01/18 18:37 Dose: 7.5 mg - Objective Vital Signs: Vital Signs Temperature 97.5 F L 11/02/18 05:58 Pulse Rate 60 11/02/18 05:58 Respiratory Rate 18 11/02/18 05:58 Blood Pressure 149/52 L 11/02/18 05:58 O2 Sat by Pulse Oximetry (%) 100 11/01/18 21:00 Constitutional: Yes: Well Nourished, Calm Eyes: Yes: WNL HENT: Yes: WNL Neck: Yes: WNL Cardiovascular: Yes: Pulse Irregular, S1, S2 Respiratory: Yes: Wheezes (few wheezes) Gastrointestinal: Yes: Normal Bowel Sounds, Soft Extremities: Yes: WNL Edema: No Labs: CBC, BMP 11/02/18 06:50 11/02/18 06:50 INR, PTT INR 3.14 (0.83-1.09) H 11/02/18 06:50 Problem List - Problems (1) Frwyk-qa-rknstca kidney injury Code(s): N17.9 - ACUTE KIDNEY FAILURE, UNSPECIFIED; N18.9 - CHRONIC KIDNEY DISEASE, UNSPECIFIED (2) Near syncope Code(s): R55 - SYNCOPE AND COLLAPSE (3) Shortness of breath Code(s): R06.02 - SHORTNESS OF BREATH (4) COPD (chronic obstructive pulmonary disease) Code(s): J44.9 - CHRONIC OBSTRUCTIVE PULMONARY DISEASE, UNSPECIFIED (5) Dehydration Code(s): E86.0 - DEHYDRATION (6) Episode of shaking Code(s): R25.1 - TREMOR, UNSPECIFIED (7) CKD (chronic kidney disease), stage III Code(s): N18.3 - CHRONIC KIDNEY DISEASE, STAGE 3 (MODERATE) (8) Carotid stenosis, left Code(s): I65.22 - OCCLUSION AND STENOSIS OF LEFT CAROTID ARTERY (9) Hypertension with renal disease Code(s): I12.9 - HYPERTENSIVE CHRONIC KIDNEY DISEASE W STG 1-4/UNSP CHR KDNY (10) Tremors of nervous system Code(s): R25.1 - TREMOR, UNSPECIFIED Assessment/Plan IMP NEAR SYNCOPE DYSPNEA LIKELY SECONDARY TO COPD IMPROVED ASHD S/P GA, STENT AAA S/P ENDOVASCULAR REPAIR H/O CVA TREMORS ACUTE ON CHRONIC KIDNEY INJURY BPH PLAN O2 INHALED BRONCHODILATORS AC MONITOR LYTE,RENAL FUNCTION DR LANDRUM Problem List - Problems (1) Ifwrr-kb-qugrujx kidney injury Code(s): N17.9 - ACUTE KIDNEY FAILURE, UNSPECIFIED; N18.9 - CHRONIC KIDNEY DISEASE, UNSPECIFIED (2) Near syncope Code(s): R55 - SYNCOPE AND COLLAPSE (3) Shortness of breath Code(s): R06.02 - SHORTNESS OF BREATH (4) COPD (chronic obstructive pulmonary disease) Code(s): J44.9 - CHRONIC OBSTRUCTIVE PULMONARY DISEASE, UNSPECIFIED (5) Dehydration Code(s): E86.0 - DEHYDRATION (6) Episode of shaking Code(s): R25.1 - TREMOR, UNSPECIFIED (7) CKD (chronic kidney disease), stage III Code(s): N18.3 - CHRONIC KIDNEY DISEASE, STAGE 3 (MODERATE) (8) Carotid stenosis, left Code(s): I65.22 - OCCLUSION AND STENOSIS OF LEFT CAROTID ARTERY (9) Hypertension with renal disease Code(s): I12.9 - HYPERTENSIVE CHRONIC KIDNEY DISEASE W STG 1-4/UNSP CHR KDNY (10) Tremors of nervous system Code(s): R25.1 - TREMOR, UNSPECIFIED
--- NOTE | 2018-11-02 11:24 | DS ---
Physical Examination Vital Signs: Vital Signs Temperature 97.5 F L 11/02/18 05:58 Pulse Rate 60 11/02/18 05:58 Respiratory Rate 18 11/02/18 05:58 Blood Pressure 149/52 L 11/02/18 05:58 O2 Sat by Pulse Oximetry (%) 100 11/01/18 21:00 Findings/Remarks: chart reviewed; pt admitted as OBS to hospitalist service 4 days ago but had longer Hospitalization than expected; pt and his requested transfer of care to dr Bain; pt is waiting for transfer to SNF for inpt rehab; d/w pt; he feels well, better than last week; awaiting rehab, no new c/o; wants to take a shower; generally weak but wants to start PT - d/w pt f/u needed after DC from rehab Constitutional: Yes: No Distress, Calm Eyes: Yes: Conjunctiva Clear HENT: Yes: Atraumatic Neck: Yes: Supple Cardiovascular: No: Regular Rate and Rhythm Respiratory: Yes: CTA Bilaterally Gastrointestinal: Yes: Soft. No: Tenderness Renal/: No: CVA Tenderness - Left, CVA Tenderness - Right, Hematuria Musculoskeletal: No: Joint Stiffness, Joint Swelling Extremities: No: Cold, Cool, Cyanosis Edema: No Integumentary: No: Rash, Venous Stasis Changes Neurological: Yes: WNL, Alert, Oriented ...Motor Strength: WNL Psychiatric: Yes: WNL, Alert, Oriented. No: Agitated, Suicidal Ideation Labs: CBC, BMP 11/02/18 06:50 11/02/18 06:50 Discharge Summary Reason For Visit: SHORTNESS OF BREATH,PRE SYNCOPE Current Active Problems Vasmp-[id number]-[id number] kidney injury (Acute) CVA (cerebral vascular accident) (Acute) Near syncope (Acute) Prophylactic measure (Acute) Shortness of breath (Acute) Procedures: Principal: 78 yr old M, history of depression, PA (cardiac stenting 2002, CVA (x2, noncompliant with Coumadin), CKD Stage III, BPH, AAA (s/p endovascular stenting and revision x4, last 08/2017 @ [facility]), left sided common iliac aneurysm (stable on last CT scan), colon resection, and left sided endarterectomy (15), presented to ED with pre-syncope, and SOB on exertion and presyncope admitted to telemetry. Other Procedures: found to be slighlty dehydrated, ARF/CRF; seen by renal, cardiology and neurology; has severe COPD - also seen by pulmonary; lasix held; increased po fluids Hospital Course: improved with above; DC to SNF and f.u as advised Condition: Stable - Instructions Diet, Activity, Other Instructions: Mr. De La Cruz: You were admitted for a pre syncope episode. We will be sending you home today and recommend that you follow up with your physicians as outlined in your discharge instructions. What is pre syncope? Pre syncope is a feeling of lightheadedness that can have causes that are not part of any underlying disease. Examples include standing up too quickly, heat exposure, dehydration, extreme physical exercise or medication side effects. During your stay you were noted to be dehydrated and we have given you intravenous fluids. We recommend that you adequately hydrate with at least 6-8 glasses of water daily. Please follow up with the kidney specialist. It is also important that you follow up with Dr. Jeronimo. Please call his office for an appointment. also follow up with cardiology, pulmonary dr Grullon, neurology dr Jones and renal dr Almanzar; PCP dr Bain all the above should be seen within few weeks after leaving the Rehab NH falls precautions; to have labs in SNF/NH within 2-3 days CBC CMP INR and then INR q1-2 weeks while on coumadin Thank you for allowing us to care for you. Referrals: Luiz Grullon MD [Staff Physician] - Fernandez Almanzar MD [Staff Physician] - Ramon Jones MD [Staff Physician] - Eduardo Rivers MD [Staff Physician] - 2 Weeks Terry Jeronimo MD [Staff Physician] - Disposition: LONGTERM FACILITY - Home Medications Comprehensive Discharge Medication List: Ambulatory Orders Alprazolam [Xanax] 0.5 mg PO HS PRN 03/07/15 Aspirin [ASA -] 81 mg PO DAILY 03/07/15 Cholecalciferol (Vitamin D3) [Vitamin D3] 1,000 unit PO HS 03/07/15 Warfarin Sodium [Coumadin] 4 mg PO DAILY 03/07/15 Amlodipine Besylate [Norvasc -] 5 mg PO DAILY 06/06/17 Sertraline HCl [Zoloft] 50 mg PO DAILY 06/06/17 Atorvastatin Ca [Lipitor] 10 mg PO HS tablet 06/08/17 Metoprolol Succinate [Toprol XL -] 25 mg PO BID #60 tab.sr.24h 06/08/17 Warfarin Na [Coumadin -] 4 mg PO DAILY@1800 tablet 10/29/18 Walker [Ultra-Light Rollator] 1 each [facility] DAILY #1 each 10/30/18 Furosemide 40 mg PO Q2D 11/01/18 Tamsulosin HCl [Flomax] 0.4 mg PO DAILY 11/01/18 Albuterol 2.5/Ipratropium 0.5 [Duoneb -] 1 amp NEB Q4H PRN amp 11/02/18 Polyvinyl Alcohol [Artificial Tears] 1 drop OU QID PRN drops 11/02/18
[2018-11-02] MEDS: clonazePAM 0.5 MG TABLET PO PRN (13:31)
--- NOTE | 2018-11-02 14:23 | PN ---
Progress Note (short form) - Note Progress Note: Renal follow up for CKD Pt seen and examined at the bedside awake and alert to be discharged home today no sob, cp, abd pain, dizziness making urine Vital Signs Temperature 97.5 F L 11/02/18 05:58 Pulse Rate 60 11/02/18 05:58 Respiratory Rate 18 11/02/18 05:58 Blood Pressure 149/52 L 11/02/18 05:58 O2 Sat by Pulse Oximetry (%) 100 11/01/18 21:00 Intake & Output 10/30/18 10/31/18 11/01/18 11/02/18 23:59 23:59 23:59 23:59 Intake Total 1365 1505 1120 490 Output Total 1875 1200 300 Balance -510 305 820 490 NAD RRR, no M/R CTA, no rales or wheeze soft NT/ND No LE edema, clubbing or edema CBC, BMP 11/02/18 06:50 11/02/18 06:50 Current Medications Acetaminophen (Tylenol -) 1,000 mg PO Q6H PRN PRN Reason: PAIN LEVEL 1-5 Last Admin: 11/02/18 06:01 Dose: 1,000 mg Albuterol/Ipratropium (Duoneb -) 1 amp NEB RTID [facility] Last Admin: 11/02/18 08:00 Dose: 1 amp Alprazolam (Xanax -) 0.5 mg PO HS PRN PRN Reason: ANXIETY Last Admin: 11/01/18 21:48 Dose: 0.5 mg Amlodipine Besylate (Norvasc -) 5 mg PO DAILY [facility] Last Admin: 11/02/18 09:10 Dose: 5 mg Artificial Tears (Artificial Tears) 1 drop OU QID PRN PRN Reason: DRY EYES Last Admin: 11/01/18 12:58 Dose: 1 drop Aspirin (Asa -) 81 mg PO DAILY [facility] Last Admin: 11/02/18 09:10 Dose: 81 mg Atorvastatin Calcium (Lipitor -) 10 mg PO HS [facility] Last Admin: 11/01/18 21:48 Dose: 10 mg Cholecalciferol (Vitamin D3 -) 1,000 unit PO HS [facility] Last Admin: 11/01/18 21:48 Dose: 1,000 unit Clonazepam (Klonopin -) 0.25 mg PO Q12H PRN PRN Reason: ANXIETY Last Admin: 11/02/18 13:31 Dose: 0.25 mg Metoprolol Succinate (Toprol Xl -) 25 mg PO BID [facility] Last Admin: 11/02/18 09:10 Dose: 25 mg Nystatin (Nystop Powder -) 1 applic TP BID [facility] Last Admin: 11/02/18 10:41 Dose: 1 applic Tamsulosin HCl (Flomax -) 0.4 mg PO DAILY@0830 [facility] Last Admin: 11/02/18 09:10 Dose: 0.4 mg Warfarin Sodium (Coumadin -) 7.5 mg PO DAILY@1800 [facility] Last Admin: 11/01/18 18:37 Dose: 7.5 mg CXR - clear lungs ECHO- EF 55-60%, impaired LV relaxation Carotid artery doppler 55-60% stenosis of R carotid artery 78 year old gentleman with hx of CKD stage 3b(baseline Cr 1.9 ), CAd s/p [place] with PCI, CVA, AAA s/p endovascular repair, BPH, Carotid endartectomy who presents with near syncope and dyspnea on exertion with Cr of 2.2. #Dyspnea on Exertion #Pre-Syncope #CKD stage 3 #CAD #BPH #Hypertension #Suspected fungal groin rash Renal function improved and stable appears euvolemic and no signs of overload can resume diuretics as outpatient if he develops any signs of edema (was previously on Lasix 40mg Q48h) advised to follow up with Dr. Trimble in 1-2 weeks Thank you Fernandez Almanzar DO
[2018-11-02 14:38] VITALS: BP 103/42; PULSE 74; TEMP 98.2
[2018-11-02] MEDS ORDERED: PT OWN MED DRAWER 7, Y5N ONE (18:00)
== END 2018-11-02 16:45 | DRG 683 ==
LOC: SUPCPDRO 18:11 → JER 18:11 → JERBED 22:56 → J4S 10-28 02:40 → OBSVTOIN 10-30 10:55
PROVIDERS: ADMIT Specialist; ATTEND Specialist
DX: I12.9 Hypertensive chronic kidney disease with stage 1 through stage 4 chronic kidney disease, or unspecified chronic kidney disease (principal); N17.9 Acute kidney failure, unspecified; I25.2 Old myocardial infarction; Z86.73 Personal history of transient ischemic attack (TIA), and cerebral infarction without residual deficits; N40.0 Benign prostatic hyperplasia without lower urinary tract symptoms; N18.3 Chronic kidney disease, stage 3 (moderate); R55 Syncope and collapse; Z91.14 Patient's other noncompliance with medication regimen; I44.0 Atrioventricular block, first degree; I25.10 Atherosclerotic heart disease of native coronary artery without angina pectoris; J44.9 Chronic obstructive pulmonary disease, unspecified; F32.9 Major depressive disorder, single episode, unspecified; D63.1 Anemia in chronic kidney disease; R25.1 Tremor, unspecified; R21 Rash and other nonspecific skin eruption; E86.0 Dehydration
CPT/HCPCS: 36415; 36600; 70450-TC; 71045-TC-FY; 71250-TC; 80048; 80053; 80061; 81003; 82085; 82140; 82375; 82550; 82607; 82803; 83036; 83050; 83519; 83721; 83735; 83874; 83880; 84484; 85025; 85610; 85651; 86140; 86593; 87040; 87086; 93005; 93010; 93306-TC; 93880-TC; 94640; 94761; 97116-GP; 97162-GP; 99284-25; G0378; J7030

== ENCOUNTER 2019-05-06 08:10 | Inpatient (IN) | payer OTHER, MEDICARE ==
--- NOTE | 2019-05-06 09:55 | PDOC ---
History of Present Illness - General Chief Complaint: Injury Stated Complaint: FALL Time Seen by Provider: 05/06/19 08:39 - History of Present Illness Initial Comments: 05/06/19 09:49 Mr. De La Cruz is an 79 yo m with an extensive pmhx including MDD, ID (s/p cardiac stents placed in 2001) CVAx2 (no obvious deficits, on coumadin) CKD III , COPD, BPH, AAA (s/p stent placement and revision x4 last in 08/2018) L sided common iliac aneurysm, previous colonic resection, and L sided CEA who presents s/p fall without LOC and injury to the R side of his head, R elbow, and R hip. Per the patient he got up to go to the bathroom and when he went to stand from sitting on the toilet he suddenly felt very weak and dizzy and fell. He denies losing consciousness but states that he did hit the R side of his head on the floor in addition to his R elbow and his R hip. He denies CP, heart palpitations , new SOB (endorses chronic SOB 2/2 COPD), nausea, vomiting, diarrhea, diaphoresis, numbness or tinging in hands/ feet. He endorses constipation and straining on the toilet prior to the event. 05/06/19 10:00 Past History - Past Medical History Allergies/Adverse Reactions: Allergies Allergy/AdvReac Type Severity Reaction Status Date / Time No Known Allergies Allergy Verified 05/06/19 08:45 Home Medications: Ambulatory Orders Aspirin [ASA -] 81 mg PO DAILY 03/07/15 Cholecalciferol (Vitamin D3) [Vitamin D3] 1,000 unit PO HS 03/07/15 Amlodipine Besylate [Norvasc -] 5 mg PO DAILY 06/06/17 Sertraline HCl [Zoloft] 50 mg PO DAILY 06/06/17 Tamsulosin HCl [Flomax] 0.4 mg PO HS 11/01/18 Albuterol 2.5/Ipratropium 0.5 [Duoneb -] 1 amp NEB Q4H PRN amp 11/02/18 Atorvastatin Ca [Lipitor] 20 mg PO HS 05/06/19 Furosemide [Lasix] 40 mg PO DAILY 05/06/19 Acetaminophen [Tylenol .Regular Strength -] 650 mg PO Q6H PRN tablet 05/13/19 Alprazolam [Xanax] 0.25 mg PO BID PRN #20 tablet MDD 2 05/13/19 Metoprolol Succinate [Toprol XL -] 50 mg PO HS tab.sr.24h 05/13/19 Nystatin/Triamcinolone Top Oin [Mycolog II -] 1 applic TP BID applic 05/13/19 Warfarin Na [Coumadin -] 4 mg PO 1800 tablet 05/13/19 oxyCODONE HCL [Roxicodone -] 5 mg PO Q6H PRN #30 tablet MDD 4 05/13/19 Cardiac Disorders: Yes (CAD, multiple aortic aneurism) CVA: Yes (x 2 walks with cane.) COPD: Yes Disorders: Yes (BPH) HTN: Yes Hypercholesterolemia: (ELEVATED TRIGLYCERIDES) - Surgical History Abdominal Surgery: (COLON RESECTION) Cardiac Surgery: Yes (STENT X 1) - Immunization History Immunization Up to Date: Yes - Psycho Social/Smoking Cessation Hx Smoking Status: No Smoking History: Never smoked Have you smoked in the past 12 months: No Number of Cigarettes Smoked Daily: 0 If you are a former smoker, when did you quit?: 2001 Information on smoking cessation initiated: No 'Breaking Loose' booklet given: 07/21/14 Hx Alcohol Use: No Drug/Substance Use Hx: No Substance Use Type: None Hx Substance Use Treatment: No Review of Systems - Review of Systems Able to Perform ROS?: Yes Is the patient limited Andorran proficient: No Constitutional: Yes: Weakness. No: Chills, Diaphoresis, Malaise HEENTM: No: Eye Pain, Blurred Vision, Recent change in vision, Ear Pain, Nose Pain, Throat Pain Respiratory: No: Cough, Orthopnea, Shortness of Breath Cardiac (ROS): No: Chest Pain, Irregular Heart Rate, Lightheadedness ABD/GI: Yes: Constipated. No: Abd. Pain w/ defecation, Blood Streaked Bowels, Diarrhea, Nausea, Vomiting, Abdominal cramping Musculoskeletal: Yes: Back Pain Integumentary: Yes: Lesions (small 1.5cm cut above R elbow) Neurological: Yes: Weakness, Dizziness. No: Headache, Numbness, Paresthesia Psychiatric: Yes: Depression Endocrine: No: Flushing, Intolerance to Cold, Intolerance to Heat All Other Systems: Reviewed and Negative *Physical Exam - Vital Signs Last Vital Signs Temp Pulse Resp BP Pulse Ox 97.4 F L 88 16 139/65 100 05/06/19 08:15 05/06/19 08:15 05/06/19 08:15 05/06/19 08:15 05/06/19 08:15 - Physical Exam General Appearance: Yes: Appropriately Dressed, Mild Distress HEENT: positive: EOMI, PATEL, Normal ENT Inspection, Normal Voice, Pharynx Normal Neck: positive: Trachea midline, Supple. negative: Tender Respiratory/Chest: positive: Lungs Clear, Normal Breath Sounds. negative: Respiratory Distress, Accessory Muscle Use Cardiovascular: positive: Regular Rate, S1, S2, Murmur, Irregularly Irregular Gastrointestinal/Abdominal: positive: Normal Bowel Sounds, Soft. negative: Tender Musculoskeletal: positive: Normal Inspection, Vertebral Tenderness (at the lumbar spine) Extremity: positive: Normal Capillary Refill, Normal Range of Motion, Tender ( mildly ttp on right shoulder and elbow) Integumentary: positive: Normal Color, Dry, Warm, Other (small 1.5cm laceration on R elbow) Neurologic: positive: pelt shearer II-XII NML intact, Fully Oriented, Alert, Normal Mood/ Affect, Normal Response, Motor Strength 10/02 ED Treatment Course - LABORATORY CBC & Chemistry Diagram: 05/10/19 07:00 05/12/19 06:45 - RADIOLOGY Radiology Studies Ordered: Category Date Time Status HEAD CT WITHOUT CONTRAST [CT] Stat CT Scan 05/06/19 09:35 Ordered Medical Decision Making - Medical Decision Making 05/06/19 10:04 Mr. De La Cruz is an 79 yo m with an extensive pmhx including MDD, ID (s/p cardiac stents placed in 2001) CVAx2 (no obvious deficits, on coumadin) CKD III , COPD, BPH, AAA (s/p stent placement and revision x4 last in 08/2018) L sided common iliac aneurysm, previous colonic resection, and L sided CEA who presents s/p fall without LOC and injury to the R side of his head, R elbow, and R hip. Concern for bleed given his head trauma. Physical exam with what appears to be new onset Afib, EKG pending. Will obtain - CBC - CMP - Coags - Type and Screen - Troponin - EKG - CT- head, cervical spine, abdomen and pelvis with spinal reconstruction 05/06/19 14:47 Negative troponins, no evidence of fractures or intracranial pathology on CT. Disc herniation at L5-S1 Spoke to Dr. Shin, will admit patient to telemetry for syncope workup and consult his Child Guidance Counselor. Discharge - Discharge Information Problems reviewed: Yes Clinical Impression/Diagnosis: Near syncope Condition: Improved Disposition: DETENTION FACILITY - Admission Yes - Follow up/Referral - Patient Discharge Instructions - Post Discharge Activity
[2019-05-06] MEDS ORDERED: ACETAMINOPHEN 1000 MG/100 ML VIAL (NON FORMULARY) IVPB ONE (10:28)
[2019-05-06 10:29] LABS: HEMATOCRIT 39.9 % (35.4-49); HEMOGLOBIN 13.3 GM/dL (11.7-16.9); MCH 30.7 pg (25.7-33.7); MCHC 33.2 g/dl (32.0-35.9); MEAN CELL VOLUME 92.4 fl (80-96); MEAN PLT VOLUME 8.9 fl (7.5-11.1); PLATELET COUNT 165 K/MM3 (134-434); RBC 4.32 M/mm3 (4.00-5.60); RDW 14.6 % (11.9-15.9); WHITE BLOOD COUNT 11.4 K/mm3 (4.0-10.0)
[2019-05-06] MEDS ORDERED: ACETAMINOPHEN INJECTION 100 ML IVPB ONE (11:06)
[2019-05-06 11:12] LABS: ALBUMIN 3.4 g/dl (3.4-5.0); ALK PHOS 112 U/L (45-117); ANION GAP 8 MMOL/L (8-16); BILIRUBIN,TOTAL 0.3 mg/dL (0.2-1); BLOOD UREA NITROGEN 43.9 mg/dL (7-18); CALCIUM 8.3 mg/dL (8.5-10.1); CHLORIDE 110 mmol/L (98-107); CO2 24 mmol/L (21-32); CREATININE 2.2 mg/dL (0.55-1.3); GLUCOSE,RANDOM 90 mg/dL (74-106); POTASSIUM 4.7 mmol/L (3.5-5.1); SGOT/AST 13 U/L (15-37); SGPT/ALT 24 U/L (13-61); SODIUM 142 mmol/L (136-145); TOT PROT 6.4 g/dl (6.4-8.2)
[2019-05-06 11:27] LABS: INR 1.84 (0.83-1.09); PROTHROMBIN TIME (PATIENT) 21.8 SEC (9.7-13.0)
[2019-05-06 11:30] LABS: ACTIVATED PTT 51.7 SECONDS (25.2-36.5)
--- NOTE | 2019-05-06 12:14 | PDOC ---
Attending Attestation - Resident Resident Name: Donna Oseguera - ED Attending Attestation I have performed the following: I have examined & evaluated the patient, The case was reviewed & discussed with the resident, I agree w/resident's findings & plan, Exceptions are as noted - HPI HPI: 05/06/19 12:17 79 years old with past medical history significant for MDD, ND status post stent , CVA x2, chronic kidney disease 3, COPD, BPH, AAA status post stent placement in 2019, left common iliac aneurysm: Resection presents to the ED with syncopal episode while straining on toilet Patient states these episodes are happening more frequently and he has very frequent lightheadedness and presyncope with minimal exertion. - Physicial Exam PE: 05/06/19 12:17 Vitals: Triage Vital signs reviewed General Appearance: No acute distress, well nourished well developed, Head: Atraumatic, Eyes: Pupils equal reactive round, extraocular movement intact Neck: Supple; no Nucal rigidity Chest Wall: Nontender Cardiac: Irregular Lungs: Clear to auscultation bilateral, good air movement bilaterally, Abdomen: Soft, non distended, normal bowel sounds, non tender to palpation abrasion to right elbow Extremities: Full range of motion to all extremities, no cyanosis, clubbing, or edema Skin: Warm and dry, no rashes or lesions, no rash, no petechiae - Medical Decision Making 05/06/19 79 years old with multiple medical problems presents to the emergency department with syncopal episode. Episode occurred while on the toilet straining however patient has been having more and more frequent episodes and is now in new onset A. fib but is rate controlled. Patient is already on Coumadin is therapeutic his laboratory analysis is otherwise unremarkable CT of his head lumbar and abdomen demonstrate no change in his known AAA Given progressive frequency of these near syncopal and syncopal events and patient's comorbidities will observe admit to hospital for further management Of note patient also requesting a palliative care evaluation given his multiple medical issues. Heart Score/ECG Review - ECG Impressions Comment:: 05/06/19 15:15 EKG performed at 1112 demonstrates atrial fibrillation [address] elevations no T wave inversions Interpreted by me
[2019-05-06] MEDS ORDERED: SODIUM CHLORIDE 1,000 ML IV STA (12:18)
[2019-05-06] MEDS ORDERED: ALPRAZolam 0.25 MG TABLET PO PRN (20:27)
[2019-05-06] MEDS ORDERED: ALBUTEROL SO4 2.5/IPRATROPIUM 0.5 INH SOL 3 ML VIAL.NEB. NEB PRN (20:27)
[2019-05-06] MEDS ORDERED: WARFARIN NA 5 MG TABLET (UD) PO ONE ×2 (20:29)
[2019-05-06] MEDS ORDERED: ATORVASTATIN CA 20 MG TABLET (FP) ONE (21:29)
[2019-05-06] MEDS ORDERED: ALPRAZolam 0.25 MG TABLET ONE (21:30)
[2019-05-06] MEDS ORDERED: TAMSULOSIN HCL 0.4 MG CAP ONE (21:30)
[2019-05-06] MEDS ORDERED: WARFARIN NA 5 MG TABLET (UD) ONE (21:30)
[2019-05-06] MEDS: TAMSULOSIN HCL 0.4 MG CAP PO SCH (21:49)
[2019-05-06] MEDS: ATORVASTATIN CA 20 MG TABLET (FP) PO SCH (21:50)
[2019-05-06] MEDS: metoPROLOL SUCCINATE 25 MG TAB.SR.24H (FP) PO SCH (21:50)
[2019-05-06] MEDS: ALPRAZolam 0.25 MG TABLET PO PRN (21:50)
[2019-05-06] MEDS: CHOLECALCIFEROL (VIT D3) 1,000 UNIT (25 MCG) TABLET PO SCH (23:15)
[2019-05-06] MEDS ORDERED: ACETAMINOPHEN 325 MG TABLET (FP) ONE (23:48)
[2019-05-06] MEDS: ACETAMINOPHEN 325 MG TABLET (FP) PO PRN (23:54)
[2019-05-07] MEDS ORDERED: ACETAMINOPHEN 325 MG TABLET (FP) ONE (06:24)
[2019-05-07] MEDS: ACETAMINOPHEN 325 MG TABLET (FP) PO PRN ×2 (06:37→22:37)
[2019-05-07 06:38] LABS: HEMATOCRIT 34.5 % (35.4-49); HEMOGLOBIN 11.7 GM/dL (11.7-16.9); MCH 31.1 pg (25.7-33.7); MCHC 33.9 g/dl (32.0-35.9); MEAN CELL VOLUME 91.6 fl (80-96); MEAN PLT VOLUME 8.5 fl (7.5-11.1); PLATELET COUNT 150 K/MM3 (134-434); RBC 3.76 M/mm3 (4.00-5.60); RDW 14.5 % (11.9-15.9); WHITE BLOOD COUNT 9.2 K/mm3 (4.0-10.0)
[2019-05-07 06:50] LABS: INR 2.29 (0.83-1.09); PROTHROMBIN TIME (PATIENT) 27.2 SEC (9.7-13.0)
[2019-05-07 07:26] LABS: ALBUMIN 2.9 g/dl (3.4-5.0); BILIRUBIN,TOTAL 0.3 mg/dL (0.2-1); BLOOD UREA NITROGEN 45.7 mg/dL (7-18); CALCIUM 7.9 mg/dL (8.5-10.1); CREATININE 2.1 mg/dL (0.55-1.3); POTASSIUM 4.3 mmol/L (3.5-5.1); TOT PROT 5.3 g/dl (6.4-8.2)
[2019-05-07] MEDS: FUROSEMIDE 40 MG TABLET (FP) PO SCH (10:25)
[2019-05-07] MEDS: ASPIRIN 81 MG CHEWABLE TABLETS PO SCH (10:25)
[2019-05-07] MEDS: SERTRALINE HCL 50 MG TABLET (FP) PO SCH (10:26)
--- NOTE | 2019-05-07 10:35 | HP ---
Admitting History and Physical - Primary Care Physician PCP: Antonia Bain S - Admission Chief Complaint: presyncope History of Present Illness: Mr. De La Cruz is an 79 yo m with an extensive pmhx including MDD, [place] (s/p cardiac stents placed in 2001) CVAx2 (no obvious deficits, on coumadin) CKD III , COPD, BPH, AAA (s/p stent placement and revision x4 last in 08/2018) L sided common iliac aneurysm, previous colonic resection, who presents s/p fall without LOC and injury to the R side of his head, R elbow, and R hip. Per the patient he got up to go to the bathroom and when he went to stand from sitting on the toilet he suddenly felt very weak and dizzy and fell. He denies losing consciousness but states that he did hit the R side of his head on the floor in addition to his R elbow and his R hip. He denies CP, heart palpitations, new SOB (endorses chronic SOB 2/2 COPD), nausea, vomiting, diarrhea, diaphoresis, numbness or tinging in hands/ feet. He endorses constipation and straining on the toilet prior to the event. pt seen in ER at bedside History Source: Patient, Family Member, Medical Record Limitations to Obtaining History: No Limitations - Past Medical History CLERICAL SUPERVISOR: Yes: CVA Cardiovascular: Yes: Aneurysm, CAD (s/p stent), HTN, Hyperlipdemia, Other (PFO) Pulmonary: Yes: COPD Renal/: Yes: Renal Inusuff (CKD Stage III (baseline Scr of 1.3mg/d)) Psych: Yes: Anxiety - Past Surgical History Past Surgical History: Yes: AAA Repair, Carotid Endarterectomy - Smoking History Smoking history: Never smoked Have you smoked in the past 12 months: No Aproximately how many cigarettes per day: 0 If you are a former smoker, when did you quit?: 2001 - Alcohol/Substance Use Hx Alcohol Use: No History of Substance Use: reports: None - Social History Usual Living Arrangement: Yes: With Spouse Do you think of yourself as: Straight/Heterosexual ADL: Independent Home Medications - Allergies Allergies/Adverse Reactions: Allergies Allergy/AdvReac Type Severity Reaction Status Date / Time No Known Allergies Allergy Verified 05/06/19 08:45 - Home Medications Home Medications: Ambulatory Orders Alprazolam [Xanax] 0.5 mg PO HS PRN 03/07/15 Aspirin [ASA -] 81 mg PO DAILY 03/07/15 Cholecalciferol (Vitamin D3) [Vitamin D3] 1,000 unit PO HS 03/07/15 Warfarin Sodium [Coumadin] 4 mg PO DAILY 03/07/15 Amlodipine Besylate [Norvasc -] 5 mg PO DAILY 06/06/17 Sertraline HCl [Zoloft] 50 mg PO DAILY 06/06/17 Tamsulosin HCl [Flomax] 0.4 mg PO HS 11/01/18 Albuterol 2.5/Ipratropium 0.5 [Duoneb -] 1 amp NEB Q4H PRN amp 11/02/18 Atorvastatin Ca [Lipitor] 20 mg PO HS 05/06/19 Furosemide [Lasix] 40 mg PO DAILY 05/06/19 Metoprolol Succinate [Toprol XL -] 25 mg PO HS 05/06/19 Family Medical History Family History: Unremarkable Review of Systems - Review of Systems Constitutional: reports: Diaphoresis, Weakness (general). denies: Chills, Fever Eyes: denies: Blind Spots, Blurred Vision, Double Vision HENT: denies: Difficult Swallowing, Ear Discharge, Ear Pain, Epistaxis Neck: denies: Stiffness Cardiovascular: denies: Chest Pain, Palpitations, Shortness of Breath Respiratory: denies: Cough, Hemoptysis, SOB, SOB on Exertion, Wheezing Gastrointestinal: denies: Abdominal Pain, Constipation, Diarrhea, Rectal Bleeding, Vomiting Genitourinary: denies: Burning, Discharge, Dysuria, Flank Pain Musculoskeletal: denies: Back Pain, Joint Swelling Integumentary: reports: Rash (inguinal fungic rash). denies: Eczema, Wound Neurological: denies: Change in LOC, Change in Speech, Confusion, Dizziness Endocrine: denies: Excessive Sweating, Flushing Hematology/Lymphatic: denies: Easily Bruised, Excessive Bleeding Psychiatric: denies: Altered Sleep Pattern, Anxiety, Depression Physical Examination Vital Signs: Vital Signs Temperature 97.9 F 05/07/19 06:00 Pulse Rate 96 H 05/07/19 06:00 Respiratory Rate 20 05/07/19 06:00 Blood Pressure 121/55 L 05/07/19 06:00 O2 Sat by Pulse Oximetry (%) 96 05/06/19 21:00 Constitutional: Yes: No Distress, Calm Eyes: Yes: Conjunctiva Clear HENT: Yes: Atraumatic Neck: Yes: Supple Cardiovascular: Yes: Regular Rate and Rhythm Respiratory: Yes: CTA Bilaterally Gastrointestinal: Yes: Soft. No: Tenderness Renal/: No: Hematuria Musculoskeletal: No: Joint Stiffness, Joint Swelling Extremities: No: Cold, Cool Edema: No Integumentary: Yes: Rash (pelvic fungic) Neurological: Yes: WNL, Alert, Oriented ...Motor Strength: WNL Psychiatric: Yes: WNL, Alert, Oriented. No: Agitated, Suicidal Ideation Labs: CBC, BMP 05/07/19 06:12 05/07/19 06:12 Imaging - Results Chest X-ray: Report Reviewed Other: Report Reviewed Assessment/Plan Mr. De La Cruz is an 79 yo m with an extensive pmhx including MDD, [place] (s/p cardiac stents placed in 2001) CVAx2 (no obvious deficits, on coumadin) CKD III , COPD, BPH, AAA (s/p stent placement and revision x4 last in 08/2018) L sided common iliac aneurysm, previous colonic resection,admitted s/p fall without LOC and injury to the R side of his head, R elbow, and R hip. admit to telemetry; CE, cardiology eval; ARF/CRF fluids f/u labs; pt has BPH and problems urinating: eval falls decubs DVT pfx mycolog cream to rash d/w pt and ; d/w staff
[2019-05-07] MEDS ORDERED: amLODIPine BESYLATE 5 MG TABLET (FP) ONE (10:50)
[2019-05-07] MEDS: amLODIPine BESYLATE 5 MG TABLET (FP) PO SCH (10:50)
[2019-05-07] MEDS ORDERED: FLU VACCINE QUAD 60 MCG/0.5 ML (MDV 19-20) IM ONE (14:00)
[2019-05-07] MEDS ORDERED: oxyCODONE HCL 5 MG TABLET PO PRN (16:23)
[2019-05-07] MEDS: WARFARIN NA 2 MG TABLET (UD) PO SCH (17:07)
[2019-05-07] MEDS: ATORVASTATIN CA 20 MG TABLET (FP) PO SCH (22:18)
[2019-05-07] MEDS: TAMSULOSIN HCL 0.4 MG CAP PO SCH (22:18)
[2019-05-07] MEDS: metoPROLOL SUCCINATE 25 MG TAB.SR.24H (FP) PO SCH (22:21)
[2019-05-07] MEDS: CHOLECALCIFEROL (VIT D3) 1,000 UNIT (25 MCG) TABLET PO SCH (22:22)
[2019-05-07] MEDS: NYSTATIN/TRIAMCINOLONE TOPICAL OINTMENT 15 GM TUBE TP SCH (22:36)
[2019-05-07] MEDS: ALPRAZolam 0.25 MG TABLET PO PRN (22:36)
--- NOTE | 2019-05-08 01:06 | EKG ---
Test Reason : Blood Pressure : / mmHG Vent. Rate : 094 BPM Atrial Rate : 108 BPM P-R Int : 000 ms QRS Dur : 086 ms QT Int : 348 ms P-R-T Axes : 000 013 055 degrees QTc Int : 435 ms ATRIAL FIBRILLATION ABNORMAL ECG WHEN COMPARED WITH ECG OF 27-OCT-2018 18:42, ATRIAL FIBRILLATION HAS REPLACED SINUS RHYTHM VENT. RATE HAS INCREASED BY 36 BPM Confirmed by JEY YADAV MD ([id number]) on 05/08/2019 1:06:07 AM Referred By: Confirmed By:JEY YADAV MD
[2019-05-08] MEDS: FUROSEMIDE 40 MG TABLET (FP) PO SCH (09:57)
[2019-05-08] MEDS: NYSTATIN/TRIAMCINOLONE TOPICAL OINTMENT 15 GM TUBE TP SCH ×2 (09:57→21:40)
[2019-05-08] MEDS: SERTRALINE HCL 50 MG TABLET (FP) PO SCH (09:57)
[2019-05-08] MEDS: amLODIPine BESYLATE 5 MG TABLET (FP) PO SCH (09:57)
[2019-05-08] MEDS: ASPIRIN 81 MG CHEWABLE TABLETS PO SCH (09:57)
--- NOTE | 2019-05-08 13:09 | CON.GU ---
Consult Consult Specialty:: Referred by:: Taya Reason for Consultation:: BPH, incontinence - History of Present Illness Chief Complaint: BPH, incontinence History of Present Illness: 79 yo m w ho BPH who has been experiencing more recently incontinence. He has developed a scrotal rash from this. He has had multiple AAA repairs and 2 CVAs. - History Source History Provided By: Patient Limitations to Obtaining History: No Limitations - Past Medical History HUSBANDRY PERSON: Yes: CVA Cardio/Vascular: Yes: Aneurysm, CAD (s/p stent), HTN, Hyperlipdemia, Other (PFO) Pulmonary: Yes: COPD Renal/: Yes: Renal Inusuff (CKD Stage III (baseline Scr of 1.3mg/d)), BPH Psych: Yes: Anxiety - Past Surgical History Past Surgical History: Yes: AAA Repair, Carotid Endarterectomy - Alcohol/Substance Use Hx Alcohol Use: No - Smoking History Smoking history: Never smoked Have you smoked in the past 12 months: No Aproximately how many cigarettes per day: 0 If you are a former smoker, when did you quit?: 2001 - Social History Usual Living Arrangement: With Spouse Home Medications - Allergies Allergies/Adverse Reactions: Allergies Allergy/AdvReac Type Severity Reaction Status Date / Time No Known Allergies Allergy Verified 05/06/19 08:45 - Home Medications Home Medications: Ambulatory Orders Alprazolam [Xanax] 0.5 mg PO HS PRN 03/07/15 Aspirin [ASA -] 81 mg PO DAILY 03/07/15 Cholecalciferol (Vitamin D3) [Vitamin D3] 1,000 unit PO HS 03/07/15 Warfarin Sodium [Coumadin] 4 mg PO DAILY 03/07/15 Amlodipine Besylate [Norvasc -] 5 mg PO DAILY 06/06/17 Sertraline HCl [Zoloft] 50 mg PO DAILY 06/06/17 Tamsulosin HCl [Flomax] 0.4 mg PO HS 11/01/18 Albuterol 2.5/Ipratropium 0.5 [Duoneb -] 1 amp NEB Q4H PRN amp 11/02/18 Atorvastatin Ca [Lipitor] 20 mg PO HS 05/06/19 Furosemide [Lasix] 40 mg PO DAILY 05/06/19 Metoprolol Succinate [Toprol XL -] 25 mg PO HS 05/06/19 Review of Systems - Review of Systems Genitourinary: reports: Frequency, Incontinence, Urgency Physical Exam- Vital Signs: Vital Signs Temperature 98.4 F 05/08/19 10:00 Pulse Rate 63 05/08/19 10:00 Respiratory Rate 18 05/08/19 10:00 Blood Pressure 144/64 05/08/19 10:00 O2 Sat by Pulse Oximetry (%) 98 05/07/19 21:00 Gastrointestinal: Yes: Soft Renal/: Yes: Incontinence. No: Bladder Distention, CVA Tenderness - Left, CVA Tenderness - Right, Schuster Present, Hematuria Labs: CBC, BMP 05/07/19 06:12 05/07/19 06:12 Problem List - Problems (1) Unspecified urinary incontinence Assessment/Plan: incontinence may be secondary to BPH and recent CVAs. Will ultimately need to work up as outpatient. US ordred for here. Code(s): R32 - UNSPECIFIED URINARY INCONTINENCE
--- NOTE | 2019-05-08 17:33 | CONS ---
CARDIOLOGY CONSULTATION DATE OF CONSULTATION: 05/07/2019 CHIEF COMPLAINT: 1. Dizziness. 2. Loss of balance and a fall. HISTORY: Patient is an 79-year-old gentleman with longstanding history of coronary artery disease, angina pectoris status post PCI/stenting, history of abdominal aortic aneurysm, status post endovascular repair x4, hypertension, hypertensive cardiovascular disease, history of iliac artery aneurysm, status post cerebrovascular accident x2, status post left carotid endarterectomy, history of patent foramen ovale, history of depression and anxiety disorder, chronic kidney disease, thyroid nodule, and chronic anemia. Patient states that he has been constipated and was straining while trying to have a bowel movement. When he stood up, he became lightheaded, felt dizzy, and fell to the floor injuring his head and developing superficial abrasions of the right upper extremity and also states that he injured his right hip. He was unable to get up, and 911 was summoned, and he was brought to the emergency room. According to the patient, his blood pressure was significantly elevated while he was in the emergency room. He denies having any recent palpitations. No history of chest pain or discomfort. He has chronic dyspnea on minimal exertion. Patient also has chronic tremors of the right hand since his cerebrovascular event and states he has recently contracted a fungal infection in the groin. PAST HISTORY: As mentioned in the history of present illness. SURGICAL HISTORY: 1. Status post tonsillectomy. 2. Status post colon resection for intestinal obstruction. 3. Status post bilateral cataract extraction and lens implantation. 4. Endovascular repair of abdominal aortic aneurysm x4. 5. Status post left carotid endarterectomy. SOCIAL HISTORY: Retired. He is . Smoked from the age of 19 to age 49 one to two packs of cigarettes per day. Had a social drink. Denies excessive use of alcohol. Has 2 cups of coffee. FAMILY HISTORY: Father at age 51 of pancreatitis. Mother at age 82 related to complications of carcinoma of the breast and apparently had heart disease. Had 1 brother who had congenital heart disease at . Had undergone multiple surgeries and at the age of 22. ALLERGIES: None reported. CURRENT MEDICATIONS: 1. Flomax 0.4 mg p.o. daily nightly. 2. Tylenol 650 mg p.o. every 6 hours p.r.n. 3. Warfarin 4 mg p.o. daily. 4. Zoloft 50 mg p.o. daily. 5. Nystatin 1 application b.i.d. 6. Xanax 0.5 mg every 12 hours p.r.n. 7. DuoNeb 1 ampule via nebulizer every 4 hours p.r.n. 8. Metoprolol succinate 25 mg p.o. daily. 9. Amlodipine 5 mg p.o. daily. 10. Atorvastatin 20 mg p.o. daily. 11. Lasix 40 mg p.o. daily. 12. Aspirin 81 mg p.o. daily. 13. Oxycodone 5 mg every 6 hours p.r.n. 14. Vitamin D3 at 1000 units p.o. daily. REVIEW OF SYSTEMS: Constitutional: No history of chills, fever, or night sweats reported. No history of unintentional weight loss. HEENT: No history of headaches, diplopia, blurred vision. No history of epistaxis, hoarseness, tinnitus or deafness. Cardiovascular: See history of present illness. Respiratory: See history of present illness. No history of recent cough, expectoration, or hemoptysis. Gastrointestinal: History of chronic constipation. No history of nausea, vomiting, melena, or hematemesis. No history of recent abdominal pain or discomfort. Endocrine: History of a thyroid nodule. No history of intolerance to cold or warm weather. Musculoskeletal: History of arthralgia. No history of myalgias. Genitourinary: History of urgency and frequency. Complains of a poor stream and has nocturia 1-2 times a night and is noted to have BPH. Neurological: See history of present illness. Hematological: History of anemia. No history of bleeding or ecchymosis reported. PHYSICAL EXAMINATION: General: An 79-year-old gentleman who is complaining of some mild discomfort involving the right elbow. There is no pallor or cyanosis. No clubbing or jaundice. Vital Signs: Blood pressure 144/64 mmHg, pulse 63 beats per minute and regular. On telemetry, patient had episode of paroxysmal atrial fibrillation. Currently in sinus rhythm. Neck: Supple. No jugular venous distention. Carotids are 2+. Slight fullness of the right lobe of the thyroid. There is a well healed left carotid endarterectomy scar. Heart: PMI is in the 5th intercostal space. No heaves or thrills. S1 and S2 are normal. No murmurs or gallops are appreciated. Lungs: Clear on auscultation. Abdomen: Protuberant, nontender. No hepatosplenomegaly or palpable masses are felt. Bowel sounds are present. Extremities: No calf tenderness or dependent edema. Pulses are equal. Posterior tibial pulses are weak. LABORATORY DATA: CBC May 07, 2019; WBC 9200, hemoglobin 11.7 g/dL, platelet count 150,000. Chemistry May 07, 2019; sodium 142, potassium 4.3, chloride 113, CO2 is 21 mmol/L, BUN 45.7, creatinine 2.1 mg/dL, calcium low at 7.9 mg/dL, albumin low at 2.9 g/dL, total protein 5.3 g/dL. Troponins were less than 0.02, 0.03. IMPRESSION: 1. Lightheadedness, dizziness associated with fall related to a vasovagal response. 2. Atherosclerotic heart disease, history of angina pectoris status post percutaneous coronary intervention, stenting. 3. Hypertension, hypertensive cardiovascular disease. 4. Hypercholesterolemia. 5. Status post cerebrovascular accident. 6. Status post left carotid endarterectomy. 7. Abdominal aortic aneurysm status post endovascular repair x4. 8. Paroaxysmal atrial fibrillation, currently in sinus rhythm. 9. History of thyroid nodule. 10. History of iliac artery aneurysm. 11. History of depression and anxiety disorder. 12. History of patent foramen ovale. 13. Chronic kidney disease. RECOMMENDATION: 1. Concur with current line of medications. 2. Patient should avoid constipation as he had similar episodes in the past. 3. Check blood pressures supine and standing. 4. Follow up ECG. 5. Thyroid ultrasound. 6. Check pressures supine and standing. PROGNOSIS: Guarded. Thank you for your referral. Yours Sincerely, RICH MURILLO M.D. [id number] [place]
[2019-05-08 19:02] LABS: INR 2.98 (0.83-1.09); PROTHROMBIN TIME (PATIENT) 35.5 SEC (9.7-13.0)
[2019-05-08] MEDS: WARFARIN NA 2 MG TABLET (UD) PO SCH (19:14)
[2019-05-08] MEDS: TAMSULOSIN HCL 0.4 MG CAP PO SCH (21:29)
[2019-05-08] MEDS: metoPROLOL SUCCINATE 25 MG TAB.SR.24H (FP) PO SCH (21:29)
[2019-05-08] MEDS: ATORVASTATIN CA 20 MG TABLET (FP) PO SCH (21:29)
[2019-05-08] MEDS: CHOLECALCIFEROL (VIT D3) 1,000 UNIT (25 MCG) TABLET PO SCH (21:29)
--- NOTE | 2019-05-08 23:52 | PN ---
Progress Note, Physician History of Present Illness: Pt w/o CP, SOB, palpitations, abd pain. Pt states that straining makes him lightheaded and hasn't take the stool softener daily to have a regular BM - Current Medication List Current Medications: Active Medications Acetaminophen (Tylenol -) 650 mg PO Q6H PRN PRN Reason: PAIN LEVEL 1-5 Last Admin: 05/07/19 22:37 Dose: 650 mg Albuterol/Ipratropium (Duoneb -) 1 amp NEB Q4H PRN PRN Reason: SHORTNESS OF BREATH Alprazolam (Xanax -) 0.5 mg PO Q12H PRN PRN Reason: ANXIETY Last Admin: 05/07/19 22:36 Dose: 0.5 mg Amlodipine Besylate (Norvasc -) 5 mg PO DAILY [facility] Last Admin: 05/08/19 09:57 Dose: 5 mg Aspirin (Asa -) 81 mg PO DAILY [facility] Last Admin: 05/08/19 09:57 Dose: 81 mg Atorvastatin Calcium (Lipitor -) 20 mg PO HS [facility] Last Admin: 05/08/19 21:29 Dose: 20 mg Cholecalciferol (Vitamin D3 -) 1,000 unit PO HS [facility] Last Admin: 05/08/19 21:29 Dose: 1,000 unit Furosemide (Lasix -) 40 mg PO DAILY [facility] Last Admin: 05/08/19 09:57 Dose: 40 mg Metoprolol Succinate (Toprol Xl -) 25 mg PO HS [facility] Last Admin: 05/08/19 21:29 Dose: 25 mg Nystatin/Triamcinolone Acetonide (Mycolog Ii Ointment -) 1 applic TP BID [facility] Last Admin: 05/08/19 21:40 Dose: 1 applic Oxycodone HCl (Roxicodone -) 5 mg PO Q6H PRN PRN Reason: PAIN LEVEL 7 - 10 Sertraline HCl (Zoloft -) 50 mg PO DAILY [facility] Last Admin: 05/08/19 09:57 Dose: 50 mg Tamsulosin HCl (Flomax -) 0.4 mg PO HS [facility] Last Admin: 05/08/19 21:29 Dose: 0.4 mg Warfarin Sodium (Coumadin -) 4 mg PO 1800 [facility] Last Admin: 05/08/19 19:14 Dose: 4 mg - Objective Vital Signs: Vital Signs Temperature 98.7 F 05/08/19 22:00 Pulse Rate 66 05/08/19 22:00 Respiratory Rate 20 05/08/19 22:00 Blood Pressure 142/58 L 05/08/19 22:00 O2 Sat by Pulse Oximetry (%) 98 05/08/19 21:00 Constitutional: Yes: No Distress, Calm Cardiovascular: Yes: Regular Rate and Rhythm, S1, S2 Respiratory: Yes: Regular, CTA Bilaterally. No: Rales Gastrointestinal: Yes: Normal Bowel Sounds, Soft. No: Tenderness Edema: No Integumentary: Yes: Other (groin rash bilateraly, silvery) Labs: CBC, BMP 05/07/19 06:12 05/07/19 06:12 INR, PTT INR 2.98 (0.83-1.09) H 05/08/19 17:55 - ....Imaging Ultrasound: Report Reviewed Problem List - Problems (1) Near syncope Code(s): R55 - SYNCOPE AND COLLAPSE (2) CAD (coronary artery disease) Code(s): I25.10 - ATHSCL HEART DISEASE OF [place] CORONARY ARTERY W/O ANG PCTRS (3) A-fib Code(s): I48.91 - UNSPECIFIED ATRIAL FIBRILLATION (4) CVA (cerebral vascular accident) Code(s): I63.9 - CEREBRAL INFARCTION, UNSPECIFIED (5) Hypertension Code(s): I10 - ESSENTIAL (PRIMARY) HYPERTENSION (6) HLD (hyperlipidemia) Code(s): E78.5 - HYPERLIPIDEMIA, UNSPECIFIED (7) History of left-sided carotid endarterectomy Code(s): Z98.890 - OTHER SPECIFIED POSTPROCEDURAL STATES (8) Other specified injury of left carotid artery, initial encounter Code(s): S15.092A - OTHER SPECIFIED INJURY OF LEFT CAROTID ARTERY, INIT ENCNTR (9) History of AAA (abdominal aortic aneurysm) repair Code(s): Z98.890 - OTHER SPECIFIED POSTPROCEDURAL STATES (10) Skin rash Assessment/Plan: on Mycolog ii Code(s): R21 - RASH AND OTHER NONSPECIFIC SKIN ERUPTION Assessment/Plan CE are negative. Admitted to monitor bed Cardio, consults are appreciated. AM labs. Physical therapy eval.
[2019-05-09 07:12] LABS: HEMATOCRIT 32.8 % (35.4-49); HEMOGLOBIN 11.1 GM/dL (11.7-16.9); MCH 30.9 pg (25.7-33.7); MCHC 33.7 g/dl (32.0-35.9); MEAN CELL VOLUME 91.7 fl (80-96); MEAN PLT VOLUME 8.6 fl (7.5-11.1); PLATELET COUNT 138 K/MM3 (134-434); RBC 3.58 M/mm3 (4.00-5.60); RDW 14.1 % (11.9-15.9); WHITE BLOOD COUNT 8.1 K/mm3 (4.0-10.0)
[2019-05-09 07:29] LABS: INR 2.99 (0.83-1.09); PROTHROMBIN TIME (PATIENT) 35.7 SEC (9.7-13.0)
[2019-05-09 07:46] LABS: BILIRUBIN,TOTAL 0.3 mg/dL (0.2-1); BLOOD UREA NITROGEN 44.2 mg/dL (7-18); CALCIUM 7.8 mg/dL (8.5-10.1); CREATININE 2.3 mg/dL (0.55-1.3); POTASSIUM 4.1 mmol/L (3.5-5.1); TOT PROT 5.5 g/dl (6.4-8.2)
[2019-05-09] MEDS ORDERED: PT OWN MED DRAWER 7, Y5N ONE (09:24)
[2019-05-09] MEDS: ASPIRIN 81 MG CHEWABLE TABLETS PO SCH (09:35)
[2019-05-09] MEDS: SERTRALINE HCL 50 MG TABLET (FP) PO SCH (09:35)
[2019-05-09] MEDS: FUROSEMIDE 40 MG TABLET (FP) PO SCH (09:35)
[2019-05-09] MEDS: NYSTATIN/TRIAMCINOLONE TOPICAL OINTMENT 15 GM TUBE TP SCH ×2 (09:35→22:45)
[2019-05-09] MEDS: amLODIPine BESYLATE 5 MG TABLET (FP) PO SCH (09:35)
--- NOTE | 2019-05-09 10:22 | PN ---
Progress Note (short form) - Note Progress Note: 79-year-old gentleman nown case of coronary artery disease, angina pectoris, status post PCI/stenting, hypertension, hypertensive cardiovascular disease, status post cerebrovascular accident2, status post left carotid endarterectomy , history of chronic kidney disease, hypercholesterolemia and depression, history of recurring vasovagal events. Patient was admitted with dizziness associated with a fall after straining to have a bowel movement. Since his admission he is had no further lightheadedness , dizziness presyncope or syncope.Patient also was found to have paroxysmal atrial fibrillation and currently remains in sinus rhythm. No chest pains have been reported. Active Medications Acetaminophen (Tylenol -) 650 mg PO Q6H PRN PRN Reason: PAIN LEVEL 1-5 Last Admin: 05/07/19 22:37 Dose: 650 mg Albuterol/Ipratropium (Duoneb -) 1 amp NEB Q4H PRN PRN Reason: SHORTNESS OF BREATH Alprazolam (Xanax -) 0.5 mg PO Q12H PRN PRN Reason: ANXIETY Last Admin: 05/07/19 22:36 Dose: 0.5 mg Amlodipine Besylate (Norvasc -) 5 mg PO DAILY [facility] Last Admin: 05/09/19 09:35 Dose: 5 mg Aspirin (Asa -) 81 mg PO DAILY [facility] Last Admin: 05/09/19 09:35 Dose: 81 mg Atorvastatin Calcium (Lipitor -) 20 mg PO HS [facility] Last Admin: 05/08/19 21:29 Dose: 20 mg Cholecalciferol (Vitamin D3 -) 1,000 unit PO HS [facility] Last Admin: 05/08/19 21:29 Dose: 1,000 unit Furosemide (Lasix -) 40 mg PO DAILY [facility] Last Admin: 05/09/19 09:35 Dose: 40 mg Metoprolol Succinate (Toprol Xl -) 25 mg PO HS [facility] Last Admin: 05/08/19 21:29 Dose: 25 mg Nystatin/Triamcinolone Acetonide (Mycolog Ii Ointment -) 1 applic TP BID [facility] Last Admin: 05/09/19 09:35 Dose: 1 applic Oxycodone HCl (Roxicodone -) 5 mg PO Q6H PRN PRN Reason: PAIN LEVEL 7 - 10 Sertraline HCl (Zoloft -) 50 mg PO DAILY [facility] Last Admin: 05/09/19 09:35 Dose: 50 mg Tamsulosin HCl (Flomax -) 0.4 mg PO HS [facility] Last Admin: 05/08/19 21:29 Dose: 0.4 mg Warfarin Sodium (Coumadin -) 4 mg PO 1800 [facility] Last Admin: 05/08/19 19:14 Dose: 4 mg 79-year-old gentleman was in no distress,no pallor, cyanosis, clubbing or jaundice. Last Vital Signs Temp Pulse Resp BP Pulse Ox 98.1 F 64 20 148/86 95 05/09/19 14:00 05/09/19 14:00 05/09/19 14:00 05/09/19 14:00 05/09/19 09:00 Neck:supple, no jugular venous distention, carotids were 2+, upstrokes were normal, no bruits were and no thyromegaly was present. Heart: PMI was in the fifth intercostal space, no heaves or thrills, S1 and S2 were normal, no murmur or gallops were heard. Lungs:Clear on auscultation.Abdomen Abdomen: Soft, nontender, no hepatosplenomegaly or palpable masses were felt. Extremities:No calf tenderness or dependent edema. Tremors of the right hand. Laboratory Results - last 24 hr 05/08/19 05/08/19 05/09/19 17:55 17:55 06:50 WBC RBC Hgb Hct MCV MCH MCHC RDW Plt Count MPV PT with INR 35.50 H 35.70 H INR 2.98 H 2.99 H Sodium Potassium Chloride Carbon Dioxide Anion Gap BUN Creatinine Est GFR (CKD-EPI)AfAm Est GFR (CKD-EPI)NonAf Random Glucose Calcium Total Bilirubin AST ALT Alkaline Phosphatase Creatine Kinase 101 Troponin I < 0.02 Total Protein Albumin 05/09/19 05/09/19 06:50 06:50 WBC 8.1 RBC 3.58 L Hgb 11.1 L Hct 32.8 L MCV 91.7 MCH 30.9 MCHC 33.7 RDW 14.1 Plt Count 138 MPV 8.6 PT with INR INR Sodium 140 Potassium 4.1 Chloride 110 H Carbon Dioxide 24 Anion Gap 7 L BUN 44.2 H Creatinine 2.3 H Est GFR (CKD-EPI)AfAm 29.96 Est GFR (CKD-EPI)NonAf 25.85 Random Glucose 91 Calcium 7.8 L Total Bilirubin 0.3 AST 16 ALT 20 Alkaline Phosphatase 87 Creatine Kinase Troponin I Total Protein 5.5 L Albumin 3.0 L Impression: 1. Dizziness most likely related to vasovagal hypotension. 2. Coronary artery disease, angina pectoris, status post PCI/KIRIT. 3. Hypertension, hypertensive cardiovascular disease, presently normotensive. 4. Abdominal aortic aneurysm status post repair4. 5. paroxysmal atrial fibrillation, etiology to be determined, possibly precipitated by vasovagal response. 6. Status post cerebrovascular accident 2 7. Status post left carotid endarterectomy. 8. Chronic kidney disease stage III. 9. COPD. 1. If atrial fibrillation was to recur would suggest increasing the dose of metoprolol succinate to 50 mg by mouth daily. 2. Increase ambulation. 3. Check blood pressure supine and standing. 4. Consider physical therapy. Ramon Jones MD.
--- NOTE | 2019-05-09 19:05 | PN ---
Progress Note, Physician History of Present Illness: Pt w/o CP, SOB, palpitations, abd pain. Today he showered. - Current Medication List Current Medications: Active Medications Acetaminophen (Tylenol -) 650 mg PO Q6H PRN PRN Reason: PAIN LEVEL 1-5 Last Admin: 05/07/19 22:37 Dose: 650 mg Albuterol/Ipratropium (Duoneb -) 1 amp NEB Q4H PRN PRN Reason: SHORTNESS OF BREATH Alprazolam (Xanax -) 0.5 mg PO Q12H PRN PRN Reason: ANXIETY Last Admin: 05/07/19 22:36 Dose: 0.5 mg Amlodipine Besylate (Norvasc -) 5 mg PO DAILY [facility] Last Admin: 05/09/19 09:35 Dose: 5 mg Aspirin (Asa -) 81 mg PO DAILY [facility] Last Admin: 05/09/19 09:35 Dose: 81 mg Atorvastatin Calcium (Lipitor -) 20 mg PO HS [facility] Last Admin: 05/08/19 21:29 Dose: 20 mg Cholecalciferol (Vitamin D3 -) 1,000 unit PO HS [facility] Last Admin: 05/08/19 21:29 Dose: 1,000 unit Furosemide (Lasix -) 40 mg PO DAILY [facility] Last Admin: 05/09/19 09:35 Dose: 40 mg Metoprolol Succinate (Toprol Xl -) 25 mg PO HS [facility] Last Admin: 05/08/19 21:29 Dose: 25 mg Nystatin/Triamcinolone Acetonide (Mycolog Ii Ointment -) 1 applic TP BID [facility] Last Admin: 05/09/19 09:35 Dose: 1 applic Oxycodone HCl (Roxicodone -) 5 mg PO Q6H PRN PRN Reason: PAIN LEVEL 7 - 10 Sertraline HCl (Zoloft -) 50 mg PO DAILY [facility] Last Admin: 05/09/19 09:35 Dose: 50 mg Tamsulosin HCl (Flomax -) 0.4 mg PO HS [facility] Last Admin: 05/08/19 21:29 Dose: 0.4 mg Warfarin Sodium (Coumadin -) 4 mg PO 1800 [facility] Last Admin: 05/08/19 19:14 Dose: 4 mg - Objective Vital Signs: Vital Signs Temperature 98.1 F 05/09/19 14:00 Pulse Rate 64 05/09/19 14:00 Respiratory Rate 20 12/10/19 14:00 Blood Pressure 148/86 05/09/19 14:00 O2 Sat by Pulse Oximetry (%) 95 05/09/19 09:00 Constitutional: Yes: No Distress, Calm Cardiovascular: Yes: Regular Rate and Rhythm, S1, S2 Respiratory: Yes: Regular, CTA Bilaterally. No: Rales Gastrointestinal: Yes: Normal Bowel Sounds, Soft. No: Tenderness Edema: No Neurological: Yes: Alert, Oriented Labs: CBC, BMP 05/09/19 06:50 05/09/19 06:50 INR, PTT INR 2.99 (0.83-1.09) H 05/09/19 06:50 Problem List - Problems (1) Near syncope Code(s): R55 - SYNCOPE AND COLLAPSE (2) CAD (coronary artery disease) Code(s): I25.10 - ATHSCL HEART DISEASE OF [place] CORONARY ARTERY W/O ANG PCTRS (3) A-fib Code(s): I48.91 - UNSPECIFIED ATRIAL FIBRILLATION (4) CVA (cerebral vascular accident) Code(s): I63.9 - CEREBRAL INFARCTION, UNSPECIFIED (5) Hypertension Code(s): I10 - ESSENTIAL (PRIMARY) HYPERTENSION (6) HLD (hyperlipidemia) Code(s): E78.5 - HYPERLIPIDEMIA, UNSPECIFIED (7) History of left-sided carotid endarterectomy Code(s): Z98.890 - OTHER SPECIFIED POSTPROCEDURAL STATES (8) Other specified injury of left carotid artery, initial encounter Code(s): S15.092A - OTHER SPECIFIED INJURY OF LEFT CAROTID ARTERY, INIT ENCNTR (9) History of AAA (abdominal aortic aneurysm) repair Code(s): Z98.890 - OTHER SPECIFIED POSTPROCEDURAL STATES (10) Skin rash Code(s): R21 - RASH AND OTHER NONSPECIFIC SKIN ERUPTION Assessment/Plan Admitted to monitor bed Cardio, consults are appreciated. To f/u with PT; OOBTC AM labs.
[2019-05-09] MEDS ORDERED: WARFARIN NA 2 MG TABLET (UD) PO SCH (21:45)
[2019-05-09] MEDS: WARFARIN NA 2 MG TABLET (UD) PO SCH (22:20)
[2019-05-09] MEDS: ATORVASTATIN CA 20 MG TABLET (FP) PO SCH (22:36)
[2019-05-09] MEDS: metoPROLOL SUCCINATE 25 MG TAB.SR.24H (FP) PO SCH (22:36)
[2019-05-09] MEDS: TAMSULOSIN HCL 0.4 MG CAP PO SCH (22:36)
[2019-05-09] MEDS: CHOLECALCIFEROL (VIT D3) 1,000 UNIT (25 MCG) TABLET PO SCH (22:36)
[2019-05-09] MEDS: ACETAMINOPHEN 325 MG TABLET (FP) PO PRN (22:36)
[2019-05-09] MEDS: ALPRAZolam 0.25 MG TABLET PO PRN (22:37)
[2019-05-10 07:50] LABS: HEMATOCRIT 31.8 % (35.4-49); HEMOGLOBIN 11.1 GM/dL (11.7-16.9); MCH 31.7 pg (25.7-33.7); MCHC 34.8 g/dl (32.0-35.9); MEAN CELL VOLUME 91.2 fl (80-96); MEAN PLT VOLUME 8.8 fl (7.5-11.1); PLATELET COUNT 150 K/MM3 (134-434); RBC 3.49 M/mm3 (4.00-5.60); RDW 13.9 % (11.9-15.9); WHITE BLOOD COUNT 8.1 K/mm3 (4.0-10.0)
[2019-05-10 07:55] LABS: INR 3.07 (0.83-1.09); PROTHROMBIN TIME (PATIENT) 36.6 SEC (9.7-13.0)
[2019-05-10 08:36] LABS: BLOOD UREA NITROGEN 43.1 mg/dL (7-18); CALCIUM 7.9 mg/dL (8.5-10.1); CREATININE 2.4 mg/dL (0.55-1.3)
[2019-05-10] MEDS: amLODIPine BESYLATE 5 MG TABLET (FP) PO SCH (09:19)
[2019-05-10] MEDS: FUROSEMIDE 40 MG TABLET (FP) PO SCH (09:19)
[2019-05-10] MEDS: SERTRALINE HCL 50 MG TABLET (FP) PO SCH (09:19)
[2019-05-10] MEDS: ASPIRIN 81 MG CHEWABLE TABLETS PO SCH (09:19)
[2019-05-10] MEDS: NYSTATIN/TRIAMCINOLONE TOPICAL OINTMENT 15 GM TUBE TP SCH ×2 (09:20→21:06)
[2019-05-10] MEDS: WARFARIN NA 2 MG TABLET (UD) PO SCH (18:40)
--- NOTE | 2019-05-10 18:52 | PN ---
Progress Note, Physician History of Present Illness: Pt w/o CP, SOB, palpitations, abd pain. Today he was seen by PT - Current Medication List Current Medications: Active Medications Acetaminophen (Tylenol -) 650 mg PO Q6H PRN PRN Reason: PAIN LEVEL 1-5 Last Admin: 05/09/19 22:36 Dose: 650 mg Albuterol/Ipratropium (Duoneb -) 1 amp NEB Q4H PRN PRN Reason: SHORTNESS OF BREATH Alprazolam (Xanax -) 0.5 mg PO Q12H PRN PRN Reason: ANXIETY Last Admin: 05/09/19 22:37 Dose: 0.5 mg Amlodipine Besylate (Norvasc -) 5 mg PO DAILY [facility] Last Admin: 05/10/19 09:19 Dose: 5 mg Aspirin (Asa -) 81 mg PO DAILY [facility] Last Admin: 05/10/19 09:19 Dose: 81 mg Atorvastatin Calcium (Lipitor -) 20 mg PO HS [facility] Last Admin: 05/09/19 22:36 Dose: 20 mg Cholecalciferol (Vitamin D3 -) 1,000 unit PO HS [facility] Last Admin: 05/09/19 22:36 Dose: 1,000 unit Furosemide (Lasix -) 40 mg PO DAILY [facility] Last Admin: 05/10/19 09:19 Dose: 40 mg Metoprolol Succinate (Toprol Xl -) 25 mg PO HS [facility] Last Admin: 05/09/19 22:36 Dose: 25 mg Nystatin/Triamcinolone Acetonide (Mycolog Ii Ointment -) 1 applic TP BID [facility] Last Admin: 05/10/19 09:20 Dose: 1 applic Oxycodone HCl (Roxicodone -) 5 mg PO Q6H PRN PRN Reason: PAIN LEVEL 7 - 10 Sertraline HCl (Zoloft -) 50 mg PO DAILY [facility] Last Admin: 05/10/19 09:19 Dose: 50 mg Tamsulosin HCl (Flomax -) 0.4 mg PO HS [facility] Last Admin: 05/09/19 22:36 Dose: 0.4 mg Warfarin Sodium (Coumadin -) 4 mg PO 1800 [facility] Last Admin: 05/10/19 18:40 Dose: Not Given - Objective Vital Signs: Vital Signs Temperature 97.9 F 05/10/19 14:00 Pulse Rate 60 05/10/19 14:00 Respiratory Rate 20 05/10/19 14:00 Blood Pressure 149/79 05/10/19 10:00 O2 Sat by Pulse Oximetry (%) 97 05/10/19 09:00 Constitutional: Yes: No Distress, Calm Cardiovascular: Yes: Regular Rate and Rhythm, S1, S2 Respiratory: Yes: Regular, CTA Bilaterally. No: Rales Gastrointestinal: Yes: Normal Bowel Sounds, Soft. No: Tenderness Edema: No Neurological: Yes: Alert, Oriented Labs: CBC, BMP 05/10/19 07:00 05/10/19 07:00 INR, PTT INR 3.07 (0.83-1.09) H 05/10/19 07:00 Problem List - Problems (1) Near syncope Code(s): R55 - SYNCOPE AND COLLAPSE (2) CAD (coronary artery disease) Code(s): I25.10 - ATHSCL HEART DISEASE OF [place] CORONARY ARTERY W/O ANG PCTRS (3) A-fib Code(s): I48.91 - UNSPECIFIED ATRIAL FIBRILLATION (4) CVA (cerebral vascular accident) Code(s): I63.9 - CEREBRAL INFARCTION, UNSPECIFIED (5) Hypertension Code(s): I10 - ESSENTIAL (PRIMARY) HYPERTENSION (6) HLD (hyperlipidemia) Code(s): E78.5 - HYPERLIPIDEMIA, UNSPECIFIED (7) History of left-sided carotid endarterectomy Code(s): Z98.890 - OTHER SPECIFIED POSTPROCEDURAL STATES (8) Other specified injury of left carotid artery, initial encounter Code(s): S15.092A - OTHER SPECIFIED INJURY OF LEFT CAROTID ARTERY, INIT ENCNTR (9) History of AAA (abdominal aortic aneurysm) repair Code(s): Z98.890 - OTHER SPECIFIED POSTPROCEDURAL STATES (10) Skin rash Code(s): R21 - RASH AND OTHER NONSPECIFIC SKIN ERUPTION (11) Supratherapeutic INR Code(s): R79.1 - ABNORMAL COAGULATION PROFILE Assessment/Plan Admitted to monitor bed Cardio, consults are appreciated. I encouraged OOBTC. Hold Coumadin Tonight AM labs.
--- NOTE | 2019-05-10 20:31 | PN ---
Progress Note (short form) - Note Progress Note: 79-year-old gentleman nown case of coronary artery disease, angina pectoris, status post PCI/stenting, hypertension, hypertensive cardiovascular disease, status post cerebrovascular accident2, status post left carotid endarterectomy , history of chronic kidney disease, hypercholesterolemia and depression, history of recurring vasovagal events. Patient continuos have periods of atrial fibrillation with controlled ventricular response. No history of chest pain or discomfort, no dyspnea at rest. Active Medications Generic Name Dose Route Start Last Admin Trade Name Freq PRN Reason Stop Dose Admin Acetaminophen 650 mg 05/06/19 22:05 05/09/19 22:36 Tylenol - PO 650 mg Q6H PRN Administration PAIN LEVEL 1-5 Albuterol/Ipratropium 1 amp 05/06/19 20:27 Duoneb - NEB Q4H PRN SHORTNESS OF BREATH Alprazolam 0.5 mg 05/06/19 20:38 05/09/19 22:37 Xanax - PO 0.5 mg Q12H PRN Administration ANXIETY Amlodipine Besylate 5 mg 05/07/19 10:45 05/10/19 09:19 Norvasc - PO 5 mg DAILY [facility] Administration Aspirin 81 mg 05/07/19 10:00 05/10/19 09:19 Asa - PO 81 mg DAILY [facility] Administration Atorvastatin Calcium 20 mg 05/06/19 22:00 05/09/19 22:36 Lipitor - PO 20 mg HS [facility] Administration Cholecalciferol 1,000 unit 05/06/19 22:00 05/09/19 22:36 Vitamin D3 - PO 1,000 unit HS [facility] Administration Furosemide 40 mg 05/07/19 10:00 05/10/19 09:19 Lasix - PO 40 mg DAILY [facility] Administration Metoprolol Succinate 25 mg 05/06/19 22:00 05/09/19 22:36 Toprol Xl - PO 25 mg HS [facility] Administration Nystatin/Triamcinolone Acetonide 1 applic 05/07/19 22:00 05/10/19 09:20 Mycolog Ii Ointment - TP 1 applic BID [facility] Administration Oxycodone HCl 5 mg 05/07/19 16:23 Roxicodone - PO Q6H PRN PAIN LEVEL 7 - 10 Sertraline HCl 50 mg 05/07/19 10:00 05/10/19 09:19 Zoloft - PO 50 mg DAILY [facility] Administration Tamsulosin HCl 0.4 mg 05/06/19 22:00 05/09/19 22:36 Flomax - PO 0.4 mg HS [facility] Administration Warfarin Sodium 4 mg 05/07/19 18:00 05/10/19 18:40 Coumadin - PO Not Given 1800 [facility] 79-year-old gentleman was in no distress,no pallor, cyanosis, clubbing or jaundice. Last Vital Signs Temp Pulse Resp BP Pulse Ox 98.2 F 62 20 141/55 L 97 05/10/19 18:00 05/10/19 18:00 05/10/19 18:00 05/10/19 18:00 05/10/19 09:00 Neck:supple, no jugular venous distention, carotids were 2+, upstrokes were normal, no bruits were and no thyromegaly was present. Heart: PMI was in the fifth intercostal space, no heaves or thrills, S1 and S2 were normal, no murmur or gallops were heard. Lungs:Clear on auscultation.Abdomen Abdomen: Soft, nontender, no hepatosplenomegaly or palpable masses were felt. Extremities:No calf tenderness or dependent edema. Tremors of the right hand. CBC, BMP 05/10/19 07:00 05/10/19 07:00 Impression: 1. paroxysmal atrial fibrillation with controlled ventricular response. 2. Coronary artery disease, angina pectoris, status post PCI/KIRIT. 3. Hypertension, hypertensive cardiovascular disease, presently normotensive. 4. Abdominal aortic aneurysm status post repair4. 5. history of vasodepressor events. 6. Status post cerebrovascular accident 2 7. Status post left carotid endarterectomy. 8. Chronic kidney disease stage III. 9. COPD. 1. Increase metoprolol succinate to 50 mg by mouth daily. 2. If atrial fibrillation persists current therapy may need to consider amiodarone. 3. Check blood pressure supine and standing. Ramon Jones MD.
[2019-05-10] MEDS: TAMSULOSIN HCL 0.4 MG CAP PO SCH (21:05)
[2019-05-10] MEDS: ALPRAZolam 0.25 MG TABLET PO PRN (21:05)
[2019-05-10] MEDS: CHOLECALCIFEROL (VIT D3) 1,000 UNIT (25 MCG) TABLET PO SCH (21:05)
[2019-05-10] MEDS: ATORVASTATIN CA 20 MG TABLET (FP) PO SCH (21:05)
[2019-05-10] MEDS: metoPROLOL SUCCINATE 25 MG TAB.SR.24H (FP) PO SCH (21:05)
[2019-05-11] MEDS ORDERED: PT OWN MED DRAWER 7, Y5N ONE (01:48)
[2019-05-11 07:37] LABS: INR 2.73 (0.83-1.09); PROTHROMBIN TIME (PATIENT) 32.5 SEC (9.7-13.0)
[2019-05-11] MEDS: SERTRALINE HCL 50 MG TABLET (FP) PO SCH (09:51)
[2019-05-11] MEDS: FUROSEMIDE 40 MG TABLET (FP) PO SCH (09:51)
[2019-05-11] MEDS: NYSTATIN/TRIAMCINOLONE TOPICAL OINTMENT 15 GM TUBE TP SCH ×2 (09:51→22:34)
[2019-05-11] MEDS: amLODIPine BESYLATE 5 MG TABLET (FP) PO SCH (09:51)
[2019-05-11] MEDS: ASPIRIN 81 MG CHEWABLE TABLETS PO SCH (09:51)
--- NOTE | 2019-05-11 19:20 | PN ---
Progress Note, Physician History of Present Illness: Pt w/o CP, SOB, palpitations, abd pain. Today he walked with PT - Current Medication List Current Medications: Active Medications Acetaminophen (Tylenol -) 650 mg PO Q6H PRN PRN Reason: PAIN LEVEL 1-5 Last Admin: 05/09/19 22:36 Dose: 650 mg Albuterol/Ipratropium (Duoneb -) 1 amp NEB Q4H PRN PRN Reason: SHORTNESS OF BREATH Alprazolam (Xanax -) 0.5 mg PO Q12H PRN PRN Reason: ANXIETY Last Admin: 05/10/19 21:05 Dose: 0.5 mg Amlodipine Besylate (Norvasc -) 5 mg PO DAILY [facility] Last Admin: 05/11/19 09:51 Dose: 5 mg Aspirin (Asa -) 81 mg PO DAILY [facility] Last Admin: 05/11/19 09:51 Dose: 81 mg Atorvastatin Calcium (Lipitor -) 20 mg PO HS [facility] Last Admin: 05/10/19 21:05 Dose: 20 mg Cholecalciferol (Vitamin D3 -) 1,000 unit PO HS [facility] Last Admin: 05/10/19 21:05 Dose: 1,000 unit Furosemide (Lasix -) 40 mg PO DAILY [facility] Last Admin: 05/11/19 09:51 Dose: 40 mg Metoprolol Succinate (Toprol Xl -) 25 mg PO HS [facility] Last Admin: 05/10/19 21:05 Dose: 25 mg Nystatin/Triamcinolone Acetonide (Mycolog Ii Ointment -) 1 applic TP BID [facility] Last Admin: 05/11/19 09:51 Dose: 1 applic Oxycodone HCl (Roxicodone -) 5 mg PO Q6H PRN PRN Reason: PAIN LEVEL 7 - 10 Sertraline HCl (Zoloft -) 50 mg PO DAILY [facility] Last Admin: 05/11/19 09:51 Dose: 50 mg Tamsulosin HCl (Flomax -) 0.4 mg PO HS [facility] Last Admin: 05/10/19 21:05 Dose: 0.4 mg Warfarin Sodium (Coumadin -) 4 mg PO 1800 [facility] Last Admin: 05/10/19 18:40 Dose: Not Given - Objective Vital Signs: Vital Signs Temperature 97.8 F 05/11/19 14:00 Pulse Rate 62 05/11/19 14:00 Respiratory Rate 20 05/11/19 14:00 Blood Pressure 133/64 05/11/19 14:00 O2 Sat by Pulse Oximetry (%) 100 05/11/19 09:00 Constitutional: Yes: No Distress, Calm Cardiovascular: Yes: Regular Rate and Rhythm, S1, S2 Respiratory: Yes: Regular, CTA Bilaterally. No: Rales Gastrointestinal: Yes: Normal Bowel Sounds, Soft, Tenderness Edema: No Neurological: Yes: Alert, Oriented Labs: CBC, BMP 05/10/19 07:00 05/10/19 07:00 INR, PTT INR 2.73 (0.83-1.09) H 05/11/19 06:25 Problem List - Problems (1) Near syncope Code(s): R55 - SYNCOPE AND COLLAPSE (2) CAD (coronary artery disease) Code(s): I25.10 - ATHSCL HEART DISEASE OF [place] CORONARY ARTERY W/O ANG PCTRS (3) A-fib Code(s): I48.91 - UNSPECIFIED ATRIAL FIBRILLATION (4) CVA (cerebral vascular accident) Code(s): I63.9 - CEREBRAL INFARCTION, UNSPECIFIED (5) Hypertension Code(s): I10 - ESSENTIAL (PRIMARY) HYPERTENSION (6) HLD (hyperlipidemia) Code(s): E78.5 - HYPERLIPIDEMIA, UNSPECIFIED (7) History of left-sided carotid endarterectomy Code(s): Z98.890 - OTHER SPECIFIED POSTPROCEDURAL STATES (8) Other specified injury of left carotid artery, initial encounter Code(s): S15.092A - OTHER SPECIFIED INJURY OF LEFT CAROTID ARTERY, INIT ENCNTR (9) History of AAA (abdominal aortic aneurysm) repair Code(s): Z98.890 - OTHER SPECIFIED POSTPROCEDURAL STATES (10) Skin rash Code(s): R21 - RASH AND OTHER NONSPECIFIC SKIN ERUPTION Assessment/Plan Admitted to monitor bed Cardio, consults are appreciated. I encouraged OOBTC. Resume Coumadin Tonight. I reviewed w pt's his condition; all questions were answered When cleared by cardio to DC to Rehab AM labs.
[2019-05-11] MEDS: WARFARIN NA 2 MG TABLET (UD) PO SCH (19:21)
--- NOTE | 2019-05-11 19:21 | PN ---
Progress Note (short form) - Note Progress Note: 79-year-old gentleman nown case of coronary artery disease, angina pectoris, status post PCI/stenting, hypertension, hypertensive cardiovascular disease, status post cerebrovascular accident2, status post left carotid endarterectomy , history of chronic kidney disease, hypercholesterolemia and depression, history of recurring vasovagal events. Patient denies having dyspnea or chest discomfort. Has periods of agitation. 79-year-old gentleman was in no distress,no pallor, cyanosis, clubbing or jaundice. Last Vital Signs Temp Pulse Resp BP Pulse Ox 98.2 F 62 20 141/55 L 97 05/10/19 18:00 05/10/19 18:00 05/10/19 18:00 05/10/19 18:00 05/10/19 09:00 Neck:supple, no jugular venous distention, carotids were 2+, upstrokes were normal, no bruits were and no thyromegaly was present. Heart: PMI was in the fifth intercostal space, no heaves or thrills, S1 and S2 were normal, no murmur or gallops were heard. Lungs:Clear on auscultation.Abdomen Abdomen: Soft, nontender, no hepatosplenomegaly or palpable masses were felt. Extremities:No calf tenderness or dependent edema. Tremors of the right hand. CBC, BMP 05/10/19 07:00 05/10/19 07:00 Impression: 1. Paroxysmal atrial fibrillation with controlled ventricular responsecurrently in sinus rhythm. 2. Coronary artery disease, angina pectoris, status post PCI/KIRIT. 3. Hypertension, hypertensive cardiovascular disease, presently normotensive. 4. Abdominal aortic aneurysm status post repair4. 5. history of vasodepressor events. 6. Status post cerebrovascular accident 2 7. Status post left carotid endarterectomy. 8. Chronic kidney disease stage III. 9. COPD. 1. Increase the dose of metoprolol succinate to 50 mg by mouth daily. 2. Check blood pressure supine and standing. Ramon Jones MD.
[2019-05-11] MEDS: ATORVASTATIN CA 20 MG TABLET (FP) PO SCH (22:30)
[2019-05-11] MEDS: TAMSULOSIN HCL 0.4 MG CAP PO SCH (22:30)
[2019-05-11] MEDS: CHOLECALCIFEROL (VIT D3) 1,000 UNIT (25 MCG) TABLET PO SCH (22:34)
[2019-05-11] MEDS: ALPRAZolam 0.25 MG TABLET PO PRN (22:37)
[2019-05-12 07:32] LABS: INR 2.06 (0.83-1.09); PROTHROMBIN TIME (PATIENT) 24.5 SEC (9.7-13.0)
[2019-05-12 07:50] LABS: BLOOD UREA NITROGEN 46.7 mg/dL (7-18); CALCIUM 8.2 mg/dL (8.5-10.1); CREATININE 2.3 mg/dL (0.55-1.3); POTASSIUM 4.1 mmol/L (3.5-5.1)
[2019-05-12] MEDS: amLODIPine BESYLATE 5 MG TABLET (FP) PO SCH (09:47)
[2019-05-12] MEDS: FUROSEMIDE 40 MG TABLET (FP) PO SCH (09:47)
[2019-05-12] MEDS: NYSTATIN/TRIAMCINOLONE TOPICAL OINTMENT 15 GM TUBE TP SCH ×2 (09:48→21:57)
[2019-05-12] MEDS: SERTRALINE HCL 50 MG TABLET (FP) PO SCH (09:48)
[2019-05-12] MEDS: ASPIRIN 81 MG CHEWABLE TABLETS PO SCH (09:48)
[2019-05-12] MEDS: ALPRAZolam 0.25 MG TABLET PO PRN ×2 (09:53→23:22)
[2019-05-12] MEDS: WARFARIN NA 2 MG TABLET (UD) PO SCH (17:12)
--- NOTE | 2019-05-12 18:01 | PN ---
Progress Note (short form) - Note Progress Note: 79-year-old gentleman nown case of coronary artery disease, angina pectoris, status post PCI/stenting, hypertension, hypertensive cardiovascular disease, status post cerebrovascular accident2, status post left carotid endarterectomy , history of chronic kidney disease, hypercholesterolemia and depression, history of recurring vasovagal events. Patient denies having dyspnea or chest discomfort. Remains in sinus rhythm. Tolerating increase dose of Toprol. Active Medications Acetaminophen (Tylenol -) 650 mg PO Q6H PRN PRN Reason: PAIN LEVEL 1-5 Last Admin: 05/09/19 22:36 Dose: 650 mg Amlodipine Besylate (Norvasc -) 5 mg PO DAILY [facility] Last Admin: 05/12/19 09:47 Dose: 5 mg Aspirin (Asa -) 81 mg PO DAILY [facility] Last Admin: 05/12/19 09:48 Dose: 81 mg Atorvastatin Calcium (Lipitor -) 20 mg PO HS [facility] Last Admin: 05/11/19 22:30 Dose: 20 mg Cholecalciferol (Vitamin D3 -) 1,000 unit PO HS [facility] Last Admin: 05/11/19 22:34 Dose: 1,000 unit Furosemide (Lasix -) 40 mg PO DAILY [facility] Last Admin: 05/12/19 09:47 Dose: 40 mg Metoprolol Succinate (Toprol Xl -) 50 mg PO HS [facility] Last Admin: 05/11/19 22:34 Dose: 50 mg Nystatin/Triamcinolone Acetonide (Mycolog Ii Ointment -) 1 applic TP BID [facility] Last Admin: 05/12/19 09:48 Dose: 1 applic Oxycodone HCl (Roxicodone -) 5 mg PO Q6H PRN PRN Reason: PAIN LEVEL 7 - 10 Sertraline HCl (Zoloft -) 50 mg PO DAILY [facility] Last Admin: 05/12/19 09:48 Dose: 50 mg Tamsulosin HCl (Flomax -) 0.4 mg PO HS [facility] Last Admin: 05/11/19 22:30 Dose: 0.4 mg Warfarin Sodium (Coumadin -) 4 mg PO 1800 [facility] Last Admin: 05/12/19 17:12 Dose: 4 mg 79-year-old gentleman was in no distress,no pallor, cyanosis, clubbing or jaundice. Last Vital Signs Temp Pulse Resp BP Pulse Ox 98 F 61 20 109/40 L 100 05/12/19 14:00 05/12/19 14:00 05/12/19 14:00 05/12/19 14:00 05/12/19 09:00 Neck:supple, no jugular venous distention, carotids were 2+, upstrokes were normal, no bruits were and no thyromegaly was present. Heart: PMI was in the fifth intercostal space, no heaves or thrills, S1 and S2 were normal, no murmur or gallops were heard. Lungs:Clear on auscultation.Abdomen Abdomen: Soft, nontender, no hepatosplenomegaly or palpable masses were felt. Extremities:No calf tenderness or dependent edema.Intentional tremors involving the right hand. CBC, BMP 05/10/19 07:00 05/12/19 06:45 Impression: 1. Paroxysmal atrial fibrillation, currently in sinus rhythm. 2. Coronary artery disease, angina pectoris, status post PCI/KIRIT. 3. Hypertension, hypertensive cardiovascular disease, presently normotensive. 4. Abdominal aortic aneurysm status post repair4. 5. history of vasodepressor events. 6. Status post cerebrovascular accident 2 7. Status post left carotid endarterectomy. 8. Chronic kidney disease stage III. 9. COPD. Recommendations: 1. Continue present cardiac therapy. 2. Check blood pressure supine and standing. 3. F/U BMP Ramon Jones MD.
[2019-05-12] MEDS: CHOLECALCIFEROL (VIT D3) 1,000 UNIT (25 MCG) TABLET PO SCH (21:57)
[2019-05-12] MEDS: ATORVASTATIN CA 20 MG TABLET (FP) PO SCH (21:57)
[2019-05-12] MEDS: TAMSULOSIN HCL 0.4 MG CAP PO SCH (21:57)
--- NOTE | 2019-05-12 23:17 | PN ---
Progress Note, Physician History of Present Illness: Pt w/o CP, SOB, palpitations, abd pain. - Current Medication List Current Medications: Active Medications Acetaminophen (Tylenol -) 650 mg PO Q6H PRN PRN Reason: PAIN LEVEL 1-5 Last Admin: 05/09/19 22:36 Dose: 650 mg Alprazolam (Xanax -) 0.25 mg PO BID [facility] Amlodipine Besylate (Norvasc -) 5 mg PO DAILY [facility] Last Admin: 05/12/19 09:47 Dose: 5 mg Aspirin (Asa -) 81 mg PO DAILY [facility] Last Admin: 05/12/19 09:48 Dose: 81 mg Atorvastatin Calcium (Lipitor -) 20 mg PO HS [facility] Last Admin: 05/12/19 21:57 Dose: 20 mg Cholecalciferol (Vitamin D3 -) 1,000 unit PO HS [facility] Last Admin: 05/12/19 21:57 Dose: 1,000 unit Furosemide (Lasix -) 40 mg PO DAILY [facility] Last Admin: 05/12/19 09:47 Dose: 40 mg Metoprolol Succinate (Toprol Xl -) 50 mg PO HS [facility] Last Admin: 05/12/19 21:57 Dose: 50 mg Nystatin/Triamcinolone Acetonide (Mycolog Ii Ointment -) 1 applic TP BID [facility] Last Admin: 05/12/19 21:57 Dose: 1 applic Oxycodone HCl (Roxicodone -) 5 mg PO Q6H PRN PRN Reason: PAIN LEVEL 7 - 10 Sertraline HCl (Zoloft -) 50 mg PO DAILY [facility] Last Admin: 05/12/19 09:48 Dose: 50 mg Tamsulosin HCl (Flomax -) 0.4 mg PO HS [facility] Last Admin: 05/12/19 21:57 Dose: 0.4 mg Warfarin Sodium (Coumadin -) 4 mg PO 1800 [facility] Last Admin: 05/12/19 17:12 Dose: 4 mg - Objective Vital Signs: Vital Signs Temperature 98.4 F 05/12/19 18:00 Pulse Rate 60 05/12/19 18:00 Respiratory Rate 20 05/12/19 18:00 Blood Pressure 136/64 05/12/19 18:00 O2 Sat by Pulse Oximetry (%) 100 05/12/19 09:00 Constitutional: Yes: No Distress, Calm Cardiovascular: Yes: Regular Rate and Rhythm, S1, S2 Respiratory: Yes: Regular, CTA Bilaterally. No: Rales Gastrointestinal: Yes: Normal Bowel Sounds, Soft. No: Tenderness Edema: No Labs: CBC, BMP 05/10/19 07:00 05/12/19 06:45 INR, PTT INR 2.06 (0.83-1.09) H 05/12/19 06:45 Problem List - Problems (1) Near syncope Code(s): R55 - SYNCOPE AND COLLAPSE (2) CAD (coronary artery disease) Code(s): I25.10 - ATHSCL HEART DISEASE OF [place] CORONARY ARTERY W/O ANG PCTRS (3) A-fib Code(s): I48.91 - UNSPECIFIED ATRIAL FIBRILLATION (4) CVA (cerebral vascular accident) Code(s): I63.9 - CEREBRAL INFARCTION, UNSPECIFIED (5) Hypertension Code(s): I10 - ESSENTIAL (PRIMARY) HYPERTENSION (6) HLD (hyperlipidemia) Code(s): E78.5 - HYPERLIPIDEMIA, UNSPECIFIED (7) History of left-sided carotid endarterectomy Code(s): Z98.890 - OTHER SPECIFIED POSTPROCEDURAL STATES (8) Other specified injury of left carotid artery, initial encounter Code(s): S15.092A - OTHER SPECIFIED INJURY OF LEFT CAROTID ARTERY, INIT ENCNTR (9) History of AAA (abdominal aortic aneurysm) repair Code(s): Z98.890 - OTHER SPECIFIED POSTPROCEDURAL STATES (10) Skin rash Code(s): R21 - RASH AND OTHER NONSPECIFIC SKIN ERUPTION Assessment/Plan Admitted to monitor bed Cardio, consults are appreciated. Pt is cleared by cardio to DC to Rehab DC planning in AM
[2019-05-13 07:29] LABS: INR 2.29 (0.83-1.09); PROTHROMBIN TIME (PATIENT) 27.2 SEC (9.7-13.0)
[2019-05-13] MEDS: ACETAMINOPHEN 325 MG TABLET (FP) PO PRN (08:13)
[2019-05-13] MEDS: NYSTATIN/TRIAMCINOLONE TOPICAL OINTMENT 15 GM TUBE TP SCH ×2 (10:54→21:18)
[2019-05-13] MEDS ORDERED: PT OWN MED DRAWER 7, Y5N ONE (11:16)
[2019-05-13] MEDS: amLODIPine BESYLATE 5 MG TABLET (FP) PO SCH (11:19)
[2019-05-13] MEDS: SERTRALINE HCL 50 MG TABLET (FP) PO SCH (11:19)
[2019-05-13] MEDS: ASPIRIN 81 MG CHEWABLE TABLETS PO SCH (11:19)
[2019-05-13] MEDS: FUROSEMIDE 40 MG TABLET (FP) PO SCH (11:19)
--- NOTE | 2019-05-13 12:08 | DS ---
Physical Examination Vital Signs: Vital Signs Temperature 98.2 F 05/13/19 10:00 Pulse Rate 55 L 05/13/19 10:00 Respiratory Rate 18 05/13/19 10:00 Blood Pressure 132/52 L 05/13/19 10:00 O2 Sat by Pulse Oximetry (%) 100 05/13/19 09:00 Findings/Remarks: Pt w/o SOB, CP, palpitations, abd pain. Pt has soft stool but states that still needs to strain at the end regardless how soft os the stool, feels lightheaded. Pt's is at bedside. Constitutional: Yes: No Distress, Calm Cardiovascular: Yes: Regular Rate and Rhythm, S1, S2 Respiratory: Yes: Regular, CTA Bilaterally. No: Rales Gastrointestinal: Yes: Normal Bowel Sounds, Soft. No: Tenderness Edema: No Neurological: Yes: Alert, Oriented Labs: CBC, BMP 05/10/19 07:00 05/12/19 06:45 Discharge Summary Problems reviewed: Yes Reason For Visit: PRE SYNCOPE Current Active Problems A-fib (Acute) CAD (coronary artery disease) (Acute) HLD (hyperlipidemia) (Acute) History of AAA (abdominal aortic aneurysm) repair (Acute) History of left-sided carotid endarterectomy (Acute) Hypertension (Acute) Near syncope (Acute) Other specified injury of left carotid artery, initial encounter (Acute) Skin rash (Acute) Supratherapeutic INR (Acute) Unspecified urinary incontinence (Acute) Procedures: Principal: Head, C-spine, L-spine CT scan. Kidneys and bladder US Hospital Course: Pt came to ER after had BM, strained, stood up and felt lightheaded and passed out; he hit his head. In ER pt had Head CT scan ( + chronic left cereberal CVA) , Cervical and Lumbar CT scan ( + small central L5-S1 disc herniation). Pt was admitted to Telemetry, seen by Cardio (Dr Jones), Metprolol was up titrated. Pt was also seen by (Dr. Vuong) for urinary incontinency, Kidney and Bladder US (+ medical kidney disease). Pt to be DCed to Rehab. Condition: Improved - Instructions Diet, Activity, Other Instructions: Follow up INR Referrals: Antonia Bain [Primary Care Provider] - Arpan Bain MD [Staff Physician] - (1-2 weks after DC from Rehab) Ramon Jones MD [Staff Physician] - (1-2 weks after DC from Rehab) Disposition: [facility]ILITY - Home Medications Comprehensive Discharge Medication List: Ambulatory Orders See Patient discharge instrutions
[2019-05-13] MEDS: WARFARIN NA 2 MG TABLET (UD) PO SCH (17:22)
[2019-05-13 19:32] VITALS: BMI 23.3
[2019-05-13] MEDS: TAMSULOSIN HCL 0.4 MG CAP PO SCH (21:16)
[2019-05-13] MEDS: CHOLECALCIFEROL (VIT D3) 1,000 UNIT (25 MCG) TABLET PO SCH (21:16)
[2019-05-13] MEDS: ATORVASTATIN CA 20 MG TABLET (FP) PO SCH (21:16)
[2019-05-13] MEDS: ALPRAZolam 0.25 MG TABLET PO PRN (21:17)
[2019-05-14] MEDS: ASPIRIN 81 MG CHEWABLE TABLETS PO SCH (09:44)
[2019-05-14] MEDS: SERTRALINE HCL 50 MG TABLET (FP) PO SCH (09:44)
[2019-05-14] MEDS: FUROSEMIDE 40 MG TABLET (FP) PO SCH (09:44)
[2019-05-14] MEDS: amLODIPine BESYLATE 5 MG TABLET (FP) PO SCH (09:45)
[2019-05-14] MEDS: NYSTATIN/TRIAMCINOLONE TOPICAL OINTMENT 15 GM TUBE TP SCH ×2 (09:45→22:18)
--- NOTE | 2019-05-14 12:39 | PN ---
Progress Note, Physician - Current Medication List Current Medications: Active Medications Acetaminophen (Tylenol -) 650 mg PO Q6H PRN PRN Reason: PAIN LEVEL 1-5 Last Admin: 05/13/19 08:13 Dose: 650 mg Alprazolam (Xanax -) 0.25 mg PO BID PRN PRN Reason: ANXIETY Last Admin: 05/13/19 21:17 Dose: 0.25 mg Amlodipine Besylate (Norvasc -) 5 mg PO DAILY [facility] Last Admin: 05/14/19 09:45 Dose: 5 mg Aspirin (Asa -) 81 mg PO DAILY [facility] Last Admin: 05/14/19 09:44 Dose: 81 mg Atorvastatin Calcium (Lipitor -) 20 mg PO HS [facility] Last Admin: 05/13/19 21:16 Dose: 20 mg Cholecalciferol (Vitamin D3 -) 1,000 unit PO HS [facility] Last Admin: 05/13/19 21:16 Dose: 1,000 unit Furosemide (Lasix -) 40 mg PO DAILY [facility] Last Admin: 05/14/19 09:44 Dose: 40 mg Metoprolol Succinate (Toprol Xl -) 50 mg PO HS [facility] Last Admin: 05/13/19 21:16 Dose: 50 mg Nystatin/Triamcinolone Acetonide (Mycolog Ii Ointment -) 1 applic TP BID [facility] Last Admin: 05/14/19 09:45 Dose: 1 applic Oxycodone HCl (Roxicodone -) 5 mg PO Q6H PRN PRN Reason: PAIN LEVEL 7 - 10 Sertraline HCl (Zoloft -) 50 mg PO DAILY [facility] Last Admin: 05/14/19 09:44 Dose: 50 mg Tamsulosin HCl (Flomax -) 0.4 mg PO HS [facility] Last Admin: 05/13/19 21:16 Dose: 0.4 mg Warfarin Sodium (Coumadin -) 4 mg PO 1800 [facility] Last Admin: 05/13/19 17:22 Dose: 4 mg - Objective Vital Signs: Vital Signs Temperature 98.6 F 05/14/19 08:18 Pulse Rate 53 L 05/14/19 08:18 Respiratory Rate 20 05/14/19 09:00 Blood Pressure 128/53 L 05/14/19 08:18 O2 Sat by Pulse Oximetry (%) 98 05/14/19 09:00 Labs: CBC, BMP 05/10/19 07:00 05/12/19 06:45 INR, PTT INR 2.29 (0.83-1.09) H 05/13/19 06:30 Problem List - Problems (1) Near syncope Code(s): R55 - SYNCOPE AND COLLAPSE (2) CAD (coronary artery disease) Code(s): I25.10 - ATHSCL HEART DISEASE OF [place] CORONARY ARTERY W/O ANG PCTRS (3) A-fib Code(s): I48.91 - UNSPECIFIED ATRIAL FIBRILLATION (4) CVA (cerebral vascular accident) Code(s): I63.9 - CEREBRAL INFARCTION, UNSPECIFIED (5) Hypertension Code(s): I10 - ESSENTIAL (PRIMARY) HYPERTENSION (6) HLD (hyperlipidemia) Code(s): E78.5 - HYPERLIPIDEMIA, UNSPECIFIED (7) History of left-sided carotid endarterectomy Code(s): Z98.890 - OTHER SPECIFIED POSTPROCEDURAL STATES (8) Other specified injury of left carotid artery, initial encounter Code(s): S15.092A - OTHER SPECIFIED INJURY OF LEFT CAROTID ARTERY, INIT ENCNTR (9) History of AAA (abdominal aortic aneurysm) repair Code(s): Z98.890 - OTHER SPECIFIED POSTPROCEDURAL STATES (10) Skin rash Code(s): R21 - RASH AND OTHER NONSPECIFIC SKIN ERUPTION
--- NOTE | 2019-05-14 13:26 | PN ---
Progress Note, Physician History of Present Illness: Pt w/o CP, SOB, palpitations, abd pain. Pt with hard stool today, no blood in stool - Current Medication List Current Medications: Active Medications Acetaminophen (Tylenol -) 650 mg PO Q6H PRN PRN Reason: PAIN LEVEL 1-5 Last Admin: 05/13/19 08:13 Dose: 650 mg Alprazolam (Xanax -) 0.25 mg PO BID PRN PRN Reason: ANXIETY Last Admin: 05/13/19 21:17 Dose: 0.25 mg Amlodipine Besylate (Norvasc -) 5 mg PO DAILY [facility] Last Admin: 05/14/19 09:45 Dose: 5 mg Aspirin (Asa -) 81 mg PO DAILY [facility] Last Admin: 05/14/19 09:44 Dose: 81 mg Atorvastatin Calcium (Lipitor -) 20 mg PO HS [facility] Last Admin: 05/13/19 21:16 Dose: 20 mg Cholecalciferol (Vitamin D3 -) 1,000 unit PO HS [facility] Last Admin: 05/13/19 21:16 Dose: 1,000 unit Furosemide (Lasix -) 40 mg PO DAILY [facility] Last Admin: 05/14/19 09:44 Dose: 40 mg Metoprolol Succinate (Toprol Xl -) 50 mg PO HS [facility] Last Admin: 05/13/19 21:16 Dose: 50 mg Nystatin/Triamcinolone Acetonide (Mycolog Ii Ointment -) 1 applic TP BID [facility] Last Admin: 05/14/19 09:45 Dose: 1 applic Oxycodone HCl (Roxicodone -) 5 mg PO Q6H PRN PRN Reason: PAIN LEVEL 7 - 10 Sertraline HCl (Zoloft -) 50 mg PO DAILY [facility] Last Admin: 05/14/19 09:44 Dose: 50 mg Tamsulosin HCl (Flomax -) 0.4 mg PO HS [facility] Last Admin: 05/13/19 21:16 Dose: 0.4 mg Warfarin Sodium (Coumadin -) 4 mg PO 1800 [facility] Last Admin: 05/13/19 17:22 Dose: 4 mg - Objective Vital Signs: Vital Signs Temperature 98.6 F 05/14/19 08:18 Pulse Rate 53 L 05/14/19 08:18 Respiratory Rate 20 05/14/19 09:00 Blood Pressure 128/53 L 05/14/19 08:18 O2 Sat by Pulse Oximetry (%) 98 05/14/19 09:00 Constitutional: Yes: No Distress, Calm Cardiovascular: Yes: Regular Rate and Rhythm, S1, S2 Respiratory: Yes: Regular, CTA Bilaterally. No: Rales Gastrointestinal: Yes: Normal Bowel Sounds, Soft. No: Palpable Mass, Tenderness Edema: No Neurological: Yes: Alert, Oriented Labs: CBC, BMP 05/10/19 07:00 05/12/19 06:45 INR, PTT INR 2.29 (0.83-1.09) H 05/13/19 06:30 Problem List - Problems (1) Near syncope Code(s): R55 - SYNCOPE AND COLLAPSE (2) CAD (coronary artery disease) Code(s): I25.10 - ATHSCL HEART DISEASE OF [place] CORONARY ARTERY W/O ANG PCTRS (3) A-fib Code(s): I48.91 - UNSPECIFIED ATRIAL FIBRILLATION (4) CVA (cerebral vascular accident) Code(s): I63.9 - CEREBRAL INFARCTION, UNSPECIFIED (5) Hypertension Code(s): I10 - ESSENTIAL (PRIMARY) HYPERTENSION (6) HLD (hyperlipidemia) Code(s): E78.5 - HYPERLIPIDEMIA, UNSPECIFIED (7) History of left-sided carotid endarterectomy Code(s): Z98.890 - OTHER SPECIFIED POSTPROCEDURAL STATES (8) Other specified injury of left carotid artery, initial encounter Code(s): S15.092A - OTHER SPECIFIED INJURY OF LEFT CAROTID ARTERY, INIT ENCNTR (9) History of AAA (abdominal aortic aneurysm) repair Code(s): Z98.890 - OTHER SPECIFIED POSTPROCEDURAL STATES (10) Skin rash Code(s): R21 - RASH AND OTHER NONSPECIFIC SKIN ERUPTION Assessment/Plan Admitted to monitor bed Cardio, consults are appreciated. Pt is cleared by cardio to DC to Rehab. I encouraged pt OOBTC, to work with PT. Add [facility] DC planning.
[2019-05-14] MEDS: DOCUSATE SODIUM 100 MG CAPSULE (FP) PO SCH (14:36)
[2019-05-14 15:21] LABS: INR 2.48 (0.83-1.09); PROTHROMBIN TIME (PATIENT) 29.5 SEC (9.7-13.0)
[2019-05-14] MEDS: WARFARIN NA 2 MG TABLET (UD) PO SCH (17:56)
[2019-05-14] MEDS: CHOLECALCIFEROL (VIT D3) 1,000 UNIT (25 MCG) TABLET PO SCH (22:16)
[2019-05-14] MEDS: ALPRAZolam 0.25 MG TABLET PO PRN (22:16)
[2019-05-14] MEDS: ATORVASTATIN CA 20 MG TABLET (FP) PO SCH (22:19)
[2019-05-14] MEDS: TAMSULOSIN HCL 0.4 MG CAP PO SCH (22:19)
[2019-05-15 07:03] LABS: INR 2.78 (0.83-1.09); PROTHROMBIN TIME (PATIENT) 33.1 SEC (9.7-13.0)
[2019-05-15] MEDS: SERTRALINE HCL 50 MG TABLET (FP) PO SCH (09:38)
[2019-05-15] MEDS: amLODIPine BESYLATE 5 MG TABLET (FP) PO SCH (09:38)
[2019-05-15] MEDS: ASPIRIN 81 MG CHEWABLE TABLETS PO SCH (09:38)
[2019-05-15] MEDS: DOCUSATE SODIUM 100 MG CAPSULE (FP) PO SCH ×3 (09:38→11:23)
[2019-05-15] MEDS: FUROSEMIDE 40 MG TABLET (FP) PO SCH (09:38)
[2019-05-15 09:44] VITALS: TEMP 98.6
[2019-05-15 11:49] VITALS: BP 133/68; PULSE 60
[2019-05-15] MEDS: NYSTATIN/TRIAMCINOLONE TOPICAL OINTMENT 15 GM TUBE TP SCH (11:52)
== END 2019-05-15 12:08 | DRG 312 ==
LOC: JER 08:10 → JERBED 14:50 → J4W 05-07 15:43
PROVIDERS: ADMIT Specialist; ATTEND Specialist
DX: R55 Syncope and collapse (principal); I25.2 Old myocardial infarction; N40.0 Benign prostatic hyperplasia without lower urinary tract symptoms; J44.9 Chronic obstructive pulmonary disease, unspecified; Z86.73 Personal history of transient ischemic attack (TIA), and cerebral infarction without residual deficits; N18.3 Chronic kidney disease, stage 3 (moderate); F32.9 Major depressive disorder, single episode, unspecified; F41.9 Anxiety disorder, unspecified; I48.0 Paroxysmal atrial fibrillation; R32 Unspecified urinary incontinence; I95.9 Hypotension, unspecified
CPT/HCPCS: 36415; 70450-TC; 72125-TC; 72131-TC; 74176-TC; 76775-TC; 76856-TC; 80048; 80053; 82550; 84439; 84443; 84484; 85027; 85610; 85730; 86850; 86900; 86901; 93005; 93010; 97116-GP; 97161-GP; 99285-25; G0008; J0131; J7030; Q2036

== ENCOUNTER 2021-02-12 12:36 | Inpatient (IN) | payer OTHER, MEDICARE ==
[2021-02-12 14:08] VITALS: BMI 24.4
[2021-02-12 14:48] LABS: HEMATOCRIT 31.8 % (35.4-49); HEMOGLOBIN 10.5 GM/dL (11.7-16.9); MCH 30.1 pg (25.7-33.7); MEAN CELL VOLUME 91.3 fl (80-96); MEAN PLT VOLUME 8.6 fl (7.5-11.1); PLATELET COUNT 423 10^3/uL (134-434); RBC 3.48 M/mm3 (4.00-5.60); RDW 14.9 % (11.9-15.9); WHITE BLOOD COUNT 18.5 K/mm3 (4.0-10.0)
[2021-02-12 15:07] LABS: PROTHROMBIN TIME (PATIENT) 153.8 SEC (9.7-13.0)
[2021-02-12 15:08] LABS: CALCIUM 7.4 mg/dL (8.5-10.1); INR 13.7 (0.83-1.09)
[2021-02-12 15:09] LABS: ALBUMIN 1.8 g/dl (3.4-5.0); BLOOD UREA NITROGEN 71.3 mg/dL (7-18); MAGNESIUM 1.9 mg/dL (1.8-2.4)
[2021-02-12 15:12] LABS: CREATININE 3.3 mg/dL (0.55-1.3)
[2021-02-12 15:13] LABS: BILIRUBIN,TOTAL 0.3 mg/dL (0.2-1); TOT PROT 5.7 g/dl (6.4-8.2)
[2021-02-12 15:16] LABS: N-TERMINAL BNP 20828.2 pg/ml (5-450)
[2021-02-12] MEDS ORDERED: CEFTRIAXONE 1 GM in DEXTROSE 5%-WATER - 100 ML IVPB ONE (15:31)
[2021-02-12] MEDS ORDERED: PHYTONADIONE 5 MG TABLET PO ONE (15:31)
[2021-02-12] MEDS ORDERED: AZITHROMYCIN IVPB 500 MG in DEXTROSE 5%-WATER - 250 ML IVPB ONE (15:31)
[2021-02-12] MEDS ORDERED: ALBUTEROL SO4 2.5/IPRATROPIUM 0.5 INH SOL 3 ML VIAL.NEB. NEB ONE (15:38)
[2021-02-12] MEDS ORDERED: CEFTRIAXONE 1 GM/50 ML BAG ONE (15:38)
[2021-02-12] MEDS ORDERED: AZITHROMYCIN IVPB 500 MG/250 ML BAG IVPB ONE (15:39)
[2021-02-12] MEDS ORDERED: PHYTONADIONE 5 MG TABLET ONE (15:39)
[2021-02-12] MEDS: ALBUTEROL SO4 2.5/IPRATROPIUM 0.5 INH SOL 3 ML VIAL.NEB. NEB SCH ×3 (15:40→15:48)
[2021-02-12 16:20] LABS: ANISOCYTOSIS 1+; MACROCYTOSIS 0; PLATELET ESTIMATE NORMAL
[2021-02-12 16:25] LABS: EPI CELLS 3 /uL (0-25.1); HYALINE CASTS 3 /uL (0-3.1); PH,URINE 5.5 (5.0-8.0); URINE APPEARANCE CLEAR; URINE BACTERIA 0 /uL (0-1359); URINE BILIRUBIN NEGATIVE (NEGATIVE); URINE COLOR YELLOW; URINE GLUCOSE (UA) TRACE (NEGATIVE); URINE KETONE NEGATIVE (NEGATIVE); URINE LEUK ESTERASE NEGATIVE (NEGATIVE); URINE NITRITE NEGATIVE (NEGATIVE); URINE PROTEIN 2+ (NEGATIVE); URINE RBC 29 /uL (0-23.9); URINE UROBILINOGEN 0.2 mg/dL (0.2-1.0); URINE WBC 3 /uL (0-25.8)
[2021-02-12] MEDS: MELATONIN 5 MG TABLETS PO SCH (21:55)
[2021-02-12] MEDS: ATORVASTATIN CA 20 MG TABLET (FP) PO SCH (21:55)
[2021-02-12] MEDS: TAMSULOSIN HCL 0.4 MG CAP PO SCH (21:55)
[2021-02-12] MEDS: CHOLECALCIFEROL (VIT D3) 1,000 UNIT (25 MCG) TABLET PO SCH (21:55)
[2021-02-13] MEDS: ACETAMINOPHEN 325 MG TABLET (FP) PO PRN (05:50)
[2021-02-13] MEDS: guaiFENesin/D-M SUGAR-FREE/ACLHOL-FREE 118 ML BOTTLE PO PRN ×3 (05:56→16:33)
[2021-02-13] MEDS ORDERED: PT OWN MED DRAWER 7, Y5N ONE ×2 (07:40→16:32)
[2021-02-13] MEDS ORDERED: FUROSEMIDE 40 MG TABLET (FP) PO SCH (10:00)
[2021-02-13] MEDS: amLODIPine BESYLATE 5 MG TABLET (FP) PO SCH (11:04)
[2021-02-13] MEDS: SERTRALINE HCL 50 MG TABLET (FP) PO SCH (11:04)
[2021-02-13] MEDS: ASPIRIN 81 MG CHEWABLE TABLETS PO SCH (11:04)
[2021-02-13] MEDS ORDERED: traMADol HCL 50 MG TABLET PO PRN (11:27)
[2021-02-13] MEDS ORDERED: SODIUM CHLORIDE 1,000 ML IV SCH (12:45)
[2021-02-13] MEDS ORDERED: cefTRIAXone SODIUM 1 GM VIAL ONE (16:02)
[2021-02-13] MEDS ORDERED: DEXTROSE 5%-WATER - 50 ML IVPB ONE (16:02)
[2021-02-13] MEDS: CEFTRIAXONE 1 GM in DEXTROSE 5%-WATER - 50 ML IVPB SCH (16:25)
[2021-02-13 16:41] LABS: EPI CELLS 6 /uL (0-25.1); HYALINE CASTS 3 /uL (0-3.1); URINE APPEARANCE CLEAR; URINE BACTERIA 20 /uL (0-1359); URINE BILIRUBIN NEGATIVE (NEGATIVE); URINE COLOR YELLOW; URINE GLUCOSE (UA) NEGATIVE (NEGATIVE); URINE KETONE NEGATIVE (NEGATIVE); URINE LEUK ESTERASE NEGATIVE (NEGATIVE); URINE NITRITE NEGATIVE (NEGATIVE); URINE PROTEIN 2+ (NEGATIVE); URINE RBC 28 /uL (0-23.9); URINE UROBILINOGEN 0.2 mg/dL (0.2-1.0); URINE WBC 5 /uL (0-25.8)
[2021-02-13] MEDS: AZITHROMYCIN IVPB 500 MG/250 ML BAG IVPB SCH (17:21)
[2021-02-13] MEDS: ALBUTEROL SO4 2.5/IPRATROPIUM 0.5 INH SOL 3 ML VIAL.NEB. NEB PRN (18:04)
[2021-02-13 18:48] LABS: PROTHROMBIN TIME (PATIENT) 85.4 SEC (9.7-13.0)
[2021-02-13 19:21] LABS: INR 7.48 (0.83-1.09)
[2021-02-13] MEDS: LIDOCAINE 5% TOPICAL PATCH TP SCH (23:33)
[2021-02-13] MEDS: TAMSULOSIN HCL 0.4 MG CAP PO SCH (23:34)
[2021-02-13] MEDS: ATORVASTATIN CA 20 MG TABLET (FP) PO SCH (23:35)
[2021-02-13] MEDS: MELATONIN 5 MG TABLETS PO SCH (23:35)
[2021-02-13] MEDS: CHOLECALCIFEROL (VIT D3) 1,000 UNIT (25 MCG) TABLET PO SCH (23:36)
[2021-02-14] MEDS: traMADol HCL 50 MG TABLET PO PRN ×3 (01:29→22:07)
[2021-02-14 08:17] LABS: HEMATOCRIT 29.6 % (35.4-49); HEMOGLOBIN 9.8 GM/dL (11.7-16.9); MCH 30.5 pg (25.7-33.7); MCHC 33.2 g/dl (32.0-35.9); MEAN CELL VOLUME 91.8 fl (80-96); MEAN PLT VOLUME 8.4 fl (7.5-11.1); PLATELET COUNT 407 10^3/uL (134-434); RBC 3.23 M/mm3 (4.00-5.60); RDW 14.8 % (11.9-15.9); WHITE BLOOD COUNT 27.9 K/mm3 (4.0-10.0)
[2021-02-14 09:05] LABS: CREATININE 3.4 mg/dL (0.55-1.3); PHOSPHOROUS 5.7 mg/dL (2.5-4.9)
[2021-02-14 09:06] LABS: CALCIUM 7.4 mg/dL (8.5-10.1); TOT PROT 4.9 g/dl (6.4-8.2)
[2021-02-14 09:07] LABS: ALBUMIN 1.5 g/dl (3.4-5.0); BILIRUBIN,TOTAL 0.4 mg/dL (0.2-1); BLOOD UREA NITROGEN 63.8 mg/dL (7-18); MAGNESIUM 1.9 mg/dL (1.8-2.4)
[2021-02-14 09:39] LABS: PROTHROMBIN TIME (PATIENT) 82.2 SEC (9.7-13.0)
[2021-02-14 09:44] LABS: ANISOCYTOSIS 0; MACROCYTOSIS 0; PLATELET ESTIMATE NORMAL
[2021-02-14] MEDS: LIDOCAINE PATCH REMOVAL MC SCH (11:32)
[2021-02-14] MEDS: amLODIPine BESYLATE 5 MG TABLET (FP) PO SCH (11:34)
[2021-02-14] MEDS: CEFTRIAXONE 1 GM in DEXTROSE 5%-WATER - 50 ML IVPB SCH (11:34)
[2021-02-14] MEDS: SERTRALINE HCL 50 MG TABLET (FP) PO SCH (11:34)
[2021-02-14] MEDS: ASPIRIN 81 MG CHEWABLE TABLETS PO SCH (11:34)
[2021-02-14] MEDS: AZITHROMYCIN IVPB 500 MG/250 ML BAG IVPB SCH (11:52)
[2021-02-14] MEDS ORDERED: PIPERACILLIN/TAZOBACTAM 2.25 GM VIAL IVPB ONE ×2 (14:06→20:47)
[2021-02-14] MEDS ORDERED: DEXTROSE 5%-WATER - 50 ML IVPB ONE ×2 (14:07→20:48)
[2021-02-14] MEDS: PIPERACILLIN/TAZOB 2.25 GM 2.25 GM in DEXTROSE 5%-WATER - 50 ML IVPB SCH ×2 (14:45→22:07)
[2021-02-14] MEDS: POLYETHYLENE GLYCOL (HEALTHYLAX) 3350 17 GM PACKET PO SCH ×2 (14:46→22:19)
[2021-02-14] MEDS: CHOLECALCIFEROL (VIT D3) 1,000 UNIT (25 MCG) TABLET PO SCH (22:06)
[2021-02-14] MEDS: MELATONIN 5 MG TABLETS PO SCH (22:06)
[2021-02-14] MEDS: ATORVASTATIN CA 20 MG TABLET (FP) PO SCH (22:06)
[2021-02-14] MEDS: TAMSULOSIN HCL 0.4 MG CAP PO SCH (22:06)
[2021-02-14] MEDS: ALPRAZolam 0.25 MG TABLET PO PRN (22:06)
[2021-02-14] MEDS: LIDOCAINE 5% TOPICAL PATCH TP SCH (22:27)
[2021-02-15] MEDS ORDERED: PIPERACILLIN/TAZOBACTAM 2.25 GM VIAL IVPB ONE ×4 (01:48→21:33)
[2021-02-15] MEDS ORDERED: DEXTROSE 5%-WATER - 50 ML IVPB ONE ×4 (01:48→21:33)
[2021-02-15] MEDS: PIPERACILLIN/TAZOB 2.25 GM 2.25 GM in DEXTROSE 5%-WATER - 50 ML IVPB SCH ×4 (03:08→22:02)
[2021-02-15] MEDS: POLYETHYLENE GLYCOL (HEALTHYLAX) 3350 17 GM PACKET PO SCH ×3 (06:56→22:07)
[2021-02-15 07:50] LABS: HEMATOCRIT 29.4 % (35.4-49); HEMOGLOBIN 9.8 GM/dL (11.7-16.9); MCH 30.3 pg (25.7-33.7); MCHC 33.3 g/dl (32.0-35.9); MEAN CELL VOLUME 91.1 fl (80-96); MEAN PLT VOLUME 8.6 fl (7.5-11.1); PLATELET COUNT 415 10^3/uL (134-434); RBC 3.23 M/mm3 (4.00-5.60); WHITE BLOOD COUNT 24.2 K/mm3 (4.0-10.0)
[2021-02-15 07:57] LABS: PROTHROMBIN TIME (PATIENT) 98.1 SEC (9.7-13.0)
[2021-02-15 08:40] LABS: CALCIUM 7.6 mg/dL (8.5-10.1)
[2021-02-15 08:41] LABS: ALBUMIN 1.4 g/dl (3.4-5.0); BLOOD UREA NITROGEN 76.5 mg/dL (7-18)
[2021-02-15 08:44] LABS: CREATININE 3.7 mg/dL (0.55-1.3)
[2021-02-15 08:45] LABS: BILIRUBIN,TOTAL 0.3 mg/dL (0.2-1); TOT PROT 4.7 g/dl (6.4-8.2)
[2021-02-15 08:59] LABS: IRON SERUM 15 ug/dL (50-175); TOTAL IRON BINDING CAPACITY 87 ug/dL (250-450)
[2021-02-15 09:21] LABS: INR 8.63 (0.83-1.09)
[2021-02-15] MEDS ORDERED: PHYTONADIONE 5 MG TABLET PO ONE (09:46)
[2021-02-15] MEDS: LIDOCAINE PATCH REMOVAL MC SCH (10:29)
[2021-02-15] MEDS: AZITHROMYCIN IVPB 500 MG/250 ML BAG IVPB SCH (10:29)
[2021-02-15] MEDS: ASPIRIN 81 MG CHEWABLE TABLETS PO SCH (10:30)
[2021-02-15] MEDS: SERTRALINE HCL 50 MG TABLET (FP) PO SCH (10:30)
[2021-02-15] MEDS: amLODIPine BESYLATE 5 MG TABLET (FP) PO SCH (10:30)
[2021-02-15 19:33] LABS: PROTHROMBIN TIME (PATIENT) 85.8 SEC (9.7-13.0)
[2021-02-15 19:46] LABS: INR 6.84 (0.83-1.09)
[2021-02-15] MEDS: traMADol HCL 50 MG TABLET PO PRN (22:01)
[2021-02-15] MEDS: CHOLECALCIFEROL (VIT D3) 1,000 UNIT (25 MCG) TABLET PO SCH (22:07)
[2021-02-15] MEDS: TAMSULOSIN HCL 0.4 MG CAP PO SCH (22:07)
[2021-02-15] MEDS: ATORVASTATIN CA 20 MG TABLET (FP) PO SCH (22:07)
[2021-02-15] MEDS: MELATONIN 5 MG TABLETS PO SCH (22:07)
[2021-02-15] MEDS: LIDOCAINE 5% TOPICAL PATCH TP SCH (22:07)
[2021-02-15] MEDS: ALPRAZolam 0.25 MG TABLET PO PRN (22:07)
[2021-02-16] MEDS: ACETAMINOPHEN 325 MG TABLET (FP) PO PRN (02:17)
[2021-02-16] MEDS ORDERED: DEXTROSE 5%-WATER - 50 ML IVPB ONE ×4 (03:47→20:43)
[2021-02-16] MEDS ORDERED: PIPERACILLIN/TAZOBACTAM 2.25 GM VIAL IVPB ONE ×4 (03:47→20:43)
[2021-02-16] MEDS: PIPERACILLIN/TAZOB 2.25 GM 2.25 GM in DEXTROSE 5%-WATER - 50 ML IVPB SCH ×4 (04:24→21:02)
[2021-02-16] MEDS: POLYETHYLENE GLYCOL (HEALTHYLAX) 3350 17 GM PACKET PO SCH ×3 (06:15→21:02)
[2021-02-16 06:45] LABS: HEMATOCRIT 26.6 % (35.4-49); MCH 30.7 pg (25.7-33.7); MEAN CELL VOLUME 90.4 fl (80-96); MEAN PLT VOLUME 8.6 fl (7.5-11.1); PLATELET COUNT 414 10^3/uL (134-434); RBC 2.94 M/mm3 (4.00-5.60); RDW 14.9 % (11.9-15.9); WHITE BLOOD COUNT 20.9 K/mm3 (4.0-10.0)
[2021-02-16 07:06] LABS: CALCIUM 7.1 mg/dL (8.5-10.1)
[2021-02-16 07:07] LABS: ALBUMIN 1.3 g/dl (3.4-5.0)
[2021-02-16 07:09] LABS: CREATININE 3.9 mg/dL (0.55-1.3)
[2021-02-16 07:10] LABS: BILIRUBIN,TOTAL 0.4 mg/dL (0.2-1); TOT PROT 4.8 g/dl (6.4-8.2)
[2021-02-16 09:04] LABS: INR 2.52 (0.83-1.09); PROTHROMBIN TIME (PATIENT) 29.7 SEC (9.7-13.0)
[2021-02-16 09:07] LABS: ACTIVATED PTT 52.7 SECONDS (25.2-36.5)
[2021-02-16] MEDS: VITAMIN B COMP W-C 1 EA TABLET (NEPHRO-VITE) PO SCH (09:40)
[2021-02-16] MEDS: ALPRAZolam 0.25 MG TABLET PO PRN (09:41)
[2021-02-16] MEDS: AZITHROMYCIN IVPB 500 MG/250 ML BAG IVPB SCH (09:41)
[2021-02-16] MEDS: amLODIPine BESYLATE 5 MG TABLET (FP) PO SCH (09:41)
[2021-02-16] MEDS: ASPIRIN 81 MG CHEWABLE TABLETS PO SCH (09:41)
[2021-02-16] MEDS: SERTRALINE HCL 50 MG TABLET (FP) PO SCH (09:41)
[2021-02-16] MEDS: traMADol HCL 50 MG TABLET PO PRN (09:44)
[2021-02-16] MEDS: LIDOCAINE PATCH REMOVAL MC SCH (09:45)
[2021-02-16 10:03] LABS: ANISOCYTOSIS 0; MACROCYTOSIS 0; OVALOCYTE 1+; PLATELET ESTIMATE NORMAL
[2021-02-16] MEDS ORDERED: SODIUM CHLORIDE 0.45% 1,000 ML IV SCH (14:00)
[2021-02-16] MEDS: ATORVASTATIN CA 20 MG TABLET (FP) PO SCH (21:02)
[2021-02-16] MEDS: LIDOCAINE 5% TOPICAL PATCH TP SCH (21:02)
[2021-02-16] MEDS: MELATONIN 5 MG TABLETS PO SCH (21:02)
[2021-02-16] MEDS: TAMSULOSIN HCL 0.4 MG CAP PO SCH (21:02)
[2021-02-16] MEDS: CHOLECALCIFEROL (VIT D3) 1,000 UNIT (25 MCG) TABLET PO SCH (21:02)
[2021-02-17] MEDS ORDERED: DEXTROSE 5%-WATER - 50 ML IVPB ONE ×4 (01:45→21:49)
[2021-02-17] MEDS ORDERED: PIPERACILLIN/TAZOBACTAM 2.25 GM VIAL IVPB ONE ×4 (01:45→21:48)
[2021-02-17] MEDS: PIPERACILLIN/TAZOB 2.25 GM 2.25 GM in DEXTROSE 5%-WATER - 50 ML IVPB SCH ×4 (02:51→22:11)
[2021-02-17] MEDS: POLYETHYLENE GLYCOL (HEALTHYLAX) 3350 17 GM PACKET PO SCH ×3 (06:10→22:12)
[2021-02-17 07:25] LABS: HEMATOCRIT 28.3 % (35.4-49); HEMOGLOBIN 9.6 GM/dL (11.7-16.9); MCH 30.7 pg (25.7-33.7); MCHC 33.9 g/dl (32.0-35.9); MEAN CELL VOLUME 90.6 fl (80-96); MEAN PLT VOLUME 8.4 fl (7.5-11.1); PLATELET COUNT 422 10^3/uL (134-434); RBC 3.13 M/mm3 (4.00-5.60); RDW 14.6 % (11.9-15.9); WHITE BLOOD COUNT 20.4 K/mm3 (4.0-10.0)
[2021-02-17 07:47] LABS: BLOOD UREA NITROGEN 82.6 mg/dL (7-18)
[2021-02-17 07:48] LABS: ALBUMIN 1.3 g/dl (3.4-5.0)
[2021-02-17 07:50] LABS: CREATININE 3.9 mg/dL (0.55-1.3)
[2021-02-17 07:52] LABS: BILIRUBIN,TOTAL 0.4 mg/dL (0.2-1); TOT PROT 4.9 g/dl (6.4-8.2)
[2021-02-17 08:19] LABS: INR 2.12 (0.83-1.09); PROTHROMBIN TIME (PATIENT) 26.3 SEC (9.7-13.0)
[2021-02-17 08:20] LABS: INR 2.17 (0.83-1.09); PROTHROMBIN TIME (PATIENT) 26.9 SEC (9.7-13.0)
[2021-02-17 08:22] LABS: ACTIVATED PTT 43.8 SECONDS (25.2-36.5)
[2021-02-17 08:48] LABS: CALCIUM 7.5 mg/dL (8.5-10.1)
[2021-02-17] MEDS: LIDOCAINE PATCH REMOVAL MC SCH (10:15)
[2021-02-17 10:27] LABS: ANISOCYTOSIS 1+; MACROCYTOSIS 0; PLATELET ESTIMATE NORMAL
[2021-02-17] MEDS: amLODIPine BESYLATE 5 MG TABLET (FP) PO SCH (10:51)
[2021-02-17] MEDS: VITAMIN B COMP W-C 1 EA TABLET (NEPHRO-VITE) PO SCH (10:51)
[2021-02-17] MEDS: ASPIRIN 81 MG CHEWABLE TABLETS PO SCH (10:51)
[2021-02-17] MEDS: SERTRALINE HCL 50 MG TABLET (FP) PO SCH (10:51)
[2021-02-17] MEDS: AZITHROMYCIN IVPB 500 MG/250 ML BAG IVPB SCH (10:51)
[2021-02-17] MEDS: LIDOCAINE 5% TOPICAL PATCH TP SCH (22:10)
[2021-02-17] MEDS: TAMSULOSIN HCL 0.4 MG CAP PO SCH (22:11)
[2021-02-17] MEDS: MELATONIN 5 MG TABLETS PO SCH (22:12)
[2021-02-17] MEDS: ATORVASTATIN CA 20 MG TABLET (FP) PO SCH (22:12)
[2021-02-17] MEDS: CHOLECALCIFEROL (VIT D3) 1,000 UNIT (25 MCG) TABLET PO SCH (22:12)
[2021-02-18] MEDS: PIPERACILLIN/TAZOB 2.25 GM 2.25 GM in DEXTROSE 5%-WATER - 50 ML IVPB SCH ×4 (03:30→21:34)
[2021-02-18] MEDS: POLYETHYLENE GLYCOL (HEALTHYLAX) 3350 17 GM PACKET PO SCH ×3 (05:59→21:34)
[2021-02-18 07:43] LABS: HEMATOCRIT 27.9 % (35.4-49); HEMOGLOBIN 9.4 GM/dL (11.7-16.9); MCH 30.1 pg (25.7-33.7); MCHC 33.6 g/dl (32.0-35.9); MEAN CELL VOLUME 89.4 fl (80-96); MEAN PLT VOLUME 8.5 fl (7.5-11.1); PLATELET COUNT 392 10^3/uL (134-434); RBC 3.12 M/mm3 (4.00-5.60); WHITE BLOOD COUNT 21.2 K/mm3 (4.0-10.0)
[2021-02-18 08:02] LABS: CALCIUM 7.5 mg/dL (8.5-10.1)
[2021-02-18 08:03] LABS: ALBUMIN 1.5 g/dl (3.4-5.0); BLOOD UREA NITROGEN 91.1 mg/dL (7-18); MAGNESIUM 2.3 mg/dL (1.8-2.4)
[2021-02-18 08:06] LABS: CREATININE 3.8 mg/dL (0.55-1.3)
[2021-02-18 08:08] LABS: BILIRUBIN,TOTAL 0.6 mg/dL (0.2-1); TOT PROT 5.2 g/dl (6.4-8.2)
[2021-02-18 08:26] LABS: INR 2.38 (0.83-1.09); PROTHROMBIN TIME (PATIENT) 29.5 SEC (9.7-13.0)
[2021-02-18] MEDS ORDERED: DEXTROSE 5%-WATER - 50 ML IVPB ONE ×3 (09:23→21:05)
[2021-02-18] MEDS ORDERED: PIPERACILLIN/TAZOBACTAM 2.25 GM VIAL IVPB ONE ×3 (09:23→21:05)
[2021-02-18] MEDS: LIDOCAINE PATCH REMOVAL MC SCH (09:57)
[2021-02-18 09:58] LABS: ANISOCYTOSIS 0; HELMET CELLS 0; HOWELL-JOLLY BODIES 0; MACROCYTOSIS 0; OVALOCYTE 0; PLATELET ESTIMATE NORMAL; ROULEAU 0; SICKELED CELLS 0; TARGET CELLS 0; TEAR DROP CELLS 0; TOXIC GRANULATION 0
[2021-02-18] MEDS: ASPIRIN 81 MG CHEWABLE TABLETS PO SCH (09:58)
[2021-02-18] MEDS: SERTRALINE HCL 50 MG TABLET (FP) PO SCH (09:58)
[2021-02-18] MEDS: amLODIPine BESYLATE 5 MG TABLET (FP) PO SCH (09:58)
[2021-02-18] MEDS: AZITHROMYCIN IVPB 500 MG/250 ML BAG IVPB SCH (09:58)
[2021-02-18] MEDS: VITAMIN B COMP W-C 1 EA TABLET (NEPHRO-VITE) PO SCH (09:58)
[2021-02-18 10:01] LABS: NEUT % 20.3 % (42.8-82.8)
[2021-02-18] MEDS ORDERED: ONDANSETRON 4 MG/2 ML VIAL IVPB PRN (12:28)
[2021-02-18 12:32] LABS: PHOSPHOROUS 6.9 mg/dL (2.5-4.9)
[2021-02-18] MEDS: LACTOBACILLUS ACIDOPHILUS 1 TABLET PO SCH (15:53)
[2021-02-18 17:12] LABS: INR 7.2 (0.83-1.09)
[2021-02-18] MEDS: LIDOCAINE 5% TOPICAL PATCH TP SCH (19:53)
[2021-02-18] MEDS: TAMSULOSIN HCL 0.4 MG CAP PO SCH (21:34)
[2021-02-18] MEDS: ATORVASTATIN CA 20 MG TABLET (FP) PO SCH (21:34)
[2021-02-18] MEDS: ALPRAZolam 0.25 MG TABLET PO PRN (21:34)
[2021-02-18] MEDS: MELATONIN 5 MG TABLETS PO SCH (21:34)
[2021-02-18] MEDS: CHOLECALCIFEROL (VIT D3) 1,000 UNIT (25 MCG) TABLET PO SCH (21:34)
[2021-02-19] MEDS ORDERED: DEXTROSE 5%-WATER - 0 ML IVPB ONE (02:13)
[2021-02-19] MEDS ORDERED: PIPERACILLIN/TAZOBACTAM 2.25 GM VIAL IVPB ONE ×5 (02:13→22:05)
[2021-02-19] MEDS: PIPERACILLIN/TAZOB 2.25 GM 2.25 GM in DEXTROSE 5%-WATER - 50 ML IVPB SCH ×4 (02:25→21:59)
[2021-02-19] MEDS: ACETAMINOPHEN 325 MG TABLET (FP) PO PRN ×3 (04:42→18:53)
[2021-02-19] MEDS: POLYETHYLENE GLYCOL (HEALTHYLAX) 3350 17 GM PACKET PO SCH ×3 (05:56→21:59)
[2021-02-19 07:25] LABS: INR 2.68 (0.83-1.09); PROTHROMBIN TIME (PATIENT) 33.3 SEC (9.7-13.0)
[2021-02-19 07:33] LABS: HEMATOCRIT 25.5 % (35.4-49); HEMOGLOBIN 8.6 GM/dL (11.7-16.9); MCH 30.4 pg (25.7-33.7); MCHC 33.7 g/dl (32.0-35.9); MEAN CELL VOLUME 90.1 fl (80-96); MEAN PLT VOLUME 8.7 fl (7.5-11.1); PLATELET COUNT 376 10^3/uL (134-434); RBC 2.83 M/mm3 (4.00-5.60); RDW 14.9 % (11.9-15.9); WHITE BLOOD COUNT 17.5 K/mm3 (4.0-10.0)
[2021-02-19 08:19] LABS: CALCIUM 7.5 mg/dL (8.5-10.1)
[2021-02-19 08:20] LABS: ALBUMIN 1.4 g/dl (3.4-5.0)
[2021-02-19 08:22] LABS: CREATININE 3.8 mg/dL (0.55-1.3)
[2021-02-19 08:24] LABS: BILIRUBIN,TOTAL 0.9 mg/dL (0.2-1); TOT PROT 4.7 g/dl (6.4-8.2)
[2021-02-19 09:19] LABS: ANISOCYTOSIS 1+; MACROCYTOSIS 1+; PLATELET ESTIMATE NORMAL
[2021-02-19] MEDS ORDERED: DEXTROSE 5%-WATER - 50 ML IVPB ONE ×4 (10:27→22:05)
[2021-02-19] MEDS: VITAMIN B COMP W-C 1 EA TABLET (NEPHRO-VITE) PO SCH (10:30)
[2021-02-19] MEDS: LACTOBACILLUS ACIDOPHILUS 1 TABLET PO SCH (10:30)
[2021-02-19] MEDS: ASPIRIN 81 MG CHEWABLE TABLETS PO SCH (10:30)
[2021-02-19] MEDS: SERTRALINE HCL 50 MG TABLET (FP) PO SCH (10:30)
[2021-02-19] MEDS: amLODIPine BESYLATE 5 MG TABLET (FP) PO SCH (10:30)
[2021-02-19] MEDS: AMINO ACIDS/PROTEIN HYDROLYS 30 ML LIQUID.PKT PO SCH ×2 (10:30→17:46)
[2021-02-19] MEDS: AZITHROMYCIN IVPB 500 MG/250 ML BAG IVPB SCH (10:30)
[2021-02-19] MEDS: LIDOCAINE PATCH REMOVAL MC SCH (11:06)
[2021-02-19] MEDS: ALPRAZolam 0.25 MG TABLET PO PRN ×2 (11:06→21:58)
[2021-02-19] MEDS: SODIUM BICARBONATE 650 MG TABLET PO SCH (15:45)
[2021-02-19] MEDS: LIDOCAINE 5% TOPICAL PATCH TP SCH (20:22)
[2021-02-19] MEDS: CHOLECALCIFEROL (VIT D3) 1,000 UNIT (25 MCG) TABLET PO SCH (21:58)
[2021-02-19] MEDS: ATORVASTATIN CA 20 MG TABLET (FP) PO SCH (21:58)
[2021-02-19] MEDS: TAMSULOSIN HCL 0.4 MG CAP PO SCH (21:58)
[2021-02-19] MEDS: MELATONIN 5 MG TABLETS PO SCH (21:58)
[2021-02-20] MEDS ORDERED: DEXTROSE 5%-WATER - 50 ML IVPB ONE ×4 (02:34→20:09)
[2021-02-20] MEDS ORDERED: PIPERACILLIN/TAZOBACTAM 2.25 GM VIAL IVPB ONE ×4 (02:34→20:09)
[2021-02-20] MEDS: PIPERACILLIN/TAZOB 2.25 GM 2.25 GM in DEXTROSE 5%-WATER - 50 ML IVPB SCH ×4 (03:06→20:14)
[2021-02-20] MEDS: POLYETHYLENE GLYCOL (HEALTHYLAX) 3350 17 GM PACKET PO SCH ×3 (05:13→21:11)
[2021-02-20 07:40] LABS: HEMATOCRIT 25.6 % (35.4-49); HEMOGLOBIN 8.6 GM/dL (11.7-16.9); MCH 30.1 pg (25.7-33.7); MCHC 33.6 g/dl (32.0-35.9); MEAN CELL VOLUME 89.7 fl (80-96); MEAN PLT VOLUME 8.5 fl (7.5-11.1); PLATELET COUNT 369 10^3/uL (134-434); RBC 2.86 M/mm3 (4.00-5.60); WHITE BLOOD COUNT 16.4 K/mm3 (4.0-10.0)
[2021-02-20 07:42] LABS: ALBUMIN 1.5 g/dl (3.4-5.0); BLOOD UREA NITROGEN 87.6 mg/dL (7-18); CALCIUM 7.5 mg/dL (8.5-10.1)
[2021-02-20 07:45] LABS: CREATININE 3.8 mg/dL (0.55-1.3)
[2021-02-20 07:47] LABS: BILIRUBIN,TOTAL 0.4 mg/dL (0.2-1); TOT PROT 5.2 g/dl (6.4-8.2)
[2021-02-20 08:06] LABS: INR 2.58 (0.83-1.09); PROTHROMBIN TIME (PATIENT) 32.1 SEC (9.7-13.0)
[2021-02-20 09:07] LABS: ANISOCYTOSIS 0; HELMET CELLS 0; HOWELL-JOLLY BODIES 0; MACROCYTOSIS 0; OVALOCYTE 0; PLATELET ESTIMATE NORMAL; ROULEAU 0; SICKELED CELLS 0; TARGET CELLS 0; TEAR DROP CELLS 0; TOXIC GRANULATION 0
[2021-02-20 10:09] LABS: DRVVT - 112.1 sec (0.0-47.0); DRVVT CONFIRM SECONDS 1.6 ratio (0.8-1.2); HEXAGONAL PHASE PHOSPHOLIPID 12 sec (0-11); dRVVT MIX 65.9 sec (0.0-40.4)
[2021-02-20] MEDS: SERTRALINE HCL 50 MG TABLET (FP) PO SCH (10:29)
[2021-02-20] MEDS: LIDOCAINE PATCH REMOVAL MC SCH (10:29)
[2021-02-20] MEDS: AMINO ACIDS/PROTEIN HYDROLYS 30 ML LIQUID.PKT PO SCH ×2 (10:29→17:14)
[2021-02-20] MEDS: VITAMIN B COMP W-C 1 EA TABLET (NEPHRO-VITE) PO SCH (10:29)
[2021-02-20] MEDS: ASPIRIN 81 MG CHEWABLE TABLETS PO SCH (10:29)
[2021-02-20] MEDS: amLODIPine BESYLATE 5 MG TABLET (FP) PO SCH (10:29)
[2021-02-20] MEDS: SODIUM BICARBONATE 650 MG TABLET PO SCH (10:29)
[2021-02-20] MEDS: LACTOBACILLUS ACIDOPHILUS 1 TABLET PO SCH (10:29)
[2021-02-20] MEDS ORDERED: MORPHINE SULFATE 2 MG/ML VIAL IVPUSH PRN (11:38)
[2021-02-20] MEDS ORDERED: LACTATED RINGERS SOLUTION 1,000 ML/1,000 ML INFUS.BAG IV SCH (12:45)
[2021-02-20] MEDS: LIDOCAINE 5% TOPICAL PATCH TP SCH (20:14)
[2021-02-20] MEDS: CHOLECALCIFEROL (VIT D3) 1,000 UNIT (25 MCG) TABLET PO SCH (21:10)
[2021-02-20] MEDS: MELATONIN 5 MG TABLETS PO SCH (21:10)
[2021-02-20] MEDS: ATORVASTATIN CA 20 MG TABLET (FP) PO SCH (21:10)
[2021-02-20] MEDS: TAMSULOSIN HCL 0.4 MG CAP PO SCH (21:10)
[2021-02-21] MEDS ORDERED: PIPERACILLIN/TAZOBACTAM 2.25 GM VIAL IVPB ONE ×4 (02:35→20:52)
[2021-02-21] MEDS ORDERED: DEXTROSE 5%-WATER - 50 ML IVPB ONE ×4 (02:35→20:52)
[2021-02-21] MEDS: PIPERACILLIN/TAZOB 2.25 GM 2.25 GM in DEXTROSE 5%-WATER - 50 ML IVPB SCH ×4 (02:47→21:17)
[2021-02-21] MEDS: POLYETHYLENE GLYCOL (HEALTHYLAX) 3350 17 GM PACKET PO SCH ×3 (05:10→21:06)
[2021-02-21 08:01] LABS: HEMATOCRIT 25.6 % (35.4-49); HEMOGLOBIN 8.6 GM/dL (11.7-16.9); MCH 30.4 pg (25.7-33.7); MCHC 33.7 g/dl (32.0-35.9); MEAN CELL VOLUME 90.1 fl (80-96); MEAN PLT VOLUME 8.7 fl (7.5-11.1); PLATELET COUNT 378 10^3/uL (134-434); RBC 2.84 M/mm3 (4.00-5.60); RDW 14.7 % (11.9-15.9); WHITE BLOOD COUNT 15.1 K/mm3 (4.0-10.0)
[2021-02-21 08:04] LABS: INR 2.62 (0.83-1.09); PROTHROMBIN TIME (PATIENT) 32.5 SEC (9.7-13.0)
[2021-02-21 08:31] LABS: ALBUMIN 1.6 g/dl (3.4-5.0); CALCIUM 7.4 mg/dL (8.5-10.1); MAGNESIUM 2.4 mg/dL (1.8-2.4)
[2021-02-21 08:32] LABS: BLOOD UREA NITROGEN 83.9 mg/dL (7-18)
[2021-02-21 08:34] LABS: CREATININE 3.5 mg/dL (0.55-1.3); PHOSPHOROUS 4.9 mg/dL (2.5-4.9)
[2021-02-21 08:36] LABS: BILIRUBIN,TOTAL 0.5 mg/dL (0.2-1); TOT PROT 5.2 g/dl (6.4-8.2)
[2021-02-21] MEDS: ASPIRIN 81 MG CHEWABLE TABLETS PO SCH (09:13)
[2021-02-21] MEDS: LIDOCAINE PATCH REMOVAL MC SCH (09:13)
[2021-02-21] MEDS: amLODIPine BESYLATE 5 MG TABLET (FP) PO SCH (09:13)
[2021-02-21] MEDS: SERTRALINE HCL 50 MG TABLET (FP) PO SCH (09:13)
[2021-02-21] MEDS: LACTOBACILLUS ACIDOPHILUS 1 TABLET PO SCH (09:13)
[2021-02-21] MEDS: AMINO ACIDS/PROTEIN HYDROLYS 30 ML LIQUID.PKT PO SCH ×2 (09:13→17:49)
[2021-02-21] MEDS: SODIUM BICARBONATE 650 MG TABLET PO SCH (09:14)
[2021-02-21] MEDS: VITAMIN B COMP W-C 1 EA TABLET (NEPHRO-VITE) PO SCH (09:14)
[2021-02-21 10:06] LABS: ANISOCYTOSIS 0; MACROCYTOSIS 0; OVALOCYTE 1+; PLATELET ESTIMATE NORMAL; TARGET CELLS 1+
[2021-02-21] MEDS: LACTATED RINGERS SOLUTION 1,000 ML/1,000 ML INFUS.BAG IV SCH (14:37)
[2021-02-21] MEDS: MELATONIN 5 MG TABLETS PO SCH (21:16)
[2021-02-21] MEDS: TAMSULOSIN HCL 0.4 MG CAP PO SCH (21:16)
[2021-02-21] MEDS: ALPRAZolam 0.25 MG TABLET PO PRN (21:17)
[2021-02-21] MEDS: CHOLECALCIFEROL (VIT D3) 1,000 UNIT (25 MCG) TABLET PO SCH (21:17)
[2021-02-21] MEDS: ATORVASTATIN CA 20 MG TABLET (FP) PO SCH (21:17)
[2021-02-21] MEDS: LIDOCAINE 5% TOPICAL PATCH TP SCH (21:20)
[2021-02-21] MEDS: traMADol HCL 50 MG TABLET PO PRN (21:22)
[2021-02-22] MEDS ORDERED: PIPERACILLIN/TAZOBACTAM 2.25 GM VIAL IVPB ONE ×4 (01:42→21:47)
[2021-02-22] MEDS ORDERED: DEXTROSE 5%-WATER - 50 ML IVPB ONE ×4 (01:43→21:47)
[2021-02-22] MEDS: PIPERACILLIN/TAZOB 2.25 GM 2.25 GM in DEXTROSE 5%-WATER - 50 ML IVPB SCH ×4 (03:02→21:50)
[2021-02-22] MEDS: POLYETHYLENE GLYCOL (HEALTHYLAX) 3350 17 GM PACKET PO SCH ×3 (06:16→21:52)
[2021-02-22 08:39] LABS: BASO % 0.2 % (0-2.0); EOS % 2.3 % (0-4.5); HEMOGLOBIN 8.3 GM/dL (11.7-16.9); LYMPH % 3.7 % (8-40); MCH 30.2 pg (25.7-33.7); MCHC 33.1 g/dl (32.0-35.9); MEAN CELL VOLUME 91.3 fl (80-96); MEAN PLT VOLUME 8.9 fl (7.5-11.1); MONO % 3.9 % (3.8-10.2); NEUT % 89.9 % (42.8-82.8); PLATELET COUNT 327 10^3/uL (134-434); RBC 2.74 M/mm3 (4.00-5.60); RDW 14.9 % (11.9-15.9); WHITE BLOOD COUNT 14.3 K/mm3 (4.0-10.0)
[2021-02-22 08:46] LABS: INR 2.03 (0.83-1.09); PROTHROMBIN TIME (PATIENT) 25.2 SEC (9.7-13.0)
[2021-02-22 09:01] LABS: CALCIUM 7.6 mg/dL (8.5-10.1)
[2021-02-22 09:02] LABS: ALBUMIN 1.6 g/dl (3.4-5.0); BLOOD UREA NITROGEN 78.6 mg/dL (7-18)
[2021-02-22 09:05] LABS: CREATININE 3.3 mg/dL (0.55-1.3)
[2021-02-22 09:06] LABS: BILIRUBIN,TOTAL 0.3 mg/dL (0.2-1); TOT PROT 5.3 g/dl (6.4-8.2)
[2021-02-22] MEDS: amLODIPine BESYLATE 5 MG TABLET (FP) PO SCH (10:26)
[2021-02-22] MEDS: ASPIRIN 81 MG CHEWABLE TABLETS PO SCH (10:26)
[2021-02-22] MEDS: LACTOBACILLUS ACIDOPHILUS 1 TABLET PO SCH (10:26)
[2021-02-22] MEDS: SERTRALINE HCL 50 MG TABLET (FP) PO SCH (10:26)
[2021-02-22] MEDS: LIDOCAINE PATCH REMOVAL MC SCH (10:27)
[2021-02-22] MEDS: AMINO ACIDS/PROTEIN HYDROLYS 30 ML LIQUID.PKT PO SCH ×2 (10:27→17:17)
[2021-02-22] MEDS: SODIUM BICARBONATE 650 MG TABLET PO SCH (10:27)
[2021-02-22] MEDS: VITAMIN B COMP W-C 1 EA TABLET (NEPHRO-VITE) PO SCH (10:27)
[2021-02-22] MEDS ORDERED: ALTEPLASE 2 MG VIAL IX ONE (11:00)
[2021-02-22] MEDS: traMADol HCL 50 MG TABLET PO PRN ×2 (15:17→21:52)
[2021-02-22] MEDS: LACTATED RINGERS SOLUTION 1,000 ML/1,000 ML INFUS.BAG IV SCH (17:16)
[2021-02-22] MEDS: LIDOCAINE 5% TOPICAL PATCH TP SCH (21:49)
[2021-02-22] MEDS: MELATONIN 5 MG TABLETS PO SCH (21:51)
[2021-02-22] MEDS: ATORVASTATIN CA 20 MG TABLET (FP) PO SCH (21:51)
[2021-02-22] MEDS: TAMSULOSIN HCL 0.4 MG CAP PO SCH (21:51)
[2021-02-22] MEDS: ALPRAZolam 0.25 MG TABLET PO PRN (21:51)
[2021-02-22] MEDS: CHOLECALCIFEROL (VIT D3) 1,000 UNIT (25 MCG) TABLET PO SCH (21:51)
[2021-02-23] MEDS ORDERED: DEXTROSE 5%-WATER - 50 ML IVPB ONE ×4 (01:23→19:49)
[2021-02-23] MEDS ORDERED: PIPERACILLIN/TAZOBACTAM 2.25 GM VIAL IVPB ONE ×4 (01:23→19:49)
[2021-02-23] MEDS: PIPERACILLIN/TAZOB 2.25 GM 2.25 GM in DEXTROSE 5%-WATER - 50 ML IVPB SCH ×4 (02:13→21:05)
[2021-02-23] MEDS: POLYETHYLENE GLYCOL (HEALTHYLAX) 3350 17 GM PACKET PO SCH ×3 (05:10→21:05)
[2021-02-23] MEDS: MORPHINE SULFATE 2 MG/ML VIAL IVPUSH PRN ×3 (05:11→21:08)
[2021-02-23 08:18] LABS: INR 1.98 (0.83-1.09); PROTHROMBIN TIME (PATIENT) 24.5 SEC (9.7-13.0)
[2021-02-23 08:22] LABS: HEMOGLOBIN 8.4 GM/dL (11.7-16.9); MCH 30.6 pg (25.7-33.7); MCHC 33.5 g/dl (32.0-35.9); MEAN CELL VOLUME 91.3 fl (80-96); MEAN PLT VOLUME 9.1 fl (7.5-11.1); PLATELET COUNT 312 10^3/uL (134-434); RBC 2.73 M/mm3 (4.00-5.60); RDW 14.9 % (11.9-15.9)
[2021-02-23 08:41] LABS: BLOOD UREA NITROGEN 70.3 mg/dL (7-18)
[2021-02-23 08:44] LABS: CREATININE 3.4 mg/dL (0.55-1.3)
[2021-02-23 08:46] LABS: BILIRUBIN,TOTAL 0.3 mg/dL (0.2-1); TOT PROT 4.2 g/dl (6.4-8.2)
[2021-02-23 08:50] LABS: ALBUMIN 1.2 g/dl (3.4-5.0)
[2021-02-23 08:56] LABS: ANISOCYTOSIS 2+; MACROCYTOSIS 0; PLATELET ESTIMATE NORMAL
[2021-02-23] MEDS: LIDOCAINE PATCH REMOVAL MC SCH (09:01)
[2021-02-23] MEDS ORDERED: ALTEPLASE 2 MG VIAL IX ONE (10:00)
[2021-02-23] MEDS: traMADol HCL 50 MG TABLET PO PRN (10:43)
[2021-02-23] MEDS: SODIUM BICARBONATE 650 MG TABLET PO SCH (10:45)
[2021-02-23] MEDS: AMINO ACIDS/PROTEIN HYDROLYS 30 ML LIQUID.PKT PO SCH ×2 (10:45→17:54)
[2021-02-23] MEDS: VITAMIN B COMP W-C 1 EA TABLET (NEPHRO-VITE) PO SCH (10:45)
[2021-02-23] MEDS: ASPIRIN 81 MG CHEWABLE TABLETS PO SCH (10:45)
[2021-02-23] MEDS: SERTRALINE HCL 50 MG TABLET (FP) PO SCH (10:46)
[2021-02-23] MEDS: LACTOBACILLUS ACIDOPHILUS 1 TABLET PO SCH (10:46)
[2021-02-23] MEDS: amLODIPine BESYLATE 5 MG TABLET (FP) PO SCH (10:46)
[2021-02-23] MEDS: LIDOCAINE 5% TOPICAL PATCH TP SCH (20:45)
[2021-02-23] MEDS: TAMSULOSIN HCL 0.4 MG CAP PO SCH (21:05)
[2021-02-23] MEDS: ATORVASTATIN CA 20 MG TABLET (FP) PO SCH (21:05)
[2021-02-23] MEDS: MELATONIN 5 MG TABLETS PO SCH (21:06)
[2021-02-23] MEDS: CHOLECALCIFEROL (VIT D3) 1,000 UNIT (25 MCG) TABLET PO SCH (21:06)
[2021-02-24] MEDS ORDERED: DEXTROSE 5%-WATER - 50 ML IVPB ONE ×4 (03:35→20:40)
[2021-02-24] MEDS ORDERED: PIPERACILLIN/TAZOBACTAM 2.25 GM VIAL IVPB ONE ×4 (03:35→20:40)
[2021-02-24] MEDS: PIPERACILLIN/TAZOB 2.25 GM 2.25 GM in DEXTROSE 5%-WATER - 50 ML IVPB SCH ×4 (03:51→20:53)
[2021-02-24] MEDS: POLYETHYLENE GLYCOL (HEALTHYLAX) 3350 17 GM PACKET PO SCH ×3 (06:42→22:14)
[2021-02-24 07:12] LABS: INR 2.4 (0.83-1.09); PROTHROMBIN TIME (PATIENT) 29.8 SEC (9.7-13.0)
[2021-02-24 07:23] LABS: BASO % 0.1 % (0-2.0); EOS % 1.3 % (0-4.5); HEMATOCRIT 24.4 % (35.4-49); HEMOGLOBIN 8.3 GM/dL (11.7-16.9); LYMPH % 4.7 % (8-40); MCH 30.9 pg (25.7-33.7); MCHC 33.9 g/dl (32.0-35.9); MEAN CELL VOLUME 91.2 fl (80-96); MEAN PLT VOLUME 9.1 fl (7.5-11.1); MONO % 5.3 % (3.8-10.2); NEUT % 88.6 % (42.8-82.8); PLATELET COUNT 310 10^3/uL (134-434); RBC 2.67 M/mm3 (4.00-5.60); RDW 15.1 % (11.9-15.9)
[2021-02-24 07:34] LABS: ALBUMIN 1.2 g/dl (3.4-5.0); BLOOD UREA NITROGEN 85.2 mg/dL (7-18); CALCIUM 7.3 mg/dL (8.5-10.1)
[2021-02-24 07:37] LABS: CREATININE 4.2 mg/dL (0.55-1.3)
[2021-02-24 07:38] LABS: BILIRUBIN,TOTAL 0.3 mg/dL (0.2-1); TOT PROT 4.2 g/dl (6.4-8.2)
[2021-02-24] MEDS: LIDOCAINE PATCH REMOVAL MC SCH (09:02)
[2021-02-24] MEDS: amLODIPine BESYLATE 5 MG TABLET (FP) PO SCH (09:02)
[2021-02-24] MEDS: AMINO ACIDS/PROTEIN HYDROLYS 30 ML LIQUID.PKT PO SCH ×2 (09:02→17:49)
[2021-02-24] MEDS: ASPIRIN 81 MG CHEWABLE TABLETS PO SCH (09:02)
[2021-02-24] MEDS: SODIUM BICARBONATE 650 MG TABLET PO SCH (09:02)
[2021-02-24] MEDS: VITAMIN B COMP W-C 1 EA TABLET (NEPHRO-VITE) PO SCH (09:02)
[2021-02-24] MEDS: SERTRALINE HCL 50 MG TABLET (FP) PO SCH (09:02)
[2021-02-24] MEDS: LACTOBACILLUS ACIDOPHILUS 1 TABLET PO SCH (09:02)
[2021-02-24] MEDS: traMADol HCL 50 MG TABLET PO PRN (09:14)
[2021-02-24] MEDS ORDERED: ALTEPLASE 2 MG VIAL IX ONE (12:00)
[2021-02-24] MEDS ORDERED: POTASSIUM CHLORIDE TABS 20 MEQ TABLET.ER (FP) PO ONE (12:39)
[2021-02-24] MEDS: MORPHINE SULFATE 2 MG/ML VIAL IVPUSH PRN (15:35)
[2021-02-24] MEDS ORDERED: WARFARIN NA 1 MG TABLET PO SCH (18:00)
[2021-02-24] MEDS: WARFARIN NA 1 MG TABLET PO SCH (19:06)
[2021-02-24] MEDS: LIDOCAINE 5% TOPICAL PATCH TP SCH (20:53)
[2021-02-24] MEDS: ATORVASTATIN CA 20 MG TABLET (FP) PO SCH (21:57)
[2021-02-24] MEDS: TAMSULOSIN HCL 0.4 MG CAP PO SCH (21:57)
[2021-02-24] MEDS: MELATONIN 5 MG TABLETS PO SCH (21:57)
[2021-02-24] MEDS: CHOLECALCIFEROL (VIT D3) 1,000 UNIT (25 MCG) TABLET PO SCH (21:58)
[2021-02-25] MEDS ORDERED: PIPERACILLIN/TAZOBACTAM 2.25 GM VIAL IVPB ONE ×4 (03:51→21:34)
[2021-02-25] MEDS ORDERED: DEXTROSE 5%-WATER - 50 ML IVPB ONE ×4 (03:52→21:34)
[2021-02-25] MEDS: PIPERACILLIN/TAZOB 2.25 GM 2.25 GM in DEXTROSE 5%-WATER - 50 ML IVPB SCH ×4 (03:53→22:32)
[2021-02-25] MEDS: MORPHINE SULFATE 2 MG/ML VIAL IVPUSH PRN (05:34)
[2021-02-25] MEDS: POLYETHYLENE GLYCOL (HEALTHYLAX) 3350 17 GM PACKET PO SCH ×3 (06:41→22:32)
[2021-02-25 08:38] LABS: BASO % 0.4 % (0-2.0); EOS % 2.7 % (0-4.5); HEMATOCRIT 23.2 % (35.4-49); HEMOGLOBIN 7.6 GM/dL (11.7-16.9); LYMPH % 4.9 % (8-40); MCH 29.9 pg (25.7-33.7); MCHC 32.6 g/dl (32.0-35.9); MEAN CELL VOLUME 91.7 fl (80-96); MEAN PLT VOLUME 9.1 fl (7.5-11.1); MONO % 5.3 % (3.8-10.2); NEUT % 86.7 % (42.8-82.8); PLATELET COUNT 312 10^3/uL (134-434); RBC 2.53 M/mm3 (4.00-5.60); RDW 15.4 % (11.9-15.9); WHITE BLOOD COUNT 12.5 K/mm3 (4.0-10.0)
[2021-02-25 08:42] LABS: INR 1.85 (0.83-1.09); PROTHROMBIN TIME (PATIENT) 22.9 SEC (9.7-13.0)
[2021-02-25 09:02] LABS: ALBUMIN 1.1 g/dl (3.4-5.0); BLOOD UREA NITROGEN 86.1 mg/dL (7-18); CREATININE 4.7 mg/dL (0.55-1.3)
[2021-02-25 09:03] LABS: BILIRUBIN,TOTAL 0.5 mg/dL (0.2-1); CALCIUM 7.1 mg/dL (8.5-10.1)
[2021-02-25 09:04] LABS: TOT PROT 4.2 g/dl (6.4-8.2)
[2021-02-25] MEDS: VITAMIN B COMP W-C 1 EA TABLET (NEPHRO-VITE) PO SCH (09:53)
[2021-02-25] MEDS: SERTRALINE HCL 50 MG TABLET (FP) PO SCH (09:53)
[2021-02-25] MEDS: AMINO ACIDS/PROTEIN HYDROLYS 30 ML LIQUID.PKT PO SCH ×2 (09:53→17:50)
[2021-02-25] MEDS: ASPIRIN 81 MG CHEWABLE TABLETS PO SCH (09:53)
[2021-02-25] MEDS: LIDOCAINE PATCH REMOVAL MC SCH (09:53)
[2021-02-25] MEDS: SODIUM BICARBONATE 650 MG TABLET PO SCH (09:53)
[2021-02-25] MEDS: LACTOBACILLUS ACIDOPHILUS 1 TABLET PO SCH (09:53)
[2021-02-25] MEDS: amLODIPine BESYLATE 5 MG TABLET (FP) PO SCH (09:57)
[2021-02-25] MEDS: ALPRAZolam 0.25 MG TABLET PO PRN ×2 (10:00→22:32)
[2021-02-25] MEDS: traMADol HCL 50 MG TABLET PO PRN (10:00)
[2021-02-25] MEDS: WARFARIN NA 1 MG TABLET PO SCH (18:29)
[2021-02-25] MEDS: ATORVASTATIN CA 20 MG TABLET (FP) PO SCH (22:31)
[2021-02-25] MEDS: MELATONIN 5 MG TABLETS PO SCH (22:31)
[2021-02-25] MEDS: LIDOCAINE 5% TOPICAL PATCH TP SCH (22:32)
[2021-02-25] MEDS: TAMSULOSIN HCL 0.4 MG CAP PO SCH (22:32)
[2021-02-25] MEDS: CHOLECALCIFEROL (VIT D3) 1,000 UNIT (25 MCG) TABLET PO SCH (22:32)
[2021-02-25] MEDS: ACETAMINOPHEN 325 MG TABLET (FP) PO PRN (22:33)
[2021-02-26] MEDS ORDERED: DEXTROSE 5%-WATER - 50 ML IVPB ONE ×4 (02:52→13:57)
[2021-02-26] MEDS ORDERED: PIPERACILLIN/TAZOBACTAM 2.25 GM VIAL IVPB ONE ×3 (02:52→13:48)
[2021-02-26] MEDS: PIPERACILLIN/TAZOB 2.25 GM 2.25 GM in DEXTROSE 5%-WATER - 50 ML IVPB SCH ×2 (03:51→09:25)
[2021-02-26] MEDS: POLYETHYLENE GLYCOL (HEALTHYLAX) 3350 17 GM PACKET PO SCH ×3 (06:04→22:44)
[2021-02-26 08:12] LABS: BASO % 0.7 % (0-2.0); EOS % 3.4 % (0-4.5); HEMATOCRIT 23.8 % (35.4-49); HEMOGLOBIN 8.2 GM/dL (11.7-16.9); LYMPH % 4.3 % (8-40); MCH 30.4 pg (25.7-33.7); MCHC 34.5 g/dl (32.0-35.9); MEAN CELL VOLUME 88.2 fl (80-96); MEAN PLT VOLUME 8.6 fl (7.5-11.1); NEUT % 86.6 % (42.8-82.8); PLATELET COUNT 282 10^3/uL (134-434); RBC 2.69 M/mm3 (4.00-5.60); RDW 14.8 % (11.9-15.9); WHITE BLOOD COUNT 10.2 K/mm3 (4.0-10.0)
[2021-02-26 08:17] LABS: INR 1.72 (0.83-1.09); PROTHROMBIN TIME (PATIENT) 21.3 SEC (9.7-13.0)
[2021-02-26 08:21] LABS: CHLORIDE 109 mmol/L (98-107); SODIUM 140 mmol/L (136-145)
[2021-02-26 08:45] LABS: ALBUMIN 1.1 g/dl (3.4-5.0); ANION GAP 12 MMOL/L (8-16); BLOOD UREA NITROGEN 98.4 mg/dL (7-18); CO2 19 mmol/L (21-32)
[2021-02-26 08:46] LABS: GLUCOSE,RANDOM 83 mg/dL (74-106); MAGNESIUM 2.1 mg/dL (1.8-2.4)
[2021-02-26 08:48] LABS: CREATININE 5.2 mg/dL (0.55-1.3); SGOT/AST 40 U/L (15-37)
[2021-02-26 08:49] LABS: BILIRUBIN,TOTAL 0.4 mg/dL (0.2-1); SGPT/ALT 71 U/L (13-61); TOT PROT 4.2 g/dl (6.4-8.2)
[2021-02-26 08:50] LABS: ALK PHOS 80 U/L (45-117)
[2021-02-26 09:09] LABS: CALCIUM 6.8 mg/dL (8.5-10.1)
[2021-02-26] MEDS: LIDOCAINE PATCH REMOVAL MC SCH (09:18)
[2021-02-26] MEDS: VITAMIN B COMP W-C 1 EA TABLET (NEPHRO-VITE) PO SCH (09:22)
[2021-02-26] MEDS: SODIUM BICARBONATE 650 MG TABLET PO SCH (09:22)
[2021-02-26] MEDS: amLODIPine BESYLATE 5 MG TABLET (FP) PO SCH (09:23)
[2021-02-26] MEDS: LACTOBACILLUS ACIDOPHILUS 1 TABLET PO SCH (09:23)
[2021-02-26] MEDS: SERTRALINE HCL 50 MG TABLET (FP) PO SCH (09:24)
[2021-02-26] MEDS: ASPIRIN 81 MG CHEWABLE TABLETS PO SCH (09:24)
[2021-02-26] MEDS: AMINO ACIDS/PROTEIN HYDROLYS 30 ML LIQUID.PKT PO SCH ×2 (09:25→17:31)
[2021-02-26] MEDS ORDERED: cefTRIAXone SODIUM 1 GM VIAL ONE (13:57)
[2021-02-26] MEDS: CEFTRIAXONE 1 GM in DEXTROSE 5%-WATER - 50 ML IVPB SCH (14:19)
[2021-02-26] MEDS: LACTATED RINGERS SOLUTION 1,000 ML/1,000 ML INFUS.BAG IV SCH (15:20)
[2021-02-26] MEDS: WARFARIN NA 1 MG TABLET PO SCH (17:31)
[2021-02-26] MEDS: LIDOCAINE 5% TOPICAL PATCH TP SCH (22:42)
[2021-02-26] MEDS: TAMSULOSIN HCL 0.4 MG CAP PO SCH (22:43)
[2021-02-26] MEDS: ATORVASTATIN CA 20 MG TABLET (FP) PO SCH (22:43)
[2021-02-26] MEDS: MELATONIN 5 MG TABLETS PO SCH (22:43)
[2021-02-26] MEDS: CHOLECALCIFEROL (VIT D3) 1,000 UNIT (25 MCG) TABLET PO SCH (22:43)
[2021-02-27] MEDS: LACTATED RINGERS SOLUTION 1,000 ML/1,000 ML INFUS.BAG IV SCH ×2 (04:30→14:53)
[2021-02-27] MEDS: POLYETHYLENE GLYCOL (HEALTHYLAX) 3350 17 GM PACKET PO SCH ×4 (06:43→21:56)
[2021-02-27] MEDS: ALBUTEROL SO4 2.5/IPRATROPIUM 0.5 INH SOL 3 ML VIAL.NEB. NEB PRN (07:41)
[2021-02-27 07:43] LABS: BASO % 0.6 % (0-2.0); EOS % 3.5 % (0-4.5); HEMATOCRIT 24.6 % (35.4-49); HEMOGLOBIN 8.4 GM/dL (11.7-16.9); MCH 30.1 pg (25.7-33.7); MEAN CELL VOLUME 88.5 fl (80-96); MEAN PLT VOLUME 8.5 fl (7.5-11.1); MONO % 5.6 % (3.8-10.2); NEUT % 85.3 % (42.8-82.8); PLATELET COUNT 309 10^3/uL (134-434); RBC 2.78 M/mm3 (4.00-5.60); RDW 15.4 % (11.9-15.9); WHITE BLOOD COUNT 9.1 K/mm3 (4.0-10.0)
[2021-02-27 07:59] LABS: CHLORIDE 109 mmol/L (98-107); SODIUM 141 mmol/L (136-145)
[2021-02-27] MEDS: LIDOCAINE PATCH REMOVAL MC SCH (08:05)
[2021-02-27 08:09] LABS: ALBUMIN 1.2 g/dl (3.4-5.0); ANION GAP 10 MMOL/L (8-16); CO2 22 mmol/L (21-32)
[2021-02-27 08:10] LABS: BLOOD UREA NITROGEN 91.4 mg/dL (7-18); GLUCOSE,RANDOM 104 mg/dL (74-106)
[2021-02-27 08:12] LABS: SGOT/AST 30 U/L (15-37)
[2021-02-27 08:13] LABS: BILIRUBIN,TOTAL 0.3 mg/dL (0.2-1); CREATININE 5.1 mg/dL (0.55-1.3); TOT PROT 4.4 g/dl (6.4-8.2)
[2021-02-27 08:14] LABS: ALK PHOS 87 U/L (45-117); SGPT/ALT 59 U/L (13-61)
[2021-02-27 08:20] LABS: INR 1.56 (0.83-1.09); PROTHROMBIN TIME (PATIENT) 19.3 SEC (9.7-13.0)
[2021-02-27 08:24] LABS: CALCIUM 6.5 mg/dL (8.5-10.1)
[2021-02-27] MEDS ORDERED: cefTRIAXone SODIUM 1 GM VIAL ONE (09:17)
[2021-02-27] MEDS ORDERED: DEXTROSE 5%-WATER - 50 ML IVPB ONE (09:18)
[2021-02-27 10:02] LABS: PHOSPHOROUS 7.2 mg/dL (2.5-4.9)
[2021-02-27] MEDS: AMINO ACIDS/PROTEIN HYDROLYS 30 ML LIQUID.PKT PO SCH ×2 (10:23→16:56)
[2021-02-27] MEDS: ACETAMINOPHEN 325 MG TABLET (FP) PO PRN (10:24)
[2021-02-27] MEDS: SODIUM BICARBONATE 650 MG TABLET PO SCH (10:24)
[2021-02-27] MEDS: amLODIPine BESYLATE 5 MG TABLET (FP) PO SCH (10:24)
[2021-02-27] MEDS: VITAMIN B COMP W-C 1 EA TABLET (NEPHRO-VITE) PO SCH (10:24)
[2021-02-27] MEDS: SERTRALINE HCL 50 MG TABLET (FP) PO SCH (10:24)
[2021-02-27] MEDS: LACTOBACILLUS ACIDOPHILUS 1 TABLET PO SCH (10:24)
[2021-02-27] MEDS: ASPIRIN 81 MG CHEWABLE TABLETS PO SCH (10:24)
[2021-02-27] MEDS: CEFTRIAXONE 1 GM in DEXTROSE 5%-WATER - 50 ML IVPB SCH (10:25)
[2021-02-27] MEDS ORDERED: ZOLPIDEM TARTRATE 5 MG TABLET PO PRN (14:55)
[2021-02-27] MEDS ORDERED: HEPARIN NA (PORCINE) 5,000 UNITS/ML 1ML VIAL IVPUSH PRN ×2 (19:51)
[2021-02-27] MEDS: HEPARIN SOD,PORK IN 0.45% NACL 25,000 UNIT/500 ML INFUS.BAG IVPB SCH (21:20)
[2021-02-27] MEDS: LIDOCAINE 5% TOPICAL PATCH TP SCH (21:46)
[2021-02-27] MEDS: traMADol HCL 50 MG TABLET PO PRN (21:47)
[2021-02-27] MEDS: ATORVASTATIN CA 20 MG TABLET (FP) PO SCH (21:48)
[2021-02-27] MEDS: CHOLECALCIFEROL (VIT D3) 1,000 UNIT (25 MCG) TABLET PO SCH (21:49)
[2021-02-27] MEDS: MELATONIN 5 MG TABLETS PO SCH (21:50)
[2021-02-27] MEDS: TAMSULOSIN HCL 0.4 MG CAP PO SCH (21:56)
[2021-02-28] MEDS: POLYETHYLENE GLYCOL (HEALTHYLAX) 3350 17 GM PACKET PO SCH ×3 (07:03→21:43)
[2021-02-28] MEDS ORDERED: DEXTROSE 5%-WATER - 50 ML IVPB ONE (09:07)
[2021-02-28] MEDS ORDERED: cefTRIAXone SODIUM 1 GM VIAL ONE (09:07)
[2021-02-28] MEDS: LIDOCAINE PATCH REMOVAL MC SCH (10:00)
[2021-02-28] MEDS: SODIUM BICARBONATE 650 MG TABLET PO SCH (10:16)
[2021-02-28] MEDS: LACTOBACILLUS ACIDOPHILUS 1 TABLET PO SCH (10:16)
[2021-02-28] MEDS: ASPIRIN 81 MG CHEWABLE TABLETS PO SCH (10:16)
[2021-02-28] MEDS: SERTRALINE HCL 50 MG TABLET (FP) PO SCH (10:16)
[2021-02-28] MEDS: VITAMIN B COMP W-C 1 EA TABLET (NEPHRO-VITE) PO SCH (10:17)
[2021-02-28] MEDS: AMINO ACIDS/PROTEIN HYDROLYS 30 ML LIQUID.PKT PO SCH ×2 (10:17→17:48)
[2021-02-28] MEDS: amLODIPine BESYLATE 5 MG TABLET (FP) PO SCH (10:18)
[2021-02-28] MEDS: CEFTRIAXONE 1 GM in DEXTROSE 5%-WATER - 50 ML IVPB SCH (10:26)
[2021-02-28 10:41] LABS: BASO % 0.7 % (0-2.0); EOS % 1.9 % (0-4.5); HEMATOCRIT 22.7 % (35.4-49); HEMOGLOBIN 7.8 GM/dL (11.7-16.9); LYMPH % 4.5 % (8-40); MCH 30.7 pg (25.7-33.7); MCHC 34.3 g/dl (32.0-35.9); MEAN CELL VOLUME 89.4 fl (80-96); MEAN PLT VOLUME 8.4 fl (7.5-11.1); NEUT % 87.9 % (42.8-82.8); PLATELET COUNT 323 10^3/uL (134-434); RBC 2.54 M/mm3 (4.00-5.60); RDW 15.2 % (11.9-15.9); WHITE BLOOD COUNT 9.7 K/mm3 (4.0-10.0)
[2021-02-28 11:21] LABS: ALBUMIN 1.2 g/dl (3.4-5.0); ALK PHOS 89 U/L (45-117); ANION GAP 8 MMOL/L (8-16); BILIRUBIN,TOTAL 0.2 mg/dL (0.2-1); BLOOD UREA NITROGEN 83.1 mg/dL (7-18); CALCIUM 6.5 mg/dL (8.5-10.1); CHLORIDE 112 mmol/L (98-107); CO2 24 mmol/L (21-32); CREATININE 4.5 mg/dL (0.55-1.3); GLUCOSE,RANDOM 112 mg/dL (74-106); SGOT/AST 22 U/L (15-37); SGPT/ALT 44 U/L (13-61); SODIUM 144 mmol/L (136-145); TOT PROT 4.4 g/dl (6.4-8.2)
[2021-02-28] MEDS: traMADol HCL 50 MG TABLET PO PRN ×2 (13:40→21:41)
[2021-02-28] MEDS: LACTATED RINGERS SOLUTION 1,000 ML/1,000 ML INFUS.BAG IV SCH (13:56)
[2021-02-28] MEDS: MELATONIN 5 MG TABLETS PO SCH (21:41)
[2021-02-28] MEDS: ATORVASTATIN CA 20 MG TABLET (FP) PO SCH (21:41)
[2021-02-28] MEDS: CHOLECALCIFEROL (VIT D3) 1,000 UNIT (25 MCG) TABLET PO SCH (21:43)
[2021-02-28] MEDS: LIDOCAINE 5% TOPICAL PATCH TP SCH (21:43)
[2021-02-28] MEDS: TAMSULOSIN HCL 0.4 MG CAP PO SCH (21:49)
[2021-03-01] MEDS: ACETAMINOPHEN 325 MG TABLET (FP) PO PRN (01:36)
[2021-03-01] MEDS: traMADol HCL 50 MG TABLET PO PRN ×2 (05:37→23:30)
[2021-03-01] MEDS: HEPARIN SOD,PORK IN 0.45% NACL 25,000 UNIT/500 ML INFUS.BAG IVPB SCH (05:38)
[2021-03-01] MEDS: POLYETHYLENE GLYCOL (HEALTHYLAX) 3350 17 GM PACKET PO SCH ×3 (05:46→23:00)
[2021-03-01] MEDS ORDERED: cefTRIAXone SODIUM 1 GM VIAL ONE (09:04)
[2021-03-01] MEDS ORDERED: DEXTROSE 5%-WATER - 50 ML IVPB ONE (09:04)
[2021-03-01 09:26] LABS: BASO % 1.3 % (0-2.0); HEMATOCRIT 28.2 % (35.4-49); HEMOGLOBIN 9.5 GM/dL (11.7-16.9); LYMPH % 7.1 % (8-40); MCH 30.6 pg (25.7-33.7); MCHC 33.9 g/dl (32.0-35.9); MEAN CELL VOLUME 90.4 fl (80-96); MONO % 5.2 % (3.8-10.2); NEUT % 82.4 % (42.8-82.8); PLATELET COUNT 327 10^3/uL (134-434); RBC 3.12 M/mm3 (4.00-5.60); RDW 15.1 % (11.9-15.9); WHITE BLOOD COUNT 8.9 K/mm3 (4.0-10.0)
[2021-03-01 09:28] LABS: HEMATOCRIT 27.9 % (35.4-49); HEMOGLOBIN 9.5 GM/dL (11.7-16.9); MCH 30.8 pg (25.7-33.7); MCHC 34.2 g/dl (32.0-35.9); MEAN PLT VOLUME 8.7 fl (7.5-11.1); PLATELET COUNT 319 10^3/uL (134-434); RDW 15.1 % (11.9-15.9); WHITE BLOOD COUNT 9.2 K/mm3 (4.0-10.0)
[2021-03-01 09:32] LABS: INR 1.36 (0.83-1.09); PROTHROMBIN TIME (PATIENT) 16.8 SEC (9.7-13.0)
[2021-03-01 09:49] LABS: ALBUMIN 1.4 g/dl (3.4-5.0); BLOOD UREA NITROGEN 72.8 mg/dL (7-18)
[2021-03-01 09:52] LABS: CREATININE 4.1 mg/dL (0.55-1.3)
[2021-03-01 09:54] LABS: BILIRUBIN,TOTAL 0.5 mg/dL (0.2-1); TOT PROT 4.8 g/dl (6.4-8.2)
[2021-03-01 09:57] LABS: CALCIUM 6.9 mg/dL (8.5-10.1)
[2021-03-01] MEDS: SODIUM BICARBONATE 650 MG TABLET PO SCH (10:15)
[2021-03-01] MEDS: SERTRALINE HCL 50 MG TABLET (FP) PO SCH (10:15)
[2021-03-01] MEDS: ASPIRIN 81 MG CHEWABLE TABLETS PO SCH (10:15)
[2021-03-01] MEDS: VITAMIN B COMP W-C 1 EA TABLET (NEPHRO-VITE) PO SCH (10:15)
[2021-03-01] MEDS: amLODIPine BESYLATE 5 MG TABLET (FP) PO SCH (10:15)
[2021-03-01] MEDS: AMINO ACIDS/PROTEIN HYDROLYS 30 ML LIQUID.PKT PO SCH ×2 (10:15→17:42)
[2021-03-01] MEDS: LACTOBACILLUS ACIDOPHILUS 1 TABLET PO SCH (10:15)
[2021-03-01] MEDS: CEFTRIAXONE 1 GM in DEXTROSE 5%-WATER - 50 ML IVPB SCH (10:16)
[2021-03-01] MEDS: LIDOCAINE PATCH REMOVAL MC SCH (10:24)
[2021-03-01] MEDS ORDERED: WARFARIN NA 2 MG TABLET PO SCH (18:00)
[2021-03-01] MEDS: ATORVASTATIN CA 20 MG TABLET (FP) PO SCH (23:00)
[2021-03-01] MEDS: LIDOCAINE 5% TOPICAL PATCH TP SCH (23:00)
[2021-03-01] MEDS: CHOLECALCIFEROL (VIT D3) 1,000 UNIT (25 MCG) TABLET PO SCH (23:00)
[2021-03-01] MEDS: TAMSULOSIN HCL 0.4 MG CAP PO SCH (23:00)
[2021-03-01] MEDS: MELATONIN 5 MG TABLETS PO SCH (23:00)
[2021-03-02] MEDS: POLYETHYLENE GLYCOL (HEALTHYLAX) 3350 17 GM PACKET PO SCH ×3 (06:40→21:57)
[2021-03-02] MEDS: traMADol HCL 50 MG TABLET PO PRN ×2 (06:41→21:56)
[2021-03-02] MEDS ORDERED: PT OWN MED DRAWER 7, Y5N ONE (07:22)
[2021-03-02] MEDS ORDERED: cefTRIAXone SODIUM 1 GM VIAL ONE (07:54)
[2021-03-02] MEDS ORDERED: DEXTROSE 5%-WATER - 50 ML IVPB ONE (07:54)
[2021-03-02] MEDS: HEPARIN SOD,PORK IN 0.45% NACL 25,000 UNIT/500 ML INFUS.BAG IVPB SCH (08:33)
[2021-03-02] MEDS: LIDOCAINE PATCH REMOVAL MC SCH (08:37)
[2021-03-02] MEDS: AMINO ACIDS/PROTEIN HYDROLYS 30 ML LIQUID.PKT PO SCH ×2 (08:37→17:18)
[2021-03-02 09:32] LABS: PROTHROMBIN TIME (PATIENT) 35.8 SEC (9.7-13.0)
[2021-03-02 09:33] LABS: INR 2.88 (0.83-1.09)
[2021-03-02 09:41] LABS: BASO % 0.9 % (0-2.0); EOS % 4.8 % (0-4.5); HEMATOCRIT 27.1 % (35.4-49); HEMOGLOBIN 9.1 GM/dL (11.7-16.9); LYMPH % 5.8 % (8-40); MCH 30.4 pg (25.7-33.7); MCHC 33.6 g/dl (32.0-35.9); MEAN CELL VOLUME 90.5 fl (80-96); MEAN PLT VOLUME 8.7 fl (7.5-11.1); MONO % 4.8 % (3.8-10.2); NEUT % 83.7 % (42.8-82.8); PLATELET COUNT 323 10^3/uL (134-434); RDW 15.2 % (11.9-15.9)
[2021-03-02] MEDS: amLODIPine BESYLATE 5 MG TABLET (FP) PO SCH (10:14)
[2021-03-02] MEDS: SERTRALINE HCL 50 MG TABLET (FP) PO SCH (10:14)
[2021-03-02] MEDS: CEFTRIAXONE 1 GM in DEXTROSE 5%-WATER - 50 ML IVPB SCH (10:14)
[2021-03-02] MEDS: ASPIRIN 81 MG CHEWABLE TABLETS PO SCH (10:15)
[2021-03-02] MEDS: LACTOBACILLUS ACIDOPHILUS 1 TABLET PO SCH (10:15)
[2021-03-02] MEDS: SODIUM BICARBONATE 650 MG TABLET PO SCH (10:15)
[2021-03-02] MEDS: VITAMIN B COMP W-C 1 EA TABLET (NEPHRO-VITE) PO SCH (10:15)
[2021-03-02 11:28] LABS: BLOOD UREA NITROGEN 68.4 mg/dL (7-18); CALCIUM 7.1 mg/dL (8.5-10.1); CHLORIDE 110 mmol/L (98-107); CO2 20 mmol/L (21-32); CREATININE 3.6 mg/dL (0.55-1.3); GLUCOSE,RANDOM 87 mg/dL (74-106); SODIUM 140 mmol/L (136-145)
[2021-03-02 11:29] LABS: ALBUMIN 1.4 g/dl (3.4-5.0); ALK PHOS 94 U/L (45-117); BILIRUBIN,TOTAL 0.3 mg/dL (0.2-1); SGOT/AST 25 U/L (15-37); SGPT/ALT 37 U/L (13-61); TOT PROT 5.2 g/dl (6.4-8.2)
[2021-03-02] MEDS ORDERED: POTASSIUM CHLORIDE TABS 20 MEQ TABLET.ER (FP) PO ONE (12:18)
[2021-03-02] MEDS ORDERED: WARFARIN NA 1 MG TABLET PO SCH (18:00)
[2021-03-02] MEDS: MELATONIN 5 MG TABLETS PO SCH (21:48)
[2021-03-02] MEDS: CHOLECALCIFEROL (VIT D3) 1,000 UNIT (25 MCG) TABLET PO SCH (21:49)
[2021-03-02] MEDS: TAMSULOSIN HCL 0.4 MG CAP PO SCH (21:49)
[2021-03-02] MEDS: ATORVASTATIN CA 20 MG TABLET (FP) PO SCH (21:49)
[2021-03-02] MEDS: LIDOCAINE 5% TOPICAL PATCH TP SCH (21:57)
[2021-03-03 07:39] LABS: INR 1.63 (0.83-1.09); PROTHROMBIN TIME (PATIENT) 20.1 SEC (9.7-13.0)
[2021-03-03 07:55] LABS: BASO % 1.2 % (0-2.0); EOS % 6.2 % (0-4.5); HEMATOCRIT 27.4 % (35.4-49); HEMOGLOBIN 9.3 GM/dL (11.7-16.9); LYMPH % 7.7 % (8-40); MCH 31.2 pg (25.7-33.7); MCHC 33.9 g/dl (32.0-35.9); MEAN CELL VOLUME 92.2 fl (80-96); MONO % 4.7 % (3.8-10.2); NEUT % 80.2 % (42.8-82.8); PLATELET COUNT 310 10^3/uL (134-434); RBC 2.97 M/mm3 (4.00-5.60); RDW 15.1 % (11.9-15.9); WHITE BLOOD COUNT 9.8 K/mm3 (4.0-10.0)
[2021-03-03 08:04] LABS: ALBUMIN 1.5 g/dl (3.4-5.0); BLOOD UREA NITROGEN 68.8 mg/dL (7-18)
[2021-03-03 08:06] LABS: BILIRUBIN,TOTAL 0.2 mg/dL (0.2-1); CALCIUM 7.8 mg/dL (8.5-10.1); TOT PROT 4.9 g/dl (6.4-8.2)
[2021-03-03 08:07] LABS: CREATININE 3.5 mg/dL (0.55-1.3); MAGNESIUM 1.8 mg/dL (1.8-2.4)
[2021-03-03] MEDS ORDERED: PT OWN MED DRAWER 7, Y5N ONE (10:55)
[2021-03-03] MEDS ORDERED: cefTRIAXone SODIUM 1 GM VIAL ONE (10:55)
[2021-03-03] MEDS ORDERED: DEXTROSE 5%-WATER - 50 ML IVPB ONE (10:55)
[2021-03-03] MEDS: AMINO ACIDS/PROTEIN HYDROLYS 30 ML LIQUID.PKT PO SCH ×2 (10:58→16:45)
[2021-03-03] MEDS: ASPIRIN 81 MG CHEWABLE TABLETS PO SCH (10:58)
[2021-03-03] MEDS: SERTRALINE HCL 50 MG TABLET (FP) PO SCH (10:58)
[2021-03-03] MEDS: SODIUM BICARBONATE 650 MG TABLET PO SCH (10:58)
[2021-03-03] MEDS: CEFTRIAXONE 1 GM in DEXTROSE 5%-WATER - 50 ML IVPB SCH (10:58)
[2021-03-03] MEDS: LACTOBACILLUS ACIDOPHILUS 1 TABLET PO SCH (10:58)
[2021-03-03] MEDS: VITAMIN B COMP W-C 1 EA TABLET (NEPHRO-VITE) PO SCH (10:58)
[2021-03-03] MEDS: amLODIPine BESYLATE 5 MG TABLET (FP) PO SCH (10:58)
[2021-03-03] MEDS: LIDOCAINE PATCH REMOVAL MC SCH (10:59)
[2021-03-03] MEDS: POLYETHYLENE GLYCOL (HEALTHYLAX) 3350 17 GM PACKET PO SCH ×3 (11:00→21:39)
[2021-03-03] MEDS: WARFARIN NA 2 MG TABLET PO SCH (17:35)
[2021-03-03] MEDS: LIDOCAINE 5% TOPICAL PATCH TP SCH (19:35)
[2021-03-03] MEDS: traMADol HCL 50 MG TABLET PO PRN (19:38)
[2021-03-03] MEDS: CHOLECALCIFEROL (VIT D3) 1,000 UNIT (25 MCG) TABLET PO SCH (21:39)
[2021-03-03] MEDS: ATORVASTATIN CA 20 MG TABLET (FP) PO SCH (21:39)
[2021-03-03] MEDS: TAMSULOSIN HCL 0.4 MG CAP PO SCH (21:39)
[2021-03-03] MEDS: MELATONIN 5 MG TABLETS PO SCH (21:39)
[2021-03-04] MEDS: POLYETHYLENE GLYCOL (HEALTHYLAX) 3350 17 GM PACKET PO SCH ×3 (05:59→21:14)
[2021-03-04 08:26] LABS: BASO % 1.1 % (0-2.0); EOS % 4.4 % (0-4.5); HEMATOCRIT 26.9 % (35.4-49); HEMOGLOBIN 9.1 GM/dL (11.7-16.9); INR 1.95 (0.83-1.09); LYMPH % 6.8 % (8-40); MCH 30.8 pg (25.7-33.7); MEAN CELL VOLUME 90.9 fl (80-96); MEAN PLT VOLUME 8.4 fl (7.5-11.1); MONO % 5.4 % (3.8-10.2); NEUT % 82.3 % (42.8-82.8); PLATELET COUNT 287 10^3/uL (134-434); PROTHROMBIN TIME (PATIENT) 24.2 SEC (9.7-13.0); RBC 2.97 M/mm3 (4.00-5.60); RDW 15.3 % (11.9-15.9); WHITE BLOOD COUNT 9.7 K/mm3 (4.0-10.0)
[2021-03-04 08:29] LABS: ACTIVATED PTT 40.5 SECONDS (25.2-36.5)
[2021-03-04 08:31] LABS: ALBUMIN 1.5 g/dl (3.4-5.0); CALCIUM 7.5 mg/dL (8.5-10.1); MAGNESIUM 1.7 mg/dL (1.8-2.4)
[2021-03-04 08:34] LABS: CREATININE 3.4 mg/dL (0.55-1.3)
[2021-03-04 08:36] LABS: BILIRUBIN,TOTAL 0.3 mg/dL (0.2-1); TOT PROT 5.1 g/dl (6.4-8.2)
[2021-03-04] MEDS ORDERED: cefTRIAXone SODIUM 1 GM VIAL ONE (08:47)
[2021-03-04] MEDS ORDERED: DEXTROSE 5%-WATER - 50 ML IVPB ONE (08:47)
[2021-03-04] MEDS: LIDOCAINE PATCH REMOVAL MC SCH (08:59)
[2021-03-04] MEDS: AMINO ACIDS/PROTEIN HYDROLYS 30 ML LIQUID.PKT PO SCH ×2 (08:59→17:14)
[2021-03-04] MEDS: SERTRALINE HCL 50 MG TABLET (FP) PO SCH (09:34)
[2021-03-04] MEDS: SODIUM BICARBONATE 650 MG TABLET PO SCH (09:34)
[2021-03-04] MEDS: CEFTRIAXONE 1 GM in DEXTROSE 5%-WATER - 50 ML IVPB SCH (09:34)
[2021-03-04] MEDS: LACTOBACILLUS ACIDOPHILUS 1 TABLET PO SCH (09:34)
[2021-03-04] MEDS: amLODIPine BESYLATE 5 MG TABLET (FP) PO SCH (09:34)
[2021-03-04] MEDS: VITAMIN B COMP W-C 1 EA TABLET (NEPHRO-VITE) PO SCH (09:34)
[2021-03-04] MEDS: ASPIRIN 81 MG CHEWABLE TABLETS PO SCH (09:34)
[2021-03-04] MEDS: WARFARIN NA 2 MG TABLET PO SCH (17:14)
[2021-03-04] MEDS: LIDOCAINE 5% TOPICAL PATCH TP SCH (19:47)
[2021-03-04] MEDS: MELATONIN 5 MG TABLETS PO SCH (21:14)
[2021-03-04] MEDS: TAMSULOSIN HCL 0.4 MG CAP PO SCH (21:14)
[2021-03-04] MEDS: ATORVASTATIN CA 20 MG TABLET (FP) PO SCH (21:14)
[2021-03-04] MEDS: CHOLECALCIFEROL (VIT D3) 1,000 UNIT (25 MCG) TABLET PO SCH (21:14)
[2021-03-05] MEDS: POLYETHYLENE GLYCOL (HEALTHYLAX) 3350 17 GM PACKET PO SCH ×2 (06:17→14:30)
[2021-03-05 07:55] LABS: BLOOD UREA NITROGEN 61.6 mg/dL (7-18); CALCIUM 7.6 mg/dL (8.5-10.1)
[2021-03-05 07:59] LABS: CREATININE 3.2 mg/dL (0.55-1.3)
[2021-03-05 08:04] LABS: HEMATOCRIT 26.9 % (35.4-49); HEMOGLOBIN 9.1 GM/dL (11.7-16.9); MCH 31.1 pg (25.7-33.7); MCHC 33.7 g/dl (32.0-35.9); MEAN CELL VOLUME 92.2 fl (80-96); MEAN PLT VOLUME 8.9 fl (7.5-11.1); PLATELET COUNT 261 10^3/uL (134-434); RBC 2.92 M/mm3 (4.00-5.60); RDW 15.2 % (11.9-15.9); WHITE BLOOD COUNT 9.5 K/mm3 (4.0-10.0)
[2021-03-05] MEDS ORDERED: DEXTROSE 5%-WATER - 50 ML IVPB ONE (11:07)
[2021-03-05] MEDS ORDERED: cefTRIAXone SODIUM 1 GM VIAL ONE (11:07)
[2021-03-05] MEDS: CEFTRIAXONE 1 GM in DEXTROSE 5%-WATER - 50 ML IVPB SCH (11:20)
[2021-03-05] MEDS: LACTOBACILLUS ACIDOPHILUS 1 TABLET PO SCH (11:21)
[2021-03-05] MEDS: SERTRALINE HCL 50 MG TABLET (FP) PO SCH (11:21)
[2021-03-05] MEDS: VITAMIN B COMP W-C 1 EA TABLET (NEPHRO-VITE) PO SCH (11:21)
[2021-03-05] MEDS: SODIUM BICARBONATE 650 MG TABLET PO SCH (11:22)
[2021-03-05] MEDS: amLODIPine BESYLATE 5 MG TABLET (FP) PO SCH (11:22)
[2021-03-05] MEDS: ASPIRIN 81 MG CHEWABLE TABLETS PO SCH (11:22)
[2021-03-05] MEDS: LIDOCAINE PATCH REMOVAL MC SCH (11:23)
[2021-03-05] MEDS: AMINO ACIDS/PROTEIN HYDROLYS 30 ML LIQUID.PKT PO SCH ×2 (11:23→18:54)
[2021-03-05 14:42] VITALS: TEMP 98.5
[2021-03-05] MEDS: WARFARIN NA 2 MG TABLET PO SCH (18:53)
[2021-03-05 19:32] VITALS: BP 172/70; PULSE 88
== END 2021-03-05 20:31 | DRG 177 ==
LOC: JER 12:36 → JERBED 15:32 → J4W 20:56
PROVIDERS: ADMIT Specialist; ATTEND Specialist
PROC: 0W9B30Z Drainage of Left Pleural Cavity with Drainage Device, Percutaneous Approach (ICD-10-PCS; principal; 2021-02-18)
PROC: 3E0L3GC Introduction of Other Therapeutic Substance into Pleural Cavity, Percutaneous Approach (ICD-10-PCS; 2021-02-18)
PROC: 30233N1 Transfusion of Nonautologous Red Blood Cells into Peripheral Vein, Percutaneous Approach (ICD-10-PCS; 2021-02-25)
DX: J86.9 Pyothorax without fistula (principal); J18.9 Pneumonia, unspecified organism; N17.0 Acute kidney failure with tubular necrosis; N18.4 Chronic kidney disease, stage 4 (severe); J90 Pleural effusion, not elsewhere classified; I24.8 Other forms of acute ischemic heart disease; I47.2 Ventricular tachycardia; R44.3 Hallucinations, unspecified; T45.511A Poisoning by anticoagulants, accidental (unintentional), initial encounter; Y92.89 Other specified places as the place of occurrence of the external cause; K80.20 Calculus of gallbladder without cholecystitis without obstruction; D63.1 Anemia in chronic kidney disease; D72.829 Elevated white blood cell count, unspecified; I48.0 Paroxysmal atrial fibrillation; D64.9 Anemia, unspecified; E83.51 Hypocalcemia; E78.5 Hyperlipidemia, unspecified; K59.00 Constipation, unspecified; I25.10 Atherosclerotic heart disease of native coronary artery without angina pectoris; F32.9 Major depressive disorder, single episode, unspecified; Z98.61 Coronary angioplasty status; N40.0 Benign prostatic hyperplasia without lower urinary tract symptoms
CPT/HCPCS: 32557; 36415; 36430; 70450-TC; 71045-TC-FY; 71046-TC-FY; 71250-TC; 74176-TC; 76705-TC; 76775-TC; 80048; 80053; 81003; 82272; 82550; 82570; 82962; 83540; 83550; 83735; 83880; 84100; 84156; 84300; 84484; 84540; 85025; 85027; 85597; 85610; 85613; 85730; 85732; 86140; 86146; 86147; 86704; 86713; 86803; 86850; 86900; 86901; 86922; 87040; 87070; 87075; 87086; 87102; 87116; 87205; 87206; 87210; 87340; 87899; 93005; 93010; 93306-TC; 93971; 94640; 97116-GP; 97161-GP; 99285-25; C9803; J2997; P9058; Q9967; U0003; U0005

== ENCOUNTER 2021-03-06 23:57 | Inpatient (IN) | payer OTHER, MEDICARE ==
[2021-03-07 03:08] LABS: VENOUS BASE EXCESS -3.7 mmol/L (-2-2); VENOUS O2 SATURATION 46.5 % (70-80); VENOUS PCO2 42.6 mmHg (38-52); VENOUS PH 7.331 (7.310-7.410)
[2021-03-07 03:09] LABS: HEMATOCRIT 27.4 % (35.4-49); MCH 30.3 pg (25.7-33.7); MEAN CELL VOLUME 91.9 fl (80-96); MEAN PLT VOLUME 8.6 fl (7.5-11.1); PLATELET COUNT 286 10^3/uL (134-434); RBC 2.98 M/mm3 (4.00-5.60); RDW 15.9 % (11.9-15.9); WHITE BLOOD COUNT 12.7 K/mm3 (4.0-10.0)
[2021-03-07 03:30] LABS: CHLORIDE 112 mmol/L (98-107); SODIUM 144 mmol/L (136-145)
[2021-03-07 03:33] LABS: CALCIUM 7.5 mg/dL (8.5-10.1)
[2021-03-07 03:34] LABS: ANION GAP 8 MMOL/L (8-16); BLOOD UREA NITROGEN 55.2 mg/dL (7-18); CO2 24 mmol/L (21-32); GLUCOSE,RANDOM 119 mg/dL (74-106)
[2021-03-07 03:37] LABS: CREATININE 3.3 mg/dL (0.55-1.3); SGOT/AST 43 U/L (15-37); SGPT/ALT 44 U/L (13-61)
[2021-03-07 03:38] LABS: BILIRUBIN,TOTAL 0.5 mg/dL (0.2-1); LACTIC ACID 2.1 mmol/L (0.4-2.0); TOT PROT 5.7 g/dl (6.4-8.2)
[2021-03-07 03:39] LABS: ALK PHOS 116 U/L (45-117)
[2021-03-07 03:46] LABS: ALBUMIN 1.9 g/dl (3.4-5.0)
[2021-03-07 04:06] LABS: N-TERMINAL BNP 109062.8 pg/ml (5-450)
[2021-03-07] MEDS ORDERED: ASPIRIN 81 MG CHEWABLE TABLETS PO ONE (04:13)
[2021-03-07 04:23] LABS: ANISOCYTOSIS 1+; MACROCYTOSIS 1+; PLATELET ESTIMATE NORMAL
[2021-03-07] MEDS ORDERED: HEPARIN NA (PORCINE) 5,000 UNITS/ML 1ML VIAL IVPUSH PRN ×2 (04:26)
[2021-03-07] MEDS ORDERED: ASPIRIN 81 MG CHEWABLE TABLETS ONE (04:26)
[2021-03-07] MEDS ORDERED: HEPARIN - 25,000 UNIT in SODIUM CHLORIDE 495 ML IV SCH (04:30)
[2021-03-07] MEDS ORDERED: HEPARIN INFUSION - 25,000 UNITS/500 ML INFUS.BAG IVPB ONE (04:51)
[2021-03-07 05:59] LABS: INR 3.92 (0.83-1.09); PROTHROMBIN TIME (PATIENT) 48.9 SEC (9.7-13.0)
[2021-03-07 06:02] LABS: ACTIVATED PTT 49.1 SECONDS (25.2-36.5)
[2021-03-07] MEDS ORDERED: FUROSEMIDE 40 MG/4 ML INJECTABLE VIAL IVPUSH ONE (07:15)
[2021-03-07] MEDS ORDERED: FUROSEMIDE 40 MG/4 ML INJECTABLE VIAL ONE ×3 (08:07→11:21)
[2021-03-07] MEDS ORDERED: FUROSEMIDE 40 MG TABLET (FP) ONE (09:12)
[2021-03-07] MEDS ORDERED: ACETAMINOPHEN 325 MG TABLET (FP) PO PRN (11:16)
[2021-03-07] MEDS ORDERED: guaiFENesin/D-M SUGAR-FREE/ACLHOL-FREE 118 ML BOTTLE PO PRN (11:16)
[2021-03-07] MEDS ORDERED: POLYETHYLENE GLYCOL (HEALTHYLAX) 3350 17 GM PACKET PO PRN (11:16)
[2021-03-07] MEDS ORDERED: ASPIRIN COATED 81 MG TABLET.EC ONE (11:20)
[2021-03-07] MEDS: LIDOCAINE 5% TOPICAL PATCH TP SCH (14:04)
[2021-03-07] MEDS ORDERED: WARFARIN NA 2 MG TABLET PO SCH (18:00)
[2021-03-07] MEDS: ALBUTEROL SO4 2.5/IPRATROPIUM 0.5 INH SOL 3 ML VIAL.NEB. NEB PRN (20:28)
[2021-03-07] MEDS: traMADol HCL 50 MG TABLET PO PRN (22:04)
[2021-03-07] MEDS: MELATONIN 5 MG TABLETS PO PRN (22:04)
[2021-03-07] MEDS: ATORVASTATIN CA 20 MG TABLET (FP) PO SCH (22:04)
[2021-03-07] MEDS: TAMSULOSIN HCL 0.4 MG CAP PO SCH (22:05)
[2021-03-07] MEDS: LIDOCAINE PATCH REMOVAL MC SCH (22:05)
[2021-03-08] MEDS: NYSTATIN/TRIAMCINOLONE TOPICAL OINTMENT 15 GM TUBE TP SCH (01:37)
[2021-03-08 08:31] LABS: BASO % 0.6 % (0-2.0); EOS % 3.7 % (0-4.5); HEMATOCRIT 22.4 % (35.4-49); HEMOGLOBIN 7.4 GM/dL (11.7-16.9); MCH 30.3 pg (25.7-33.7); MCHC 32.9 g/dl (32.0-35.9); MEAN CELL VOLUME 92.2 fl (80-96); MEAN PLT VOLUME 8.8 fl (7.5-11.1); NEUT % 81.7 % (42.8-82.8); PLATELET COUNT 264 10^3/uL (134-434); RBC 2.42 M/mm3 (4.00-5.60); RDW 15.7 % (11.9-15.9); WHITE BLOOD COUNT 11.4 K/mm3 (4.0-10.0)
[2021-03-08 08:53] LABS: CHLORIDE 112 mmol/L (98-107); SODIUM 143 mmol/L (136-145)
[2021-03-08 09:00] LABS: ANION GAP 9 MMOL/L (8-16); CO2 23 mmol/L (21-32); GLUCOSE,RANDOM 100 mg/dL (74-106); MAGNESIUM 1.5 mg/dL (1.8-2.4)
[2021-03-08 09:02] LABS: SGPT/ALT 46 U/L (13-61)
[2021-03-08 09:03] LABS: CREATININE 3.3 mg/dL (0.55-1.3); SGOT/AST 42 U/L (15-37)
[2021-03-08 09:04] LABS: BILIRUBIN,TOTAL 0.2 mg/dL (0.2-1); TOT PROT 4.7 g/dl (6.4-8.2)
[2021-03-08 09:05] LABS: ALK PHOS 88 U/L (45-117)
[2021-03-08 09:21] LABS: ALBUMIN 1.5 g/dl (3.4-5.0); CALCIUM 6.8 mg/dL (8.5-10.1)
[2021-03-08 09:43] LABS: PROTHROMBIN TIME (PATIENT) 67.9 SEC (9.7-13.0)
[2021-03-08] MEDS ORDERED: FUROSEMIDE 40 MG TABLET (FP) PO SCH (10:00)
[2021-03-08] MEDS ORDERED: ASPIRIN 81 MG CHEWABLE TABLETS PO SCH (10:00)
[2021-03-08] MEDS ORDERED: metoPROLOL SUCCINATE 25 MG TAB.SR.24H (FP) PO SCH (10:00)
[2021-03-08] MEDS: FUROSEMIDE 100 MG/10 ML INJECTABLE VIAL IVPB SCH (10:15)
[2021-03-08] MEDS: LACTOBACILLUS ACIDOPHILUS 1 TABLET PO SCH (10:16)
[2021-03-08] MEDS: ASPIRIN 81 MG CHEWABLE TABLETS PO SCH (10:16)
[2021-03-08] MEDS: SODIUM BICARBONATE 650 MG TABLET PO SCH (10:16)
[2021-03-08] MEDS: SERTRALINE HCL 25 MG TABLET (FP) PO SCH (10:18)
[2021-03-08 15:02] LABS: INR 5.52 (0.83-1.09)
[2021-03-08] MEDS: traMADol HCL 50 MG TABLET PO PRN (22:07)
[2021-03-08] MEDS: metoPROLOL SUCCINATE 25 MG TAB.SR.24H (FP) PO SCH (22:08)
[2021-03-08] MEDS: MELATONIN 5 MG TABLETS PO PRN (22:09)
[2021-03-08] MEDS: ATORVASTATIN CA 20 MG TABLET (FP) PO SCH (22:09)
[2021-03-08] MEDS: TAMSULOSIN HCL 0.4 MG CAP PO SCH (22:09)
[2021-03-08] MEDS ORDERED: PT OWN MED DRAWER 7, Y5N ONE (22:47)
[2021-03-09] MEDS: NYSTATIN/TRIAMCINOLONE TOPICAL OINTMENT 15 GM TUBE TP SCH ×3 (00:19→10:50)
[2021-03-09] MEDS: LIDOCAINE PATCH REMOVAL MC SCH (00:19)
[2021-03-09 07:26] LABS: PROTHROMBIN TIME (PATIENT) 57.7 SEC (9.7-13.0)
[2021-03-09 07:34] LABS: HEMATOCRIT 24.1 % (35.4-49); HEMOGLOBIN 8.3 GM/dL (11.7-16.9); MCH 31.1 pg (25.7-33.7); MCHC 34.3 g/dl (32.0-35.9); MEAN CELL VOLUME 90.6 fl (80-96); MEAN PLT VOLUME 9.1 fl (7.5-11.1); PLATELET COUNT 240 10^3/uL (134-434); RBC 2.66 M/mm3 (4.00-5.60); RDW 15.9 % (11.9-15.9); WHITE BLOOD COUNT 10.7 K/mm3 (4.0-10.0)
[2021-03-09] MEDS: LIDOCAINE 5% TOPICAL PATCH TP SCH ×2 (07:45→10:45)
[2021-03-09] MEDS: ALBUTEROL SO4 2.5/IPRATROPIUM 0.5 INH SOL 3 ML VIAL.NEB. NEB PRN (07:45)
[2021-03-09 08:08] LABS: INR 4.69 (0.83-1.09)
[2021-03-09] MEDS ORDERED: PT OWN MED DRAWER 7, Y5N ONE ×2 (09:44→21:35)
[2021-03-09] MEDS: metoPROLOL SUCCINATE 25 MG TAB.SR.24H (FP) PO SCH ×2 (10:43→21:51)
[2021-03-09] MEDS: ASPIRIN 81 MG CHEWABLE TABLETS PO SCH (10:43)
[2021-03-09] MEDS: LACTOBACILLUS ACIDOPHILUS 1 TABLET PO SCH (10:43)
[2021-03-09] MEDS: SERTRALINE HCL 25 MG TABLET (FP) PO SCH (10:43)
[2021-03-09] MEDS: FUROSEMIDE 100 MG/10 ML INJECTABLE VIAL IVPB SCH ×2 (10:43→15:27)
[2021-03-09] MEDS: SODIUM BICARBONATE 650 MG TABLET PO SCH (10:44)
[2021-03-09] MEDS ORDERED: FUROSEMIDE 100 MG/10 ML INJECTABLE VIAL IVPB SCH (13:00)
[2021-03-09 15:25] LABS: CHLORIDE 111 mmol/L (98-107); SODIUM 145 mmol/L (136-145)
[2021-03-09 15:27] LABS: ANION GAP 10 MMOL/L (8-16); BLOOD UREA NITROGEN 86.4 mg/dL (7-18); CO2 24 mmol/L (21-32)
[2021-03-09 15:30] LABS: CALCIUM 6.9 mg/dL (8.5-10.1); CREATININE 3.4 mg/dL (0.55-1.3); GLUCOSE,RANDOM 90 mg/dL (74-106)
[2021-03-09] MEDS: TAMSULOSIN HCL 0.4 MG CAP PO SCH (21:49)
[2021-03-09] MEDS: MELATONIN 5 MG TABLETS PO PRN (21:50)
[2021-03-09] MEDS: ATORVASTATIN CA 20 MG TABLET (FP) PO SCH (21:50)
[2021-03-09] MEDS: traMADol HCL 50 MG TABLET PO PRN (21:50)
[2021-03-10] MEDS: LIDOCAINE PATCH REMOVAL MC SCH ×2 (06:44→21:15)
[2021-03-10] MEDS: NYSTATIN/TRIAMCINOLONE TOPICAL OINTMENT 15 GM TUBE TP SCH ×3 (06:44→21:15)
[2021-03-10] MEDS: FUROSEMIDE 100 MG/10 ML INJECTABLE VIAL IVPB SCH ×2 (06:46→14:21)
[2021-03-10 07:23] LABS: EOS % 5.2 % (0-4.5); HEMOGLOBIN 7.2 GM/dL (11.7-16.9); MCH 30.8 pg (25.7-33.7); MCHC 34.2 g/dl (32.0-35.9); MEAN CELL VOLUME 90.2 fl (80-96); MEAN PLT VOLUME 8.8 fl (7.5-11.1); MONO % 5.7 % (3.8-10.2); NEUT % 80.1 % (42.8-82.8); PLATELET COUNT 221 10^3/uL (134-434); RBC 2.33 M/mm3 (4.00-5.60); RDW 15.6 % (11.9-15.9); WHITE BLOOD COUNT 8.6 K/mm3 (4.0-10.0)
[2021-03-10 08:13] LABS: ALBUMIN 1.6 g/dl (3.4-5.0); CALCIUM 7.1 mg/dL (8.5-10.1)
[2021-03-10 08:16] LABS: CREATININE 3.2 mg/dL (0.55-1.3)
[2021-03-10 08:18] LABS: BILIRUBIN,TOTAL 0.4 mg/dL (0.2-1); TOT PROT 4.6 g/dl (6.4-8.2)
[2021-03-10 08:30] LABS: INR 3.98 (0.83-1.09); PROTHROMBIN TIME (PATIENT) 49.6 SEC (9.7-13.0)
[2021-03-10 08:45] LABS: ACTIVATED PTT 48.4 SECONDS (25.2-36.5)
[2021-03-10] MEDS: SODIUM BICARBONATE 650 MG TABLET PO SCH (09:54)
[2021-03-10] MEDS: LIDOCAINE 5% TOPICAL PATCH TP SCH (09:54)
[2021-03-10] MEDS: ASPIRIN 81 MG CHEWABLE TABLETS PO SCH (09:54)
[2021-03-10] MEDS: metoPROLOL SUCCINATE 25 MG TAB.SR.24H (FP) PO SCH ×2 (09:54→21:13)
[2021-03-10] MEDS: LACTOBACILLUS ACIDOPHILUS 1 TABLET PO SCH (09:54)
[2021-03-10] MEDS: SERTRALINE HCL 25 MG TABLET (FP) PO SCH (09:54)
[2021-03-10 13:27] VITALS: BMI 22.6
[2021-03-10] MEDS ORDERED: PT OWN MED DRAWER 7, Y5N ONE (14:19)
[2021-03-10] MEDS: PANTOPRAZOLE 40 MG TABLET PO SCH (16:43)
[2021-03-10] MEDS: ATORVASTATIN CA 20 MG TABLET (FP) PO SCH (21:13)
[2021-03-10] MEDS: TAMSULOSIN HCL 0.4 MG CAP PO SCH (21:13)
[2021-03-11] MEDS: FUROSEMIDE 100 MG/10 ML INJECTABLE VIAL IVPB SCH ×2 (05:50→13:56)
[2021-03-11 07:04] LABS: BASO % 1.1 % (0-2.0); EOS % 6.2 % (0-4.5); HEMATOCRIT 20.1 % (35.4-49); LYMPH % 9.6 % (8-40); MCH 30.4 pg (25.7-33.7); MCHC 34.1 g/dl (32.0-35.9); MEAN CELL VOLUME 89.1 fl (80-96); MEAN PLT VOLUME 9.2 fl (7.5-11.1); MONO % 5.9 % (3.8-10.2); NEUT % 77.2 % (42.8-82.8); PLATELET COUNT 225 10^3/uL (134-434); RBC 2.25 M/mm3 (4.00-5.60); RDW 16.3 % (11.9-15.9)
[2021-03-11 07:09] LABS: INR 2.94 (0.83-1.09)
[2021-03-11 07:16] LABS: CHLORIDE 110 mmol/L (98-107); SODIUM 145 mmol/L (136-145)
[2021-03-11 07:17] LABS: HEMOGLOBIN 6.8 GM/dL (11.7-16.9)
[2021-03-11 07:20] LABS: ALBUMIN 1.4 g/dl (3.4-5.0); ANION GAP 7 MMOL/L (8-16); BLOOD UREA NITROGEN 100.9 mg/dL (7-18); CO2 28 mmol/L (21-32); GLUCOSE,RANDOM 92 mg/dL (74-106)
[2021-03-11 07:23] LABS: CREATININE 3.2 mg/dL (0.55-1.3); SGOT/AST 56 U/L (15-37); SGPT/ALT 71 U/L (13-61)
[2021-03-11 07:24] LABS: BILIRUBIN,TOTAL 0.6 mg/dL (0.2-1)
[2021-03-11 07:25] LABS: TOT PROT 4.4 g/dl (6.4-8.2)
[2021-03-11 07:26] LABS: ALK PHOS 82 U/L (45-117)
[2021-03-11 08:59] LABS: CALCIUM 6.9 mg/dL (8.5-10.1)
[2021-03-11] MEDS: PANTOPRAZOLE 40 MG TABLET PO SCH (10:16)
[2021-03-11] MEDS: ASPIRIN 81 MG CHEWABLE TABLETS PO SCH (10:16)
[2021-03-11] MEDS: SERTRALINE HCL 25 MG TABLET (FP) PO SCH (10:16)
[2021-03-11] MEDS: SODIUM BICARBONATE 650 MG TABLET PO SCH (10:17)
[2021-03-11] MEDS: NYSTATIN/TRIAMCINOLONE TOPICAL OINTMENT 15 GM TUBE TP SCH ×2 (10:17→21:41)
[2021-03-11] MEDS: LACTOBACILLUS ACIDOPHILUS 1 TABLET PO SCH (10:17)
[2021-03-11] MEDS: metoPROLOL SUCCINATE 25 MG TAB.SR.24H (FP) PO SCH ×2 (10:17→21:24)
[2021-03-11] MEDS: LIDOCAINE 5% TOPICAL PATCH TP SCH (10:17)
[2021-03-11 14:31] LABS: PLATELET ESTIMATE NORMAL
[2021-03-11] MEDS: ALBUTEROL SO4 2.5/IPRATROPIUM 0.5 INH SOL 3 ML VIAL.NEB. NEB PRN (20:15)
[2021-03-11] MEDS: MELATONIN 5 MG TABLETS PO PRN (21:24)
[2021-03-11] MEDS: LIDOCAINE PATCH REMOVAL MC SCH (21:24)
[2021-03-11] MEDS: TAMSULOSIN HCL 0.4 MG CAP PO SCH (21:24)
[2021-03-11] MEDS: ATORVASTATIN CA 20 MG TABLET (FP) PO SCH (21:24)
[2021-03-11] MEDS: ALPRAZolam 0.25 MG TABLET PO PRN (21:24)
[2021-03-12] MEDS: FUROSEMIDE 100 MG/10 ML INJECTABLE VIAL IVPB SCH ×2 (06:25→14:48)
[2021-03-12] MEDS: SODIUM BICARBONATE 650 MG TABLET PO SCH (11:12)
[2021-03-12] MEDS: LACTOBACILLUS ACIDOPHILUS 1 TABLET PO SCH (11:12)
[2021-03-12] MEDS: PANTOPRAZOLE 40 MG TABLET PO SCH (11:13)
[2021-03-12] MEDS: ASPIRIN 81 MG CHEWABLE TABLETS PO SCH (11:13)
[2021-03-12] MEDS: SERTRALINE HCL 25 MG TABLET (FP) PO SCH (11:14)
[2021-03-12] MEDS: metoPROLOL SUCCINATE 25 MG TAB.SR.24H (FP) PO SCH ×2 (11:15→22:05)
[2021-03-12] MEDS: LIDOCAINE 5% TOPICAL PATCH TP SCH (11:17)
[2021-03-12] MEDS: NYSTATIN/TRIAMCINOLONE TOPICAL OINTMENT 15 GM TUBE TP SCH ×2 (11:19→22:05)
[2021-03-12 21:06] LABS: INR 2.56 (0.83-1.09)
[2021-03-12] MEDS: TAMSULOSIN HCL 0.4 MG CAP PO SCH (22:05)
[2021-03-12] MEDS: ATORVASTATIN CA 20 MG TABLET (FP) PO SCH (22:05)
[2021-03-12] MEDS: LIDOCAINE PATCH REMOVAL MC SCH (22:06)
[2021-03-13] MEDS: FUROSEMIDE 100 MG/10 ML INJECTABLE VIAL IVPB SCH ×2 (05:45→13:29)
[2021-03-13 07:36] LABS: BASO % 1.3 % (0-2.0); EOS % 6.5 % (0-4.5); HEMOGLOBIN 7.9 GM/dL (11.7-16.9); LYMPH % 10.6 % (8-40); MCH 29.6 pg (25.7-33.7); MCHC 34.6 g/dl (32.0-35.9); MEAN CELL VOLUME 85.6 fl (80-96); MEAN PLT VOLUME 8.9 fl (7.5-11.1); MONO % 6.4 % (3.8-10.2); NEUT % 75.2 % (42.8-82.8); PLATELET COUNT 201 10^3/uL (134-434); RBC 2.69 M/mm3 (4.00-5.60); RDW 16.8 % (11.9-15.9); WHITE BLOOD COUNT 8.6 K/mm3 (4.0-10.0)
[2021-03-13 07:43] LABS: INR 1.98 (0.83-1.09); PROTHROMBIN TIME (PATIENT) 22.3 SEC (9.7-13.0)
[2021-03-13 08:02] LABS: CHLORIDE 109 mmol/L (98-107); SODIUM 145 mmol/L (136-145)
[2021-03-13 08:07] LABS: ALBUMIN 1.5 g/dl (3.4-5.0); GLUCOSE,RANDOM 96 mg/dL (74-106)
[2021-03-13 08:08] LABS: ANION GAP 9 MMOL/L (8-16); BLOOD UREA NITROGEN 99.9 mg/dL (7-18); CO2 27 mmol/L (21-32)
[2021-03-13 08:10] LABS: SGPT/ALT 70 U/L (13-61)
[2021-03-13 08:11] LABS: CREATININE 3.3 mg/dL (0.55-1.3); SGOT/AST 50 U/L (15-37)
[2021-03-13 08:12] LABS: BILIRUBIN,TOTAL 0.6 mg/dL (0.2-1); TOT PROT 4.5 g/dl (6.4-8.2)
[2021-03-13 08:13] LABS: ALK PHOS 86 U/L (45-117)
[2021-03-13 08:15] LABS: CALCIUM 6.8 mg/dL (8.5-10.1)
[2021-03-13 08:32] LABS: ACTIVATED PTT 36.9 SECONDS (25.2-36.5)
[2021-03-13] MEDS: SERTRALINE HCL 25 MG TABLET (FP) PO SCH (10:49)
[2021-03-13] MEDS: ASPIRIN 81 MG CHEWABLE TABLETS PO SCH (10:49)
[2021-03-13] MEDS: SODIUM BICARBONATE 650 MG TABLET PO SCH (10:49)
[2021-03-13] MEDS: PANTOPRAZOLE 40 MG TABLET PO SCH (10:49)
[2021-03-13] MEDS: LACTOBACILLUS ACIDOPHILUS 1 TABLET PO SCH (10:49)
[2021-03-13] MEDS: metoPROLOL SUCCINATE 25 MG TAB.SR.24H (FP) PO SCH ×2 (10:50→21:22)
[2021-03-13] MEDS: LIDOCAINE 5% TOPICAL PATCH TP SCH (10:50)
[2021-03-13] MEDS: NYSTATIN/TRIAMCINOLONE TOPICAL OINTMENT 15 GM TUBE TP SCH ×2 (10:54→21:21)
[2021-03-13] MEDS: ALPRAZolam 0.25 MG TABLET PO PRN ×2 (16:15→21:25)
[2021-03-13] MEDS: TAMSULOSIN HCL 0.4 MG CAP PO SCH (21:21)
[2021-03-13] MEDS: ATORVASTATIN CA 20 MG TABLET (FP) PO SCH (21:21)
[2021-03-13] MEDS: traMADol HCL 50 MG TABLET PO PRN (21:26)
[2021-03-13] MEDS: LIDOCAINE PATCH REMOVAL MC SCH (21:30)
[2021-03-14] MEDS: FUROSEMIDE 100 MG/10 ML INJECTABLE VIAL IVPB SCH ×2 (09:24→14:54)
[2021-03-14] MEDS: PANTOPRAZOLE 40 MG TABLET PO SCH (10:04)
[2021-03-14] MEDS: SERTRALINE HCL 25 MG TABLET (FP) PO SCH (10:04)
[2021-03-14] MEDS: SODIUM BICARBONATE 650 MG TABLET PO SCH (10:04)
[2021-03-14] MEDS: LACTOBACILLUS ACIDOPHILUS 1 TABLET PO SCH (10:04)
[2021-03-14] MEDS: ASPIRIN 81 MG CHEWABLE TABLETS PO SCH (10:04)
[2021-03-14] MEDS: metoPROLOL SUCCINATE 25 MG TAB.SR.24H (FP) PO SCH ×2 (10:05→21:46)
[2021-03-14] MEDS: LIDOCAINE 5% TOPICAL PATCH TP SCH (10:06)
[2021-03-14] MEDS: NYSTATIN/TRIAMCINOLONE TOPICAL OINTMENT 15 GM TUBE TP SCH ×2 (10:11→21:46)
[2021-03-14 10:37] LABS: BASO % 1.4 % (0-2.0); EOS % 8.5 % (0-4.5); HEMATOCRIT 25.4 % (35.4-49); HEMOGLOBIN 8.7 GM/dL (11.7-16.9); LYMPH % 9.5 % (8-40); MCHC 34.2 g/dl (32.0-35.9); MEAN CELL VOLUME 87.7 fl (80-96); MEAN PLT VOLUME 9.2 fl (7.5-11.1); MONO % 6.3 % (3.8-10.2); NEUT % 74.3 % (42.8-82.8); PLATELET COUNT 224 10^3/uL (134-434); RBC 2.89 M/mm3 (4.00-5.60); RDW 16.1 % (11.9-15.9); WHITE BLOOD COUNT 8.7 K/mm3 (4.0-10.0)
[2021-03-14 10:45] LABS: INR 1.54 (0.83-1.09); PROTHROMBIN TIME (PATIENT) 17.3 SEC (9.7-13.0)
[2021-03-14 10:49] LABS: CHLORIDE 106 mmol/L (98-107); SODIUM 145 mmol/L (136-145)
[2021-03-14 10:52] LABS: ALBUMIN 1.7 g/dl (3.4-5.0); ANION GAP 7 MMOL/L (8-16); BLOOD UREA NITROGEN 86.9 mg/dL (7-18); CO2 31 mmol/L (21-32)
[2021-03-14 10:54] LABS: CALCIUM 6.7 mg/dL (8.5-10.1); GLUCOSE,RANDOM 114 mg/dL (74-106)
[2021-03-14 10:56] LABS: CREATININE 3.4 mg/dL (0.55-1.3); SGOT/AST 63 U/L (15-37); SGPT/ALT 91 U/L (13-61)
[2021-03-14 10:57] LABS: BILIRUBIN,TOTAL 0.6 mg/dL (0.2-1)
[2021-03-14 10:58] LABS: ALK PHOS 101 U/L (45-117)
[2021-03-14] MEDS: traMADol HCL 50 MG TABLET PO PRN (15:37)
[2021-03-14] MEDS: ALPRAZolam 0.25 MG TABLET PO PRN (17:23)
[2021-03-14] MEDS: ATORVASTATIN CA 20 MG TABLET (FP) PO SCH (21:45)
[2021-03-14] MEDS: TAMSULOSIN HCL 0.4 MG CAP PO SCH (21:45)
[2021-03-14] MEDS: MELATONIN 5 MG TABLETS PO PRN (21:45)
[2021-03-14] MEDS: LIDOCAINE PATCH REMOVAL MC SCH (21:45)
[2021-03-15 04:04] VITALS: BP 131/53; PULSE 56; TEMP 97.6
[2021-03-15] MEDS ORDERED: TORSEMIDE 20 MG TABLET (FP) PO SCH (10:00)
== END 2021-03-15 07:13 | disposition short-term general hospital (02) | DRG 291 ==
LOC: JER 23:57 → JERBED 03-07 00:21 → J4W 03-07 16:38
PROVIDERS: ADMIT Internal Medicine; ATTEND Internal Medicine
PROC: 30233N1 Transfusion of Nonautologous Red Blood Cells into Peripheral Vein, Percutaneous Approach (ICD-10-PCS; principal; 2021-03-07)
DX: I13.0 Hypertensive heart and chronic kidney disease with heart failure and stage 1 through stage 4 chronic kidney disease, or unspecified chronic kidney disease (principal); J18.9 Pneumonia, unspecified organism; J96.21 Acute and chronic respiratory failure with hypoxia; I50.33 Acute on chronic diastolic (congestive) heart failure; N18.4 Chronic kidney disease, stage 4 (severe); N17.9 Acute kidney failure, unspecified; I25.10 Atherosclerotic heart disease of native coronary artery without angina pectoris; J44.9 Chronic obstructive pulmonary disease, unspecified; I71.4 Abdominal aortic aneurysm, without rupture; I48.91 Unspecified atrial fibrillation; E78.5 Hyperlipidemia, unspecified; K59.00 Constipation, unspecified; K57.90 Diverticulosis of intestine, part unspecified, without perforation or abscess without bleeding; K63.5 Polyp of colon; D64.9 Anemia, unspecified; F41.9 Anxiety disorder, unspecified; E83.51 Hypocalcemia; E87.70 Fluid overload, unspecified; R77.8 Other specified abnormalities of plasma proteins; T45.511A Poisoning by anticoagulants, accidental (unintentional), initial encounter; Z98.890 Other specified postprocedural states; Z86.73 Personal history of transient ischemic attack (TIA), and cerebral infarction without residual deficits; Z66 Do not resuscitate
CPT/HCPCS: 36415; 36430; 36511; 71045-TC-FY; 71250-TC; 80048; 80053; 82550; 82803; 82962; 83605; 83735; 83880; 84484; 85025; 85027; 85610; 85730; 86850; 86900; 86901; 86922; 87040; 93005; 93010; 93978; 94640; 94660; 99285-25; C9803; P9038; P9058; U0003; U0005

== ENCOUNTER 2021-12-19 16:38 | Emergency (ER) | payer OTHER, MEDICARE ==
[2021-12-19 16:59] VITALS: BP 117/89; PULSE 62; RESP 17; TEMP 98; BMI 21.2
[2021-12-19] MEDS ORDERED: ACETAMINOPHEN 1000 MG/100 ML BAG IVPB ONE (17:31)
[2021-12-19] MEDS ORDERED: ACETAMINOPHEN INJECTION 100 ML IVPB ONE (17:44)
== END 2021-12-20 01:56 ==
LOC: JER 16:38
PROC: 3E0333Z Introduction of Anti-inflammatory into Peripheral Vein, Percutaneous Approach (ICD-10-PCS; principal; 2021-12-19)
DX: T83.011A Breakdown (mechanical) of indwelling urethral catheter, initial encounter (principal)
CPT/HCPCS: 99284-25